=== PATIENT | male | born 1965 | race Two or more races ===

== ENCOUNTER → 2020-09-04 08:34 | Outpatient (BNVA) | payer OTHER, SELFPAY | PROVIDERS: PCP Nurse Practitioner Primary Care; Visit Provider Internal Medicine | DX: E11.65 Type 2 diabetes mellitus with hyperglycemia (principal); E78.5 Hyperlipidemia, unspecified; I10 Essential (primary) hypertension; E55.9 Vitamin D deficiency, unspecified | CPT/HCPCS: 82947 ==

== ENCOUNTER 2020-09-04 10:09 | Outpatient (REF) | payer OTHER, SELFPAY ==
[2020-09-04 14:51] LABS: Alanine Aminotransferase 186 U/L (0-40); Albumin Level 4.7 g/dL (3.5-5.0); Alkaline Phosphatase 224 U/L (39-117); Anion Gap 18 (12-20); Aspartate Amino Transferase 169 U/L (5-37); Blood Urea Nitrogen 17 mg/dL (9-16); Calcium 10.3 mg/dL (8.4-10.2); Carbon Dioxide 28 mmol/L (22-29); Chloride 92 mmol/L (96-108); Cholesterol 325 mg/dL; Estimated Glomerular Filt Rate > 60; Glucose Random 234 mg/dL (60-115); HDL Cholesterol 57 mg/dL; LDL Cholesterol Calculated 241 mg/dl; Potassium 3.9 mmol/L (3.3-5.1); Sodium 134 mmol/L (135-145); Total Protein 8.1 g/dL (6.5-8.0); Triglycerides 139 mg/dL
[2020-09-04 15:00] LABS: Creatinine Urine 60.95 mg/dL; Microalbum/Creatinine Ratio Ur 242.8 ug/mg cr
[2020-09-04 15:13] LABS: Free T4 (Free Thyroxine) 0.95 ng/dL (0.71-1.85); Thyroid Stimulating Hormone 2.07 uIU/mL (0.32-4.0); Vitamin D 25-OH Total 27.4 ng/mL (>30)
[2020-09-05 07:57] LABS: LDL Cholesterol Direct 259 mg/dL (<100)
[2020-09-05 09:11] LABS: C Peptide 2.36 ng/mL (0.80-3.85)
[2020-09-07 15:11] LABS: Glutamic acid decarboxylase Ab <5 IU/mL (<5)
[2020-09-10 02:16] LABS: Islet Cell Antibody Screen NEGATIVE (NEGATIVE)
[2020-09-10 17:12] LABS: Insulinoma associated 2 aatb <5.4 U/mL (<5.4)
== END 2020-09-04 10:10 | disposition home or self-care (01) ==
LOC: HO.10HDL 10:09
PROVIDERS: Visit Provider Internal Medicine
DX: E11.9 Type 2 diabetes mellitus without complications (principal); E55.9 Vitamin D deficiency, unspecified
CPT/HCPCS: 36415; 80053; 80061; 82043; 82306; 82947; 83721; 84439; 84443; 84681; 86255; 86341

== ENCOUNTER → 2020-09-18 09:19 | Outpatient (BNVA) | payer OTHER, SELFPAY | PROVIDERS: PCP Nurse Practitioner Primary Care; Visit Provider Internal Medicine ==

== ENCOUNTER → 2020-09-18 09:43 | Outpatient (BNVA) | payer SELFPAY | PROVIDERS: PCP Nurse Practitioner Primary Care; Visit Provider Internal Medicine | DX: Z02.79 Encounter for issue of other medical certificate (principal) ==

== ENCOUNTER 2020-09-28 16:09 | Emergency (ER) | payer OTHER, SELFPAY ==
--- NOTE | ~2020-09-28 | US_ITS ---
EXAMINATION: US SCROTUM WITH DOPPLER CLINICAL INFORMATION: 55-year-old male with right testicular pain and swelling.. COMPARISON: CT abdomen and pelvis from 09/28/2020. Scrotal ultrasound from 07/24/2011. TECHNIQUE: A sonogram of the scrotum was performed assessing roche-scale appearance and color Doppler flow. Spectral Doppler analysis of the arterial and venous flow were performed in the testes bilaterally. FINDINGS: Right: The testicle has normal echotexture. It measures 3.1 x 2 x 2.7 cm. No microlithiasis or mass. Color Doppler images with spectral waveforms show presence of normal arterial and venous flow within the testicle. Small hydrocele is present. The epididymal tail is moderately enlarged, heterogeneous, and hypervascular on color Doppler imaging. No varicocele. Left: The testicle has normal echotexture. It measures 3.2 x 2 x 2.3 cm. Small, 0.2 cm cyst of no appreciable clinical significance is present within the testicle. Small hydrocele is noted. The epididymis is normal. No varicocele. US/US scrotum doppler IMPRESSION: Findings are consistent with right-sided epididymitis.
--- NOTE | ~2020-09-28 | US_ITS ---
EXAMINATION: US SCROTUM WITH DOPPLER CLINICAL INFORMATION: 55-year-old male with right testicular pain and swelling.. COMPARISON: CT abdomen and pelvis from 09/28/2020. Scrotal ultrasound from 07/24/2011. TECHNIQUE: A sonogram of the scrotum was performed assessing roche-scale appearance and color Doppler flow. Spectral Doppler analysis of the arterial and venous flow were performed in the testes bilaterally. FINDINGS: Right: The testicle has normal echotexture. It measures 3.1 x 2 x 2.7 cm. No microlithiasis or mass. Color Doppler images with spectral waveforms show presence of normal arterial and venous flow within the testicle. Small hydrocele is present. The epididymal tail is moderately enlarged, heterogeneous, and hypervascular on color Doppler imaging. No varicocele. Left: The testicle has normal echotexture. It measures 3.2 x 2 x 2.3 cm. Small, 0.2 cm cyst of no appreciable clinical significance is present within the testicle. Small hydrocele is noted. The epididymis is normal. No varicocele. US/US scrotum IMPRESSION: Findings are consistent with right-sided epididymitis.
--- NOTE | ~2020-09-28 | CT_ITS ---
EXAMINATION: CT ABDOMEN AND PELVIS WITHOUT CONTRAST CLINICAL INFORMATION: hesitancy, suprapubic and testicular pain . COMPARISON: No pertinent prior studies are available for comparison. TECHNIQUE: Multidetector volumetric imaging was performed from the superior aspect of the liver through the pubic symphysis without contrast per renal stone protocol. Sagittal and coronal reformatted images were obtained on the technologist workstation. This CT examination was performed using dose optimization techniques as appropriate, variously including the following: *Automated exposure control *Adjustment of mA and/or kV according to patient size (this includes techniques or standardized protocols for targeted exams where dose is matched to indication/reason for exam; i.e. extremities or head) *Use of iterative reconstruction technique DLP: 663 mGy-cm. FINDINGS: LUNG BASES: The visualized lung bases are unremarkable. LIVER, GALLBLADDER, BILIARY TREE: The non-contrast liver is normal in size, shape, and attenuation. No focal hepatic lesion or biliary ductal dilatation is present. The gallbladder is contracted but otherwise unremarkable with no evidence of radiopaque gallstones, gallbladder wall thickening, or obvious pericholecystic inflammatory changes. PANCREAS: Unremarkable. SPLEEN: Unremarkable. ADRENAL GLANDS: Unremarkable. KIDNEYS AND URETERS: Low-attenuation 2 cm cyst in the lateral lower pole of the right kidney. Otherwise the kidneys are normal in size, shape, and attenuation. No hydronephrosis, hydroureter, or calculi seen. No perinephric stranding. BLADDER: Unremarkable. GASTROINTESTINAL TRACT: The small and large bowel are unremarkable. The appendix is unremarkable. ABDOMINAL WALL: Tiny fat-containing umbilical hernia LYMPHOVASCULAR STRUCTURES: Vascular calcification within the aorta iliac system. No bulky adenopathy. PELVIC VISCERA: Unremarkable. OSSEUS STRUCTURES: Unremarkable. CT/CT abdomen pelvis wo con IMPRESSION: No renal or ureteric calculi seen. No obstructive changes to the kidneys. Incidental right renal cyst.
[2020-09-28 16:34] VITALS: BP 120/78; PULSE 98; RESP 16; TEMP 36.7; O2SAT 99
[2020-09-28 16:47] LABS: MANUAL DIFF FLAG NO
[2020-09-28 16:48] LABS: Basophils Percent Auto 0.5 % (0-2); Eosinophils Absolute Auto 0.1 X10*3/uL (0.0-0.4); Eosinophils Percent Auto 1.6 % (0-4); Hematocrit 40.3 % (42-52); Hemoglobin 13.4 g/dl (14.0-18.0); Imm Gran Abs Auto 0.01 X10*3/uL (0.00-0.03); Imm Gran Pct Auto 0.2 % (0.0-0.4); Lymphocytes Absolute Auto 1.7 X10*3/uL (1.2-4.9); Lymphocytes Percent Auto 27.5 % (20-40); Mean Corpuscular HGB Conc 33.3 g/dl (31.0-36.0); Mean Corpuscular Hemoglobin 31.6 pg (27.0-33.0); Mean Platelet Volume 9.4 fL (9.4-12.4); Monocytes Absolute Auto 0.7 X10*3/uL (0.1-1.2); Monocytes Percent Auto 11.5 % (2-11); Neutrophils Absolute Auto 3.6 X10*3/uL (2.0-8.3); Neutrophils Percent Auto 58.7 % (45-73); Platelet Count 193 X10*3/uL (160-400); Red Blood Count 4.24 X10*6/uL (4.60-5.80); Red Cell Distribution Width 12.2 % (11.0-16.0); White Blood Count 6.1 X10*3/uL (4.8-10.8)
--- NOTE | 2020-09-28 17:13 | ED_ITS ---
HPI - Male Genitourinary General Chief complaint: Urogenital-Male Stated complaint: Right testicle pain/Difficulty voiding Time Seen by Provider: 09/28/20 16:58 Source: patient Mode of arrival: ambulatory Limitations: no limitations History of Present Illness HPI Narrative: 55-year-old male with past medical history of prior TURBT, transaminitis, type 1 diabetes, hypertension, hyperlipidemia presents with right-sided testicular pain radiating up to his abdomen. States that he has had this pain since Friday and the pain has gradually gotten worse. He is having a difficult time voiding, having hesitancy as well as pressure. He does not report any injuries, trauma, has no risk of sexually transmitted infection and denies abnormal penile discharge. He does not report fevers, chills, chest pain or pressure, palpitations, shortness of breath, abdominal distention, hematuria, nausea, vomiting, diarrhea, constipation, and edema. MD Complaint: testicle pain and testicle swelling Onset (ago): week(s) (1) Duration: constant Location: right testicle and right inguinal region Severity: severe Severity scale (1-10): 8 Quality: aching Relieving factors: none Exacerbating factors: urination, palpation, movement and bowel movement Associated symptoms: Reports denies other symptoms Related Data Sexually active: No Home Medications Medication Instructions Recorded Confirmed lisinopril 20 1 tab PO DAILY 09/04/20 09/18/20 mg-hydrochlorothiazide 25 mg tablet Previous Rx's Medication Instructions Recorded blood sugar diagnostic #100 ea 09/04/20 blood-glucose meter #1 ea 09/04/20 lancets 28 gauge #100 ea 09/04/20 pen needle, diabetic 32 gauge x #100 09/04/20 1/4 insulin glargine 100 unit/mL (3 12 unit SUBCUT QPM 30 Days #3.6 ml 09/18/20 mL) subcutaneous pen insulin lispro 100 unit/mL 5 unit SUBCUT TID 30 Days #4.5 ml 09/18/20 subcutaneous pen levofloxacin 500 mg PO DAILY 10 Days #10 tab 09/28/20 oxycodone 5 mg PO Q6H PRN #14 tab 09/28/20 Allergies Allergy/AdvReac Type Severity Reaction Status Date / Time aspirin Allergy Unknown Unknown. Verified 09/18/20 09:36 simvastatin Allergy Unknown rash Verified 09/18/20 09:36 No Known Allergies Allergy Verified 09/18/20 09:36 Review of Systems Review of Systems: Constitutional: No Fever, No Chills ENT/Mouth: No sore throat Eyes: No Eye Pain, No Swelling, No Redness Cardiovascular: No Chest Pain, No SOB Respiratory: No Cough, No Sputum, No Wheezing Gastrointestinal: positive Nausea, positive Vomiting, No Diarrhea, positive abdominal pain Genitourinary: Positive testicular pain, positive Dysuria, positive urinary frequency, positive Hematuria, no Flank Pain, positive hesitancy Musculoskeletal: No joint pain, No Myalgias Skin: No Skin Lesions, No rash Neuro: No Weakness, No Numbness, No Headache Psych: No Anxiety/Panic, No Depression Heme/Lymph: No Bruising, No Lymphadenopathy Endocrine: No Polyuria, No Polydipsia Yes all other systems are reviewed and are negative [facility] Past Medical History Attestation statement: The following information was validated with the patient. Source: old records reviewed Medical History HLD (hyperlipidemia) HTN (hypertension) T1DM (type 1 diabetes mellitus) Transaminitis Vitamin D deficiency Surgical History History of carpal tunnel release Hx of colonoscopy Family History Family History Mother Diabetes Hypertension Father Myocardial infarction Social History Social History Household Members: Spouse Alcohol intake: current Smoking Status: Current every day smoker Packs Per Day: 1.5 Years Smoked: 20 Smoked in Last 30 Days: Yes Use of substances other than those prescribed or required for medical reasons: No Advance Directives: No Advance Directives Information Provided: Yes Physical Exam Vital Signs: Vital Signs: Last Vital Signs Temp 98.0 F 09/28/20 16:34 Pulse 103 H 09/28/20 19:44 Resp 18 09/28/20 19:44 BP 151/61 H 09/28/20 19:44 Pulse Ox 100 09/28/20 19:44 Body Mass Index 8.9 Appearance: Alert. Oriented X3. No acute distress. Eyes: Pupils equal, round and reactive to light. ENT: Pharynx normal. Neck: Normal inspection. Neck supple. CVS: Normal heart rate and rhythm. Pulses normal. Respiratory: No respiratory distress. Breath sounds normal. Abdomen: Soft and nontender. Skin: Skin warm and dry. Normal skin color. Normal skin turgor. Extremities: No lower extremity edema. Neuro: No motor deficit. No sensory deficit. Course Course Course Narrative: 55-year-old male presents with right-sided testicular pain radiating up to his groin and abdomen. No reports of injury, or trauma. 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 Patient is in the hallway, cannot perform testicular exam at this time, patient does report that it is swollen on the right side and very tender to palpation. Will order ultrasound and CT scan of the abdomen. Ultrasound shows right-sided epididymitis, CT scan of the abdomen negative for acute findings requiring emergent intervention. Discussion with patient regarding plan, will treat as if this is an epididymitis stemming from a prostate problem, will treat with oxycodone for pain management and refer to Urology. Patient verbalized understanding of and agrees to plan of care discharge home. MDM - Male Genitourinary Differential Diagnosis Differential diagnosis: Likely urinary tract infection, urethritis, epididymitis, prostatitis and acute retention of urine Medical Records Attestation: I reviewed the patient's medical records. Lab Data Attestation: I reviewed the patient's lab results. Result diagrams: 09/28/20 16:39 09/28/20 16:39 Labs: Lab Results 09/28/20 09/28/20 09/28/20 Range/Units 16:39 16:39 18:47 WBC 6.1 (4.8-10.8) X10*3/uL RBC 4.24 L (4.60-5.80) X10*6/uL Hgb 13.4 L (14.0-18.0) g/dl Hct 40.3 L (42-52) % MCV 95.0 (80-98) fL MCH 31.6 (27.0-33.0) pg MCHC 33.3 (31.0-36.0) g/dl RDW 12.2 (11.0-16.0) % Plt Count 193 (160-400) X10*3/uL MPV 9.4 (9.4-12.4) fL Immature Gran % (Auto) 0.2 (0.0-0.4) % Neut % (Auto) 58.7 (45-73) % Lymph % (Auto) 27.5 (20-40) % Rowan % (Auto) 11.5 H (2-11) % Eos % (Auto) 1.6 (0-4) % Baso % (Auto) 0.5 (0-2) % Lymph # (Auto) 1.7 (1.2-4.9) X10*3/uL Rowan # (Auto) 0.7 (0.1-1.2) X10*3/uL Eos # (Auto) 0.1 (0.0-0.4) X10*3/uL Baso # (Auto) 0.0 (0.0-0.2) X10*3/uL Abs Immat Gran (auto) 0.01 (0.00-0.03) X10*3/uL Absolute Neuts (auto) 3.6 (2.0-8.3) X10*3/uL Absolute Nucleated RBC 0.000 (0.0-0.012) X10*3/uL Nucleated RBC % (auto) 0.0 (0.0-0.2) /100WBC Sodium 135 (135-145) mmol/L Potassium 4.4 (3.3-5.1) mmol/L Chloride 98 (96-108) mmol/L Carbon Dioxide 25 (22-29) mmol/L Anion Gap 16 (12-20) BUN 13 (9-16) mg/dL Creatinine 0.97 (0.5-1.4) mg/dL Estim Creat Clear Calc 33.9 Estimated GFR > 60 Random Glucose 229 H (60-115) mg/dL Calcium 9.8 (8.4-10.2) mg/dL Urine Color YELLOW Urine Appearance HAZY Urine pH 5.5 (5.0-8.0) Ur Specific [place] >= 1.030 H (1.005-1.025) Urine Protein TRACE (NEG-TRACE) MG/DL Urine Glucose (UA) 250 H (NEG) MG/DL Urine Ketones 15 (NEG) MG/DL Urine Blood 3+ H (NEG) Urine Nitrite NEG (NEG) Ur Leukocyte Esterase 1+ H (NEG) Urine RBC 50-75 H (0) /HPF Urine WBC 15-29 H (0-4) /HPF Ur Squamous Epith Cells NONE /LPF Urine Bacteria 1+ /LPF Urine Test (NEGATIVE) 09/28/20 Range/Units 18:47 WBC (4.8-10.8) X10*3/uL RBC (4.60-5.80) X10*6/uL Hgb (14.0-18.0) g/dl Hct (42-52) % MCV (80-98) fL MCH (27.0-33.0) pg MCHC (31.0-36.0) g/dl RDW (11.0-16.0) % Plt Count (160-400) X10*3/uL MPV (9.4-12.4) fL Immature Gran % (Auto) (0.0-0.4) % Neut % (Auto) (45-73) % Lymph % (Auto) (20-40) % Rowan % (Auto) (2-11) % Eos % (Auto) (0-4) % Baso % (Auto) (0-2) % Lymph # (Auto) (1.2-4.9) X10*3/uL Rowan # (Auto) (0.1-1.2) X10*3/uL Eos # (Auto) (0.0-0.4) X10*3/uL Baso # (Auto) (0.0-0.2) X10*3/uL Abs Immat Gran (auto) (0.00-0.03) X10*3/uL Absolute Neuts (auto) (2.0-8.3) X10*3/uL Absolute Nucleated RBC (0.0-0.012) X10*3/uL Nucleated RBC % (auto) (0.0-0.2) /100WBC Sodium (135-145) mmol/L Potassium (3.3-5.1) mmol/L Chloride (96-108) mmol/L Carbon Dioxide (22-29) mmol/L Anion Gap (12-20) BUN (9-16) mg/dL Creatinine (0.5-1.4) mg/dL Estim Creat Clear Calc Estimated GFR Random Glucose (60-115) mg/dL Calcium (8.4-10.2) mg/dL Urine Color Urine Appearance Urine pH (5.0-8.0) Ur Specific [place] (1.005-1.025) Urine Protein (NEG-TRACE) MG/DL Urine Glucose (UA) (NEG) MG/DL Urine Ketones (NEG) MG/DL Urine Blood (NEG) Urine Nitrite (NEG) Ur Leukocyte Esterase (NEG) Urine RBC (0) /HPF Urine WBC (0-4) /HPF Ur Squamous Epith Cells /LPF Urine Bacteria /LPF Urine Test NEGATIVE (NEGATIVE) Imaging Data Scrotal ultrasound: Attestation: I personally reviewed and interpreted this imaging study as follows: Radiologist's impression: EXAMINATION: US SCROTUM WITH DOPPLER CLINICAL INFORMATION: 55-year-old male with right testicular pain and swelling.. COMPARISON: CT abdomen and pelvis from 09/28/2020. Scrotal ultrasound from 07/24/2011. TECHNIQUE: A sonogram of the scrotum was performed assessing roche-scale appearance and color Doppler flow. Spectral Doppler analysis of the arterial and venous flow were performed in the testes bilaterally. FINDINGS: Right: The testicle has normal echotexture. It measures 3.1 x 2 x 2.7 cm. No microlithiasis or mass. Color Doppler images with spectral waveforms show presence of normal arterial and venous flow within the testicle. Small hydrocele is present. The epididymal tail is moderately enlarged, heterogeneous, and hypervascular on color Doppler imaging. No varicocele. Left: The testicle has normal echotexture. It measures 3.2 x 2 x 2.3 cm. Small, 0.2 cm cyst of no appreciable clinical significance is present within the testicle. Small hydrocele is noted. The epididymis is normal. No varicocele. US/US scrotum IMPRESSION: Findings are consistent with right-sided epididymitis. CT scan - abdomen: Attestation: I personally reviewed and interpreted this imaging study as follows: Radiologist's impression: EXAMINATION: CT ABDOMEN AND PELVIS WITHOUT CONTRAST CLINICAL INFORMATION: hesitancy, suprapubic and testicular pain . COMPARISON: No pertinent prior studies are available for comparison. TECHNIQUE: Multidetector volumetric imaging was performed from the superior aspect of the liver through the pubic symphysis without contrast per renal stone protocol. Sagittal and coronal reformatted images were obtained on the technologist workstation. This CT examination was performed using dose optimization techniques as appropriate, variously including the following: *Automated exposure control *Adjustment of mA and/or kV according to patient size (this includes techniques or standardized protocols for targeted exams where dose is matched to indication/reason for exam; i.e. extremities or head) *Use of iterative reconstruction technique DLP: 663 mGy-cm. FINDINGS: LUNG BASES: The visualized lung bases are unremarkable. LIVER, GALLBLADDER, BILIARY TREE: The non-contrast liver is normal in size, shape, and attenuation. No focal hepatic lesion or biliary ductal dilatation is present. The gallbladder is contracted but otherwise unremarkable with no evidence of radiopaque gallstones, gallbladder wall thickening, or obvious pericholecystic inflammatory changes. PANCREAS: Unremarkable. SPLEEN: Unremarkable. ADRENAL GLANDS: Unremarkable. KIDNEYS AND URETERS: Low-attenuation 2 cm cyst in the lateral lower pole of the right kidney. Otherwise the kidneys are normal in size, shape, and attenuation. No hydronephrosis, hydroureter, or calculi seen. No perinephric stranding. BLADDER: Unremarkable. GASTROINTESTINAL TRACT: The small and large bowel are unremarkable. The appendix is unremarkable. ABDOMINAL WALL: Tiny fat-containing umbilical hernia LYMPHOVASCULAR STRUCTURES: Vascular calcification within the aorta iliac system. No bulky adenopathy. PELVIC VISCERA: Unremarkable. OSSEUS STRUCTURES: Unremarkable. CT/CT abdomen pelvis wo con IMPRESSION: No renal or ureteric calculi seen. No obstructive changes to the kidneys. Incidental right renal cyst. Discharge Plan Discharge Clinical Impression: Epididymitis Patient Disposition: Home, Self-Care Instructions: Epididymitis (ED), Testicle Pain (ED), Scrotal Pain (ED) Additional Instructions: You were evaluated for right-sided testicular pain. Scrotal ultrasound shows right-sided epididymitis, no indication of infection to the left testicle. CT scan of the abdomen is negative for acute findings requiring emergent intervention. Please follow-up with Urology. I referred you to Dr. Gonzalez. Please call and request an appointment. Please tell the office that you have epididymitis you are being treated with Levaquin and oxycodone. Please return to the emergency department immediately if you are unable to urinate as this is a medical emergency. Thank you for choosing this emergency department for evaluation. Please f ollow-up with primary care physician as needed. Return to the emergency department for any new, concerning, or worsening symptoms. Prescriptions: New levofloxacin 500 mg tablet 500 mg PO DAILY 10 Days Qty: 10 RF: 0 oxycodone 5 mg tablet 5 mg PO Q6H PRN (Reason: pain) Qty: 14 RF: 0 No Action Lantus Solostar U-100 Insulin 100 unit/mL (3 mL) insulin pen 12 unit subcut QPM 30 Days Qty: 3.6 RF: 11 insulin lispro [Humalog KwikPen Insulin] 100 unit/mL insulin pen 5 unit subcut TID 30 Days Qty: 4.5 RF: 11 lisinopril-hydrochlorothiazide 20-25 mg tablet 1 tab PO DAILY RF: 0 (DME) pen needle, diabetic [BD Ultra-Fine Micro Pen Needle] 32 gauge x 1/4 needle See Rx Instructions .ROUTE .MEDSUPPLY Qty: 100 RF: 11 (DME) FreeStyle Lite Strips Strip See Rx Instructions .ROUTE .MEDSUPPLY Qty: 100 RF: 11 (DME) lancets [FreeStyle Lancets] 28 gauge misc See Rx Instructions .ROUTE .MEDSUPPLY Qty: 100 RF: 11 (DME) blood-glucose meter [FreeStyle Lite Meter] Kit See Rx Instructions .ROUTE .MEDSUPPLY Qty: 1 RF: 0 Referrals: Ren Gonzalez MD [Physician] - 2 days (Epididymitis) Stand Alone Forms: Work/School Release Interventions: ED Discharge Assessment Last Done: 09/28/20 19:51 Discharge Date/Time: 09/28/20 19:55
[2020-09-28 17:16] LABS: Anion Gap 16 (12-20); Blood Urea Nitrogen 13 mg/dL (9-16); Calcium 9.8 mg/dL (8.4-10.2); Carbon Dioxide 25 mmol/L (22-29); Chloride 98 mmol/L (96-108); Creatinine Clr Calc Pharmacy 33.9; Estimated Glomerular Filt Rate > 60; Glucose Random 229 mg/dL (60-115); Potassium 4.4 mmol/L (3.3-5.1); Sodium 135 mmol/L (135-145)
[2020-09-28 18:58] LABS: Appearance Urine HAZY; Color Urine YELLOW; Glucose Urine UA 250 MG/DL (NEG); Leukocyte Esterase Urine 1+ (NEG); Nitrite Urine NEG (NEG); PH 5.5 (5.0-8.0); Specific Gravity - Urine >= 1.030 (1.005-1.025); UACC Culture Trigger YES; Urine Blood 3+ (NEG); Urine Ketones 15 MG/DL (NEG); Urine Protein TRACE MG/DL (NEG-TRACE)
[2020-09-28 19:04] LABS: Bacteria Urine 1+ /LPF; RBC Urine 50-75 /HPF (0)
[2020-09-28 19:33] LABS: UPreg QC Valid YES; Urine Pregnancy NEGATIVE (NEGATIVE)
[2020-09-28] MEDS: oxyCODONE HCl Immed Release 5 MG TABLET PO (19:37)
[2020-09-28] MEDS: levoFLOXacin 750 MG TABLET 500 MG PO (19:38)
[2020-09-28 19:44] VITALS: BP 151/61; PULSE 103; RESP 18; O2SAT 100
== END 2020-09-28 19:55 | disposition home or self-care (01) ==
PROVIDERS: Nurse Practitioner Family; Emergency Provider Internal Medicine
DX: N45.1 Epididymitis (principal); N50.811 Right testicular pain; I10 Essential (primary) hypertension; F17.210 Nicotine dependence, cigarettes, uncomplicated; Z79.899 Other long term (current) drug therapy; Z71.6 Tobacco abuse counseling
CPT/HCPCS: 36415; 74176; 76870; 80048; 81001; 81003; 81025; 85025; 87086; 93975; 99284

== ENCOUNTER 2020-10-02 10:54 | Emergency (ER) | payer OTHER, SELFPAY ==
[2020-10-02 11:12] VITALS: BP 116/78; PULSE 98; RESP 18; TEMP 36.1; O2SAT 100; BMI 23.6
--- NOTE | 2020-10-02 11:25 | ED_ITS ---
HPI - General Adult General Chief complaint: General Medical Stated complaint: med refill Time Seen by Provider: 10/02/20 11:10 Source: patient Mode of arrival: ambulatory Limitations: no limitations History of Present Illness HPI narrative: Patient presents to ED requesting more pain meds. Patient recently diagnosed with epididymitis and taking oxycodone requesting short term disablity papers to be filled out and requesting more pain meds to hold him until his appointment with Dr. Gonzalez. patient states testicular pain has not worsened. He states he is only able to take percocet once a day, because if he takes more than one perocet he begins to get jittery and not able to sleep at night. Related Data Home Medications Medication Instructions Recorded Confirmed lisinopril 20 1 tab PO DAILY 09/04/20 09/18/20 mg-hydrochlorothiazide 25 mg tablet Previous Rx's Medication Instructions Recorded blood sugar diagnostic #100 ea 09/04/20 blood-glucose meter #1 ea 09/04/20 lancets 28 gauge #100 ea 09/04/20 pen needle, diabetic 32 gauge x #100 ea 09/04/20 1/ insulin glargine 100 unit/mL (3 12 unit SUBCUT QPM 30 Days #3.6 ml 09/18/20 mL) subcutaneous pen insulin lispro 100 unit/mL 5 unit SUBCUT TID 30 Days #4.5 ml 09/18/20 subcutaneous pen levofloxacin 500 mg PO DAILY 10 Days #10 tab 09/28/20 oxycodone 5 mg PO Q6H PRN #14 tab 09/28/20 naproxen 500 mg PO BID PRN #20 tab 10/02/20 Allergies Allergy/AdvReac Type Severity Reaction Status Date / Time aspirin Allergy Unknown Unknown. Verified 10/02/20 11:15 simvastatin Allergy Unknown rash Verified 10/02/20 11:15 No Known Allergies Allergy Verified 10/02/20 11:15 Review of Systems Review of Systems: Yes all other systems are reviewed and are negative Constitutional: Constitutional: Reports as per HPI and Reports no additional constitutional complaints Eyes: Eyes: Reports as per HPI and Reports no additional eye complaints ENT: Reports system reviewed and no additional complaints, except as documented and Reports as per HPI Cardiovascular: Cardiovascular: Reports as per HPI and Reports no additional cardiovascular complaints Respiratory: Respiratory: Reports as per HPI and Reports no additional respiratory complaints Gastrointestinal: Gastrointestinal: Reports as per HPI and Reports no additional gastrointestinal complaints Genitourinary: Genitourinary: Reports no additional male genitourinary complaints and Reports as per HPI Musculoskeletal: Musculoskeletal: Reports no additional musculoskeletal complaints and Reports as per HPI Neurologic: Reports system reviewed and no additional complaints, except as documented and Reports as per HPI Psychiatric: Psychiatric: Reports no additional psychiatric complaints and Reports as per HPI [facility] Past Medical History Medical History HLD (hyperlipidemia) HTN (hypertension) T1DM (type 1 diabetes mellitus) Transaminitis Vitamin D deficiency Surgical History History of carpal tunnel release Hx of colonoscopy Family History Family History Mother Diabetes Hypertension Father Myocardial infarction Social History Social History Household Members: Spouse Alcohol intake: current Smoking Status: Current every day smoker Packs Per Day: 1.5 Years Smoked: 20 Advance Directives: No Advance Directives Information Provided: Yes Physical Exam Vital Signs: Vital Signs: Last Vital Signs Temp 97.0 F 10/02/20 11:12 Pulse 98 10/02/20 11:12 Resp 18 10/02/20 11:12 BP 116/78 10/02/20 11:12 Pulse Ox 100 10/02/20 11:12 Body Mass Index 23.6 Const: General: cooperative, healthy appearing, comfortable, no acute distress, well developed, alert and awake Orientation/consciousness: patient oriented x3 HENMT: Head: Yes normal to inspection, Yes No palpable skull fracture present, Yes normocephalic and Yes atraumatic Eyes: General: appearance normal, both eyes and all related structures Neck: Neck: Yes normal visual inspection, Yes full ROM, Yes no lymphadenopathy, Yes no meningeal signs, Yes trachea midline, Yes supple and No tender Chest: Chest palpation & inspection: normal inspection of the chest and normal palpation of entire chest wall Resp: Effort & Inspection: normal respiratory effort and able to speak in complete sentences Auscultation: clear to auscultation bilaterally Cardio: Jugular venous distension: no JVD Heart sounds: S1 normal heart sound present and S2 normal heart sound present GI: Inspection: Yes normal to inspection and No abdominal wall ecchymosis Palpation (GI): not firm, nontender, no guarding and not rigid : General: No CVA tenderness and Yes no CVA tenderness Back/Spine/Pelvis: Back: no CVA tenderness, No CVA tenderness and No back tenderness Skin: General skin exam: no rashes or lesions noted and elasticity normal Neuro: General: patient oriented x3, no meningeal signs and CN's II-XI intact bilaterally Cranial nerves: Yes CN's II-XII intact bilaterally Extrem: General: Yes normal to inspection and Yes full ROM Psych: Appearance: grossly normal, well kempt and not disheveled Course Course Course Narrative: No need for repeat imaging or labs. Patient denies any distress. Reevaluation(s) Reevaluation #1: Patient will be discharged with naproxen. Patient states able to take NSAIDs. I informed patient I will not be able to fill out his FMLA or short-term disability paperwork and that should be done by his primary care provider. Medical Decision Making MDM Narrative Medical decision making narrative: Indication refill Discharge Plan Discharge Clinical Impression: Medication refill Patient Disposition: Home, Self-Care Instructions: Medicine Refill (ED) Additional Instructions: Return to ED for worsening testicular pain, abdominal pain, nausea, vomiting, r edness on testicles, fever, chill, lesions, pus, foul odor, severe swelling, or any other concerning symptoms. Make sure you keep your appointment with Dr. Gonzalez on the th of this month. Prescriptions: New naproxen 500 mg tablet 500 mg PO BID PRN (Reason: pain) Qty: 20 RF: 0 No Action levofloxacin 500 mg tablet 500 mg PO DAILY 10 Days Qty: 10 RF: 0 oxycodone 5 mg tablet 5 mg PO Q6H PRN (Reason: pain) Qty: 14 RF: 0 Lantus Solostar U-100 Insulin 100 unit/mL (3 mL) insulin pen 12 unit subcut QPM 30 Days Qty: 3.6 RF: 11 insulin lispro [Humalog KwikPen Insulin] 100 unit/mL insulin pen 5 unit subcut TID 30 Days Qty: 4.5 RF: 11 lisinopril-hydrochlorothiazide 20-25 mg tablet 1 tab PO DAILY RF: 0 (DME) pen needle, diabetic [BD Ultra-Fine Micro Pen Needle] 32 gauge x 1/4 needle See Rx Instructions .ROUTE .MEDSUPPLY Qty: 100 RF: 11 (DME) FreeStyle Lite Strips Strip See Rx Instructions .ROUTE .MEDSUPPLY Qty: 100 RF: 11 (DME) lancets [FreeStyle Lancets] 28 gauge misc See Rx Instructions .ROUTE .MEDSUPPLY Qty: 100 RF: 11 (DME) blood-glucose meter [FreeStyle Lite Meter] Kit See Rx Instructions .ROUTE .MEDSUPPLY Qty: 1 RF: 0 Stand Alone Forms: Work/School Release Interventions: ED Discharge Assessment Last Done: 10/02/20 11:54 Discharge Date/Time: 10/02/20 12:01 Print Language: Eritrean
== END 2020-10-02 12:01 | disposition home or self-care (01) ==
PROVIDERS: Emergency Provider Emergency Medicine; PCP Internal Medicine Geriatric Medicine
DX: Z76.0 Encounter for issue of repeat prescription (principal); N45.1 Epididymitis; E10.9 Type 1 diabetes mellitus without complications; I10 Essential (primary) hypertension; E78.5 Hyperlipidemia, unspecified; F17.210 Nicotine dependence, cigarettes, uncomplicated
CPT/HCPCS: 99282; 99283

== ENCOUNTER → 2020-10-19 08:42 | Outpatient (BNVA) | payer OTHER, SELFPAY | PROVIDERS: PCP Internal Medicine Geriatric Medicine; Visit Provider Urology ==

== ENCOUNTER → 2020-11-20 09:16 | Outpatient (BNVA) | payer OTHER, SELFPAY | PROVIDERS: PCP Internal Medicine Geriatric Medicine; Visit Provider Dietitian, Registered | DX: E10.65 Type 1 diabetes mellitus with hyperglycemia (principal) | CPT/HCPCS: 97802 ==

== ENCOUNTER → 2021-01-01 10:28 | Outpatient (BNVA) | payer OTHER, SELFPAY | PROVIDERS: PCP Internal Medicine Geriatric Medicine; Visit Provider Dietitian, Registered | DX: E10.65 Type 1 diabetes mellitus with hyperglycemia (principal) | CPT/HCPCS: 97803 ==

== ENCOUNTER 2021-03-26 12:18 | Outpatient (REF) | payer OTHER, SELFPAY ==
[2021-03-26 14:36] LABS: Creatinine Urine 199.05 mg/dL
[2021-03-26 14:44] LABS: Alanine Aminotransferase 103 U/L (0-40); Albumin Level 4.5 g/dL (3.5-5.0); Alkaline Phosphatase 114 U/L (39-117); Anion Gap 17 (12-20); Aspartate Amino Transferase 119 U/L (5-37); Bilirubin Total 0.4 mg/dL (0.0-1.0); Blood Urea Nitrogen 10 mg/dL (9-16); Calcium 9.5 mg/dL (8.4-10.2); Carbon Dioxide 25 mmol/L (22-29); Chloride 104 mmol/L (96-108); Cholesterol 281 mg/dL; Estimated Glomerular Filt Rate > 60; Glucose Random 99 mg/dL (60-115); HDL Cholesterol 53 mg/dL; LDL Cholesterol Calculated 203 mg/dl; Potassium 3.7 mmol/L (3.3-5.1); Sodium 142 mmol/L (135-145); Total Protein 7.6 g/dL (6.5-8.0); Triglycerides 129 mg/dL
[2021-03-27 11:36] LABS: LDL Cholesterol Direct 211 mg/dL (<100)
== END 2021-03-26 12:19 | disposition home or self-care (01) ==
LOC: HO.LAB 12:18
PROVIDERS: PCP Internal Medicine Geriatric Medicine; Visit Provider Internal Medicine
DX: E10.65 Type 1 diabetes mellitus with hyperglycemia (principal); E78.5 Hyperlipidemia, unspecified; E55.9 Vitamin D deficiency, unspecified; I10 Essential (primary) hypertension
CPT/HCPCS: 36415; 80053; 80061; 82947; 83036; 83721

== ENCOUNTER 2021-05-22 08:53 | Emergency (ER) | payer OTHER, SELFPAY ==
--- NOTE | ~2021-05-22 | US_ITS ---
EXAMINATION: US ABDOMEN LIMITED CLINICAL INFORMATION: Upper abdominal and epigastric pain. COMPARISON: Prior CT abdomen and pelvis 09/28/2020 and prior ultrasound abdomen 06/02/2019 TECHNIQUE: Real-time imaging of the right upper quadrant abdominal viscera. FINDINGS: PANCREAS: The pancreas is obscured by midline bowel gas although there is increased conspicuity of the pancreatic duct at 2 mm. LIVER: Liver is enlarged at 18 cm cephalocaudad and echogenic compatible with steatosis . There are no focal hepatic lesions or intrahepatic biliary dilatation GALLBLADDER: Normal. The gallbladder is physiologically distended without evidence of stones, sludge, polyps, wall thickening or pericholecystic fluid. COMMON BILE DUCT: Normal in caliber measuring 0.2 cm in diameter. RIGHT KIDNEY: There is an interpolar cyst at 21 x 20 x 22 mm . No hydronephrosis. No renal calculi or focal solid parenchymal lesions. The kidney measures 11.0 cm in maximum dimension. FREE FLUID: None. US/US abdomen limited IMPRESSION: Enlarged echogenic liver compatible with steatosis
[2021-05-22 08:58] VITALS: BP 162/81; PULSE 125; RESP 22; TEMP 36.1; O2SAT 96; BMI 23.6
[2021-05-22 10:00] VITALS: BP 178/98; PULSE 105; RESP 14; TEMP 37.1; O2SAT 100
--- NOTE | 2021-05-22 10:31 | ECG_ITS ---
Test Reason : tachycardia Blood Pressure : / mmHG Vent. Rate : 107 BPM Atrial Rate : 107 BPM P-R Int : 136 ms QRS Dur : 082 ms QT Int : 352 ms P-R-T Axes : 073 029 037 degrees QTc Int : 469 ms Sinus tachycardia Otherwise normal ECG When compared to the previous EKG of No significant changes seen Referred By: Jenny Garland Electronically Signed By:Wilmer Geiger
--- NOTE | 2021-05-22 10:32 | ED_ITS ---
HPI - Abdominal Pain General Chief Complaint: Abdominal Pain Stated Complaint: COVID Symptoms Time Seen by Provider: 05/22/21 10:24 Source: patient Mode of arrival: ambulatory Limitations: no limitations History of Present Illness HPI narrative: patient comes emergency room complaining of bilateral lower quadrant cramping, nausea, vomiting. Patient states the symptoms have been present for 1 week. Patient states that he initially had some episodes of diarrhea but no longer has diarrhea. Patient complaining of nausea and vomiting, unable to keep any food or liquids down. Patient states that his told him that his urine stinks. patient denies fever. Patient complaining of generalized weakness and fatigue. Patient states that he has been tachycardic at times. Related Data Home Medications Medication Instructions Recorded Confirmed lisinopril 20 1 tab PO DAILY 09/04/20 03/26/21 mg-hydrochlorothiazide 25 mg tablet ergocalciferol (vitamin D2) 1,250 1,250 mcg PO QWEEK 10/19/20 03/26/21 mcg (50,000 unit) capsule thiamine HCl (vitamin B1) 100 mg 100 mg PO QAM 10/19/20 03/26/21 tablet Previous Rx's Medication Instructions Recorded blood-glucose meter (FreeStyle #1 ea 09/04/20 Lite Meter) lancets 28 gauge (FreeStyle #100 ea 09/04/20 Lancets) levofloxacin 500 mg tablet 500 mg PO DAILY 10 Days #10 tab 09/28/20 oxycodone 5 mg tablet 5 mg PO Q6H PRN #14 tab 09/28/20 naproxen 500 mg tablet 500 mg PO BID PRN #20 tab 10/02/20 tadalafil 10 mg tablet 10 mg PO DAILY 90 Days #90 tab 10/19/20 pen needle, diabetic 32 gauge x #150 ea 10/20/2005/29 (BD Ultra-Fine Micro Pen Needle) blood sugar diagnostic (FreeStyle #100 ea 01/17/21 Lite Strips) Humalog KwikPen Insulin 100 16 unit (0.16 mL) SUBCUT TID 30 04/04/21 unit/mL subcutaneous (insulin Days #15 ml NS lispro) insulin glargine 100 unit/mL (3 30 unit (0.3 mL) SUBCUT QPM 30 04/05/21 mL) subcutaneous pen (Lantus Days #9 ml Solostar U-100 Insulin) prochlorperazine maleate 5 mg 5 mg PO TID PRN #10 tab 05/22/21 tablet (Compazine) Allergies Allergy/AdvReac Type Severity Reaction Status Date / Time aspirin Allergy Unknown Unknown. Verified 05/22/21 08:57 simvastatin Allergy Unknown rash Verified 05/22/21 08:57 No Known Allergies Allergy Verified 03/26/21 12:42 Review of Systems Review of Systems Constitutional : No Weight loss, No Fever, No Chills, No Night Sweats, Complaining of fatigue and generalized malaise, weakness ENT/Mouth : No Hearing loss, No Ear Pain, No Nasal Congestion, No Sinus Pain, No Hoarseness, No sore throat, No Rhinorrhea, No Swallowing Difficulty Eyes: No Eye Pain, No Swelling, No Redness, No Foreign Body, No Discharge, No Vision Changes Cardiovascular : No Chest Pain, No SOB, No Dyspnea on Exertion, No Orthopnea, No Edema, No Palpitations Respiratory : No Cough, No Sputum, No Wheezing, No Smoke Exposure, No Dyspnea Gastrointestinal : complaining of nausea, vomiting, resolved episode of diarrhea.No Constipation, Complaining of bilateral lower quadrant discomfort, No Hematochezia, No Melena Genitourinary : no irregular bleeding, No Dysuria, No Urinary Frequency, No Hematuria, No Urinary Incontinence, No Urgency, No Flank Pain, No Urinary Flow Changes, No Hesitancy Musculoskeletal : No joint pain, No Myalgias, No Joint Swelling Skin : No Skin Lesions, No rash Neuro : No Weakness, No Numbness, No Paresthesias, No Loss of Consciousness, No Dizziness, No Headache Psych : No Anxiety/Panic, No Depression, No SI/HI/AH/VH, No Social Issues, Heme/Lymph: No Bruising, No Bleeding,No Lymphadenopathy Endocrine : No Polyuria, No Polydipsia, No Temperature Intolerance Physical Exam Vital Signs: Vital Signs: Last Vital Signs Temp 98.8 F 05/22/21 10:00 Pulse 101 H 05/22/21 14:39 Resp 18 05/22/21 14:39 BP 156/92 H 05/22/21 14:39 Pulse Ox 98 05/22/21 14:39 BMI result Body Mass Index 23.6 Const: Other: Appearance: Alert. Oriented X3. No acute distress. Eyes: Pupils equal, round and reactive to light. ENT: Pharynx normal. Neck: Normal inspection. Neck supple. No lymph nodes noted. No crepitus CVS: Normal heart rate and rhythm. Pulses normal. Normal S1 and S2 Respiratory: No respiratory distress. Breath sounds normal. No Wheezing. No rales Abdomen: Soft , no significant tenderness on palpation in abdomen in all quadrants, No rigidity. No distention. Skin: Skin warm and dry. Normal skin color. Normal skin turgor. Extremities: No lower extremity edema. No lower extremity edema. No L acerations. No Rash Neuro: Oriented X 3. No motor deficit. No sensory deficit. Moving all extermit ies. No slurred speech. Course Course Course Narrative: labs pending, patient getting IV fluids, IV Compazine. patient had good results with IV Compazine. Patient no longer having vomiting, this time no abdominal pain. Ultrasound did not show any acute pathology. MDM - Abdominal Pain Lab Data Result diagrams: 05/22/21 10:44 05/22/21 10:44 Labs: Lab Results 05/22/21 05/22/21 05/22/21 Range/Units 10:39 10:44 10:44 WBC 4.0 L (4.8-10.8) X10*3/uL RBC 4.48 L (4.60-5.80) X10*6/uL Hgb 14.1 (14.0-18.0) g/dl Hct 40.2 L (42.0-52.0) % MCV 89.7 (80.0-98.0) fL MCH 31.5 (27.0-33.0) pg MCHC 35.1 (31.0-36.0) g/dl RDW 13.5 (11.0-16.0) % Plt Count 119 L (160-400) X10*3/uL MPV 9.9 (9.4-12.4) fL Immature Gran % (Auto) 0.2 (0.0-0.4) % Neut % (Auto) 74.6 H (45-73) % Lymph % (Auto) 11.6 L (20-40) % Anderson % (Auto) 13.1 H (2-11) % Eos % (Auto) 0.0 (0-4) % Baso % (Auto) 0.5 (0-2) % Lymph # (Auto) 0.5 L (1.2-4.9) X10*3/uL Anderson # (Auto) 0.5 (0.1-1.2) X10*3/uL Eos # (Auto) 0.0 (0.0-0.4) X10*3/uL Baso # (Auto) 0.0 (0.0-0.2) X10*3/uL Abs Immat Gran (auto) 0.01 (0.00-0.03) X10*3/uL Absolute Neuts (auto) 3.0 (2.0-8.3) x10*3/uL Absolute Nucleated RBC 0.000 (0.0-0.012) X10*3/uL Nucleated RBC % (auto) 0.0 (0.0-0.2) /100WBC Sodium 139 (135-145) mmol/L Potassium 3.8 (3.3-5.1) mmol/L Chloride 94 L (96-108) mmol/L Carbon Dioxide 27 (22-29) mmol/L Anion Gap 22 H (12-20) BUN 10 (9-16) mg/dL Creatinine 1.14 (0.5-1.4) mg/dL Estim Creat Clear Calc 77.3 Estimated GFR > 60 Random Glucose 283 H D (60-115) mg/dL Calcium 9.8 (8.4-10.2) mg/dL Total Bilirubin 1.8 H (0.0-1.0) mg/dL Direct Bilirubin 1.0 H (0.0-0.5) mg/dL AST 176 H (5-37) U/L ALT 162 H (0-40) U/L Alkaline Phosphatase 147 H D (39-117) U/L Total Protein 8.2 H (6.5-8.0) g/dL Albumin 4.3 (3.5-5.0) g/dL Lipase 46 (8-78) U/L Urine Color Urine Appearance Urine pH (5.0-8.0) Ur Specific [place] (1.005-1.025) Urine Protein (NEG-TRACE) MG/DL Urine Glucose (UA) (NEG) MG/DL Urine Ketones (NEG) MG/DL Urine Blood (NEG) Urine Nitrite (NEG) Ur Leukocyte Esterase (NEG) Urine RBC (0) /HPF Urine WBC (0-4) /HPF Ur Squamous Epith Cells /LPF Urine Bacteria /LPF Urine Mucus /LPF COVID-19 (TAMARA) Negative (Negative) COVID-19 Clin Com See Note 05/22/21 Range/Units 11:03 WBC (4.8-10.8) X10*3/uL RBC (4.60-5.80) X10*6/uL Hgb (14.0-18.0) g/dl Hct (42.0-52.0) % MCV (80.0-98.0) fL MCH (27.0-33.0) pg MCHC (31.0-36.0) g/dl RDW (11.0-16.0) % Plt Count (160-400) X10*3/uL MPV (9.4-12.4) fL Immature Gran % (Auto) (0.0-0.4) % Neut % (Auto) (45-73) % Lymph % (Auto) (20-40) % Anderson % (Auto) (2-11) % Eos % (Auto) (0-4) % Baso % (Auto) (0-2) % Lymph # (Auto) (1.2-4.9) X10*3/uL Anderson # (Auto) (0.1-1.2) X10*3/uL Eos # (Auto) (0.0-0.4) X10*3/uL Baso # (Auto) (0.0-0.2) X10*3/uL Abs Immat Gran (auto) (0.00-0.03) X10*3/uL Absolute Neuts (auto) (2.0-8.3) x10*3/uL Absolute Nucleated RBC (0.0-0.012) X10*3/uL Nucleated RBC % (auto) (0.0-0.2) /100WBC Sodium (135-145) mmol/L Potassium (3.3-5.1) mmol/L Chloride (96-108) mmol/L Carbon Dioxide (22-29) mmol/L Anion Gap (12-20) BUN (9-16) mg/dL Creatinine (0.5-1.4) mg/dL Estim Creat Clear Calc Estimated GFR Random Glucose (60-115) mg/dL Calcium (8.4-10.2) mg/dL Total Bilirubin (0.0-1.0) mg/dL Direct Bilirubin (0.0-0.5) mg/dL AST (5-37) U/L ALT (0-40) U/L Alkaline Phosphatase (39-117) U/L Total Protein (6.5-8.0) g/dL Albumin (3.5-5.0) g/dL Lipase (8-78) U/L Urine Color YELLOW Urine Appearance CLEAR Urine pH 6.0 (5.0-8.0) Ur Specific [place] >= 1.030 H (1.005-1.025) Urine Protein 2+ H (NEG-TRACE) MG/DL Urine Glucose (UA) 500 H (NEG) MG/DL Urine Ketones 15 (NEG) MG/DL Urine Blood TRACE (NEG) Urine Nitrite NEG (NEG) Ur Leukocyte Esterase NEG (NEG) Urine RBC 1-4 (0) /HPF Urine WBC 0 (0-4) /HPF Ur Squamous Epith Cells NONE /LPF Urine Bacteria NONE /LPF Urine Mucus 1+ /LPF COVID-19 (T[facility]ARA) (Negative) COVID-19 Clin Com Imaging Data US - abdomen: Radiologist's impression: FINDINGS: PANCREAS: The pancreas is obscured by midline bowel gas although there is increased conspicuity of the pancreatic duct at 2 mm. LIVER: Liver is enlarged at 18 cm cephalocaudad and echogenic compatible with steatosis . There are no focal hepatic lesions or intrahepatic biliary dilatation GALLBLADDER: Normal. The gallbladder is physiologically distended without evidence of stones, sludge, polyps, wall thickening or pericholecystic fluid. COMMON BILE DUCT: Normal in caliber measuring 0.2 cm in diameter. RIGHT KIDNEY: There is an interpolar cyst at 21 x 20 x 22 mm . No hydronephrosis. No renal calculi or focal solid parenchymal lesions. The kidney measures 11.0 cm in maximum dimension. FREE FLUID: None. US/US abdomen limited IMPRESSION: Discharge Plan Discharge Clinical Impression: Nausea & vomiting Patient Disposition: Home, Self-Care Instructions: Acute Nausea and Vomiting (ED) Additional Instructions: Please follow-up with your primary care physician tomorrow. If you have any worsening or new symptoms, please return to the emergency room or call 911 Prescriptions: New prochlorperazine maleate [Compazine] 5 mg tablet 5 mg PO TID PRN (Reason: nausea and vomiting) Qty: 10 RF: 0 No Action (DME) pen needle, diabetic [BD Ultra-Fine Micro Pen Needle] 32 gauge x 1/4 needle See Rx Instructions .ROUTE .MEDSUPPLY Qty: 150 RF: 11 (DME) FreeStyle Lite Strips Strip See Rx Instructions .ROUTE .MEDSUPPLY Qty: 100 RF: 11 insulin lispro [Humalog KwikPen Insulin] 100 unit/mL insulin pen 16 unit subcut TID 30 Days Qty: 15 RF: 11 Lantus Solostar U-100 Insulin 100 unit/mL (3 mL) insulin pen 30 unit subcut QPM 30 Days Qty: 9 RF: 11 levofloxacin 500 mg tablet 500 mg PO DAILY 10 Days Qty: 10 RF: 0 oxycodone 5 mg tablet 5 mg PO Q6H PRN (Reason: pain) Qty: 14 RF: 0 naproxen 500 mg tablet 500 mg PO BID PRN (Reason: pain) Qty: 20 RF: 0 thiamine HCl (vitamin B1) 100 mg tablet 100 mg PO QAM RF: 0 ergocalciferol (vitamin D2) 1,250 mcg (50,000 unit) capsule 1,250 mcg PO QWEEK RF: 0 tadalafil 10 mg tablet 10 mg PO DAILY 90 Days Qty: 90 RF: 0 lisinopril-hydrochlorothiazide 20-25 mg tablet 1 tab PO DAILY RF: 0 (DME) lancets [FreeStyle Lancets] 28 gauge misc See Rx Instructions .ROUTE .MEDSUPPLY Qty: 100 RF: 11 (DME) blood-glucose meter [FreeStyle Lite Meter] Kit See Rx Instructions .ROUTE .MEDSUPPLY Qty: 1 RF: 0 PMFSH Past Medical History Medical History HLD (hyperlipidemia) HTN (hypertension) T1DM (type 1 diabetes mellitus) Transaminitis Vitamin D deficiency Surgical History History of carpal tunnel release Hx of colonoscopy Family History Family History Mother Diabetes Hypertension Father Myocardial infarction Social History Social History Household Members: Spouse Alcohol intake: current Alcohol intake frequency: a few times a week Patient Tobacco Use Status: Former Tobacco user Quit Date: 14 years ago Cigarette Packs Per Day: 1.5 Years Smoked: 20 Use of substances other than those prescribed or required for medical reasons: No Advance Directives: No Advance Directives Information Provided: No
[2021-05-22] MEDS: Prochlorperazine Edisylate 10 MG/2 ML VIAL IVPUSH (10:45)
[2021-05-22] MEDS: 0.9 % Sodium Chloride 1,000 ML 999 ML IVCONT (10:45)
[2021-05-22 10:47] LABS: MANUAL DIFF FLAG NO
[2021-05-22 10:48] LABS: Basophils Percent Auto 0.5 % (0-2); Hematocrit 40.2 % (42.0-52.0); Hemoglobin 14.1 g/dl (14.0-18.0); Imm Gran Abs Auto 0.01 X10*3/uL (0.00-0.03); Imm Gran Pct Auto 0.2 % (0.0-0.4); Lymphocytes Absolute Auto 0.5 X10*3/uL (1.2-4.9); Lymphocytes Percent Auto 11.6 % (20-40); Mean Corpuscular HGB Conc 35.1 g/dl (31.0-36.0); Mean Corpuscular Hemoglobin 31.5 pg (27.0-33.0); Mean Corpuscular Volume 89.7 fL (80.0-98.0); Mean Platelet Volume 9.9 fL (9.4-12.4); Monocytes Absolute Auto 0.5 X10*3/uL (0.1-1.2); Monocytes Percent Auto 13.1 % (2-11); Neutrophils Percent Auto 74.6 % (45-73); Platelet Count 119 X10*3/uL (160-400); Red Blood Count 4.48 X10*6/uL (4.60-5.80); Red Cell Distribution Width 13.5 % (11.0-16.0)
[2021-05-22 10:54] VITALS: BP 120/70; PULSE 81; RESP 16; O2SAT 97
[2021-05-22 11:03] LABS: COVID-19 Test Negative (Negative); IDNOW Serial# 9DD0AD1C
[2021-05-22 11:14] LABS: Appearance Urine CLEAR; Color Urine YELLOW; Glucose Urine UA 500 MG/DL (NEG); Leukocyte Esterase Urine NEG (NEG); Nitrite Urine NEG (NEG); Specific Gravity - Urine >= 1.030 (1.005-1.025); UACC Culture Trigger NO; Urine Blood TRACE (NEG); Urine Ketones 15 MG/DL (NEG); Urine Protein 2+ MG/DL (NEG-TRACE)
[2021-05-22 11:24] LABS: Mucus Urine 1+ /LPF; WBC Urine 0 /HPF (0-4)
[2021-05-22 11:27] LABS: Alanine Aminotransferase 162 U/L (0-40); Albumin Level 4.3 g/dL (3.5-5.0); Alkaline Phosphatase 147 U/L (39-117); Anion Gap 22 (12-20); Aspartate Amino Transferase 176 U/L (5-37); Bilirubin Total 1.8 mg/dL (0.0-1.0); Blood Urea Nitrogen 10 mg/dL (9-16); Calcium 9.8 mg/dL (8.4-10.2); Carbon Dioxide 27 mmol/L (22-29); Chloride 94 mmol/L (96-108); Creatinine Clr Calc Pharmacy 77.3; Estimated Glomerular Filt Rate > 60; Glucose Random 283 mg/dL (60-115); Lipase 46 U/L (8-78); Potassium 3.8 mmol/L (3.3-5.1); Sodium 139 mmol/L (135-145); Total Protein 8.2 g/dL (6.5-8.0)
[2021-05-22 12:00] VITALS: BP 164/89; PULSE 102; RESP 18; O2SAT 97
[2021-05-22 14:39] VITALS: BP 156/92; PULSE 101; RESP 18; O2SAT 98
== END 2021-05-22 15:59 | disposition home or self-care (01) ==
PROVIDERS: Emergency Provider Emergency Medicine; PCP Internal Medicine Geriatric Medicine
DX: R11.2 Nausea with vomiting, unspecified (principal); I10 Essential (primary) hypertension; E11.9 Type 2 diabetes mellitus without complications; Z20.822 Contact with and (suspected) exposure to COVID-19
CPT/HCPCS: 36415; 76705; 80048; 80076; 81001; 83690; 85025; 87635; 93005; 96361; 96374; 99284

== ENCOUNTER → 2021-06-18 10:01 | Outpatient (BNVA) | payer OTHER, SELFPAY | PROVIDERS: PCP Nurse Practitioner Primary Care; Visit Provider Registered Nurse Diabetes Educator ==

== ENCOUNTER → 2021-07-02 11:07 | Outpatient (BNVA) | payer OTHER, SELFPAY | PROVIDERS: PCP Nurse Practitioner Primary Care; Visit Provider Dietitian, Registered | DX: E10.65 Type 1 diabetes mellitus with hyperglycemia (principal) | CPT/HCPCS: 97803 ==

== ENCOUNTER → 2021-07-23 09:55 | Outpatient (BNVA) | payer OTHER, SELFPAY | PROVIDERS: PCP Nurse Practitioner Primary Care; Visit Provider Registered Nurse Diabetes Educator ==

== ENCOUNTER → 2021-08-27 09:53 | Outpatient (BNVA) | payer OTHER, SELFPAY | PROVIDERS: PCP Nurse Practitioner Primary Care; Visit Provider Registered Nurse Diabetes Educator | DX: Z13.89 Encounter for screening for other disorder (principal) ==

== ENCOUNTER → 2021-09-17 09:11 | Outpatient (BNVA) | payer SELFPAY | PROVIDERS: PCP Nurse Practitioner Primary Care; Visit Provider Internal Medicine | DX: Z02.79 Encounter for issue of other medical certificate (principal) | CPT/HCPCS: 82947; 83036 ==

== ENCOUNTER → 2021-09-18 09:08 | Outpatient (BNVA) | payer OTHER, SELFPAY | PROVIDERS: PCP Nurse Practitioner Primary Care; Visit Provider Dietitian, Registered | DX: Z13.89 Encounter for screening for other disorder (principal) ==

== ENCOUNTER 2021-10-05 06:06 | Emergency (ER) | payer OTHER, SELFPAY ==
--- NOTE | ~2021-10-05 | CT_ITS ---
CT HEAD WITHOUT CONTRAST CLINICAL INFORMATION: Dizziness. COMPARISON: None available. TECHNIQUE: Contiguous axial imaging was performed from the skull base to vertex without intravenous administration of contrast. This CT examination was performed using dose optimization techniques as appropriate, variously including the following: *Automated exposure control *Adjustment of mA and/or kV according to patient size (this includes techniques or standardized protocols for targeted exams where dose is matched to indication/reason for exam; i.e. extremities or head) *Use of iterative reconstruction technique FINDINGS: Asymmetric low attenuation within the left margaret that could be artifactual or that could reflect an infarct which can be clinically correlated. A MRI of the brain could be obtained for more definitive assessment. There is no intracranial hemorrhage, hydrocephalus, extra-axial surface collection, midline shift, or other herniation pattern. Sorensen to white matter differentiation is diffusely maintained without evidence of an evolved acute territorial infarct. The basilar cisterns are preserved. No significant soft tissue abnormality. No acute osseous abnormality. The paranasal sinuses and the mastoid air cells are well aerated. CT/CT head/brain wo con IMPRESSION: Asymmetric low attenuation within the left margaret that could be artifactual or that could reflect an infarct which can be clinically correlated. A MRI of the brain could be obtained for more definitive assessment. No mass effect and no acute hemorrhage.
--- NOTE | ~2021-10-05 | MR_ITS ---
MRI OF THE BRAIN WITHOUT IV CONTRAST INDICATION: Dizziness. Abnormal CT scan. COMPARISON: Head CT 10/05/2021. TECHNIQUE: Multiplanar multisequence MR imaging of the brain was obtained without IV contrast. FINDINGS: There is no hydrocephalus, extra-axial surface collection, or herniation. There is global cerebral volume loss and there is mild chronic microangiopathy. The major flow voids at the skull base are preserved. There is no acute infarct on diffusion-weighted imaging. There is no intracranial hemorrhage on the gradient recalled echo acquisition. The midline structures are normal. The cerebellar tonsils are normally positioned. The cerebellum and brainstem are normal. The craniocervical junction is normal. Osseous marrow signal intensity is homogenous. Micrometallic artifact within the left occipital scalp. Mild mucosal thickening throughout the paranasal sinuses. MR/MR head/brain wo con IMPRESSION: - Previously seen possible hypodensity within the left margaret was artifactual. There are no acute infarcts. - There is global cerebral volume loss and there is mild chronic microangiopathy.
[2021-10-05 06:16] VITALS: BP 144/87; BP 148/74; PULSE 75; PULSE 78; RESP 16; TEMP 36.7; O2SAT 98; O2SAT 99; BMI 25.1
--- NOTE | 2021-10-05 06:35 | ED.NAVMDI ---
HPI - Nausea/Vomiting/Diarrhea General Chief complaint: Nausea/Vomiting/Diarrhea Stated complaint: N/V X1HOUR Time Seen by Provider: 10/05/21 06:23 Source: patient and old records reviewed Mode of arrival: EMS Limitations: no limitations History of Present Illness MD elicited complaint: nausea, vomiting and other (dizziness) Pertinent past history: other (drank 3 beers last night) Onset (ago): hour(s) (woke up with symptoms and got up at 5am) Description of vomiting: watery Associated nausea: Yes Associated abdominal pain: No Location of pain: none Severity: moderate Exacerbating factors: movement and standing Relieving factors: other (rest and closing eyes) Context: alcohol abuse Associated symptoms: malaise, nausea/vomiting and other (dizziness with movements) Treatment prior to arrival: fluids Related Data Home Medications Medication Instructions Recorded Confirmed lisinopril 20 1 tab PO DAILY 09/04/20 09/17/21 mg-hydrochlorothiazide 25 mg tablet ergocalciferol (vitamin D2) 1,250 1,250 mcg PO QWEEK 10/19/20 09/17/21 mcg (50,000 unit) capsule thiamine HCl (vitamin B1) 100 mg 100 mg PO QAM 10/19/20 09/17/21 tablet Previous Rx's Medication Instructions Recorded blood-glucose meter (FreeStyle #1 ea 09/04/20 Lite Meter) lancets 28 gauge (FreeStyle #100 ea 09/04/20 Lancets) levofloxacin 500 mg tablet 500 mg PO DAILY 10 Days #10 tab 09/28/20 oxycodone 5 mg tablet 5 mg PO Q6H PRN #14 tab 09/28/20 naproxen 500 mg tablet 500 mg PO BID PRN #20 tab 10/02/20 tadalafil 10 mg tablet 10 mg PO DAILY 90 Days #90 tab 10/19/20 pen needle, diabetic 32 gauge x #150 ea 10/20/2005/29 (BD Ultra-Fine Micro Pen Needle) blood sugar diagnostic (FreeStyle #100 ea 01/17/21 Lite Strips) insulin glargine 100 unit/mL (3 30 unit (0.3 mL) SUBCUT QPM 30 04/05/21 mL) subcutaneous pen (Lantus Days #9 ml Solostar U-100 Insulin) prochlorperazine maleate 5 mg 5 mg PO TID PRN #10 tab 05/22/21 tablet (Compazine) Humalog KwikPen Insulin 100 14 - 24 unit (0.14 - 0.24 mL) 08/27/21 unit/mL subcutaneous (insulin SUBCUT TID 45 Days #30 ml NS MDD 66 lispro) ondansetron 4 mg disintegrating 4 mg PO Q8H PRN #20 tab 10/05/21 tablet Allergies Allergy/AdvReac Type Severity Reaction Status Date / Time aspirin Allergy Unknown Unknown. Verified 09/17/21 12:51 simvastatin Allergy Unknown rash Verified 09/17/21 12:51 No Known Allergies Allergy Verified 09/17/21 12:51 Review of Systems Review of Systems: Constitutional : No Fever, No Chills, No Fatigue ENT/Mouth : No sore throat, No Rhinorrhea Eyes: No Eye Pain, No Swelling, No Redness Cardiovascular : No Chest Pain, No SOB, No Dyspnea on Exertion Respiratory : No Cough, No Sputum Gastrointestinal : pos Nausea, pos Vomiting, No Diarrhea, No abdominal Pain Genitourinary : No Dysuria, No Urinary Frequency, No Hematuria, Musculoskeletal : No joint pain, No Myalgias, No Joint Swelling Skin : No Skin Lesions, No rash Neuro : No Weakness, No Numbness, pos Dizziness, no Headache Psych : No Anxiety/Panic, No Depression Heme/Lymph: No Bruising, No Bleeding,No Lymphadenopathy Endocrine : No Polyuria, No Polydipsia All other systems reviewed and are negative Gastrointestinal: Gastrointestinal: Reports nausea PMFSH Past Medical History Attestation statement: The following information was validated with the patient. Medical History HLD (hyperlipidemia) HTN (hypertension) T1DM (type 1 diabetes mellitus) Transaminitis Vitamin D deficiency Surgical History History of carpal tunnel release Hx of colonoscopy Family History Family History Mother Diabetes Hypertension Father Myocardial infarction Social History Social History Household Members: Spouse Alcohol intake: current Alcohol intake frequency: a few times a week Patient Tobacco Use Status: Former Tobacco user Quit Date: 14 years ago Cigarette Packs Per Day: 1.5 Years Smoked: 20 Use of substances other than those prescribed or required for medical reasons: No Advance Directives: No Advance Directives Information Provided: No Physical Exam Vital Signs: Vital Signs: Last Vital Signs Temp 98.1 F 10/05/21 06:16 Pulse 96 10/05/21 13:39 Resp 17 10/05/21 13:39 BP 136/74 10/05/21 13:39 Pulse Ox 97 10/05/21 13:39 BMI result Body Mass Index 25.1 Appearance: Alert. Oriented X3. No acute distress. Anxious Eyes: Pupils equal, round and reactive to light. no nystagmus ENT: Pharynx normal. Neck: Normal inspection. Neck supple. CVS: Normal heart rate and rhythm. Pulses normal. Respiratory: No respiratory distress. Breath sounds normal. Abdomen: Soft and non-tender. Skin: Skin warm and dry. Normal skin color. Normal skin turgor. Extremities: No lower extremity edema. No calf ttp Neuro: Oriented X 3. No motor deficit. No sensory deficit. no drift Course Course Course Narrative: patient feels much better at this time abnormal CT scan - MRI of the brain ordered at this time to evaluate for infarct vs artifact negative MRI at this time stable for DC, eating feels much better stable for DC MDM - Nausea/Vomiting/Diarrhea MDM Narrative Medical decision making narrative: 56 yo male with hx of hep C, HTN, HLD, DM here with c/o waking up and feeling dizzy at 5am worse with movements better with closing eyes - he has no drift or other neurologic symptoms woke up like this. He denies CP/SOB. He drank 3 beers before bed which is normal for him. At this time will need labs, hydration, IVF x 2L, zofran. CT head for mass, EKG, seems atypical for posterior stroke but did wake up with symptoms. Dispo per results and findings. Lab Data Result diagrams: 10/05/21 06:59 10/05/21 06:59 Labs: Lab Results 10/05/21 10/05/21 10/05/21 Range/Units 06:59 06:59 06:59 WBC 3.6 L (4.8-10.8) X10*3/uL RBC 4.40 L (4.60-5.80) X10*6/uL Hgb 13.3 L (14.0-18.0) g/dl Hct 39.9 L (42.0-52.0) % MCV 90.7 (80.0-98.0) fL MCH 30.2 (27.0-33.0) pg MCHC 33.3 (31.0-36.0) g/dl RDW 13.1 (11.0-16.0) % Plt Count 112 L (160-400) X10*3/uL MPV 10.4 (9.4-12.4) fL Immature Gran % (Auto) 0.6 H (0.0-0.4) % Neut % (Auto) 55.1 (45-73) % Lymph % (Auto) 30.4 (20-40) % [place] % (Auto) 9.2 (2-11) % Eos % (Auto) 3.9 (0-4) % Baso % (Auto) 0.8 (0-2) % Lymph # (Auto) 1.1 L (1.2-4.9) X10*3/uL [place] # (Auto) 0.3 (0.1-1.2) X10*3/uL Eos # (Auto) 0.1 (0.0-0.4) X10*3/uL Baso # (Auto) 0.0 (0.0-0.2) X10*3/uL Abs Immat Gran (auto) 0.02 (0.00-0.03) X10*3/uL Absolute Neuts (auto) 2.0 (2.0-8.3) x10*3/uL Absolute Nucleated RBC 0.000 (0.0-0.012) X10*3/uL Nucleated RBC % (auto) 0.0 (0.0-0.2) /100WBC Sodium 137 (135-145) mmol/L Potassium 4.4 (3.3-5.1) mmol/L Chloride 106 (96-108) mmol/L Carbon Dioxide 24 (22-29) mmol/L Anion Gap 11 L (12-20) BUN 12 (9-16) mg/dL Creatinine 0.98 (0.5-1.4) mg/dL Estim Creat Clear Calc 88.9 Estimated GFR > 60 Random Glucose 211 H (60-115) mg/dL Calcium 9.1 D (8.4-10.2) mg/dL Total Bilirubin 0.5 (0.0-1.0) mg/dL AST 52 H (5-37) U/L ALT 55 H (0-40) U/L Alkaline Phosphatase 98 D (39-117) U/L Troponin I High Sens (<3.5-35.0) ng/L Total Protein 6.9 (6.5-8.0) g/dL Albumin 3.7 (3.5-5.0) g/dL Ethyl Alcohol mg/dL Acetone, Qual Negative (Negative) COVID-19 (TAMARA) (Negative) COVID-19 Clin Com Influenza Type A (ARTURO) Negative (Negative) Influenza Type B (ARTURO) Negative (Negative) Influenza A & B Note See Note 10/05/21 10/05/21 10/05/21 Range/Units 06:59 06:59 06:59 WBC (4.8-10.8) X10*3/uL RBC (4.60-5.80) X10*6/uL Hgb (14.0-18.0) g/dl Hct (42.0-52.0) % MCV (80.0-98.0) fL MCH (27.0-33.0) pg MCHC (31.0-36.0) g/dl RDW (11.0-16.0) % Plt Count (160-400) X10*3/uL MPV (9.4-12.4) fL Immature Gran % (Auto) (0.0-0.4) % Neut % (Auto) (45-73) % Lymph % (Auto) (20-40) % [place] % (Auto) (2-11) % Eos % (Auto) (0-4) % Baso % (Auto) (0-2) % Lymph # (Auto) (1.2-4.9) X10*3/uL [place] # (Auto) (0.1-1.2) X10*3/uL Eos # (Auto) (0.0-0.4) X10*3/uL Baso # (Auto) (0.0-0.2) X10*3/uL Abs Immat Gran (auto) (0.00-0.03) X10*3/uL Absolute Neuts (auto) (2.0-8.3) x10*3/uL Absolute Nucleated RBC (0.0-0.012) X10*3/uL Nucleated RBC % (auto) (0.0-0.2) /100WBC Sodium (135-145) mmol/L Potassium (3.3-5.1) mmol/L Chloride (96-108) mmol/L Carbon Dioxide (22-29) mmol/L Anion Gap (12-20) BUN (9-16) mg/dL Creatinine (0.5-1.4) mg/dL Estim Creat Clear Calc Estimated GFR Random Glucose (60-115) mg/dL Calcium (8.4-10.2) mg/dL Total Bilirubin (0.0-1.0) mg/dL AST (5-37) U/L ALT (0-40) U/L Alkaline Phosphatase (39-117) U/L Troponin I High Sens < 3.5 (<3.5-35.0) ng/L Total Protein (6.5-8.0) g/dL Albumin (3.5-5.0) g/dL Ethyl Alcohol < 10 mg/dL Acetone, Qual (Negative) COVID-19 (TAMARA) Negative (Negative) COVID-19 Clin Com See Note Influenza Type A (ARTURO) (Negative) Influenza Type B (ARTURO) (Negative) Influenza A & B Note ECG Data Attestation: I personally reviewed and interpreted this ECG as follows: ECG interpretation date: 10/05/21 ECG interpretation time: 07:13 Interpretation: Rate: 79 Rhythm: NSR Omro: normal Normal P waves. Normal MALVIN. Normal QRS complex. ST T wave : normal no CAHRLIE qTC: normal prior studies: no acute ischemia The study has been interpreted contemporaneously by me. Discharge Plan Discharge Clinical Impression: Dizziness Vomiting Qualifiers: Vomiting type: unspecified Nausea presence: with nausea Qualified Code(s): R11.2 - Nausea with vomiting, unspecified Patient Disposition: Home, Self-Care Instructions: Acute Nausea and Vomiting (ED), Dizziness (ED) Additional Instructions: return to ED for any worsening symptoms or concerns negative MRI Prescriptions: New ondansetron 4 mg tablet,disintegrating 4 mg PO Q8H PRN (Reason: nausea and vomiting) Qty: 20 0RF No Action (DME) pen needle, diabetic [BD Ultra-Fine Micro Pen Needle] 32 gauge x 1/4 needle See Rx Instructions .ROUTE .MEDSUPPLY Qty: 150 11RF Rx Instructions: four times a day (DME) FreeStyle Lite Strips Strip See Rx Instructions .ROUTE .MEDSUPPLY Qty: 100 11RF Rx Instructions: 4x daily Lantus Solostar U-100 Insulin 100 unit/mL (3 mL) insulin pen 30 unit subcut QPM 30 Days Qty: 9 11RF insulin lispro [Humalog KwikPen Insulin] 100 unit/mL insulin pen 14 - 24 unit subcut TID MDD 66 45 Days Qty: 30 11RF levofloxacin 500 mg tablet 500 mg PO DAILY 10 Days Qty: 10 0RF oxycodone 5 mg tablet 5 mg PO Q6H PRN (Reason: pain) Qty: 14 0RF Rx Instructions: Epididymitis naproxen 500 mg tablet 500 mg PO BID PRN (Reason: pain) Qty: 20 0RF prochlorperazine maleate [Compazine] 5 mg tablet 5 mg PO TID PRN (Reason: nausea and vomiting) Qty: 10 0RF thiamine HCl (vitamin B1) 100 mg tablet 100 mg PO QAM 0RF ergocalciferol (vitamin D2) 1,250 mcg (50,000 unit) capsule 1,250 mcg PO QWEEK 0RF tadalafil 10 mg tablet 10 mg PO DAILY 90 Days Qty: 90 0RF lisinopril-hydrochlorothiazide 20-25 mg tablet 1 tab PO DAILY 0RF (DME) lancets [FreeStyle Lancets] 28 gauge misc See Rx Instructions .ROUTE .MEDSUPPLY Qty: 100 11RF Rx Instructions: 4x daily (DME) blood-glucose meter [FreeStyle Lite Meter] Kit See Rx Instructions .ROUTE .MEDSUPPLY Qty: 1 0RF Rx Instructions: As directed Stand Alone Forms: Work/School Release
--- NOTE | 2021-10-05 06:44 | ECG_ITS ---
Test Reason : DISSINESS/ NAUSEA Blood Pressure : / mmHG Vent. Rate : 079 BPM Atrial Rate : 079 BPM P-R Int : 164 ms QRS Dur : 088 ms QT Int : 374 ms P-R-T Axes : 072 018 040 degrees QTc Int : 428 ms Normal sinus rhythm Normal ECG When compared with ECG of 22-MAY-2021 10:46, No significant change was found Referred By: Gina Skinner Electronically Signed By:TIGRE CULLEN MD
[2021-10-05] MEDS: ondansetron HCL 4 MG/2 ML VIAL IVPUSH (06:48)
[2021-10-05] MEDS: 0.9 % Sodium Chloride 2,000 ML 999 ML IV (06:51)
[2021-10-05 07:06] LABS: MANUAL DIFF FLAG NO
[2021-10-05 07:10] LABS: Basophils Percent Auto 0.8 % (0-2); Eosinophils Absolute Auto 0.1 X10*3/uL (0.0-0.4); Eosinophils Percent Auto 3.9 % (0-4); Hematocrit 39.9 % (42.0-52.0); Hemoglobin 13.3 g/dl (14.0-18.0); Imm Gran Abs Auto 0.02 X10*3/uL (0.00-0.03); Imm Gran Pct Auto 0.6 % (0.0-0.4); Lymphocytes Absolute Auto 1.1 X10*3/uL (1.2-4.9); Lymphocytes Percent Auto 30.4 % (20-40); Mean Corpuscular HGB Conc 33.3 g/dl (31.0-36.0); Mean Corpuscular Hemoglobin 30.2 pg (27.0-33.0); Mean Corpuscular Volume 90.7 fL (80.0-98.0); Mean Platelet Volume 10.4 fL (9.4-12.4); Monocytes Absolute Auto 0.3 X10*3/uL (0.1-1.2); Monocytes Percent Auto 9.2 % (2-11); Neutrophils Percent Auto 55.1 % (45-73); Platelet Count 112 X10*3/uL (160-400); Red Cell Distribution Width 13.1 % (11.0-16.0); White Blood Count 3.6 X10*3/uL (4.8-10.8)
[2021-10-05 07:21] LABS: Acetone, serum QL Negative (Negative); Ethanol < 10 mg/dL
[2021-10-05 07:23] LABS: COVID-19 Test Negative (Negative); IDNOW Serial# 55D5AD1C; IDNOW Serial# 9DB6401D; Influenza A Negative (Negative); Influenza B2 Negative (Negative)
[2021-10-05 07:25] LABS: Alanine Aminotransferase 55 U/L (0-40); Albumin Level 3.7 g/dL (3.5-5.0); Alkaline Phosphatase 98 U/L (39-117); Anion Gap 11 (12-20); Aspartate Amino Transferase 52 U/L (5-37); Bilirubin Total 0.5 mg/dL (0.0-1.0); Blood Urea Nitrogen 12 mg/dL (9-16); Calcium 9.1 mg/dL (8.4-10.2); Carbon Dioxide 24 mmol/L (22-29); Chloride 106 mmol/L (96-108); Creatinine Clr Calc Pharmacy 88.9; Estimated Glomerular Filt Rate > 60; Glucose Random 211 mg/dL (60-115); Potassium 4.4 mmol/L (3.3-5.1); Sodium 137 mmol/L (135-145); Total Protein 6.9 g/dL (6.5-8.0)
[2021-10-05 07:29] LABS: Troponin-I High Sensitivity < 3.5 ng/L (<3.5-35.0)
[2021-10-05 09:51] VITALS: BP 117/67; PULSE 78; RESP 16; O2SAT 98
[2021-10-05] MEDS: LORazepam 2 MG/ML VIAL 1 MG IVPUSH (13:30)
[2021-10-05 13:39] VITALS: BP 136/74; PULSE 96; RESP 17; O2SAT 97
== END 2021-10-05 14:14 | disposition home or self-care (01) ==
PROVIDERS: Student in an Organized Health Care Education/Training Program; Emergency Provider Emergency Medicine; PCP Nurse Practitioner Primary Care
DX: R11.2 Nausea with vomiting, unspecified (principal); R42 Dizziness and giddiness; R90.89 Other abnormal findings on diagnostic imaging of central nervous system; I10 Essential (primary) hypertension; E10.9 Type 1 diabetes mellitus without complications; Z20.822 Contact with and (suspected) exposure to COVID-19
CPT/HCPCS: 36415; 70450; 70551; 80053; 82009; 82077; 84484; 85025; 87502; 87635; 93005; 96361; 96374; 96375; 99284; 99285; J2060; J2405

== ENCOUNTER 2021-11-19 12:18 | Outpatient (REF) | payer OTHER, SELFPAY ==
[2021-11-19 14:59] LABS: Ferritin 82 ng/mL (20-250)
[2021-11-19 15:38] LABS: Creatinine Urine 168.36 mg/dL
[2021-11-19 15:56] LABS: Alanine Aminotransferase 72 U/L (0-40); Albumin Level 4.4 g/dL (3.5-5.0); Alkaline Phosphatase 138 U/L (39-117); Anion Gap 15 (12-20); Aspartate Amino Transferase 66 U/L (5-37); Bilirubin Total 0.7 mg/dL (0.0-1.0); Blood Urea Nitrogen 13 mg/dL (9-16); Calcium 9.8 mg/dL (8.4-10.2); Carbon Dioxide 24 mmol/L (22-29); Chloride 106 mmol/L (96-108); Cholesterol 286 mg/dL; Estimated Glomerular Filt Rate > 60; Glucose Random 72 mg/dL (60-115); HDL Cholesterol 45 mg/dL; Iron 91 mcg/dL (45-160); LDL Cholesterol Calculated 213 mg/dl; Lipase 43 U/L (8-78); Percent Iron Saturation 23 % (15-50); Potassium 4.7 mmol/L (3.3-5.1); Sodium 140 mmol/L (135-145); Total Iron Binding Capacity 393 mcg/dL (228-428); Total Protein 7.8 g/dL (6.5-8.0); Triglycerides 144 mg/dL; Unsaturated Iron Binding 302 ug/dL
[2021-11-19 20:37] LABS: Estimated Average Glucose 131 mg/dL; Hemoglobin A1c % 6.2 %
[2021-11-21 00:37] LABS: LDL Cholesterol Direct 216 mg/dL (<100)
[2021-11-21 14:17] LABS: Ceruloplasmin 29 mg/dL (18-36)
[2021-11-21 14:31] LABS: Anti Nuclear Antibody Screen NEGATIVE (NEGATIVE)
[2021-11-22 23:23] LABS: Smooth Muscle Antibody <20 U (<20)
[2021-11-23 19:06] LABS: FIB-ALT 62 U/L (9-46); FIB-Alpha-2-Macroglobulin 404 mg/dL (106-279); FIB-Apolipoprotein A1 139 mg/dL (94-176); FIB-GGT 239 U/L (3-95); FIB-Haptoglobin 119 mg/dL (43-212); FIB-Total Bilirubin 0.6 mg/dL (0.2-1.2); Liver Fibrosis Score 0.81; Liver Fibrosis Stage F4; Nec Inflam Act Grade A2; Nec Inflam Act Score 0.56
[2021-11-27 15:52] LABS: Mitochondrial Antibodies NEGATIVE (NEGATIVE)
== END 2021-11-19 12:19 | disposition home or self-care (01) ==
LOC: HO.LAB 12:18
PROVIDERS: Internal Medicine; PCP Nurse Practitioner Primary Care; Visit Provider Physician Assistant
DX: E10.65 Type 1 diabetes mellitus with hyperglycemia (principal); R74.01 Elevation of levels of liver transaminase levels; R74.8 Abnormal levels of other serum enzymes; D64.9 Anemia, unspecified
CPT/HCPCS: 36415; 80053; 80061; 81596; 82043; 82390; 82728; 83036; 83540; 83690; 83721; 86015; 86038; 86039; 86255; 86256

== ENCOUNTER 2022-02-25 08:01 | Outpatient (REF) | payer OTHER, SELFPAY | END 2022-02-25 08:02 | disposition home or self-care (01) | LOC: HO.HOSX 08:01 | PROVIDERS: Visit Provider Physician Assistant | DX: Z13.89 Encounter for screening for other disorder (principal) ==

== ENCOUNTER → 2022-03-18 09:55 | Outpatient (REF) | payer OTHER, SELFPAY ==
--- NOTE | 2022-03-18 09:58 | CA_ITS ---
Acquisition Time: 2022-03-18 10:10:35 Total Exercise Time: 00:06:15 Test Indications: Chest Pain Medications: INSULIN LISINOPRIL/HCTZ ONDANSTRON Protocol: MANNY Max HR: 151 BPM 90% of Pred: 166 BPM Max BP: 160/070 mmHG Max Work Load: 7.3 METS Exercise stress test with exercise 6 min 15 sec of Manny protocol, achieving 90% MPHR, 7.3 METS, with fatigue and moderate sob and request to stop, no chest discomfort, without arrythmia, with normotensive response to exercise to exercise, without EKG changes meeting criteria for ischemia. In recovery his breathing quickly improved. Test reviewed with Dr Gonzalez. Referred By: Sukhwinder White Overread By: RHINA ROJO
== END ==
LOC: HO.CARD 09:55
PROVIDERS: PCP Nurse Practitioner Primary Care; Visit Provider Internal Medicine
DX: R07.89 Other chest pain (principal)
CPT/HCPCS: 93017

== ENCOUNTER 2022-04-05 06:48 | Emergency (ER) | payer OTHER, SELFPAY ==
[2022-04-05 07:09] VITALS: BP 138/78; PULSE 66; O2SAT 99
[2022-04-05 07:10] VITALS: BP 147/82; PULSE 87; RESP 16; TEMP 36.6; O2SAT 100; BMI 25.8
--- NOTE | 2022-04-05 07:17 | ECG_ITS ---
Test Reason : Chest Pain Blood Pressure : / mmHG Vent. Rate : 089 BPM Atrial Rate : 089 BPM P-R Int : 148 ms QRS Dur : 090 ms QT Int : 408 ms P-R-T Axes : -08 026 012 degrees QTc Int : 496 ms Normal sinus rhythm Nonspecific ST abnormality Lateral leads Abnormal ECG When compared with ECG of 05-OCT-2021 06:59, QT has lengthened Nonspecific ST abnormality is new Referred By: Sandor Orona Electronically Signed By:PHILLIP ABERNATHY MD
[2022-04-05] MEDS: Midazolam HCl/PF 2 MG/2 ML VIAL 1 MG IVPUSH (07:27)
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
[2022-04-05 07:50] LABS: MANUAL DIFF FLAG NO
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
[2022-04-05 08:05] LABS: Basophils Absolute Auto 0.1 X10*3/uL (0.0-0.2); Eosinophils Absolute Auto 0.2 X10*3/uL (0.0-0.4); Eosinophils Percent Auto 2.1 % (0-4); Hematocrit 45.5 % (42.0-52.0); Hemoglobin 15.9 g/dl (14.0-18.0); Imm Gran Abs Auto 0.01 X10*3/uL (0.00-0.03); Imm Gran Pct Auto 0.1 % (0.0-0.4); Lymphocytes Absolute Auto 3.3 X10*3/uL (1.2-4.9); Lymphocytes Percent Auto 46.1 % (20-40); Mean Corpuscular HGB Conc 34.9 g/dl (31.0-36.0); Mean Corpuscular Hemoglobin 30.5 pg (27.0-33.0); Mean Corpuscular Volume 87.2 fL (80.0-98.0); Mean Platelet Volume 10.6 fL (9.4-12.4); Monocytes Absolute Auto 0.5 X10*3/uL (0.1-1.2); Monocytes Percent Auto 6.8 % (2-11); Neutrophils Absolute Auto 3.1 x10*3/uL (2.0-8.3); Neutrophils Percent Auto 43.9 % (45-73); Platelet Count 182 X10*3/uL (160-400); Red Blood Count 5.22 X10*6/uL (4.60-5.80); Red Cell Distribution Width 13.4 % (11.0-16.0); White Blood Count 7.1 X10*3/uL (4.8-10.8)
[2022-04-05 08:17] LABS: Blood Urea Nitrogen 12 mg/dL (9-16); Calcium 10.3 mg/dL (8.4-10.2); Creatinine Clr Calc Pharmacy 67.5; Estimated Glomerular Filt Rate 58; Glucose Random 234 mg/dL (60-115)
[2022-04-05 08:30] LABS: Anion Gap 31 (12-20); Carbon Dioxide 18 mmol/L (22-29); Chloride 94 mmol/L (96-108); Potassium 3.8 mmol/L (3.3-5.1); Sodium 139 mmol/L (135-145)
[2022-04-05 08:42] LABS: Troponin-I High Sensitivity < 3.5 ng/L (<3.5-35.0)
[2022-04-05] MEDS: Midazolam HCl/PF 2 MG/2 ML VIAL 0.5 MG IVPUSH (08:50)
--- NOTE | 2022-04-05 08:52 | PC.NURSE ---
patient has increased yelling and anxiety . medicated with 0.5mg of midazolam IVP as ordered by provider . at bedside . family and patient aware of plan of care .
[2022-04-05] MEDS: OLANZapine 10 MG VIAL 5 MG IM (09:12)
[2022-04-05] MEDS: ondansetron HCL 4 MG/2 ML VIAL IVPUSH (09:12)
--- NOTE | 2022-04-05 09:18 | PC.NURSE ---
patient has no relief with previous medication for anxiety still yelling and thrashing . medicated with 5 mg of zyprexa IVP and zofran IVP as ordered , patient now reporting feeling increased nausea . at bedside . patient and family aware of plan of care .
[2022-04-05 10:13] VITALS: BP 140/75; PULSE 83; RESP 22; TEMP 36.9; O2SAT 94
--- NOTE | 2022-04-05 11:00 | PC.NURSE ---
patient had relief from anxiety after medicating . VSS . at bedside . patient and family aware of paln of care .
--- NOTE | 2022-04-05 12:17 | PC.NURSE ---
patient a/ox4 . went over discharge instructions as ordered by provider . VSS . patient to follow up with primary care . patient to return to Ed if symptoms worsen . patient has no questions at this time .
== END 2022-04-05 12:17 | disposition home or self-care (01) ==
PROVIDERS: Emergency Provider Emergency Medicine; PCP Nurse Practitioner Primary Care
DX: F41.0 Panic disorder [episodic paroxysmal anxiety] (principal); F41.1 Generalized anxiety disorder; F43.0 Acute stress reaction; R20.0 Anesthesia of skin; Z87.891 Personal history of nicotine dependence; Z79.899 Other long term (current) drug therapy
CPT/HCPCS: 36415; 80048; 84484; 85025; 93005; 96372; 96374; 96375; 96376; 99284; J2250; J2405

== ENCOUNTER → 2022-08-28 13:27 | Outpatient (BNVA) | payer OTHER, SELFPAY | PROVIDERS: PCP Nurse Practitioner Primary Care; Visit Provider Internal Medicine | DX: E10.65 Type 1 diabetes mellitus with hyperglycemia (principal); E78.5 Hyperlipidemia, unspecified | CPT/HCPCS: 82947; 83036 ==

== ENCOUNTER → 2022-09-05 10:58 | Outpatient (BNVA) | payer SELFPAY | PROVIDERS: PCP Nurse Practitioner Primary Care; Visit Provider Physician Assistant | DX: Z02.79 Encounter for issue of other medical certificate (principal) ==

== ENCOUNTER → 2022-09-25 10:53 | Outpatient (BNVA) | payer MEDICAID, SELFPAY | PROVIDERS: PCP Nurse Practitioner Primary Care; Visit Provider Registered Nurse Diabetes Educator | DX: E10.65 Type 1 diabetes mellitus with hyperglycemia (principal) | CPT/HCPCS: 99211 ==

== ENCOUNTER → 2022-11-07 07:53 | Outpatient (BNVA) | payer MEDICAID, SELFPAY | PROVIDERS: PCP Nurse Practitioner Primary Care; Visit Provider Registered Nurse Diabetes Educator | DX: E10.65 Type 1 diabetes mellitus with hyperglycemia (principal) | CPT/HCPCS: 99211 ==

== ENCOUNTER 2022-12-09 10:05 | Outpatient (REF) | payer MEDICAID, SELFPAY ==
[2022-12-09 10:28] LABS: MANUAL DIFF FLAG NO
[2022-12-09 11:29] LABS: Basophils Absolute Auto 0.1 X10*3/uL (0.0-0.2); Basophils Percent Auto 1.4 % (0-2); Eosinophils Absolute Auto 0.3 X10*3/uL (0.0-0.4); Eosinophils Percent Auto 6.4 % (0-4); Hematocrit 45.9 % (42.0-52.0); Hemoglobin 14.9 g/dl (14.0-18.0); Imm Gran Abs Auto 0.01 X10*3/uL (0.00-0.03); Imm Gran Pct Auto 0.2 % (0.0-0.4); Lymphocytes Absolute Auto 1.8 X10*3/uL (1.2-4.9); Lymphocytes Percent Auto 41.9 % (20-40); Mean Corpuscular HGB Conc 32.5 g/dl (31.0-36.0); Mean Corpuscular Hemoglobin 31.1 pg (27.0-33.0); Mean Corpuscular Volume 95.8 fL (80.0-98.0); Mean Platelet Volume 10.7 fL (9.4-12.4); Monocytes Absolute Auto 0.5 X10*3/uL (0.1-1.2); Monocytes Percent Auto 12.2 % (2-11); Neutrophils Absolute Auto 1.6 x10*3/uL (2.0-8.3); Neutrophils Percent Auto 37.9 % (45-73); Platelet Count 180 X10*3/uL (160-400); Red Blood Count 4.79 X10*6/uL (4.60-5.80); Red Cell Distribution Width 12.9 % (11.0-16.0); White Blood Count 4.3 X10*3/uL (4.8-10.8)
[2022-12-09 11:40] LABS: Estimated Average Glucose 140 mg/dL; Hemoglobin A1c % 6.5 %
[2022-12-09 12:42] LABS: Creatinine Urine 71.94 mg/dL; Microalbum/Creatinine Ratio Ur 15.2 ug/mg cr
[2022-12-09 12:51] LABS: Alanine Aminotransferase 85 U/L (0-40); Albumin Level 3.8 g/dL (3.5-5.0); Alkaline Phosphatase 122 U/L (39-117); Anion Gap 14 (12-20); Aspartate Amino Transferase 89 U/L (5-37); Bilirubin Direct 0.2 mg/dL (0.0-0.5); Bilirubin Total 0.5 mg/dL (0.0-1.0); Blood Urea Nitrogen 9 mg/dL (9-16); Calcium 9.6 mg/dL (8.4-10.2); Carbon Dioxide 27 mmol/L (22-29); Chloride 106 mmol/L (96-108); Estimated Glomerular Filt Rate > 60; Glucose Random 153 mg/dL (60-115); Iron 90 mcg/dL (45-160); Percent Iron Saturation 33 % (15-50); Potassium 4.9 mmol/L (3.3-5.1); Sodium 142 mmol/L (135-145); Total Iron Binding Capacity 272 mcg/dL (228-428); Unsaturated Iron Binding 182 ug/dL
[2022-12-09 12:59] LABS: Ferritin 267 ng/mL (20-250); TSH reflex Free T4 2.92 uIU/mL (0.32-4.0)
[2022-12-09 13:08] LABS: Alanine Aminotransferase 85 U/L (0-40); Albumin Level 3.8 g/dL (3.5-5.0); Alkaline Phosphatase 122 U/L (39-117); Anion Gap 14 (12-20); Aspartate Amino Transferase 89 U/L (5-37); Bilirubin Total 0.6 mg/dL (0.0-1.0); Blood Urea Nitrogen 9 mg/dL (9-16); Calcium 9.5 mg/dL (8.4-10.2); Carbon Dioxide 27 mmol/L (22-29); Chloride 106 mmol/L (96-108); Cholesterol 190 mg/dL; Estimated Glomerular Filt Rate > 60; Glucose Random 152 mg/dL (60-115); HDL Cholesterol 41 mg/dL; LDL Cholesterol Calculated 122 mg/dl; Sodium 142 mmol/L (135-145); Total Protein 6.9 g/dL (6.5-8.0); Triglycerides 136 mg/dL
[2022-12-11 05:59] LABS: LDL Cholesterol Direct 133 mg/dL (<100)
== END 2022-12-09 10:06 | disposition home or self-care (01) ==
LOC: HO.LAB 10:05
PROVIDERS: Absent Provider Nurse Practitioner Primary Care; Visit Provider Internal Medicine
DX: E10.65 Type 1 diabetes mellitus with hyperglycemia (principal); R53.83 Other fatigue; F41.9 Anxiety disorder, unspecified; R74.8 Abnormal levels of other serum enzymes
CPT/HCPCS: 36415; 80048; 80053; 80061; 80076; 82043; 82248; 82728; 83036; 83540; 83721; 84443; 85025

== ENCOUNTER 2022-12-12 09:02 | Outpatient (AMB) | payer MEDICAID, SELFPAY ==
--- NOTE | 2022-12-12 09:03 | A.OFFVIS_ITS ---
Intake Intake Visit Reasons: DM Intake Note: pt is here for DM Enterostomal Nurse Required: No Accompanied by: Self / Same As Patient Allergies aspirin Allergy (Unknown, Verified 12/12/22 10:29) Unknown. simvastatin Allergy (Unknown, Verified 12/12/22 10:29) rash Medication List - Last Reconciled 12/12/22 by Nubia Contreras, blood sugar diagnostic (FreeStyle Lite Strips) 4x daily blood-glucose meter (FreeStyle Lite Meter kit) As directed bupropion HCl 150 mg PO QAM evolocumab (Repatha SureClick) 140 mg subcut Q2W 30 days Humalog KwikPen Insulin (insulin lispro) 14 - 24 units (0.14 - 0.24 mL) subcut TID 45 days MDD 66 NS lancets (FreeStyle Lancets) 4x daily Lantus Solostar U-100 Insulin (insulin glargine) 30 units (0.3 mL) subcut QPM NS lorazepam (Ativan) 2 mg PO TID PRN lorazepam 1 mg PO PRN losartan 50 mg PO QAM omega 5-evs-cxb-fish oil 60-90-500 mg (Fish Oil) 1 cap PO DAILY pen needle, diabetic (BD Ultra-Fine Micro Pen Needle) 4x daily Do you need a note to return to daycare/school/sports/work: No HPI HPI Comments History of Present Illness Details 57 YO M with PMHx T1DM who is seen in F/U for T1DM. Initially diagnosed with T2DM in 2009. After our initial visit we completed his workup which revealed negative antibodies, but low C-Peptide for the degree of hyperglycemia, indicating T1DM. Was initially started on treatment with Metformin. This was stopped by his PCP and he was instead started on Glipizide 10 mg PO BID. This was stopped as of our initial visit and he was started on insulin. Current regimen: Lantus 30 units qHS with Humalog 10-15 units AC. Has DEXCOM G6. Unable to download sugars today. Reports low sugars never. Most recent A1C: 6.5% 12/09/2022, unchanged from 6.6% 08/2022, down from 11.3% 09/04/2020. Family history of T2DM in his Mother. Has eyes checked yearly, last eye exam 08/2021, has retinopathy. Has neuropathy, does not see podiatry. Has if nephropathy, on Lisinopril 20 mg PO daily. UAC 15.2 12/09/2022. Has HLD, not on Statin. LDL 133 12/09/2022. LFTs elevated, following with GI. Denies CAD. Diet: Drinks ETOH heavily. Has cut back on carbs. Weight: Stable. Has not had diabetes education. Has been referred. Labs: Laboratory Tests 12/09/22 12/09/22 12/09/22 10:25 10:26 10:26 Creatinine 1.07 Estimated GFR > 60 Hemoglobin A1c % 6.5 LDL Cholesterol Di rect Microalb/Creat Rat io 15.2 12/09/22 10:26 Creatinine Estimated GFR Hemoglobin A1c % LDL Cholesterol Di rect 133 H Microalb/Creat Rat io PFSH Medical History HLD (hyperlipidemia) HTN (hypertension) T1DM (type 1 diabetes mellitus) Transaminitis Vitamin D deficiency Surgical History History of carpal tunnel release Hx of colonoscopy Family History Mother Diabetes Hypertension Father Myocardial infarction Social History Household Members: Spouse Alcohol intake: former Year quit: 09/14 Patient Tobacco Use Status: Former Tobacco user Quit Date: 2007 Years Smoked: 20 +/- Assessment & Plan Assessment & Plan (1) T1DM (type 1 diabetes mellitus): Code(s): E10.9 - Type 1 diabetes mellitus without complications Qualifiers: Diabetes mellitus complication status: with hyperglycemia Qualified Code(s): E10.65 - Type 1 diabetes mellitus with hyperglycemia Plan: Patient with T1DM based on low C Peptide level for his level of hyperglycemia. He has significant hepatocellular inflammation/damage which leaves me uncomfortable using GLP-1 medications as well as Metformin. Given his low C peptide, I am hesitant to use an SGLT-2 due to the risk of euglycemic DKA. We discussed that the mainstain of treatment will be insulin for him. Unable to download his sugars today. He will continue on his Lantus 30 units qHS with Humalog 10-15 units AC for now and I will call with any adjustments after his 2 week sensor is reviewed. All of his questions were answered. He is in agreement with this plan of care. The importance of adherence to prescribed regimen was discussed with the patient including checking finger sticks 3-4 times per day, using medication as presc ribed, monitoring for hypoglycemia and treating any episode of hypoglycemia according to the rule of 15's. The signs and symptoms of hypoglycemia were reviewed in detail, as well as the rule of 15's to treat. Proper foot care was also discussed with the patient, and the importance of yearly dilated eye exam. The patient was asked to have copy of eye exam sent to our office for review. I spent 20 minutes in reviewing the record, seeing the patient and documenting in the medical record, including 5 minutes on the phone with the Patient. (2) HLD (hyperlipidemia): Code(s): E78.5 - Hyperlipidemia, unspecified Qualifiers: Hyperlipidemia type: unspecified Qualified Code(s): E78.5 - Hyperlipidemia, unspecified Plan: LDL above goal. Statin and Ezetimibe are contraindicated due to his liver failure. He is using Repatha 140 mg q 2 weeks at this time. He reports poor compliance. I advised his LDL is elevated and recommend he use his Repatha as prescribed. He will then repeat his lipid panel after his next visit. (3) HTN (hypertension): Code(s): I10 - Essential (primary) hypertension Qualifiers: Hypertension type: unspecified Qualified Code(s): I10 - Essential (primary) hypertension Plan: Will check BP at his next visit and adjust his regimen as indicated. Telehealth Telehealth Location of provider rendering services: practice address Location of patient: address on file Patient Identification confirmed using: Name, : Yes Telehealth method: voice only Patient verbally consented to treatment: Yes Patient verbally consented to billing insurance company: Yes Patient informed of any privacy concerns related to visit: Yes Coding Level of Care Code Tele Est Pt Level 3 (14763) Diagnoses T1DM (type 1 diabetes mellitus) E10.65 Diabetes mellitus complication status: with hyperglycemia HLD (hyperlipidemia) E78.5 Hyperlipidemia type: unspecified HTN (hypertension) I10 Hypertension type: unspecified
== END 2022-12-12 14:00 | disposition home or self-care (01) ==
LOC: HO.ENCR 09:02
PROVIDERS: PCP Nurse Practitioner Primary Care; Visit Provider Internal Medicine
DX: E10.65 Type 1 diabetes mellitus with hyperglycemia (principal); E10.69 Type 1 diabetes mellitus with other specified complication; E78.5 Hyperlipidemia, unspecified; I10 Essential (primary) hypertension
CPT/HCPCS: 99213

== ENCOUNTER → 2022-12-12 09:02 | Outpatient (BNVA) | payer MEDICAID, SELFPAY | PROVIDERS: PCP Nurse Practitioner Primary Care; Visit Provider Internal Medicine ==

== ENCOUNTER 2023-02-24 07:32 | Day surgery (SDC) | payer MEDICAID, SELFPAY ==
[2023-02-20 12:01] VITALS: BMI 28.0
[2023-02-21 08:52] VITALS: BMI 25.1
--- NOTE | 2023-02-21 13:07 | HO.ANESPROP2 ---
Documented by User: Kristy Leone NP 02/21/23 13:09 HPI - Anesthesia Eval Consult details Narrative: 57yo M for Upper Endoscopy and Colonoscopy Pt seen by [facility] cardiology 2021 for palp/tachy. Had negative stress. Echo and Holter not done. Pt did not f/u with cardiology. Per phone PAT, symptoms have improved with tx of anxiety. Reviewed with Dr Arcos. OK to proceed. [facility] Active Problems Active Problems: All Active Problems (Updated 04/06/22 @ 00:02 by Background Regina) SOB (shortness of breath) (Acute) Chest pressure (Acute) Heart palpitations (Acute) Anemia (Acute) Tachycardia (Acute) History of hepatitis C (Acute) Erectile dysfunction (Acute) Epididymitis (Acute) Transaminitis (Acute) T1DM (type 1 diabetes mellitus) (Acute) Vitamin D deficiency (Acute) HLD (hyperlipidemia) (Acute) HTN (hypertension) (Acute) Past Medical History Medical History HLD (hyperlipidemia) HTN (hypertension) T1DM (type 1 diabetes mellitus) Transaminitis Vitamin D deficiency Family History Family History Mother Diabetes Hypertension Father Myocardial infarction Surgical History Surgical History History of carpal tunnel release Hx of colonoscopy Social History Social History Household Members: Spouse Are you a primary director of healthcare systems to a significant other at home: No Do you presently have visiting nurse or other home services: No Alcohol intake: former Year quit: 09/14 Patient Tobacco Use Status: Former Tobacco user Quit Date: 2007 Years Smoked: 20 +/- Use of substances other than those prescribed or required for medical reasons: Yes Substance Use Frequency: Daily Have you been hit, kicked, punched, or otherwise hurt by someone within the past year? If so, by whom?: No Advance Directives: No Advance Directives Information Provided: Yes Recently lost weight without trying: No Eating poorly because of decreased appetite: No Nutrition Risks: No Nutritional Risk Poor oral hygiene: No Meds Allergies Allergy/AdvReac Type Severity Reaction Status Date / Time aspirin Allergy Unknown Unknown. Verified 12/12/22 10:29 simvastatin Allergy Unknown rash Verified 12/12/22 10:29 Home Medications Medication Instructions Recorded Confirmed Last Taken Type lorazepam 1 mg tablet 1 mg PO PRN anxiety 08/28/22 12/12/22 Unknown History losartan 50 mg tablet 50 mg PO QAM 08/28/22 02/21/23 Unknown History omega 3-lxb-bud-fish oil 60 mg-90 1 cap PO DAILY 08/28/22 12/12/22 Unknown History mg-500 mg capsule (Fish Oil) bupropion HCl 150 mg 24 hr tablet, 150 mg PO QAM 12/12/22 02/21/23 Unknown History extended release Exam Exam Date and Time: February 21, 2023 1307 Height,Weight and Vital Signs: Height 5 ft 10 in Weight 79.379 kg Pertinent Lab Results Pertinent Lab Results: Laboratory Tests 12/09/22 10:26 WBC 4.3 L Hgb 14.9 Hct 45.9 Plt Count 180 Sodium 142 Potassium 5.0 D Chloride 106 Carbon Dioxide 27 BUN 9 Creatinine 1.07 Narrative Narrative: EKG 2022 Vent. Rate : 089 BPM Atrial Rate : 089 BPM P-R Int : 148 ms QRS Dur : 090 ms QT Int : 408 ms P-R-T Axes : -08 026 012 degrees QTc Int : 496 ms Normal sinus rhythm Nonspecific ST abnormality Lateral leads Abnormal ECG When compared with ECG of 05-OCT-2021 06:59, QT has lengthened Nonspecific ST abnormality is new Exercise Stress 2021 Protocol: FUAD Max HR: 151 BPM 90% of Pred: 166 BPM Max BP: 160/070 mmHG Max Work Load: 7.3 METS Exercise stress test with exercise 6 min 15 sec of Fuad protocol, achieving 90% MPHR, 7.3 METS, with fatigue and moderate sob and request to stop, no chest discomfort, without arrythmia, with normotensive response to exercise to exercise, without EKG changes meeting criteria for ischemia. In recovery his breathing quickly improved. Test reviewed with Dr Gonzalez. Assessment and Plan Assessment Anesthesia Assessment: Chart Reviewed Documented by User: Tere Romero MD 02/24/23 08:14 [facility] Past Medical History Medical History HLD (hyperlipidemia) HTN (hypertension) T1DM (type 1 diabetes mellitus) Transaminitis Vitamin D deficiency Family History Family History Mother Diabetes Hypertension Father Myocardial infarction Family history of problems with anesthesia: No Surgical History Surgical History History of carpal tunnel release Hx of colonoscopy History of Problems with Anesthesia: No Social History Social History Household Members: Spouse Are you a primary director of healthcare systems to a significant other at home: No Do you presently have visiting nurse or other home services: No Alcohol intake: former Year quit: 09/14 Patient Tobacco Use Status: Former Tobacco user Quit Date: 2007 Years Smoked: 20 +/- Use of substances other than those prescribed or required for medical reasons: Yes Substance Use Frequency: Daily Have you been hit, kicked, punched, or otherwise hurt by someone within the past year? If so, by whom?: No Advance Directives: No Advance Directives Information Provided: Yes Recently lost weight without trying: No Eating poorly because of decreased appetite: No Nutrition Risks: No Nutritional Risk Poor oral hygiene: No Meds Allergies Allergy/AdvReac Type Severity Reaction Status Date / Time aspirin Allergy Unknown Unknown. Verified 12/12/22 10:29 simvastatin Allergy Unknown rash Verified 12/12/22 10:29 Home Medications Medication Instructions Recorded Confirmed Last Taken Type lorazepam 1 mg tablet 1 mg PO PRN anxiety 08/28/22 12/12/22 Unknown History losartan 50 mg tablet 50 mg PO QAM 08/28/22 02/21/23 Unknown History omega 8-zbh-toq-fish oil 60 mg-90 1 cap PO DAILY 08/28/22 12/12/22 Unknown History mg-500 mg capsule (Fish Oil) bupropion HCl 150 mg 24 hr tablet, 150 mg PO QAM 12/12/22 02/21/23 Unknown History extended release Exam Airway Mallampati Class: II (missing couple, denies loose) TM Dist: >3cm Neck ROM: Full Heart: rrr Lungs: cta Assessment and Plan Assessment Anesthesia Assessment: Anesthesia Plan Discussed Final Anesthetic Review Family History of Problems with Anesthesia: No History of Problems with Anesthesia: No NPO: Yes ASA Class: III Final Preanesthetic Review: No Changes in Pt Med Stat, Meds/Allgs Chart Reviewed and Consent Obtained/Reviewed Patient Risk: Intermediate Procedure Risk: Intermediate Anesthetic Plan Anesthetic Plan: MAC: Disposition: Standard PACU
[2023-02-24 07:57] VITALS: BP 117/71; PULSE 89; RESP 16; TEMP 36.7; O2SAT 96
[2023-02-24] MEDS: Lactated Ringers 1,000 ML 100 ML IVCONT (08:07)
[2023-02-24 08:11] LABS: Glucose, Whole Blood 190 mg/dL (60-115)
--- NOTE | 2023-02-24 08:35 | MHC.SHP ---
Pre-Procedural Eval Section A Date of Service: 02/24/23 The patient is an INPATIENT: No The History & Physical has been completed within 30 days and I have reviewed it.: No Section B Chief Complaint: screening, screen for varices Relevant Family History (Specify if Yes): Yes Relevant Social History: Tobacco Use (past smoker) Present Medications: see Short Stay Collaborative assessment Medical History: Significant History (HLD (hyperlipidemia) HTN (hypertension) T1DM (type 1 diabetes mellitus) Transaminitis Vitamin D deficiency) History of Previous Operations: Relevant previous surgery/procedure and date(s) (History of carpal tunnel release Hx of colonoscopy) Allergies: Allergies Allergy/AdvReac Type Severity Reaction Status Date / Time aspirin Allergy Unknown Unknown. Verified 12/12/22 10:29 simvastatin Allergy Unknown rash Verified 12/12/22 10:29 Review of Systems Sugical H&P ROS: Negative: Constitution, Cardiovascular, Respiratory and Gastrointestinal Exam Surgical H&P Exam: Normal: Heart, Normal: Lungs, Normal: Extremities and Normal: Abdomen Plan Diagnosis/Plan: Unchanged I have reviewed the history and physical and performed a pertinent physical examination on my patient. No changes have occurred unless specified. Time Spent With Patient Time: Total time managing care of this patient today ____ minutes.
--- NOTE | 2023-02-24 08:44 | W.PM.OPN ---
Operative Note Operative Note Date of Service: 02/24/23 Narrative: FLEXIBLE TRANSORAL UPPER GASTROINTESTINAL ENDOSCOPY WITH BIOPSIES AND COLONOSCOPY TILL CECUM WITH BIOPSIES AND SNARE POLYPECTOMY Pre-op diagnosis: Screening, FH of colon cancer (Dad at age 78 yrs), screen for varices Post-op diagnosis: Colon cancer screening, screen for varices? Endoscopist:? Nazario Farooq MD Anesthesia:?MAC UPPER ENDOSCOPY Consent: Indications for the procedure and potential complications of bleeding, perforation, reaction to medications and missed diagnosis were discussed with the patient and informed consent was obtained. Instrument: Olympus GIF H 190 mid size upper endoscope Monitoring: Vital signs and clinical assessment, continuous EKG monitoring, Pulse oximetry, Carbon Dioxide monitoring and blood pressure monitoring were done throughout the procedure. Procedure: The patient was placed in the left lateral decubitis position and pre-procedure medications were administered and a bite block was placed. The endoscope was inserted into the mouth and advanced under direct vision to the third part of duodenum. A careful inspection was made as the upper endoscope was withdrawn including a retroflexed examination of the proximal stomach; Findings and interventions are described below. Findings: Larynx: Normal Esophagus: GE junction at 40 cms. No esophagitis or Kelly's or varices noted. Stomach: Mild gastric erythema with a few superficial erosions. Biopsies were obtained. Grade 2 flap valve on retroflexed examination of the cardia. Duodenum: Normal bulb and descending duodenum Intervention: Biopsies as noted above COLONOSCOPY PROCEDURE NOTE Consent: Indications for the procedure and potential complications of bleeding, perforation, reaction to medications and missed diagnosis were discussed with the patient and informed consent was obtained. Instrument: Olympus PCF H 190 L variable stiffness pediatric colonoscope Monitoring: Vital signs and clinical assessment, intermittent blood pressure monitoring, continuous EKG monitoring, Pulse oximetry and Carbon Dioxide monitoring were done throughout the procedure. Colon withdrawl time was 20 minutes. Procedure: The patient was placed in the left lateral decubitis position and pre-procedure medications were administered. After a digital rectal examination of the ano-rectum, the video colonoscope was inserted into the rectum and advanced through the colon to the cecum. The colonoscope was slowly withdrawn in a retrograde panoramic fashion and the colon mucosa was carefully examined including a retroflexed view of the rectum. Findings and interventions are described below. Procedure Difficulty: : Without difficulty Findings: Terminal Ileum: Not evaluated Cecum: Normal Ascending Colon: Normal Transverse Colon: Normal Descending Colon: Normal Sigmoid Colon: Two 7-8 mm sessile polyps - removed with a cold snare. Moderate diverticulosis Rectum: A 8-9 mm sessile polyp removed with a cold snare and residual polyp removed with a cold biopsy. Ano-rectum: Moderate internal hemorrhoids Colon preparation: Good after some irrigation Impression and Post Procedure Diagnosis: Endoscopy Findings: ESOPHAGUS: No esophagitis or Kelly's or varices noted. STOMACH: Mild gastric erythema with a few superficial erosions. Colonoscopy Findings: Three small polyps removed Moderate diverticulosis seen in the sigmoid colon Moderate hemorrhoids on retroflexed exam. Plan: I will send a letter with pathology results Repeat Colonoscopy interval based on path results - in 3-5 years if polyps are adenomatous and 10 years if polyps are hyperplastic. Above findings were reviewed with the patient and colon polyps and diverticulosis handouts were given in the discharge area
[2023-02-24 09:27] VITALS: BP 117/73; PULSE 87; RESP 22; TEMP 36.6; O2SAT 94
[2023-02-24 09:42] VITALS: BP 138/87; PULSE 74; RESP 18; TEMP 36.8; O2SAT 96
[2023-02-24 10:03] LABS: Glucose, Whole Blood 190 mg/dL (60-115)
== END 2023-02-24 10:42 | disposition home or self-care (01) ==
PROVIDERS: PCP Nurse Practitioner Primary Care; Visit Provider Internal Medicine Gastroenterology
PROC: (CPT 45385; principal; 2023-02-24 08:30)
DX: Z12.11 Encounter for screening for malignant neoplasm of colon (principal); Z80.0 Family history of malignant neoplasm of digestive organs; D12.5 Benign neoplasm of sigmoid colon; D12.8 Benign neoplasm of rectum; K57.30 Diverticulosis of large intestine without perforation or abscess without bleeding; K64.8 Other hemorrhoids; K29.50 Unspecified chronic gastritis without bleeding; R74.01 Elevation of levels of liver transaminase levels; I10 Essential (primary) hypertension; D64.9 Anemia, unspecified; E78.5 Hyperlipidemia, unspecified; E55.9 Vitamin D deficiency, unspecified; R00.0 Tachycardia, unspecified; E10.8 Type 1 diabetes mellitus with unspecified complications; Z79.4 Long term (current) use of insulin; Z79.899 Other long term (current) drug therapy; Z88.8 Allergy status to other drugs, medicaments and biological substances; Z86.19 Personal history of other infectious and parasitic diseases; Z87.891 Personal history of nicotine dependence
CPT/HCPCS: 45385; 45380; 43239; 82947; 88305; 88342; J2250

== ENCOUNTER → 2023-02-24 07:32 | Outpatient (BNV) | payer MEDICAID, SELFPAY | PROVIDERS: PCP Nurse Practitioner Primary Care; Visit Provider Internal Medicine Gastroenterology | DX: Z12.11 Encounter for screening for malignant neoplasm of colon (principal); Z80.0 Family history of malignant neoplasm of digestive organs; K29.70 Gastritis, unspecified, without bleeding; D12.5 Benign neoplasm of sigmoid colon; K57.30 Diverticulosis of large intestine without perforation or abscess without bleeding; D12.8 Benign neoplasm of rectum | CPT/HCPCS: 43239; 45380; 45385 ==

== ENCOUNTER 2023-02-24 11:42 | Emergency (ER) | payer MEDICAID, OTHER, SELFPAY ==
--- NOTE | ~2023-02-24 | XR_ITS ---
EXAMINATION: XR CHEST CLINICAL INFORMATION: Chest tightness status post colonoscopy COMPARISON: Chest 07/12/2018 TECHNIQUE: AP upright and lateral views of the chest were obtained with the patient in wheelchair. 12:20 PM. FINDINGS: No significant abnormality is noted involving the heart, lungs, mediastinum or soft tissues. There is an old healed fracture of the right clavicle. There is no free air under the diaphragm. XR/XR chest 2V IMPRESSION: No acute cardiopulmonary disease.
--- NOTE | 2023-02-24 07:20 | ECG_ITS ---
Test Reason : anxiety Blood Pressure : / mmHG Vent. Rate : 074 BPM Atrial Rate : 074 BPM P-R Int : 142 ms QRS Dur : 088 ms QT Int : 400 ms P-R-T Axes : 027 010 026 degrees QTc Int : 444 ms Normal sinus rhythm Normal ECG When compared with ECG of 24-FEB-2023 11:51, No significant change was found Referred By: Jose Calderon Electronically Signed By:PROSPER العلي
--- NOTE | 2023-02-24 11:49 | ECG_ITS ---
Test Reason : chest pain s/p colonoscopy Blood Pressure : / mmHG Vent. Rate : 080 BPM Atrial Rate : 080 BPM P-R Int : 146 ms QRS Dur : 086 ms QT Int : 384 ms P-R-T Axes : 021 027 043 degrees QTc Int : 442 ms Normal sinus rhythm Normal ECG When compared with ECG of 05-APR-2022 07:55, QT has shortened Referred By: Brandi Person Electronically Signed By:PROSPER العلي
[2023-02-24 11:57] VITALS: BP 149/89; PULSE 70; RESP 18; TEMP 35.6; O2SAT 100; BMI 24.6
--- NOTE | 2023-02-24 11:58 | ED.GENADULT ---
HPI - General Adult General Chief complaint: Anxiety Stated complaint: Anxiety attack? Colonoscopy this morning Time Seen by Provider: 02/24/23 13:24 Source: patient Mode of arrival: ambulatory Limitations: no limitations History of Present Illness HPI narrative: anxious after waking up from colonoscopy. anxiety is getting so bad he doesn't want to live anymore Onset (ago): month(s) Related Data Home Medications Medication Instructions Recorded Confirmed lorazepam 1 mg tablet 1 mg PO PRN anxiety 08/28/22 12/12/22 losartan 50 mg tablet 50 mg PO QAM 08/28/22 02/21/23 omega 6-ko[place]-fish oil 60 mg-90 1 cap PO DAILY 08/28/22 12/12/22 mg-500 mg capsule (Fish Oil) bupropion HCl 150 mg 24 hr tablet, 150 mg PO QAM 12/12/22 02/21/23 extended release Previous Rx's Medication Instructions Recorded blood-glucose meter (FreeStyle #1 ea 09/04/20 Lite Meter kit) lancets 28 gauge (FreeStyle #100 ea 09/04/20 Lancets) Humalog KwikPen Insulin 100 14 - 24 unit (0.14 - 0.24 mL) 08/27/21 unit/mL subcutaneous (insulin subcut TID 45 days #30 mL lispro) lorazepam 2 mg tablet (Ativan) 2 mg PO TID PRN anxiety #10 tabs 04/05/22 blood sugar diagnostic (FreeStyle #100 ea 09/17/22 Lite Strips) evolocumab 140 mg/mL subcutaneous 140 mg subcut Q2W 30 days #3 mL 09/18/22 pen injector (Repatha SureClick) pen needle, diabetic 32 gauge x #100 ea 09/25/2205/29 (BD Ultra-Fine Micro Pen Needle) Lantus Solostar U-100 Insulin 100 30 unit (0.3 mL) subcut QPM #9 mL 12/11/22 unit/mL (3 mL) subcutaneous pen (insulin glargine) Allergies Allergy/AdvReac Type Severity Reaction Status Date / Time aspirin Allergy Unknown Unknown. Verified 12/12/22 10:29 simvastatin Allergy Unknown rash Verified 12/12/22 10:29 Review of Systems Review of Systems: Yes all other systems are reviewed and are negative Neurologic: Denies Sensory deficit (Neuro) [facility] Past Medical History Medical History Transaminitis T1DM (type 1 diabetes mellitus) Vitamin D deficiency HLD (hyperlipidemia) HTN (hypertension) Surgical History Hx of colonoscopy History of carpal tunnel release Family History Family History Mother Diabetes Hypertension Father Myocardial infarction Social History Social History Household Members: Spouse Are you a primary healthcare corporate account director to a significant other at home: No Do you presently have visiting nurse or other home services: No Alcohol intake: former Year quit: 09/14 Patient Tobacco Use Status: Former Tobacco user Quit Date: 2007 Smoked: 20 +/- Advance Directives: No Advance Directives Information Provided: Yes Physical Exam ED Vital Signs: Vital Signs - 24 hr 02/24/23 11:57 Temperature 96.0 F L Pulse Rate 70 Respiratory Rate 18 Blood Pressure 149/89 H Pulse Oximetry 100 Oxygen Delivery Method Room Air BMI result Body Mass Index 24.6 Const Other: anxious diaphoretic Nutritional Appearance: average body habitus Orientation/consciousness: oriented to person and patient oriented x3 Limitations: no limitations HENMT Head: Yes normal to inspection Ears: external ears normal General nose exam: Normal external nose present Mouth: Normal oral and palatal mucosa present and oropharynx normal Throat: Yes posterior oropharynx normal Eyes General: appearance normal, both eyes and all related structures Neck Neck: Yes normal visual inspection Chest Chest palpation & inspection: normal inspection of the chest Resp Auscultation: clear to auscultation bilaterally Cardio Jugular venous distension: no JVD Rate: regular rate Rhythm: regular rhythm Heart sounds: S1 normal heart sound present and S2 normal heart sound present GI Inspection: Yes normal to inspection Palpation (GI): Soft to palpation, nontender and No hepatosplenomegaly present Auscultation: normal bowel sounds General: Yes no CVA tenderness Back/Spine/Pelvis Back: no CVA tenderness Skin General skin exam: no rashes or lesions noted Neuro General: oriented to person and patient oriented x3 Cranial nerves: Yes CN's II-XII intact bilaterally Motor exam (neuro): 5/5 motor strength present throughout Sensory Exam: No Sensory deficit (Neuro) Extrem General: Yes normal to inspection Psych Other: anxious, diaphoretic, crying Course Course Course Narrative: This is an RME: Additional HPI, ROS, PE not included below will be deferred to primary provider. This is a 57-year-old male presenting to the emergency department with a complaint of chest tightness s/p colonoscopy. He states that he okay upon awakening from colonoscopy and was discharged states he developed chest tightness and difficulty breathing. He states that he has a history of anxiety and this feels similar to his anxiety attacks he has had in the past. Vital signs stable. Plan: Labs, EKG ordered. Reevaluation(s) Reevaluation #1: medically cleared Time: 13:31 Reevaluation #2: physician observation: patient to be evaluated by psych to make sure patient is not suicidal, just overly anxious, physician observation started at 3:30pm Time: 15:44 Reevaluation #3: Seen and cleared by crisis will dc home Time: 16:12 Medications Administered Discontinued Medications Generic Name Dose Route Start Last Admin Trade Name Kate PRN Reason Stop Dose Admin Lorazepam 1 mg 02/24/23 14:30 02/24/23 14:49 Lorazepam 1 Mg Tablet PO 02/24/23 14:31 1 mg ONCE ONE Administration Ondansetron HCl 4 mg 02/24/23 15:28 02/24/23 15:30 Ondansetron Odt 4 Mg Tab.Rapdis TRANSLINGU 02/24/23 15:29 4 mg ONCE ONE Administration Medical Decision Making Differential Diagnosis Differential Diagnoses: The differential diagnosis associated with the presentation includes (anxiety, depression, suicidal ideation) Admission/Observation Consideration of admission/observation: Escalation of care including admission/observation considered (upon arrival patient considered for psychiatric admission) Consult Healthcare Provider Management of the patient was discussed with: Behavioral Health Provider Lab Data MDM Lab Attestation statement: I reviewed the patient's lab results. 02/24/23 12:43 02/24/23 12:43 Labs: Lab Results 02/24/23 02/24/23 02/24/23 Range/Units 12:43 14:09 14:29 WBC 6.0 (4.8-10.8) X10*3/uL RBC 4.98 (4.60-5.80) X10*6/uL Hgb 15.6 (14.0-18.0) g/dl Hct 46.3 (42.0-52.0) % MCV 93.0 (80.0-98.0) fL MCH 31.3 (27.0-33.0) pg MCHC 33.7 (31.0-36.0) g/dl RDW 12.8 (11.0-16.0) % Plt Count 146 L (160-400) X10*3/uL MPV 11.0 (9.4-12.4) fL Immature Gran % (Auto) 0.3 (0.0-0.4) % Neut % (Auto) 65.4 (45-73) % Lymph % (Auto) 23.9 (20-40) % [place] % (Auto) 9.3 (2-11) % Eos % (Auto) 0.3 (0-4) % Baso % (Auto) 0.8 (0-2) % Lymph # (Auto) 1.4 (1.2-4.9) X10*3/uL [place] # (Auto) 0.6 (0.1-1.2) X10*3/uL Eos # (Auto) 0.0 (0.0-0.4) X10*3/uL Baso # (Auto) 0.1 (0.0-0.2) X10*3/uL Abs Immat Gran (auto) 0.02 (0.00-0.03) X10*3/uL Absolute Neuts (auto) 3.9 (2.0-8.3) x10*3/uL Absolute Nucleated RBC 0.000 (0.0-0.012) X10*3/uL Nucleated RBC % (auto) 0.0 (0.0-0.2) /100WBC Sodium 138 (135-145) mmol/L Potassium 4.0 (3.3-5.1) mmol/L Chloride 104 (96-108) mmol/L Carbon Dioxide 19 L (22-29) mmol/L Anion Gap 19 (12-20) BUN 6 L (9-16) mg/dL Creatinine 0.92 (0.5-1.4) mg/dL Estim Creat Clear Calc 93.6 Estimated GFR > 60 POC Glucose (60-115) mg/dL Random Glucose 210 H (60-115) mg/dL Calcium 9.6 (8.4-10.2) mg/dL Total Bilirubin 1.2 H (0.0-1.0) mg/dL Direct Bilirubin 0.5 (0.0-0.5) mg/dL AST 61 H (5-37) U/L ALT 65 H (0-40) U/L Alkaline Phosphatase 78 (39-117) U/L Troponin I High Sens < 2.7 (<3.5-35.0) ng/L Total Protein 7.4 (6.5-8.0) g/dL Albumin 4.4 (3.5-5.0) g/dL Lipase 20 (8-78) U/L Urine Color Yellow Urine Appearance Clear Urine pH 7.0 (5.0-9.0) Ur Specific [place] 1.010 (1.005-1.025) Urine Protein Negative (Neg-Trace) mg/dL Urine Glucose (UA) >=1000 H (Negative) mg/dL Urine Ketones 40 (Negative) mg/dL Urine Blood Negative (Negative) Urine Nitrite Negative (Negative) Ur Leukocyte Esterase Negative (Negative) Urine RBC 0-2 (0-2) /HPF Urine WBC 0-5 (0-5) /HPF Ur Squamous Epith Cells 0-2 (0-2) /HPF Urine Bacteria None Seen (None Seen) Hyaline Casts 0-2 (0-2) /LPF Urine Opiates Screen Not Detected (Not Detect) Urine Fentanyl Screen Not Detected (Not Detect) Ur Barbiturates Screen Not Detected (Not Detect) Ur Phencyclidine Scrn Not Detected (Not Detect) Ur Amphetamines Screen Not Detected (Not Detect) U Benzodiazepines Scrn POSITIVE H (Not Detect) Urine Cocaine Screen Not Detected (Not Detect) U Marijuana (THC) Screen POSITIVE H (Not Detect) Ethyl Alcohol < 10 mg/dL 02/24/23 Range/Units 14:35 WBC (4.8-10.8) X10*3/uL RBC (4.60-5.80) X10*6/uL Hgb (14.0-18.0) g/dl Hct (42.0-52.0) % MCV (80.0-98.0) fL MCH (27.0-33.0) pg MCHC (31.0-36.0) g/dl RDW (11.0-16.0) % Plt Count (160-400) X10*3/uL MPV (9.4-12.4) fL Immature Gran % (Auto) (0.0-0.4) % Neut % (Auto) (45-73) % Lymph % (Auto) (20-40) % [place] % (Auto) (2-11) % Eos % (Auto) (0-4) % Baso % (Auto) (0-2) % Lymph # (Auto) (1.2-4.9) X10*3/uL [place] # (Auto) (0.1-1.2) X10*3/uL Eos # (Auto) (0.0-0.4) X10*3/uL Baso # (Auto) (0.0-0.2) X10*3/uL Abs Immat Gran (auto) (0.00-0.03) X10*3/uL Absolute Neuts (auto) (2.0-8.3) x10*3/uL Absolute Nucleated RBC (0.0-0.012) X10*3/uL Nucleated RBC % (auto) (0.0-0.2) /100WBC Sodium (135-145) mmol/L Potassium (3.3-5.1) mmol/L Chloride (96-108) mmol/L Carbon Dioxide (22-29) mmol/L Anion Gap (12-20) BUN (9-16) mg/dL Creatinine (0.5-1.4) mg/dL Estim Creat Clear Calc Estimated GFR POC Glucose 191 H (60-115) mg/dL Random Glucose (60-115) mg/dL Calcium (8.4-10.2) mg/dL Total Bilirubin (0.0-1.0) mg/dL Direct Bilirubin (0.0-0.5) mg/dL AST (5-37) U/L ALT (0-40) U/L Alkaline Phosphatase (39-117) U/L Troponin I High Sens (<3.5-35.0) ng/L Total Protein (6.5-8.0) g/dL Albumin (3.5-5.0) g/dL Lipase (8-78) U/L Urine Color Urine Appearance Urine pH (5.0-9.0) Ur Specific [place] (1.005-1.025) Urine Protein (Neg-Trace) mg/dL Urine Glucose (UA) (Negative) mg/dL Urine Ketones (Negative) mg/dL Urine Blood (Negative) Urine Nitrite (Negative) Ur Leukocyte Esterase (Negative) Urine RBC (0-2) /HPF Urine WBC (0-5) /HPF Ur Squamous Epith Cells (0-2) /HPF Urine Bacteria (None Seen) Hyaline Casts (0-2) /LPF Urine Opiates Screen (Not Detect) Urine Fentanyl Screen (Not Detect) Ur Barbiturates Screen (Not Detect) Ur Phencyclidine Scrn (Not Detect) Ur Amphetamines Screen (Not Detect) U Benzodiazepines Scrn (Not Detect) Urine Cocaine Screen (Not Detect) U Marijuana (THC) Screen (Not Detect) Ethyl Alcohol mg/dL Independent Interpretation I performed an independent interpretation of an: EKG (sinus [address] or twave changes) and Plain X-Ray (CXR no free air under diaphragm) Independent Historian Clinical information obtained from an independent historian. History obtained from or confirmed by: Spouse () Chronic Conditions Patient?s care impacted by: Other (anxiety) Discharge Plan Discharge Clinical Impression: Acute anxiety, Depression Patient Disposition: Home, Self-Care Instructions: Anxiety (ED), Depression (ED) Prescriptions: No Action insulin lispro [Humalog KwikPen Insulin] 100 unit/mL insulin pen 14 - 24 unit subcut TID MDD 66 45 Days Qty: 30 11RF (DME) FreeStyle Lite Strips Strip See Rx Instructions .ROUTE .MEDSUPPLY Qty: 100 11RF Rx Instructions: 4x daily Repatha SureClick 140 mg/mL pen injector 140 mg subcut Q2W 30 Days Qty: 3 11RF (DME) pen needle, diabetic [BD Ultra-Fine Micro Pen Needle] 32 gauge x 1/4 needle See Rx Instructions .ROUTE .MEDSUPPLY Qty: 100 11RF Rx Instructions: 4x daily insulin glargine [Lantus Solostar U-100 Insulin] 100 unit/mL (3 mL) insulin pen 30 unit subcut QPM Qty: 9 3RF lorazepam [Ativan] 2 mg tablet 2 mg PO TID PRN (Reason: anxiety) Qty: 10 0RF (DME) lancets [FreeStyle Lancets] 28 gauge misc See Rx Instructions .ROUTE .MEDSUPPLY Qty: 100 11RF Rx Instructions: 4x daily (DME) blood-glucose meter [FreeStyle Lite Meter] Kit See Rx Instructions .ROUTE .MEDSUPPLY Qty: 1 0RF Rx Instructions: As directed losartan 50 mg tablet 50 mg PO QAM lorazepam 1 mg tablet 1 mg PO PRN (Reason: anxiety) omega 0-ecb-hme-fish oil [Fish Oil] 60-90-500 mg capsule 1 cap PO DAILY bupropion HCl 150 mg tablet extended release 24 hr 150 mg PO QAM Referrals: Gisselle Holland, FINANCIAL COUNSELOR [Primary Care Provider] - 3 days
[2023-02-24 12:48] LABS: MANUAL DIFF FLAG NO
[2023-02-24 12:50] LABS: Basophils Absolute Auto 0.1 X10*3/uL (0.0-0.2); Basophils Percent Auto 0.8 % (0-2); Eosinophils Percent Auto 0.3 % (0-4); Hematocrit 46.3 % (42.0-52.0); Hemoglobin 15.6 g/dl (14.0-18.0); Imm Gran Abs Auto 0.02 X10*3/uL (0.00-0.03); Imm Gran Pct Auto 0.3 % (0.0-0.4); Lymphocytes Absolute Auto 1.4 X10*3/uL (1.2-4.9); Lymphocytes Percent Auto 23.9 % (20-40); Mean Corpuscular HGB Conc 33.7 g/dl (31.0-36.0); Mean Corpuscular Hemoglobin 31.3 pg (27.0-33.0); Monocytes Absolute Auto 0.6 X10*3/uL (0.1-1.2); Monocytes Percent Auto 9.3 % (2-11); Neutrophils Absolute Auto 3.9 x10*3/uL (2.0-8.3); Neutrophils Percent Auto 65.4 % (45-73); Platelet Count 146 X10*3/uL (160-400); Red Blood Count 4.98 X10*6/uL (4.60-5.80); Red Cell Distribution Width 12.8 % (11.0-16.0)
[2023-02-24 13:05] LABS: Alanine Aminotransferase 65 U/L (0-40); Albumin Level 4.4 g/dL (3.5-5.0); Alkaline Phosphatase 78 U/L (39-117); Anion Gap 19 (12-20); Aspartate Amino Transferase 61 U/L (5-37); Bilirubin Direct 0.5 mg/dL (0.0-0.5); Bilirubin Total 1.2 mg/dL (0.0-1.0); Blood Urea Nitrogen 6 mg/dL (9-16); Calcium 9.6 mg/dL (8.4-10.2); Carbon Dioxide 19 mmol/L (22-29); Chloride 104 mmol/L (96-108); Creatinine Clr Calc Pharmacy 93.6; Estimated Glomerular Filt Rate > 60; Glucose Random 210 mg/dL (60-115); Lipase 20 U/L (8-78); Sodium 138 mmol/L (135-145); Total Protein 7.4 g/dL (6.5-8.0)
[2023-02-24 13:16] LABS: Troponin-I High Sensitivity < 2.7 ng/L (<3.5-35.0)
[2023-02-24 14:27] LABS: Ethanol < 10 mg/dL
--- NOTE | 2023-02-24 14:28 | PC.NURSE ---
patient initially resistant to change, dramatic, asked for support of who had gone out to give phone to security. asked provider for ativan.
[2023-02-24 14:36] LABS: Appearance Urine Clear; Color Urine Yellow; Glucose Urine UA >=1000 mg/dL (Negative); Leukocyte Esterase Urine Negative (Negative); Nitrite Urine Negative (Negative); UMIC TRIGGER UACC YES; Urine Blood Negative (Negative); Urine Ketones 40 mg/dL (Negative); Urine Protein Negative (Neg-Trace)
[2023-02-24 14:41] LABS: Glucose, Whole Blood 191 mg/dL (60-115)
[2023-02-24 14:41] LABS: Bacteria Urine None Seen (None Seen); Hyaline Casts Urine 0-2 /LPF (0-2); RBC Urine 0-2 /HPF (0-2); Squamous Epithelial Cell Urine 0-2 /HPF (0-2); WBC Urine 0-5 /HPF (0-5)
[2023-02-24 14:44] LABS: Amphetamine Screen Urine Not Detected (Not Detect); Barbiturates, Urine Not Detected (Not Detect); Benzodiazepines Screen Urine POSITIVE (Not Detect); Cannabinoid Screen Urine POSITIVE (Not Detect); Cocaine Screen Urine Not Detected (Not Detect); Fentanyl, urine Not Detected (Not Detect); Opiate Screen Urine Not Detected (Not Detect); Phencyclidine Screen Urine Not Detected (Not Detect)
[2023-02-24] MEDS: LORazepam 1 MG TABLET PO (14:49)
[2023-02-24] MEDS: Ondansetron ODT 4 MG TAB.RAPDIS TRANSLINGU (15:30)
== END 2023-02-24 16:36 | disposition home or self-care (01) ==
PROVIDERS: Physician Assistant Medical; Emergency Provider Emergency Medicine; PCP Nurse Practitioner Primary Care
DX: F41.1 Generalized anxiety disorder (principal); F43.0 Acute stress reaction; F33.1 Major depressive disorder, recurrent, moderate; R07.89 Other chest pain; Z79.899 Other long term (current) drug therapy; Z87.891 Personal history of nicotine dependence
CPT/HCPCS: 36415; 71046; 80048; 80076; 80307; 81001; 82947; 83690; 84484; 85025; 93005; 99284; S9485

== ENCOUNTER 2023-03-14 18:41 | Emergency (ER) | payer MEDICAID, SELFPAY ==
[2023-03-14 18:48] VITALS: BP 146/88; BP 165/94; PULSE 110; PULSE 120; RESP 18; TEMP 36.4; O2SAT 96; O2SAT 98; BMI 29.3
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
[2023-03-14 19:15] LABS: Glucose, Whole Blood 161 mg/dL (60-115)
[2023-03-14] MEDS: LORazepam 1 MG TABLET 2 MG PO (19:17)
== END 2023-03-14 19:26 | disposition home or self-care (01) ==
PROVIDERS: Emergency Provider Internal Medicine
DX: F41.0 Panic disorder [episodic paroxysmal anxiety] (principal); F41.1 Generalized anxiety disorder; F43.0 Acute stress reaction; Z87.891 Personal history of nicotine dependence
CPT/HCPCS: 82947; 99283

== ENCOUNTER 2023-03-26 13:47 | Outpatient (AMB) | payer MEDICAID, SELFPAY ==
--- NOTE | 2023-03-26 13:52 | A.OFFVIS_ITS ---
Intake Vital Signs 03/26/23 13:53 Height 5 ft 2 in Weight 169 lb 15.622 oz BMI 31.1 BP 132/74 Blood Pressure Location Lt brachial Position Sitting Pulse 81 Pulse Source Pulse Oximeter Intake Visit Reasons: DM Intake Note: Patient present today to follow up on Type 1 Diabetes Mellitus. Patient receives DME supplies through: [employer] Last Diabetic Eye exam: 07/2022 Last Podiatry Visit: Does not see Patient Services Rep Random Glucose: 197mg/dl HgA1C: 7.1% Assistant Surveyor Required: No Accompanied by: Self / Same As Patient Allergies aspirin Allergy (Unknown, Verified 03/26/23 14:03) Unknown. simvastatin Allergy (Unknown, Verified 03/26/23 14:03) rash Medication List - Last Reconciled 03/26/23 by Sandor Koenig MD blood sugar diagnostic (FreeStyle Lite Strips) 4x daily blood-glucose meter (FreeStyle Lite Meter kit) As directed bupropion HCl 150 mg PO QAM evolocumab (Repatha SureClick) 140 mg subcut Q2W 30 days Humalog KwikPen Insulin (insulin lispro) 14 - 24 units (0.14 - 0.24 mL) subcut TID 45 days MDD 66 NS lancets (FreeStyle Lancets) 4x daily Lantus Solostar U-100 Insulin (insulin glargine) 30 units (0.3 mL) subcut QPM NS lorazepam (Ativan) 2 mg PO TID PRN lorazepam (Ativan) 1 mg PO BID PRN lorazepam 1 mg PO PRN losartan 50 mg PO QAM omega 9-kzp-nms-fish oil 60-90-500 mg (Fish Oil) 1 cap PO DAILY pen needle, diabetic (BD Ultra-Fine Micro Pen Needle) 4x daily HPI HPI Comments History of Present Illness Details 57 YO M with PMHx T1DM who is seen in F/U for T1DM.. Patient last saw Dr. Doherty on 12/12/2022 Initially diagnosed with T2DM in 2009. After our initial visit we completed his workup which revealed negative antibodies, but low C-Peptide for the degree of hyperglycemia, indicating T1DM. Was initially started on treatment with Metformin. This was stopped by his PCP and he was instead started on Glipizide 10 mg PO BID. This was stopped as of our initial visit and he was started on insulin. Current regimen: Lantus 30 units qHS with Humalog 10-15 units AC. Has DEXCOM G6. Dexcom download shHe is usin the sensor 7% of the time. average glucose is 170 54% range and 45% hyperglycemia and 1% hypoglycemia Reports low sugars never. Most recent A1C: 7.1 % 03/26, unchanged from 6.6% 08/2022, down from 11.3% 09/04/2020. Family history of T2DM in his Mother. Has eyes checked yearly, last eye exam less than 1 yr needs to make appt , has retinopathy. Has neuropathy, does not see podiatry. Has if nephropathy, on Lisinopril 20 mg PO daily. UAC 15.2 12/09/2022. Has HLD, not on Statin. LDL 133 12/09/2022. LFTs elevated, following with GI. Denies CAD. Diet: Drinks ETOH heavily. Has cut back on carbs. Weight: Stable. Has not had diabetes education. Has been referred. Labs: Laboratory Tests 12/09/22 12/09/22 12/09/22 10:25 10:26 10:26 Creatinine 1.07 Estimated GFR > 60 Hemoglobin A1c % 6.5 LDL Cholesterol Di rect Microalb/Creat Rat io 15.2 12/09/22 10:26 Creatinine Estimated GFR Hemoglobin A1c % LDL Cholesterol Di rect 133 H Microalb/Creat Rat io PFSH Medical History Transaminitis T1DM (type 1 diabetes mellitus) Vitamin D deficiency HLD (hyperlipidemia) HTN (hypertension) Surgical History Hx of colonoscopy History of carpal tunnel release Family History Mother Diabetes Hypertension Father Myocardial infarction Social History Household Members: Spouse Are you a primary lead caregiver to a significant other at home: No Do you presently have visiting nurse or other home services: No Unable to assess alcohol history related to: Unknown Alcohol intake: former Year quit: 09/14 Patient Tobacco Use Status: Former Tobacco user Quit Date: 2007 Years Smoked: 20 +/- Physical Exam Vital Signs: Last Vital Signs Pulse 81 03/26/23 13:53 BP 132/74 03/26/23 13:53 BMI result Body Mass Index 31.1 Absence of Cushingoid features. Absence of acromegalic features. Neck exam reveals nl size thyroid about 15 gms. No thyroid nodules palpable. No carotid bruits present. Lungs CTA. Heart S1 S2, Reg R/R. No M/R/ G. Skin exam reveals absence of vitiligo or acanthosis nigricans. Abdominal exam reveals Soft NT/ND with NA BS. No organomegaly present. Neck Other: . Extrem Other: Visual exam of foot performed. No ulcerations or open lesions. No onchomycosis, no callouses.Pulses 2 + distally Sensation intact to monofilament exam. Vibratory sensation sensed is intact with 128 Hz tuning fork Results Reviewed Results Reviewed: 03/26/23 13:58 Glucose, Whole Blood Routine Laboratory Last Values Glucose (Clinic) 197 mg/dL (60-115) H 03/26/23 13:58 Assessment & Plan Assessment & Plan (1) T1DM (type 1 diabetes mellitus): Code(s): E10.9 - Type 1 diabetes mellitus without complications Qualifiers: Diabetes mellitus complication status: with hyperglycemia Qualified Code(s): E10.65 - Type 1 diabetes mellitus with hyperglycemia Plan: This 57-year-old male with a history of type 2 diabetes with relative insulin deficiency being treated with basal-bolus insulin with excellent glycemic with known microvascular complications namely neuropathy. Plan is to continue the current regimen. I did talk to the patient initially it G LP 1 but the patient suffers from anxiety and nausea I was afraid of provoking more nausea (2) HLD (hyperlipidemia): Code(s): E78.5 - Hyperlipidemia, unspecified Qualifiers: Hyperlipidemia type: unspecified Qualified Code(s): E78.5 - Hyperlipidemia, unspecified Plan: Admits to noncompliance with Repatha. Lab patient be compliant with Repatha recheck lipid profile in 2 months Orders: Orders Lipid Panel 2 Months E78.5 - Hyperlipidemia, unspecified AMB Hemoglobin A1c Today E10.9 - Type 1 diabetes mellitus without complications Coding Level of Care Code Est Pt Level 4 (59268) Diagnoses Type 1 diabetes mellitus with hyperglycemia E10.65 Diabetes mellitus complication status: with hyperglycemia Hyperlipidemia, unspecified hyperlipidemia type E78.5 Hyperlipidemia type: unspecified
[2023-03-26 13:53] VITALS: BP 132/74; PULSE 81; BMI 31.1
[2023-03-26 14:03] LABS: Glucose, Whole Blood 197 mg/dL (60-115)
== END 2023-03-26 14:25 | disposition home or self-care (01) ==
PROVIDERS: PCP Nurse Practitioner Primary Care; Visit Provider Internal Medicine Endocrinology, Diabetes & Metabolism
DX: E10.65 Type 1 diabetes mellitus with hyperglycemia (principal); E78.5 Hyperlipidemia, unspecified; E10.9 Type 1 diabetes mellitus without complications
CPT/HCPCS: 99214

== ENCOUNTER → 2023-03-26 13:47 | Outpatient (BNVA) | payer MEDICAID, SELFPAY | PROVIDERS: PCP Nurse Practitioner Primary Care; Visit Provider Internal Medicine Endocrinology, Diabetes & Metabolism | DX: E10.65 Type 1 diabetes mellitus with hyperglycemia (principal); E78.5 Hyperlipidemia, unspecified | CPT/HCPCS: 82947; 83036; 99212 ==

== ENCOUNTER 2023-06-18 13:05 | Outpatient (AMB) | payer MEDICAID, SELFPAY ==
--- NOTE | 2023-06-18 13:22 | A.OFFVIS_ITS ---
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 simvastatin Allergy (Unknown, Verified 03/26/23 14:03) rash HPI Comprehensive Diabetes Asmnt Most Recent Diabetes Results: Microalb/Creat Ratio 15.2 ug/mg cr 12/09/22 Cholesterol 190 mg/dL 12/09/22 HDL Cholesterol 41 mg/dL 12/09/22 Triglycerides 136 mg/dL 12/09/22 Creatinine 0.92 mg/dL (0.5-1.4) 02/24/23 Blood Urea Nitrogen 6 mg/dL (9-16) L 02/24/23 Sodium 138 mmol/L (135-145) 02/24/23 Potassium 4.0 mmol/L (3.3-5.1) 02/24/23 Chloride 104 mmol/L (96-108) 02/24/23 Carbon Dioxide 19 mmol/L (22-29) L 02/24/23 Calcium 9.6 mg/dL (8.4-10.2) 02/24/23 AST 61 U/L (5-37) H 02/24/23 ALT 65 U/L (0-40) H 02/24/23 Total Protein 7.4 g/dL (6.5-8.0) 02/24/23 Albumin 4.4 g/dL (3.5-5.0) 02/24/23 PFSH Medical History Transaminitis T1DM (type 1 diabetes mellitus) Vitamin D deficiency HLD (hyperlipidemia) HTN (hypertension) Surgical History Hx of colonoscopy History of carpal tunnel release Family History Mother Diabetes Hypertension Father Myocardial infarction Social History Household Members: Spouse Are you a primary day care teacher to a significant other at home: No Do you presently have visiting nurse or other home services: No Unable to assess alcohol history related to: Unknown Alcohol intake: former Year quit: 09/14 Patient Tobacco Use Status: Former Tobacco user Quit Date: 2007 Years Smoked: 20 +/- Assessment & Plan Assessment & Plan (1) T1DM (type 1 diabetes mellitus): Code(s): E10.9 - Type 1 diabetes mellitus without complications Qualifiers: Diabetes mellitus complication status: with hyperglycemia Qualified Code(s): E10.65 - Type 1 diabetes mellitus with hyperglycemia Plan: Personal Continuous Glucose Monitor: Patients CGM information reviewed Reviewed patient's sensor data: Hypoglycemia: ? 0% Hyperglycemia:? 63% Time in Range:? 27% Average glucose for the last 2 weeks?201 mg/dL Patient reports he has been experiencing severe anxiety, with panic attacks. Patient is on medication and is seeing a behavioral health specialist for this issue. Patient did report that on days where he is feeling extremely anxious he can go without taking his Lantus 30 units for up to 3 days, and will only correct with Humalog. Reviewed with patient the importance of always taking insulin when you have type 1 diabetes Instructed patient on rules when to test for ketones, instructions of when and how to test for ketones given to patient Patient agreed that he will resume Lantus 15 units daily, if fasting blood sugars remain above 150 mg/dL will increase insulin by 3 units every 3-5 days until fasting blood sugars range below 150 mg/dL Patient also agreed to obtain ketone strips, and follow instructions on how to test for ketones Instructed patient on the risk of DKA if not taking insulin Reviewed how to interpret trend arrows Reminded patient that to check finger sticks if symptoms do not match sensor reading. Discussed lag time between finger stick and sensor data.? Patient able to insert sensor independently at home without issue.? Patient instructed to follow-up with early childhood educator aide in 1 month Patient Instructions: DIABETES PROBLEMS HOMECARE INSTRUCTIONS? for High Blood Sugar and When to Test for Ketones Hyperglycemia is the technical term for high blood glucose (blood sugar). High blood sugar happens when the body has too little insulin or when the body can't use insulin properly. What causes hyperglycemia? A number of things can cause hyperglycemia: * If you have type 1, you may not have given yourself enough insulin. ? If you have type 2, your body may have enough insulin, but it is not as effective as it should be. * You ate more than planned or exercised less than planned. * You have stress from an illness, such as a cold or flu. * You have other stress, such as family conflicts or school or dating problems. How to lower your blood sugar level. ? Take medications as directed by physician. ? Drink extra water or noncaffeinated, nonsugared drinks to prevented hydration. ? Exercise if you are not sick However, if your blood sugar is above 250 mg/dl, check your urine for ketones. If you have ketones, do not exercise Exercising when ketones are present may make your blood sugar level go even higher. You'll need to work with your doctor to find the safest way for you to lower your blood sugar level. Regularly check blood sugar or urine for sugar and acetone during illness. Diabetic ketoacidosis (DKA) Is serious condition that can lead to diabetic coma (passing out for a long time) or even . When your cells don't get the glucose they need for energy, your body begins to burn fat for energy, which produces ketones. Ketones are chemicals that the body creates when it breaks down fat to use for energy. The body does this when it doesn?t have enough insulin to use glucose, the body?s normal source of energy. When ketones build up in the blood, they make it more acidic. They are a warning sign that your diabetes is out of control or that you are getting sick. Symptoms of Diabetic Ketoacidosis (DKA) ? DKA usually develops slowly. But when vomiting occurs, this life- threatening condition can develop in a few hours. Early symptoms include the following: ? Thirst or a very dry mouth ? Frequent urination ? High blood glucose (blood sugar) levels ? High levels of ketones in the urine ? Then, other symptoms appear: ? Constantly feeling tired ? Dry or flushed skin ? Nausea, vomiting, or abdominal pain ? (Vomiting can be caused by many illnesses, not just ketoacidosis. If vomiting continues for more than 2 hours, contact your health care provider.) ? Difficulty breathing ? Fruity odor on breath ? A hard time paying attention, or confusion When should you test for ketones? It is advisable to check for ketones under the following conditions when: Your blood glucose is higher than 250mg/dl. Feeling nauseated, throwing up, or have pains in your abdominal region. Have a cold or flu. Have general body fatigue. Feel thirsty or have a very dry mouth. Have flushed skin. Have a fruity breath or a hard time breathing. You feel perplexed or in fog. How to Test Urine for Ketones You can detect ketones with a simple urine test using a test strip, similar to a blood testing strip. Ask your health care provider when and how you should test for ketones. Many experts advise to check your urine for ketones when your blood glucose is more than 250 mg/dl. When you are ill (when you have a cold or the flu, for example), check for ketones every 4 to 6 hours. And check every 4 to 6 hours when your blood sugar is more than 250 mg/dl. Also, check for ketones when you have any symptoms of DKA. How to lower your blood sugar level. ? Take medications as directed by physician. ? Drink extra water or noncaffeinated, nonsugared drinks to prevented hydration. ? Exercise if you are not sick However, if your blood sugar is above 250 mg/dl, check your urine for ketones. If you have ketones, do not exercise Exercising when ketones are present may make your blood sugar level go even higher. You'll need to work with your doctor to find the safest way for you to lower your blood sugar level. Regularly check blood sugar or urine for sugar and acetone during illness Coding Level of Care Code Est Pt Level 1 (98663) Diagnoses Type 1 diabetes mellitus with hyperglycemia E10.65 Diabetes mellitus complication status: with hyperglycemia
== END 2023-06-18 13:41 | disposition home or self-care (01) ==
PROVIDERS: PCP Nurse Practitioner Primary Care; Visit Provider Registered Nurse Diabetes Educator
DX: E10.65 Type 1 diabetes mellitus with hyperglycemia (principal)

== ENCOUNTER → 2023-06-18 13:05 | Outpatient (BNVA) | payer MEDICAID, SELFPAY | PROVIDERS: PCP Nurse Practitioner Primary Care; Visit Provider Registered Nurse Diabetes Educator | DX: E10.65 Type 1 diabetes mellitus with hyperglycemia (principal) | CPT/HCPCS: 99211 ==

== ENCOUNTER 2023-06-19 08:11 | Outpatient (REF) | payer MEDICAID, SELFPAY ==
[2023-06-19 09:26] LABS: Cholesterol 119 mg/dL (<200); HDL Cholesterol 35 mg/dL (>40); LDL Cholesterol Calculated 66 mg/dL (<100); Triglycerides 92 mg/dL (<150)
== END 2023-06-19 08:12 | disposition home or self-care (01) ==
LOC: HO.LAB 08:11
PROVIDERS: PCP Nurse Practitioner Primary Care; Visit Provider Internal Medicine Endocrinology, Diabetes & Metabolism
DX: E78.5 Hyperlipidemia, unspecified (principal)
CPT/HCPCS: 36415; 80061

== ENCOUNTER 2023-06-24 10:08 | Outpatient (AMB) | payer MEDICAID, SELFPAY ==
--- NOTE | 2023-06-24 10:21 | A.OFFVIS_ITS ---
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 simvastatin Allergy (Unknown, Verified 06/24/23 10:24) rash Medication List - Last Reconciled 06/24/23 by Sukhwinder White MD blood sugar diagnostic (FreeStyle Lite Strips) 4x daily blood-glucose meter (FreeStyle Lite Meter kit) As directed evolocumab (Repatha SureClick) 140 mg subcut Q2W 30 days insulin aspart U-100 14-24 units subcutaneously 3 times a day; lancets (FreeStyle Lancets) 4x daily Lantus Solostar U-100 Insulin (insulin glargine) 30 units (0.3 mL) subcut QPM NS lorazepam (Ativan) 2 mg PO TID PRN lorazepam (Ativan) 1 mg PO BID PRN losartan 50 mg PO QAM omega 0-bob-lvw-fish oil 60-90-500 mg (Fish Oil) 1 cap PO DAILY pen needle, diabetic (BD Ultra-Fine Micro Pen Needle) 4x daily quetiapine 50 mg PO DAILY PRN HPI HPI Comments History of Present Illness Details Nabor returns for follow-up. Last seen in 2021. He has a history of type 1 diabetes on insulin. Also has hypertension. According to him, he does not feel good overall. Numerous complaints including sensations of heart racing that happens frequently. He also gets chest tightness/pressure but extremely vague in description. This can happen any time. More so on the right side of the chest. With and without exertion. Shortness of breath at different times. Other complaints like feeling nauseous some GI complaints too. No documented coronary disease or myocardial infarction or cardiomyopathy. Per PCP notes as well as per patient, he also has significant anxiety and panic attacks. Hence not clear how much of his symptoms are related to this. [facility] Medical History Transaminitis T1DM (type 1 diabetes mellitus) Vitamin D deficiency HLD (hyperlipidemia) HTN (hypertension) Surgical History Hx of colonoscopy History of carpal tunnel release Family History Mother Diabetes Hypertension Father Myocardial infarction Social History Household Members: Spouse Are you a primary outdoor emergency care technician to a significant other at home: No Do you presently have visiting nurse or other home services: No Unable to assess alcohol history related to: Unknown Alcohol intake: former Year quit: 09/14 Patient Tobacco Use Status: Former Tobacco user Quit Date: 2007 Years Smoked: 20 +/- Review of Systems Const Denies weakness ENT Denies dizziness Card Denies chest pain, Denies chest pain with activity, Denies syncope, Denies rapid heart rate, Denies pedal edema, Denies edema, Denies leg edema, Denies lightheadedness, Denies palpitations, Denies dyspnea, Denies dyspnea on exertion and Denies orthopnea Resp Denies cough, Denies dyspnea and Denies dyspnea on exertion GI Denies hematochezia and Denies change in stool character Musc Denies abnormal gait, Denies muscle cramps, Denies muscle weakness, Denies numbness, Denies radiating pain into limb and Denies tingling Neuro Denies abnormal gait, Denies dizziness, Denies syncope, Denies numbness, Denies tingling and Denies weakness Endo Denies palpitations Physical Exam Vital Signs: Last Vital Signs Pulse 77 06/24/23 10:24 BP 124/70 06/24/23 10:24 BMI result Body Mass Index 23.5 Const General: comfortable and no acute distress Orientation/consciousness: patient oriented x3 HEENT Other: Unremarkable Head: Yes normal to inspection Neck Neck: Yes normal visual inspection Chest Chest palpation & inspection: normal inspection of the chest Resp Auscultation: clear to auscultation bilaterally Cardio Palpation: normal PMI Heart sounds: S1 normal heart sound present, S2 normal heart sound present, no gallops, no murmurs and no rubs GI Palpation (GI): Soft to palpation Back/Spine/Pelvis Other: unremarkable Skin General skin exam: no rashes or lesions noted Neuro General: patient oriented x3 Extrem General: Yes normal to inspection Psych Mental Status: mental status grossly normal Assessment & Plan Assessment & Plan (1) Heart palpitations: Code(s): R00.2 - Palpitations (2) Chest pressure: Code(s): R07.89 - Other chest pain (3) SOB (shortness of breath): Code(s): R06.02 - Shortness of breath (4) T1DM (type 1 diabetes mellitus): Code(s): E10.9 - Type 1 diabetes mellitus without complications Qualifiers: Diabetes mellitus complication status: with hyperglycemia Qualified Code(s): E10.65 - Type 1 diabetes mellitus with hyperglycemia (5) HTN (hypertension): Code(s): I10 - Essential (primary) hypertension Qualifiers: Hypertension type: unspecified Qualified Code(s): I10 - Essential (primary) hypertension Plan In the recent EKG, underlying rhythm is sinus at 74/Min; no significant ST-T changes and otherwise unremarkable. Normal [place] and corrected QT. Available high sensitivity troponins are within normal limits. In the exercise stress test from 2021, no ischemic findings at 7.3 Mets. Based on his risk factor profile at various symptoms, recommend further workup including an echocardiogram, stress echo and Holter. Based on findings, we can plan further care. Orders: Orders ECG holter monitor 48 hour Today R00.2 - Palpitations CA echo transthoracic complete Today R06.02 - Shortness of breath CA echo stress exercise Today R07.2 - Precordial pain, R07.89 - Other chest pain Coding Level of Care Code Est Pt Level 4 (14805) Diagnoses Heart palpitations R00.2 Chest pressure R07.89 SOB (shortness of breath) R06.02 Type 1 diabetes mellitus with hyperglycemia E10.65 Diabetes mellitus complication status: with hyperglycemia Hypertension, unspecified type I10 Hypertension type: unspecified
[2023-06-24 10:24] VITALS: BP 124/70; PULSE 77; BMI 23.5
== END 2023-06-24 10:45 | disposition home or self-care (01) ==
PROVIDERS: PCP Nurse Practitioner Primary Care; Referring Provider Nurse Practitioner Primary Care; Visit Provider Internal Medicine
DX: R00.2 Palpitations (principal); R07.89 Other chest pain; R06.02 Shortness of breath; E10.65 Type 1 diabetes mellitus with hyperglycemia; I10 Essential (primary) hypertension
CPT/HCPCS: 99214

== ENCOUNTER → 2023-06-24 10:08 | Outpatient (BNVA) | payer MEDICAID, SELFPAY | PROVIDERS: PCP Nurse Practitioner Primary Care; Visit Provider Internal Medicine | DX: R00.2 Palpitations (principal); R07.89 Other chest pain; R06.02 Shortness of breath; I10 Essential (primary) hypertension; E10.65 Type 1 diabetes mellitus with hyperglycemia | CPT/HCPCS: 99212 ==

== ENCOUNTER → 2023-07-04 11:22 | Outpatient (REF) | payer MEDICAID, SELFPAY ==
--- NOTE | 2023-07-04 11:25 | HM_ITS ---
Conclusion: 1. Patient was monitored for total period of 1 day and 23 hours 2. Baseline was normal sinus with average heart rate of 86 beats per minute 3. No significant pauses or arrhythmias noted 4. Patient reported 1 event without accompanying symptoms correlating with sinus rhythm MTDD
== END ==
LOC: HO.CARD 11:22
PROVIDERS: PCP Nurse Practitioner Primary Care; Visit Provider Internal Medicine
DX: R00.2 Palpitations (principal)
CPT/HCPCS: 93225

== ENCOUNTER → 2023-07-04 11:25 | Outpatient (BNV) | payer MEDICAID, SELFPAY | PROVIDERS: PCP Nurse Practitioner Primary Care; Visit Provider Internal Medicine Cardiovascular Disease | DX: R00.2 Palpitations (principal) | CPT/HCPCS: 93227 ==

== ENCOUNTER → 2023-07-11 12:52 | Outpatient (REF) | payer MEDICAID, SELFPAY ==
--- NOTE | 2023-07-11 12:56 | CA_ITS ---
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 The visually estimated ejection fraction is between 55-60%. Diastolic function is normal for age. - Normal right ventricular cavity size and systolic function. Findings Left Ventricle Normal left ventricular size, thickness, systolic function, and wall motion. The visually estimated ejection fraction is between 55-60%. Diastolic function is normal for age. Right Ventricle Normal right ventricular cavity size and systolic function. Atria The left atrium is normal in size. Aortic Valve Normal aortic valve structure and function. There is no aortic valve stenosis. There is no aortic valve regurgitation. Mitral Valve The mitral valve appears normal. There is no mitral valve regurgitation. There is no mitral valve stenosis. Pulmonic Valve The pulmonic valve is likely normal. Tricuspid Valve Normal tricuspid valve structure and function. There is no tricuspid valve regurgitation. Normal right atrial pressure. There is no evidence of pulmonary hypertension. Great Vessels All visible segments of the aorta are normal in size. Venous The inferior vena cava is normal in size and collapses greater than 50% with inspiration. Pericardium/Pleural There is no evidence of pericardial effusion. Prior Study Comparison No prior study available for comparison. Measurements 2D Linear Measurements IVSd: 1.08 0.6-0.9/0.6-1.0 cm LVIDd: 4.35 3.9-5.3/4.2-5.9 cm LVIDd Index: 2.33 2.4-3.2/2.2-3.1 cm/m2 LVIDs: 3.05 2.0-3.6 cm LVPWd: 1.04 0.7-1.1 cm Ao Root: 3.30 2.1-3.5 cm LA Diam: 3.40 2.7-3.8/3.0-4.0 cm LAIDs Index: 1.82 1.5-2.3 cm/m2 LV Mass: 196.07 67-162/88-224 g LV Mass Index: 104.85 43-95/49-115 g/m2 LVOT Diam: 2.20 3.0+(-)1.3 cm 2D Systolic Function EF 4C: 58.30 >55% EF 2C: 54.10 >55% EF BiP: 55.90 >55% Mitral Valve MV Pk E: 0.55 MV PK A: 0.67 MV Decel Time: 306.00 E/A: 0.80 E'Lateral: 9.25 E'Medial: 6.42 E/E' Med: 8.50 E/E' Lat: 5.90 PHT: 90.00 MVA PHT: 2.44 Decel Broome: 1.79 Aortic Valve AoV Pk Kevin: 1.48 AoV Mn Kevin: 0.99 AoV VTI: 0.31 AoV Pk Grad: 9.00 Aov Mn Grad: 5.00 LACY Cont.VTI: 2.00 LVOT LVOT Pk Kevin: 0.72 LVOT Mn Kevin: 0.46 LVOT VTI: 0.16 LVOT Pk Grad: 2.00 LVOT Mn Grad: 1.00 LVOT Diam: 2.20 LVOT Area: 3.80 Diastolic Function MV Pk E: 0.55 MV Pk A: 0.67 E/A: 0.80 E'Medial: 6.42 E/E' Med: 8.50 E' Laterial: 9.25 E/E' Lat: 5.90 Right Ventricle TAPSE (mm): 20.00 TVS' Kevin: 13.00 Tricuspid Valve TR Pk Kevin: 2.30 TR Pk Grad: 21.00 RA Press: 3.00 RVSP: 24.00 Great Vessels Aorta Ao Root-2D: 3.30 2.0-3.7 cm Ao Asc: 3.40 2.1-3.4 cm Pulmonary Valve PV Pk Kevin: 0.97 Peak PV Grad: 4.00 Updated in Other Vendor System with Status of Final Wilmer Geiger MD electronically signed on 07/13/2023 1:49:59 PM with status of Final
== END ==
LOC: HO.CARD 12:52
PROVIDERS: PCP Nurse Practitioner Primary Care; Visit Provider Internal Medicine
DX: R06.02 Shortness of breath (principal)
CPT/HCPCS: 93306

== ENCOUNTER → 2023-07-11 12:56 | Outpatient (BNV) | payer MEDICAID, SELFPAY | PROVIDERS: PCP Nurse Practitioner Primary Care; Visit Provider Internal Medicine Cardiovascular Disease | DX: R06.02 Shortness of breath (principal) | CPT/HCPCS: 93306 ==

== ENCOUNTER → 2023-07-21 10:57 | Outpatient (REF) | payer OTHER, MEDICAID, SELFPAY ==
--- NOTE | 2023-07-21 10:59 | CA_ITS ---
Acquisition Time: 2023-07-21 11:08:57 Total Exercise Time: 00:05:21 Test Indications: Palpitations Medications: LOSARTAN LORAZAPAM INSULIN QUETIAPINE Protocol: MANNY Max HR: 151 BPM 92% of Pred: 164 BPM Max BP: 150/070 mmHG Max Work Load: 7.0 METS Exercise stress test exercise 5 min 21 sec of Manny protocol achieivng 92% MPHR with pt request to stop, with 1/10 chest pain at baseline with no changewith exercise (pt could not describe) with mild to mdoerate SOB, without arrhythmias, with normotenisve reponse to exercise, without EKG changes. Echo images obtained by tech at rest and immediately post peak exercise. Definity contrast used. Test reviewed with Dr. White. Referred By: Sukhwinder White Overread By: Geetha Gutierrez
== END ==
LOC: HO.CARD 10:57
PROVIDERS: PCP Nurse Practitioner Primary Care; Visit Provider Internal Medicine
DX: R07.2 Precordial pain (principal); R07.89 Other chest pain
CPT/HCPCS: 93350; Q9957

== ENCOUNTER 2023-08-22 12:56 | Outpatient (AMB) | payer MEDICAID, SELFPAY ==
[2023-08-22 13:02] VITALS: BP 120/72; PULSE 88; BMI 22.8
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
== END 2023-08-22 13:27 | disposition home or self-care (01) ==
PROVIDERS: PCP Nurse Practitioner Primary Care; Visit Provider Nurse Practitioner Family
DX: R07.89 Other chest pain (principal); R00.2 Palpitations; R06.02 Shortness of breath; F41.9 Anxiety disorder, unspecified; I10 Essential (primary) hypertension
CPT/HCPCS: 99213

== ENCOUNTER → 2023-08-22 12:56 | Outpatient (BNVA) | payer OTHER, SELFPAY | PROVIDERS: PCP Nurse Practitioner Primary Care; Visit Provider Nurse Practitioner Family | DX: R07.89 Other chest pain (principal); R00.2 Palpitations; R06.02 Shortness of breath; I10 Essential (primary) hypertension | CPT/HCPCS: 99212 ==

== ENCOUNTER 2023-09-10 13:25 | Outpatient (AMB) | payer OTHER, MEDICAID, SELFPAY ==
[2023-09-10 13:28] VITALS: BP 126/70; PULSE 96; BMI 22.9
--- NOTE | 2023-09-10 13:28 | MHC.OFFVIS ---
Intake Vital Signs 09/10/23 13:28 Height 5 ft 10 in Weight 159 lb 9.835 oz BMI 22.9 BP 126/70 Blood Pressure Location Lt brachial Position Sitting Pulse 96 Pulse Source Pulse Oximeter Intake Visit Reasons: f/u Type 2 DM/hyperlipidemia Intake Note: Patient presents today to follow up on D2MT/ Hyperlipidemia. Last Diabetic Eye exam: Over a year ago. Last Podiatry Visit: Doesn't have one. Random Glucose: 169 mg/dl HgA1c: 7.4% Drive In Teller Required: No Accompanied by: Self / Same As Patient Allergies aspirin Allergy (Unknown, Verified 09/10/23 13:33) Unknown. simvastatin Allergy (Unknown, Verified 09/10/23 13:33) rash HPI HPI Comments History of Present Illness Details 57 YO M with PMHx T1DM who is seen in F/U for T1DM.. Initially diagnosed with T2DM in 2009. After our initial visit we completed his workup which revealed negative antibodies, but low C-Peptide for the degree of hyperglycemia, indicating T1DM. Was initially started on treatment with Metformin. This was stopped by his PCP and he was instead started on Glipizide 10 mg PO BID. This was stopped as of our initial visit and he was started on insulin. Current regimen: Lantus 30 units breakfast with Humalog 5 units AC.Not taking Humalog for 4 wks Has DEXCOM G6. Dexcom download He is usin the sensor 100% of the time. average glucose is 158 with GMI of 7.1 68% range and 27% hyperglycemia and 1% hypoglycemia . Patent shows persistent hyperglycemia without any spikes after meals Family history of T2DM in his Mother. Has eyes checked yearly, last eye exam less than 1 yr needs to make appt , has retinopathy. Has neuropathy, does not see podiatry. Has if nephropathy, on Lisinopril 20 mg PO daily. UAC 15.2 12/09/2022. Has HLD, not on Statin. LDL 133 12/09/2022. LFTs elevated, following with GI. Denies CAD. Diet: Drinks ETOH heavily. Has cut back on carbs. Weight: Stable. Has not had diabetes education. Has been referred. Labs: Laboratory Tests 12/09/22 12/09/22 12/09/22 10:25 10:26 10:26 Creatinine 1.07 Estimated GFR > 60 Hemoglobin A1c % 6.5 LDL Cholesterol Di rect Microalb/Creat Rat io 15.2 12/09/22 10:26 Creatinine Estimated GFR Hemoglobin A1c % LDL Cholesterol Di rect 133 H Microalb/Creat Rat io PFSH Medical History (Updated 09/10/23 @ 13:45 by Sandor Koenig MD) Uncontrolled type 2 diabetes mellitus with hyperglycemia Transaminitis T1DM (type 1 diabetes mellitus) Vitamin D deficiency HLD (hyperlipidemia) HTN (hypertension) Surgical History Hx of colonoscopy History of carpal tunnel release Family History Mother Diabetes Hypertension Father Myocardial infarction Social History Household Members: Spouse Are you a primary children's zoo caretaker to a significant other at home: No Do you presently have visiting nurse or other home services: No Unable to assess alcohol history related to: Unknown Alcohol intake: former Year quit: 09/14 Patient Tobacco Use Status: Former Tobacco user Quit Date: 2007 Smoked: 20 +/- Physical Exam Vital Signs: Last Vital Signs Pulse 96 09/10/23 13:28 BP 126/70 09/10/23 13:28 BMI result Body Mass Index 22.9 Absence of Cushingoid features. Absence of acromegalic features. Neck exam reveals nl size thyroid about 15 gms. No thyroid nodules palpable. No carotid bruits present. Lungs CTA. Heart S1 S2, Reg R/R. No M/R/ G. Skin exam reveals absence of vitiligo or acanthosis nigricans. Abdominal exam reveals Soft NT/ND with NA BS. No organomegaly present. Neck Other: . Extrem Other: Visual exam of foot performed. No ulcerations or open lesions. No onchomycosis, no callouses.Pulses 2 + distally Sensation intact to monofilament exam. Vibratory sensation sensed is intact with 128 Hz tuning fork Results AMB Hemoglobin A1c AMB Hemoglobin A1c 7.4 % Last Edit by FABIÁN Melton on 09/10/23 13:58 Results Reviewed Results Reviewed: Laboratory Last Values Glucose (Clinic) 169 mg/dL (60-115) H 09/10/23 13:36 Assessment & Plan Assessment & Plan (1) T1DM (type 1 diabetes mellitus): Code(s): E10.9 - Type 1 diabetes mellitus without complications Qualifiers: Diabetes mellitus complication status: with hyperglycemia Qualified Code(s): E10.65 - Type 1 diabetes mellitus with hyperglycemia Plan: See plan for type 2 diabetes (2) HLD (hyperlipidemia): Code(s): E78.5 - Hyperlipidemia, unspecified Qualifiers: Hyperlipidemia type: unspecified Qualified Code(s): E78.5 - Hyperlipidemia, unspecified Plan: at goal on Repatha (3) Uncontrolled type 2 diabetes mellitus with hyperglycemia: Code(s): E11.65 - Type 2 diabetes mellitus with hyperglycemia Plan: This is a 58-year-old male with a history of type 2 diabetes being treated with basal-bolus insulin with good glycemic control with known microvascular complications namely neuropathy Plan is to continue current regimen. Pt is going to meet with CDE to discuss possible pump initiation with iLet or Tandem Orders: Orders AMB Hemoglobin A1c Today E10.65 - Type 1 diabetes mellitus with hyperglycemia, Z13.9 - Encounter for screening, unspecified Coding Level of Care Code Est Pt Level 4 (72788) Diagnoses Type 1 diabetes mellitus with hyperglycemia E10.65 Diabetes mellitus complication status: with hyperglycemia Hyperlipidemia, unspecified hyperlipidemia type E78.5 Hyperlipidemia type: unspecified Uncontrolled type 2 diabetes mellitus with hyperglycemia E11.65
[2023-09-10 13:40] LABS: Glucose, Whole Blood 169 mg/dL (60-115)
== END 2023-09-10 14:03 | disposition home or self-care (01) ==
PROVIDERS: PCP Nurse Practitioner Primary Care; Referring Provider Nurse Practitioner Primary Care; Visit Provider Internal Medicine Endocrinology, Diabetes & Metabolism
DX: E10.65 Type 1 diabetes mellitus with hyperglycemia (principal); E78.5 Hyperlipidemia, unspecified
CPT/HCPCS: 99214

== ENCOUNTER → 2023-09-10 13:25 | Outpatient (BNVA) | payer OTHER, SELFPAY | PROVIDERS: PCP Nurse Practitioner Primary Care; Visit Provider Internal Medicine Endocrinology, Diabetes & Metabolism | DX: E10.65 Type 1 diabetes mellitus with hyperglycemia (principal); E10.319 Type 1 diabetes mellitus with unspecified diabetic retinopathy without macular edema; E10.21 Type 1 diabetes mellitus with diabetic nephropathy; R79.89 Other specified abnormal findings of blood chemistry; E78.5 Hyperlipidemia, unspecified; Z79.4 Long term (current) use of insulin; Z79.899 Other long term (current) drug therapy | CPT/HCPCS: 82947; 83036; 99212 ==

== ENCOUNTER 2023-10-03 11:34 | Outpatient (REF) | payer MEDICAID, SELFPAY ==
[2023-10-03 15:28] LABS: Folate 5.4 ng/mL (> or = 4.0); Vitamin B12 371 pg/mL (200-900)
[2023-10-06 19:38] LABS: RPR Rapid Plasma Reagin NON-REACTIVE (NON-REACTIVE)
== END 2023-10-03 11:35 | disposition home or self-care (01) ==
LOC: HO.HHCL 11:34
PROVIDERS: Visit Provider Nurse Practitioner Primary Care
DX: R41.3 Other amnesia (principal)
CPT/HCPCS: 36415; 82607; 82746; 86592

== ENCOUNTER 2023-10-19 08:22 | Emergency (ER) | payer OTHER, MEDICAID, SELFPAY ==
[2023-10-19 08:57] VITALS: BP 183/95; PULSE 82; RESP 22; TEMP 36.4; O2SAT 98; BMI 20.2
--- NOTE | 2023-10-19 09:03 | ECG_ITS ---
Test Reason : ANXIETY Blood Pressure : / mmHG Vent. Rate : 085 BPM Atrial Rate : 085 BPM P-R Int : 138 ms QRS Dur : 092 ms QT Int : 384 ms P-R-T Axes : 062 021 044 degrees QTc Int : 456 ms Normal sinus rhythm Normal ECG When compared with ECG of 24-FEB-2023 12:02, No significant change was found Referred By: Generic ED Physician Electronically Signed By:Wilmer Geiger
[2023-10-19 09:43] LABS: Glucose, Whole Blood 298 mg/dL (60-115)
[2023-10-19 09:45] LABS: MANUAL DIFF FLAG NO
[2023-10-19 09:46] LABS: Basophils Percent Auto 0.3 % (0-2); Eosinophils Percent Auto 0.3 % (0-4); Hematocrit 44.2 % (42.0-52.0); Hemoglobin 15.7 g/dl (14.0-18.0); Imm Gran Abs Auto 0.03 X10*3/uL (0.00-0.03); Imm Gran Pct Auto 0.4 % (0.0-0.4); Lymphocytes Absolute Auto 1.7 X10*3/uL (1.2-4.9); Lymphocytes Percent Auto 25.4 % (20-40); Mean Corpuscular HGB Conc 35.5 g/dl (31.0-36.0); Mean Corpuscular Hemoglobin 30.9 pg (27.0-33.0); Monocytes Absolute Auto 0.8 X10*3/uL (0.1-1.2); Monocytes Percent Auto 11.6 % (2-11); Neutrophils Absolute Auto 4.2 x10*3/uL (2.0-8.3); Platelet Count 146 X10*3/uL (160-400); Red Blood Count 5.08 X10*6/uL (4.60-5.80); Red Cell Distribution Width 12.3 % (11.0-16.0); White Blood Count 6.7 X10*3/uL (4.8-10.8)
[2023-10-19 10:01] LABS: Alanine Aminotransferase 42 U/L (0-40); Albumin Level 4.6 g/dL (3.5-5.0); Alkaline Phosphatase 88 U/L (39-117); Anion Gap 17 (12-20); Aspartate Amino Transferase 35 U/L (5-37); Beta-Hydroxybutyrate 1.05 mmol/L (0.02-0.27); Bilirubin Total 1.5 mg/dL (0.0-1.0); Blood Urea Nitrogen 21 mg/dL (9-16); Calcium 9.8 mg/dL (8.4-10.2); Carbon Dioxide 24 mmol/L (22-29); Chloride 95 mmol/L (96-108); Creatinine Clr Calc Pharmacy 72.4; Estimated Glomerular Filt Rate > 60; Glucose Random 278 mg/dL (60-115); Magnesium 2.1 mg/dL (1.6-2.6); Potassium 3.2 mmol/L (3.3-5.1); Sodium 133 mmol/L (135-145); Total Protein 7.7 g/dL (6.5-8.0)
[2023-10-19 10:08] LABS: Troponin-I High Sensitivity 3.1 ng/L (<3.5-35.0)
[2023-10-19 11:49] VITALS: BP 187/98; PULSE 74; RESP 20; TEMP 36.8; O2SAT 100
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
[2023-10-19] MEDS: diphenhydrAMINE HCL 50 MG/ML VIAL 25 MG IVPUSH (12:57)
[2023-10-19] MEDS: Metoclopramide HCl 10 MG/2 ML VIAL IVPUSH (12:57)
[2023-10-19] MEDS: ondansetron HCL 4 MG/2 ML VIAL IVPUSH (12:57)
[2023-10-19] MEDS: 0.9 % Sodium Chloride 1,000 ML 999 ML IV (12:57)
--- NOTE | 2023-10-19 13:33 | PC.NURSE ---
IV established, medicated per the MAR. iv fluids infusing at this time. patient anxious, denies any SI/HI at this time, reporting decreased appetite and PO intake.
--- NOTE | 2023-10-19 14:02 | MHC.CARE ---
Collateral info: Spoke with Dr. Anguiano who states that patient is grieving the loss of his son to suicide and is experiencing increased anxiety, low mood symptoms (decreased appetite) and is missing the wedding of his other son today due to his current level of anxiety. Care Team Consult placed, evaluation pending.
[2023-10-19 14:04] LABS: Appearance Urine Clear; Color Urine Yellow; Glucose Urine UA 250 mg/dL (Negative); Leukocyte Esterase Urine Negative (Negative); Nitrite Urine Negative (Negative); PH 7.5 (5.0-9.0); Specific Gravity - Urine <= 1.005 (1.005-1.025); Urine Blood Negative (Negative); Urine Ketones Trace mg/dL (Negative); Urine Protein Negative (Neg-Trace)
[2023-10-19 14:34] LABS: Amphetamine Screen Urine Not Detected (Not Detect); Barbiturates, Urine Not Detected (Not Detect); Benzodiazepines Screen Urine Not Detected (Not Detect); Buprenorphine Scr Not Detected (Not Detect); Cannabinoid Screen Urine POSITIVE (Not Detect); Cocaine Screen Urine Not Detected (Not Detect); Fentanyl, urine Not Detected (Not Detect); Methadone Screen, Urine Not Detected (Not Detect); Opiate Screen Urine Not Detected (Not Detect); Oxycodone Screen Urine Not Detected (Not Detect); Phencyclidine Screen Urine Not Detected (Not Detect)
[2023-10-19] MEDS: Magnesium Hydrox/Alum Hydrox 30 ML ORAL.SUSP PO (15:43)
[2023-10-19] MEDS: Lidocaine HCl Viscous 2 % 15 ML SOLUTION 10 ML MUCOUS MEM (15:43)
[2023-10-19] MEDS: Potassium Chloride Packet 20 MEQ PACKET 40 MEQ PO (15:43)
[2023-10-19] MEDS: Sucralfate Oral Suspension 1 GM/10 ML ORAL.SUSP PO (15:43)
[2023-10-19 16:00] VITALS: BP 127/67; PULSE 80; RESP 18; TEMP 37.1; O2SAT 96
--- NOTE | 2023-10-19 16:04 | PC.NURSE ---
repeat lab work obtained, patient awaiting consult from care team for increased depression and anxiety. denies any si/hi at this time.
[2023-10-19 16:20] LABS: Anion Gap 13 (12-20); Blood Urea Nitrogen 15 mg/dL (9-16); Calcium 9.2 mg/dL (8.4-10.2); Carbon Dioxide 28 mmol/L (22-29); Chloride 100 mmol/L (96-108); Creatinine Clr Calc Pharmacy 87.8; Estimated Glomerular Filt Rate > 60; Glucose Random 181 mg/dL (60-115); Potassium 3.1 mmol/L (3.3-5.1); Sodium 138 mmol/L (135-145)
[2023-10-19 18:47] VITALS: PULSE 91; RESP 20; TEMP 37.4; O2SAT 97
[2023-10-19 20:58] VITALS: BP 123/69; PULSE 89; RESP 16; TEMP 36.9; O2SAT 97
== END 2023-10-19 20:59 | disposition home or self-care (01) ==
PROVIDERS: Physician Assistant Medical; Emergency Provider Student in an Organized Health Care Education/Training Program; PCP Nurse Practitioner Primary Care
DX: F41.9 Anxiety disorder, unspecified (principal); F32.A Depression, unspecified; E10.65 Type 1 diabetes mellitus with hyperglycemia; E87.6 Hypokalemia; E86.0 Dehydration; I10 Essential (primary) hypertension; Z63.4 Disappearance and death of family member
CPT/HCPCS: 36415; 80048; 80053; 80307; 81003; 82010; 82947; 83735; 84484; 85025; 93005; 96361; 96374; 96375; 99284; 99285; J1200; J2405; J2765; S9485

== ENCOUNTER → 2023-10-19 09:03 | Outpatient (BNV) | payer OTHER, MEDICAID, SELFPAY | PROVIDERS: Emergency Provider Student in an Organized Health Care Education/Training Program; PCP Nurse Practitioner Primary Care; Visit Provider Internal Medicine Cardiovascular Disease | DX: F41.9 Anxiety disorder, unspecified (principal) | CPT/HCPCS: 93010 ==

== ENCOUNTER 2023-12-11 11:25 | Outpatient (AMB) | payer OTHER, MEDICAID, SELFPAY ==
--- NOTE | 2023-12-11 11:27 | MHC.OFFVIS ---
Vital Signs 12/11/23 11:40 Height 5 ft 10 in Weight 152 lb BMI 21.8 BP 107/61 Blood Pressure Location Lt brachial Position Sitting Intake Visit Reasons: Isabel Murillo/[facility]. Pt prev est with Dr. Farooq. Intake Note: Patient follow up EGD/Colonoscopy results 02/2023 Patient cc: discomfort and pain before BM, denies any other GI issues. Customer Experience Strategist Required: No Accompanied by: Spouse Allergies aspirin Allergy (Unknown, Verified 02/24/24 14:08) Unknown. simvastatin Allergy (Unknown, Verified 02/24/24 14:08) rash Medication List - Last Reconciled 12/11/23 by Nazario Farooq MD blood sugar diagnostic (FreeStyle Lite Strips) 4x daily blood-glucose meter (FreeStyle Lite Meter kit) As directed evolocumab (Repatha SureClick) 140 mg subcut Q2W 30 days Humalog KwikPen Insulin (insulin lispro) 4-14 units subcutaneously 3 times a day; NS hydroxyzine HCl 50 mg PO TID lancets (FreeStyle Lancets) 4x daily Lantus Solostar U-100 Insulin (insulin glargine) 30 units (0.3 mL) subcut QPM NS lorazepam (Ativan) 2 mg PO TID PRN lorazepam (Ativan) 1 mg PO BID PRN losartan 50 mg PO QAM pen needle, diabetic (BD Ultra-Fine Micro Pen Needle) 4x daily quetiapine 50 mg PO DAILY PRN sertraline 100 mg PO DAILY sertraline 25 mg PO QAM HPI HPI Isabel Murillo/[facility] Pt prev est with Dr. Farooq.: Details: GI clinic visit for this 58 YM with hypertension, hyperlipidemia, diabetes here for FU after EGD and colonoscopy TODAY'S VISIT: Patient cc: discomfort and pain before BM, denies any other GI issues. EGD and colon results were reviewed Patient denies symptoms of heartburn, dysphagia, nausea, vomiting, change in appetite or weight. Denies recent change in bowel habits, constipation, diarrhea, black stools or rectal bleeding. Feels like he needs to have a BM and unable to go when he goes to the bathroom Patient denies major cardiac or pulmonary problems, loud snoring or sleep apnea Denies problems with anesthesia in the past. Denies being on chronic anticoagulation. FH of colon cancer (Dad at age 78 yrs), LABS IN [facility] : Reviewed IMAGING STUDIES: 2020 ABD US SHOWED: LIVER: Liver is enlarged at 18 cm cephalocaudad and echogenic compatible with steatosis . There are no focal hepatic lesions or intrahepatic biliary dilatation GALLBLADDER: Normal. The gallbladder is physiologically distended without evidence of stones, sludge, polyps, wall thickening or pericholecystic fluid. COMMON BILE DUCT: Normal in caliber measuring 0.2 cm in diameter. RIGHT KIDNEY: There is an interpolar cyst at 21 x 20 x 22 mm . No hydronephrosis. No renal calculi or focal solid parenchymal lesions. The kidney measures 11.0 cm in maximum dimension. FREE FLUID: None. IMPRESSION: Enlarged echogenic liver compatible with steatosis ENDOSCOPIC STUDIES: 02/2023 EGD AND COLON SHOWED: Endoscopy Findings: ESOPHAGUS: No esophagitis or Kelly's or varices noted. STOMACH: Mild gastric erythema with a few superficial erosions. Colonoscopy Findings: Three small polyps removed Moderate diverticulosis seen in the sigmoid colon Moderate hemorrhoids on retroflexed exam. Plan: Repeat Colonoscopy interval based on path results - in 3-5 years if polyps are adenomatous and 10 years if polyps are hyperplastic. Above findings were reviewed with the patient and colon polyps and diverticulosis handouts were given in the discharge area BIOPSIES SHOWED: A. Stomach, antrum, biopsy: Gastric antral mucosa with moderate chronic active gastritis with intestinal metaplasia and numerous Helicobacter pylori organisms; negative for dysplasia. B. Colon, sigmoid, polypectomy x2: Tubular adenoma (2); negative for high-grade dysplasia. C. Rectum, polypectomy: Tubular adenoma; negative for high-grade dysplasia. PAST GI HISTORY BY REVIEW OF MEDICAL RECORDS: Pt was seen by Isabel 10/2021: A very pleasant 58 year year old Gent referred with transaminitis. History alcohol use, though he has reduced intake he does drink nearly daily. Reviewed previous blood work after discussion agrees to EGD and colonoscopy. We discussed variceal screening and symptoms as well as alcohol risk. Discussed procedure as well as rare risks, and prep however we will see him back prior to procedures being performed due to timing. We discussed importance of abstaining from alcohol, will work on this with his PCP as well. Reviewed previous ultrasound. No major barriers to understanding were identified He is encouraged to call questions or concerns. We appreciate the opportunity assist in the care the patient [facility] Medical History Uncontrolled type 2 diabetes mellitus with hyperglycemia Transaminitis T1DM (type 1 diabetes mellitus) Vitamin D deficiency HLD (hyperlipidemia) HTN (hypertension) Surgical History Hx of colonoscopy History of carpal tunnel release Family History Mother Diabetes Hypertension Father Myocardial infarction Social History Household Members: Spouse Are you a primary healthcare applications analyst to a significant other at home: No Do you presently have visiting nurse or other home services: No Unable to assess alcohol history related to: Unknown Alcohol intake: former Year quit: 09/14 Patient Tobacco Use Status: Former Tobacco user Years Smoked: 20 +/- Review of Systems Const All systems reviewed & are unremarkable except as noted in HPI and below Physical Exam Vital Signs: Last Vital Signs BP 107/61 12/11/23 11:40 BMI result Body Mass Index 21.8 Const General: healthy appearing and no acute distress Nutritional Appearance: average body habitus Orientation/consciousness: patient oriented x3 Limitations: no limitations HEENT Head: Yes normal to inspection Ears: hearing grossly normal bilaterally Eyes Sclerae: sclerae normal Pupils: Equal, round and reactive pupils present Neck Neck: Yes normal visual inspection Chest Chest palpation & inspection: normal inspection of the chest Resp Effort & Inspection: normal respiratory effort Auscultation: clear to auscultation bilaterally Cardio Palpation: normal PMI Rate: regular rate Rhythm: regular rhythm Heart sounds: S1 normal heart sound present, S2 normal heart sound present and no murmurs GI Palpation (GI): Soft to palpation, nontender and No hepatosplenomegaly present Auscultation: normal bowel sounds Rectal Exam - Male: Yes deferred Skin General skin exam: no rashes or lesions noted Neuro General: patient oriented x3, gait normal and moves all extremities Cranial nerves: Yes Equal, round and reactive pupils present Psych Appearance: grossly normal Mental Status: mental status grossly normal Assessment & Plan Assessment & Plan (1) Diverticulosis: Code(s): K57.90 - Diverticulosis of intestine, part unspecified, without perforation or abscess without bleeding Category: Medical (2) 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 History alcohol use, though he has reduced intake he does drink nearly daily. 02/2023 EGD and colonoscopy were performed in results as noted above. Patient was advised treatment of H pylori gastritis with bismuth, metronidazole and tetracycline for 14 days Abd US for FU of fatty liver Follow-up in 2 months for H pylori breath test - negative in 01/2024. Repeat colonoscopy in 3 years for polyp surveillance. GI clinic follow-up in 6 months Orders: Orders US abdomen limited 12/11/23 K70.0 - Alcoholic fatty liver Medications: New bismuth subcit [id number] 140-125-125 mg (Pylera) 3 caps PO QID 168 caps 0RF 14 days K29.70 - Gastritis, unspecified, without bleeding, B96.81 - Helicobacter pylori [H. pylori] as the cause of diseases classified elsewhere psyllium husk (Fiber (psyllium husk)) 0.4 grams PO BID 180 caps 1RF 90 days K57.90 - Diverticulosis of intestine, part unspecified, without perforation or abscess without bleeding Coding Level of Care Code Est Pt Level 4 (67097) Diagnoses Diverticulosis K57.90 Fatty liver due to alcoholism K70.0 Time Spent (min) 23
[2023-12-11 11:40] VITALS: BP 107/61; BMI 21.8
== END 2023-12-11 12:51 | disposition home or self-care (01) ==
PROVIDERS: PCP Nurse Practitioner Primary Care; Visit Provider Internal Medicine Gastroenterology
DX: K57.90 Diverticulosis of intestine, part unspecified, without perforation or abscess without bleeding (principal); K70.0 Alcoholic fatty liver
CPT/HCPCS: 99499

== ENCOUNTER → 2023-12-11 11:25 | Outpatient (BNVA) | payer OTHER, MEDICAID, SELFPAY | PROVIDERS: PCP Nurse Practitioner Primary Care; Visit Provider Internal Medicine Gastroenterology ==

== ENCOUNTER 2024-02-06 08:59 | Outpatient (AMB) | payer OTHER, MEDICAID, SELFPAY ==
[2024-02-06 10:01] VITALS: PULSE 88; BMI 21.8
--- NOTE | 2024-02-06 10:01 | AM.OFFVISNUR ---
Vital Signs 02/06/24 10:01 Height 5 ft 10 in Weight 152 lb BMI 21.8 Blood Pressure Location Lt brachial Position Sitting Pulse 88 Intake Visit Reasons: h pylori Intake Note: Patient presents for collection of H Pylori breath test. Patient has been fasting for 1 hour (nothing to eat, drink, no chewing gum or smoking) has not taken any antacid medication for at least 2 weeks and has no allergies to artificial sweeteners.?? Allergies aspirin Allergy (Unknown, Verified 02/06/24 10:00) Unknown. simvastatin Allergy (Unknown, Verified 02/06/24 10:00) rash Assessment & Plan Assessment & Plan (1) Epigastric abdominal pain: Code(s): R10.13 - Epigastric pain Plan Patient presents for collection of H Pylori breath test. Patient has been fasting for 1 hour (nothing to eat, drink, no chewing gum or smoking) has not taken any antacid medication for at least 2 weeks and has no allergies to artificial sweeteners.???This test checks for an overgrowth of bacteria in your stomach. We all have bacteria but some may have more than others. It is treatable. if the test comes back negative there is nothing else to do. If the test result is positive we will treat you with 2 antibiotics and a medication to decrease the acid in your stomach (PPI) for 2 weeks. Two weeks after you have completed the treatment we will retest you to make sure the overgrowth has resolved. Patient Instructions: Process for specimen collection and reason for testing was explained to the patient. Specimen collection. Patient instructed to take a deep breath and then exhale into the blue bag, filling it up as much as possible. Patient instructed to drink a mixture of water and the artificial sweetener with a straw. A 15 minute wait period was observed. Patient instructed to take a deep breath and then exhale into the pink bag, filling it up as much as possible.?
== END 2024-02-06 09:32 | disposition home or self-care (01) ==
PROVIDERS: PCP Nurse Practitioner Primary Care; Visit Provider Internal Medicine Gastroenterology
DX: R10.13 Epigastric pain (principal)

== ENCOUNTER → 2024-02-06 08:59 | Outpatient (BNVA) | payer OTHER, MEDICAID, SELFPAY | PROVIDERS: PCP Nurse Practitioner Primary Care; Visit Provider Internal Medicine Gastroenterology | DX: R10.13 Epigastric pain (principal) | CPT/HCPCS: 99211 ==

== ENCOUNTER 2024-02-09 15:18 | Outpatient (REF) | payer OTHER, SELFPAY ==
[2024-02-11 14:57] LABS: H Pylori Breath Test Negative (Negative)
== END 2024-02-09 15:19 | disposition home or self-care (01) ==
LOC: HO.LNP 15:18
PROVIDERS: Visit Provider Internal Medicine Gastroenterology
DX: Z11.0 Encounter for screening for intestinal infectious diseases (principal)
CPT/HCPCS: 83013

== ENCOUNTER 2024-02-24 13:57 | Outpatient (AMB) | payer SELFPAY ==
--- NOTE | 2024-02-24 14:03 | A.OFFVIS_ITS ---
Vital Signs 02/24/24 14:04 Height 5 ft 10 in Weight 152 lb 1.903 oz BMI 21.8 BP 120/70 Blood Pressure Location Rt brachial Position Sitting Pulse 77 Pulse Source Pulse Oximeter Intake Visit Reasons: T2DM/CONFIRMED Intake Note: Patient presents today to re-establish treatment for Type Diabetes Mellitus: Last Diabetic eye exam was on: 05/2023 Last Podiatry exam was on: Does not see a Iron Bender Most recent HbA1c: 6.9%, 02/24/2024 Random Glucose- 256 mg/dL, Today Money Market Clerk Required: No Accompanied by: Spouse Allergies aspirin Allergy (Unknown, Verified 02/24/24 14:08) Unknown. simvastatin Allergy (Unknown, Verified 02/24/24 14:08) rash HPI Comments Details: 58 YO M with PMHx DM who is seen in F/U for DM. He was last seen by Dr. Koenig 09/10/23 and by TERRI NICHOLAS 05/2023. Most recent A1C is 6.9% on 02/24/24. Initially diagnosed with Type 2 DM in 2009. When he started with endocrine in 2019 he had labs draw to determine type 1 vs type 2. Insulin antibodies were negative. C peptide was 2.56. Was initially started on treatment with Metformin. This was stopped by his PCP and he was instead started on Glipizide 10 mg PO BID. This was stopped at his initial endocrine visit and he was started on insulin. Current regime: Lantus 15 units (previously was 30 units) He is no longer taking Humalog (had previously been on 5 units before meals). He reports his appetite is down secondary to anxiety. Weight is down 7 punds since the start of the year. He is meeting with a psychologist on a regular basis. He has a boost daily and smaller more frequent meals. He tries to get in peanut butter every day or a handful of nuts. Family history of type 2 diabetes in his mother. +retinopathy: He was previously seen at [facility] and [facility] in [place]. He was given the phone number today and we will schedule an appointment. He reports he was tole he needed eye surgery in the past but did not have this done. +neuropathy: Numbness, tingling right great toe. He does not see a bilingual account manager. He has a bunion on the left foot. + nephropathy: On ARB 10/19/23 eGFR>60 microalbumin 12/09/22 11.0 11/19/21 61 HLD on repathy ldl was 133, 06/19/23 68 Denies CAD Has h/o heavy ETOH use Vapes and cigars no prior VAISHNAVI Dexcom average glucose: [133 ] 14 day continuous glucose monitor report reviewed Glucose Managment indicator 6.5 % Days with CGM data 100% TIme in ranges: 0 % very high (above 250) 8 % high ?(181-250) 92 % in range ?(70-180] 0 % low (69-55) 0 % ?very low (below 54) Thirty-two% Standard Deviation Interpretation [ glucose sensor indicates excellent control with no hypoglycemia] PFSH Medical History Uncontrolled type 2 diabetes mellitus with hyperglycemia Transaminitis T1DM (type 1 diabetes mellitus) Vitamin D deficiency HLD (hyperlipidemia) HTN (hypertension) Surgical History Hx of colonoscopy History of carpal tunnel release Family History Mother Diabetes Hypertension Father Myocardial infarction Social History Household Members: Spouse Are you a primary career technical education teacher to a significant other at home: No Do you presently have visiting nurse or other home services: No Unable to assess alcohol history related to: Unknown Alcohol intake: former Year quit: 09/14 Patient Tobacco Use Status: Former Tobacco user Years Smoked: 20 +/- Physical Exam Vital Signs: Last Vital Signs Pulse 77 02/24/24 14:04 BP 120/70 02/24/24 14:04 BMI result Body Mass Index 21.8 Const Other: Laboratory Tests 11/19/21 12/09/22 10/19/23 12:24 10:25 15:57 Estimated GFR > 60 Hgb A1c (Clinic) Urine Microalbumin 59.0 11.0 02/24/24 14:13 Estimated GFR Hgb A1c (Clinic) 6.9 H Urine Microalbumin General: cooperative, comfortable and no acute distress Orientation/consciousness: patient oriented x3 Limitations: no limitations Neck Neck: Yes normal visual inspection, Yes no lymphadenopathy and Yes trachea midline Thyroid: Thyroid normal Carotids: normal carotid upstroke Cardio Jugular venous distension: no JVD Rate: regular rate Rhythm: regular rhythm Heart sounds: S1 normal heart sound present and S2 normal heart sound present Neuro General: patient oriented x3 Extrem Other: Visual exam of foot performed. No ulcerations or open lesions. No inter digit maceration or fissuring. No onychomycosis, no callouses. Sensation diminshed to monofilament exam and Vibratory sensation left great toe only. Office Procedures Glucose Monitoring Details Details: see [facility] [id number] - Glucose monitoring, continuous-physician I&R Procedure code (CPT) selection complete Results AMB Hemoglobin A1c AMB Hemoglobin A1c 6.9 % Last Edit by FABIÁN Fitzgerald on 02/24/24 14:21 Assessment & Plan Assessment & Plan (1) Uncontrolled type 2 diabetes mellitus with hyperglycemia: Code(s): E11.65 - Type 2 diabetes mellitus with hyperglycemia Category: Medical Plan: The patient has a history of diabetes diagnosed in 2019 with negative insulin antibodies and C-peptide 2.64. He is currently down to Lantus 15 units once daily. In the past he had been on Lantus 30+ pre meal bolus. He reports that his appetite is down which he attributes to anxiety. Weight is down by chart review 187 pounds since 04/17. I recommended nutritional counseling today which he declined. He has agreed to add half a peanut butter and jelly sandwich once daily to boost his protein into continued to have peanut butter once daily along with a boost shake. We will continue Lantus 15 units and continue him on a glucose sensor and see him back in 4 months' time. He was advised to check his weight weekly and if he had any further weight loss to notify his primary care provider. He has a low potassium in the system. I checked with his PCP Gisselle Holland NP to see if he has had any additional testing. [place] text was sent. PCP will reach how to him as he has an order at [facility] which he has has not done.He was asked to contact his PCP should he lose any additional weight. He will schedule f/u appt with opth and declined podiatry. He will contact [facility] to see if he can get his G7 sensor with a lower co-pay. Orders: Orders AMB Hemoglobin A1c Today E11.65 - Type 2 diabetes mellitus with hyperglycemia AMB Glucose Monitoring Today E11.65 - Type 2 diabetes mellitus with hyperglycemia Medications: Changed From Lantus Solostar U-100 Insulin (insulin glargine) 30 units (0.3 mL) subcut QPM 9 mL 3RF NS E10.65 - Type 1 diabetes mellitus with hyperglycemia To Lantus Solostar U-100 Insulin (insulin glargine) 15 units (0.15 mL) subcut QPM 90 days 13.5 mL 3RF NS E10.65 - Type 1 diabetes mellitus with hyperglycemia Discontinued Humalog KwikPen Insulin (insulin lispro) Discontinued Reason: Doctor's Order 4-14 units subcutaneously 3 times a day; 15 mL 5RF NS Patient Instructions: The patient was counseled to wear closed toe shoes, never walk barefooted and to inspect the feet daily. For any signs of infection or open wound patient should notify PCP or go to urgent care. The patient was counseled to achieve a target A1C of 7% (154 avg). Fasting blood sugars should be 90-130 in the morning and less than 180 two hours after meals. Reviewed the relationship between poor diabetic control and the development of complications. Coding Level of Care Code Est Pt Level 5 (57679) Diagnoses Uncontrolled type 2 diabetes mellitus with hyperglycemia E11.65 CPT Codes Details - CPT: 78052 - Glucose monitoring, continuous-physician I&R ([id number]) Time Spent (min) 45 Comment Time spent reviewing labs/provider notes, glucose,sensor reports, face to face, chart doc
[2024-02-24 14:04] VITALS: BP 120/70; PULSE 77; BMI 21.8
[2024-02-24 14:15] LABS: Glucose, Whole Blood 256 mg/dL (60-115)
== END 2024-02-24 14:43 | disposition home or self-care (01) ==
PROVIDERS: PCP Nurse Practitioner Primary Care; Visit Provider Nurse Practitioner Adult Health
DX: E11.65 Type 2 diabetes mellitus with hyperglycemia (principal)
CPT/HCPCS: 95251; 99215

== ENCOUNTER → 2024-02-24 13:57 | Outpatient (BNVA) | payer MEDICAID, SELFPAY | PROVIDERS: PCP Nurse Practitioner Primary Care; Visit Provider Nurse Practitioner Adult Health | DX: E10.65 Type 1 diabetes mellitus with hyperglycemia (principal) | CPT/HCPCS: 82947; 83036; 99212 ==

== ENCOUNTER 2024-03-25 08:54 | Outpatient (REF) | payer OTHER, SELFPAY ==
--- NOTE | ~2024-03-25 | FL_ITS ---
EXAMINATION: XR FLUOROSCOPY UPPER GI WITH AIR CLINICAL INFORMATION: Dysphagia. Nausea/vomiting COMPARISON: None TECHNIQUE: Fluoroscopic air contrast upper GI examination was performed utilizing standard techniques with thin and thick barium and effervescent granules. Numerous spot images were obtained. FINDINGS: Lateral cine images of the oropharynx and hypopharynx demonstrate normal swallow mechanism with normal epiglottic inversion and soft palate elevation. There is trace laryngeal penetration with thick barium. No tracheal penetration, glottic or subglottic aspiration identified. No nasopharyngeal reflux present. Hypopharyngeal structures appear normal without evidence of mass or diverticulum. There was no significant cricopharyngeal achalasia. Dual and single contrast images of the esophagus demonstrate normal caliber, contour, and mucosal pattern. No masses or ulcerations are identified. There is moderate narrowing of the GE junction. There is to and fro motion of the barium column, with nonpropulsive tertiary contractions noted throughout the esophagus. No evidence of hiatus hernia identified. No significant gastroesophageal reflux was seen during the course of the examination and on reflux views. Dual contrast and single contrast images of the stomach demonstrated a normal contour. The areae gastrica have a thickened appearance, suggestive of gastritis. There are multiple small foci of contrast pooling in the body and fundus of the stomach that that may represent small superficial aphthous ulcers. No masses are present. Contrast freely passed into the gastric antrum and duodenal bulb without delay. Single and air-contrast images of the duodenal bulb demonstrate no abnormality. The duodenal sweep has a normal appearance, course, and mucosal fold appearance. The imaged proximal jejunum has a normal fold pattern and caliber. FLUOROSCOPY TIME: 5 minutes 2 seconds Number of Spot Images: 8 Number of Cine: 14 DOSE AREA PRODUCT: 2180 uGy-m2 (microgray-meter squared) FL/FL barium swallow with air IMPRESSION: 1. Trace pharyngeal penetration with thick barium. No subglottic aspiration. 2. Moderate smooth narrowing of the GE junction that likely represents achalasia. A short segment benign stricture cannot be definitively ruled out. 3. Esophageal dysmotility. 4. Thickened appearance of the areae gastricae. In addition, there are multiple small foci of contrast pooling in the body and fundus of the stomach. These findings are suggestive of erosive gastritis. Recommend correlation with EGD. This procedure was performed by Jax Hanley, PA-C, and supervised by Dr. Gutierrez Electronically signed by: Jhonatan Gutierrez MD 03/26/2024 12:55 PM EDT
== END 2024-03-25 08:55 | disposition home or self-care (01) ==
LOC: HO.XRAY 08:54
PROVIDERS: PCP Nurse Practitioner Primary Care; Visit Provider Nurse Practitioner Primary Care
DX: R13.10 Dysphagia, unspecified (principal); R09.89 Other specified symptoms and signs involving the circulatory and respiratory systems
CPT/HCPCS: 74221

== ENCOUNTER → 2024-03-25 08:57 | Outpatient (BNV) | payer MEDICAID, SELFPAY | PROVIDERS: PCP Nurse Practitioner Primary Care; Visit Provider Physician Assistant Surgical | DX: R13.10 Dysphagia, unspecified (principal) | CPT/HCPCS: 74246 ==

== ENCOUNTER → 2024-06-29 13:44 | Outpatient (AMB) | payer MEDICAID, SELFPAY ==
[2024-06-29 13:49] VITALS: BP 112/74; PULSE 88; BMI 18.7
--- NOTE | 2024-06-29 13:49 | A.OFFVIS_ITS ---
Vital Signs 06/29/24 13:49 Height 5 ft 10 in Weight 130 lb 1.164 oz BMI 18.7 BP 112/74 Blood Pressure Location Rt brachial Position Sitting Pulse 88 Pulse Source Pulse Oximeter Intake Visit Reasons: T2DM Intake Note: Patient presents today for a follow-up on Type 2 Diabetes Mellitus: Last Diabetic eye exam was on: 05/2023 Last Podiatry exam was on: Does not see a Supervisor [employer] Most recent HbA1c: DUE%, 06/29/2024 Random Glucose- 425 mg/dL, Today UR Ketone Dip Results- 15 Sales Developer Required: No Accompanied by: Spouse Allergies aspirin Allergy (Unknown, Verified 06/29/24 13:50) Unknown. simvastatin Allergy (Unknown, Verified 06/29/24 13:50) rash HPI Comments Details: 59 YO M with PMHx DM who is seen in F/U for DM. He was last seen by myself 03/18. Hgb A1C 06/29/24: 13% prior A1C was 6.9% on 02/24/24. At the time he was taking 15 unit of Lantus daily and had not been taking humalog. He dropped his Lantus to 5 units and takes only several times per week. He hasn't taken insulin for a week or so. Initially diagnosed with Type 2 DM in 2009. When he started with endocrine in 2019 he had labs draw to determine type 1 vs type 2. Insulin antibodies were negative. C peptide was 2.56. Was initially started on treatment with Metformin. This was stopped by his PCP and he was instead started on Glipizide 10 mg PO BID. This was stopped at his initial endocrine visit and he was started on insulin. Current regime: Lantus 5 units He is no longer taking Humalog (had previously been on 5 units before meals). He is meeting with a psychologist on a regular basis. He has a boost daily and doesn't eat much else than this due to anxiety. . He tries to get in peanut butter every day or a handful of nuts. Family history of type 2 diabetes in his mother. Dexcom sensor shows an an average glucose of 376 with no lows. +retinopathy: He was previously seen at [facility] in [place].. He reports he was told he needed eye surgery in the past but did not have this done. +neuropathy: Numbness, tingling right great toe. He does not see a rivet hole puncher. He has a bunion on the left foot. + nephropathy: On ARB 10/19/23 eGFR>60 microalbumin 12/09/22 11.0 11/19/21 61 HLD on repathy ldl was 133, 06/19/23 68 Denies CAD Has h/o heavy ETOH use: he has not had any alcohol for 2-3 years Vapes and cigars no prior VAISHNAVI PFSH Medical History Uncontrolled type 2 diabetes mellitus with hyperglycemia Transaminitis T1DM (type 1 diabetes mellitus) Vitamin D deficiency HLD (hyperlipidemia) HTN (hypertension) Surgical History Hx of colonoscopy History of carpal tunnel release Family History Mother Diabetes Hypertension Father Myocardial infarction Social History Household Members: Spouse Are you a primary pharmacist critical care to a significant other at home: No Do you presently have visiting nurse or other home services: No Unable to assess alcohol history related to: Unknown Alcohol intake: former Year quit: 09/14 Patient Tobacco Use Status: Former Tobacco user Years Smoked: 20 +/- Physical Exam Vital Signs: Last Vital Signs Pulse 88 06/29/24 13:49 BP 112/74 06/29/24 13:49 BMI result Body Mass Index 18.7 Const Other: Absence of Cushingoid features. Absence of acromegalic features. Cachectic appearing. Neck exam reveals nl size thyroid about 15 gms. No thyroid nodules palpable. Heart S1 S2, Reg R/R. No M/R G. Skin exam reveals absence of vitiligo or acanthosis nigricans. Results UR Ketone Dip UR Ketone Dip 15 Last Edit by FABIÁN Fitzgerald on 06/29/24 14:18 AMB Hemoglobin A1c AMB Hemoglobin A1c 13.6 % Last Edit by FABIÁN Fitzgerald on 06/29/24 14:2 0 Results Reviewed Results Reviewed: Laboratory Last Values Glucose (Clinic) 425 mg/dL (60-115) H* 06/29/24 13:57 Hgb A1c (Clinic) 13.6 % (4.0-6.0) H 06/29/24 14:17 Ur Ketones (Stick) 15 06/29/24 14:17 Assessment & Plan Assessment & Plan (1) Uncontrolled type 2 diabetes mellitus with hyperglycemia: Code(s): E11.65 - Type 2 diabetes mellitus with hyperglycemia Category: Medical Plan: 59 old type 2 diabetic with neuropathy, nephropathy and retinopathy presents with poorly controlled sugar in a glucose over 400 in the clinic today. Urine for ketone: He has lost 20 lb in the last 4 months. Given high glucose and +ketones will call ambulance via 911. The patient had an opportunity to ask questions regarding treatment plan. The patient expressed understanding and agreement with the above treatment plan. The patient is aware they should contact our office by phone for worsening glucose readings or for any low blood sugars which may warrant a change in diabetes medication. Compliance is encouraged with medications and any followup testing/consults which may have been ordered. Orders: Orders AMB Ketone Urine Dipstick Today E11.65 - Type 2 diabetes mellitus with hyperglycemia AMB Hemoglobin A1c Today E11.65 - Type 2 diabetes mellitus with hyperglycemia Coding Level of Care Code Est Pt Level 4 (54139) Complex EM visit Add On G2211 Diagnoses Uncontrolled type 2 diabetes mellitus with hyperglycemia E11.65 Time Spent (min) 20 Comment face to face, documentation chart review
--- OUTSIDE RECORDS SUMMARY | 2024-06-29 13:55 | XMS_ITS | Encounter Summary ---
Author Organization [employer] Address [address] [place] [address] Care Team Providers Care Aquatics Lifeguard Name Role Phone Gisselle Holland Primary Care Provider [phone] Reason for Visit * Reason Onset Date Comments Med Refill 07/06/2023 Encounter Details Date Type Department Care Team (Late st Contact Info) Description 07/06/2023 Refill [facility] MEDICINE [address], [place] [phone] Gisselle Holland ANP [address] [place], [place] [phone] Anxiety and depression Social History Tobacco Use Types Packs/Day Years Used Date Smoking Tobacco: Former Cigarettes Smokeless Tobacco: Never Alcohol Use Standard Drinks/Week Comments Not Currently 0 (1 standard drink = 0.6 oz pur e alcohol) Depression Answer Date Recorded Patient Health Questionnaire-9 Score 25 10/08/2022 Housing Stability Answer Date Recorded What is your housing situation today? I have michael rosales 03/10/[address] you li ve. Do you have problems with any of the following? None of the above 03/10/2023 Food Insecurity Answer Date Recorded Within the past 12 months, y ou worried that your food would run out before you got money to buy more: Often true 03/10/2023 Within the past 12 months,th e food you bought just didn't last and you didn't have enough money to get more: Often true Transportation Answer Date Recorded In the past 12 months, has l ack of transportation kept you from medical appts, meetings, work or from getting things needed for daily living? No 03/10/2023 Utilities Answer Date Recorded In the past 12 months, has t he electric, gas, oil or water company threatened to shut off services in your home? No 03/10/2023 Depression Answer Date Recorded Patient Health Questionnaire-2 Score 6 10/08/2022 Sex and Gender Information Value Date Recorded Sex Assigned at Male 03/25/2022 10:15 AM EDT Legal Sex Male 10:15 AM EDT Gender Identity Male 03/25/2022 10:15 AM EDT Sexual Orientation Straight 03/25/2022 10 :15 AM EDT documented as of this encounter Plan of Treatment Upcoming Encounters Date Type Department Care Team (Late st Contact Info) Description 08/30/2024 11:00 AM EDT Telemedicine [facility] MEDICINE [address] [place] [address] Gisselle Holland ANP [address] [place] [address] documented as of this encounter Visit Diagnoses Diagnosis Anxiety and depression documented in this encounter Additional Health Concerns Assessment Noted Time PHQ-9 Depression Total Score: 25 023 9:08 AM EDT documented as of this encounter Care Teams Aquatics Lifeguard Relationship Specialty Start Date End Date Gisselle Holland ANP [address] [place] [address] PCP - General Family Medicine 01/24/20 documented as of this encounter
--- OUTSIDE RECORDS SUMMARY | 2024-06-29 13:55 | XMS_ITS | Encounter Summary ---
Author Organization [employer] Address [address] [place] [address] [address] [place] [address] Care Team Providers Care Ui Lead Developer Name Role Phone Gisselle Holland Primary Care Provider [phone] Reason for Visit * Reason Comments Follow-up Encounter Details Date Type Department Care Team (Late st Contact Info) Description 06/22/2024 9:15 AM EST Office Visit [facility] [address], [place] [phone] Gisselle Holland ANP [address] [place], [place] [phone] Dysphagia, unspecified type (Primary Dx); Gastritis without bleeding, unspecified chronicity, unspecified gastritis type; Abnormal weight loss; Essential hypertension; Protein-calorie malnutrition, unspecified severity (CMS/HCC); Type 1 diabetes mellitus maturity onset (CMS/HCC) Social History Tobacco Use Types Packs/Day Years Used Date Smoking Tobacco: Former Cigarettes Smokeless Tobacco: Never Tobacco Cessation:Counseling Given: Not Answered Alcohol Use Standard Drinks/Week Comments Not Currently 0 (1 standard drink = 0.6 oz pur e alcohol) Depression Answer Date Recorded Patient Health Questionnaire-9 Score 27 06/22/2024 Patient Health Questionnaire-9 Score 27 06/22/2024 Last PHQ-9: Questionnaire Data Not on file 0 06/22/2024 Housing Stability Answer Date Recorded What is your housing situation today? I have michael rosales 12/26/[address] you li ve. Do you have problems with any of the following? None of the above 12/26/2023 Food Insecurity Answer Date Recorded Within the past 12 months, y ou worried that your food would run out before you got money to buy more: Often true 12/26/2023 Within the past 12 months,th e food you bought just didn't last and you didn't have enough money to get more: Often true 06/2023 Transportation Answer Date Recorded In the past 12 months, has l ack of transportation kept you from medical appts, meetings, work or from getting things needed for daily living? No 12/26/2023 Utilities Answer Date Recorded In the past 12 months, has t he electric, gas, oil or water company threatened to shut off services in your home? No 12/26/2023 Depression Answer Date Recorded Patient Health Questionnaire-2 Score 6 06/22/2024 Internet Access Answer Date Recorded Internet Access Q1 Yes 01/26/2024 Internet Access Q2 Not on file 01/26/2024 Sex and Gender Information Value Date Recorded Sex Assigned at Male 03/25/2022 10:15 AM EDT Legal Sex Male 10:15 AM EDT Gender Identity Male 03/25/2022 10:15 AM EDT Sexual Orientation Straight 03/25/2022 10 :15 AM EDT documented as of this encounter Last Filed Vital Signs Vital Sign Reading Time Taken Comments Blood Pressure 114/72 06/22/2024 9:24 AM EST Pulse 86 06/22/2024 9:24 AM EST Temperature 36.4 ??C (97.6 ??F) 06/22/2024 9:24 AM ES T Respiratory Rate 12 06/22/2024 9:24 AM EST Oxygen Saturation 98% 06/22/2024 9:24 AM EST Inhaled Oxygen Concentration - - Weight 61 kg (134 lb 6.4 oz) 06/22/2024 9:24 AM EST Height - - Body Mass Index 19.28 01/08/2024 2:39 PM EDT documented in this encounter Patient Instructions * Patient Instructions* MILA Juarez - 06/22/2024 9:15 AM EST You have an appointment October 28 11:[address] Farooq [facility] G[facility] . You are also on a list for cancellations so hopefully they will call you for a sooner appointment. [place] not miss this appointment. documented in this encounter Progress Notes * MILA Juarez - 06/22/2024 9:15 AM EST Subjective Patient ID: Nabor Herrera is a 59 y.o. male who presents for Follow-up. HPI follow-up today PMH severe anxiety, DM (BETO), HTN Pt no-showed 06/10/24 to GI appt w/ Dr. Farooq. I spoke with their office today and reschedule patient for next available which was not until October. It ask them to place patient on cancellation list [facility] appointment given EGD need for update. Follows w/ [facility] GI regularly - last EGD 03/17 ENDOSCOPIC STUDIES: 02/2023 EGD AND COLON SHOWED: Endoscopy Findings: ESOPHAGUS: No esophagitis or Kelly's or varices noted. STOMACH: Mild gastric erythema with a few superficial erosions. Barium swallow abnormal 02/2024, with recommendation for EGD. Will forward result to GI office. FL/FL barium swallow with air IMPRESSION: 1. Trace pharyngeal penetration with thick barium. No subglottic aspiration. 2. Moderate smooth narrowing of the GE junction that likely represents achalasia. A short segment benign stricture cannot be definitively ruled out. 3. Esophageal dysmotility. 4. Thickened appearance of the areae gastricae. In addition, there are multiple small foci of contrast pooling in the body and fundus of the stomach. These findings are suggestive of erosive gastritis. Recommend correlation with EGD. Has significant weight loss. Does not eat much and cont to lose weight despite nutritional supplement. His BG has been uncontrolled despite his not eating. Does report that he had genital rash that improved with OTC miconazole or similar. Quit smoking 20 years ago Review of Systems Constitutional: Positive for unexpected weight change. Negative for chills and fatigue. HENT: Negative for congestion. Respiratory: Negative for cough and shortness of breath. Cardiovascular: Negative for chest pain and palpitations. Gastrointestinal: Positive for nausea and vomiting. Negative for abdominal pain and diarrhea. Genitourinary: Negative for dysuria. Psychiatric/Behavioral: Positive for decreased concentration, dysphoric mood and sleep disturbance.Negative for suicidal ideas. The patient is nervous/anxious. Objective BP 114/72 (BP Location: Right arm, Patient Position: Sitting, BP Cuff Size: Adult) Pulse 86 Temp 97.6 ??F (36.4 ??C) (Temporal) Resp 12 Wt 134 lb 6.4 oz (61 kg) SpO2 98% BMI 19.28 kg/m?? Physical Exam Vitals reviewed. Constitutional: Appearance: He is not toxic-appearing or diaphoretic. Comments: thin HENT: Head: Normocephalic and atraumatic. Eyes: General: No scleral icterus. Extraocular Movements: Extraocular movements intact. Pupils: Pupils are equal, round, and reactive to light. Cardiovascular: Rate and Rhythm: Normal rate. Pulmonary: Effort: Pulmonary effort is normal. Neurological: Mental Status: He is alert and oriented to person, place, and time. Psychiatric: Mood and Affect: Mood normal. Behavior: Behavior normal. Assessment/Plan Diagnoses and all orders for this visit: Dysphagia, unspecified type With abnormal barium swallow as in HPI. Reinforced with patient importance of GI follow-up. Start PPI as below. In EHR it appears that no PPI is on his drug formulary -hopefully this is not the case and have sent omeprazole 40 mg take once daily. Erosive gastritis without bleeding, unspecified chronicity, unspecified gastritis type - omeprazole (PriLOSEC) [address] capsule; Take 1 capsule (40 mg) by mouth before breakfast. Do not crush or chew. Abnormal weight loss Suspect related to a combination of factors-diabetes, severe anxiety, acid reflux, depression/anxiety. Continues to need nutritional supplementation, ideally 600-800 magen or close to it daily. Reviewed with patient importance of endocrinology close follow-up given A1c at goal but reported high bloodsugars and abnormal weight loss. Essential hypertension At/near goal today, </= 130/80. Continue to encourage low salt diet, regular exercise, home BP monitoring, compliance with medications. Call clinic if BP is frequently >150/90 Go to ED/call 911 if > 170/100 and having sx such as DIEGO, visual changes, chest pain, SOB Last renal function: Lab Results Component Value Date GLUCOSE 256 (H) 02/24/2024 NA 138 10/19/2023 K 3.1 (L) 10/19/2023 CO2 28 10/19/2023 CL 100 10/19/2023 BUN 15 10/19/2023 CREATININE 0.85 10/19/2023 EGFR >60 10/19/2023 No results found for: MICROALBCREA No results found for: MICROALBCREU Protein-calorie malnutrition, unspecified severity (CMS/HCC) Pt requires nutritional supplementation. Continues to lose weight due to multiple due to factors. Requires approximately 600-800 additional calories daily from nutritional supplement. Recommend the following (choose one and add units/d): Boost 240cal/8oz Boost plus 360cal/8oz X Boost glucose control 190cal/8oz or Glucerna 180cal/8oz 3 units daily Ensure original 220cal/8oz Ensure high protein 160cal/8oz Ensure plus high protein 350cal/8oz Type 1 diabetes mellitus maturity onset (CMS/HCC) Lab Results Component Value Date HGBA1C 7.2 (A) 01/08/2024 HGBA1C 6.9 (A) 09/23/2023 HGBA1C 8.1 (A) 06/19/2023 A1c 6.9% 02/2024 at [facility] A1c is at goal but patient is losing significant amount of weight despite not eating. Reviewed withhim appropriate insulin use and encouraged close follow-up with endocrinology. Has retinopathy and is established with [facility] and trung Gillespie. Has upcoming appointment and reviewed with him importance of inquiring about follow-up plan for his retinopathy. Has nephropathy and is on ARB On PCSK9 for cholesterol due to elevated LFTs Uses Dexcom for CGM Has BMP in system that needs to be collected. documented in this encounter Plan of Treatment Upcoming Encounters Date Type Department Care Team (Late st Contact Info) Description 08/30/2024 11:00 AM EDT Telemedicine [facility] [address] [place] [address] Gisselle Holland ANP [address] [place] [address] documented as of this encounter Visit Diagnoses Diagnosis Dysphagia, unspecified type- Primary Gastritis without bleeding, unspecified chronicity, unspecified gastritis type Abnormal weight loss Loss of weight Essential hypertension Unspecified essential hypertension Protein-calorie malnutrition, unspecified severity (CMS/HCC) Type 1 diabetes mellitus maturity onset (CMS/HCC) documented in this encounter Additional Health Concerns Assessment Noted Time PHQ-9 Depression Total Score: 27 025 9:43 AM EST documented as of this encounter Care Teams Ui Lead Developer Relationship Specialty Start Date End Date Gisselle Holladn ANP [address] [place] [address] PCP - General Family Medicine 01/24/20 documented as of this encounter
--- OUTSIDE RECORDS SUMMARY | 2024-06-29 13:55 | XMS_ITS | Clinical Summary ---
Author Organization Patient Business [employer] [facility] Address [address] [place] [address] Care Team Providers Care Puppet Master Name Role Phone Unavailable Primary Care Provider Unavailabl e Social History Tobacco Use Types Packs/Day Years Used Date Smoking Tobacco: Never Assessed Sex and Gender Information Value Date Recorded Sex Assigned at Not on file Gender Identity Not on file Sexual Orientation Not on file Plan of Treatment Health Maintenance Due Date Last Done Comments DTaP,Tdap,and Td Vaccines (1 - Tdap) 1986 Hepatitis B Vaccines (1 of 3 - 19+ 3-dose series) 1986 Zoster Vaccines (1 of 2) 2017 Cholesterol Screening (Lipid Panel) 08/28/2023 Colorectal Cancer Screening: Colonoscopy 08/28/2023 Depression Screening 08/28/2023 HIV Screening 08/28/2023 Hepatitis C Screening 08/28/2023 Social Influencers of Health Screening 08/28/2023 COVID-19 Vaccine (2023-2 5 season) 2024 Influenza Vaccine (#1) 2024 HIB Vaccines Aged Out No longer eligi ble based on patient's age to complete this topic HPV Vaccines Aged Out No longer eligi ble based on patient's age to complete this topic Hepatitis A Vaccines Aged Out No long er eligible based on patient's age to complete this topic IPV Vaccines Aged Out No longer eligi ble based on patient's age to complete this topic MMR Vaccines Aged Out No longer eligi ble based on patient's age to complete this topic Meningococcal ACWY Vaccine Aged Out N o longer eligible based on patient's age to complete this topic Pneumococcal Vaccine: Pediat rics (0 to 5 Years) and At-Risk Patients (6 to 64 Years) Aged Out No longer eligible b ased on patient's age to complete this topic RSV Immunization Patients Un monty 20 months Aged Out No longer eligible b ased on patient's age to complete this topic Varicella Vaccines Aged Out No longer eligible based on patient's age to complete this topic
--- OUTSIDE RECORDS SUMMARY | 2024-06-29 13:55 | XMS_ITS | Encounter Summary ---
Author Organization [employer] Address [address] [place] [address] Care Team Providers Care Sequins Spooler Name Role Phone Gisselle Holland MILA Primary Care Provider [phone] Encounter Details Date Type Department Care Team (Latest Contact Info) Description 06/22/2024 Travel Social History Tobacco Use Types Packs/Day Years [...] Info) Description 08/30/2024 11:00 AM EDT Telemedicine [facility] [address] [place] [address] Gisselle Holland ANP [address] [place] [address] documented as of this encounter Visit Diagnoses Not on filedocumented in this encounter Additional Health Concerns Assessment Noted Time PHQ-9 Depression Total Score: 27 025 9:43 AM EST documented as of this encounter Care Teams Sequins Spooler Relationship Specialty Start Date End Date Gisselle Holland ANP [address] [place] [address] PCP - General Family Medicine 01/24/20 documented as of this encounter
--- OUTSIDE RECORDS SUMMARY | 2024-06-29 13:55 | XMS_ITS | Clinical Summary ---
Author Organization [employer] Address [address] [place] [address] [address] [place] [address] Care Team Providers Care Certified Pediatric Nurse Practitioner Name Role Phone Gisselle Holland MILA Primary Care Provider [phone] Allergies Active Allergy Reactions Criticality Noted Date Comments Aspirin Palpitations Low 04/24/2011 Simvastatin Rash Low 05/29/2010 Medications * This document contains information received from the source organization and may not represent a complete record from that organization. FREESTYLE LITE test strip USE 1 STRIP TO CHECK GLUCOSE 4 TIMES DAILY 07/06/19 22 Active Lantus SoloStar 100 UNIT/ML pen INJECT 30 UNITS SUBCUTANEOUSLY IN THE EVENING 06/21/19 23 Active HumaLOG KWIKPEN 100 UNIT/ML injection INJECT 14 TO 24 UNITS SUBCUTANEOUSLY THREE TIMES DAILY DIRECTED BY THE DOCTOR (MAXIMUM DAILY DOSE OF 66 UNITS) 04/23/20 22 Active Continuous Blood Gluc Sensor (Dexcom G6 Sensor) misc 1 each every 14 (fourteen) days. Active ondansetron ODT (Zofran-ODT) 4 MG disintegrating tablet Take 1 tablet by mouth every 12 (twelve) hours. 04/11/20 22 Active sildenafil (Viagra) 50 MG tabletIndications: Erectile dysfunction, unspecified erectile dysfunction type Take 1 tablet (50 mg) by mouth if needed each day for erectile dysfunction for up to 60 doses. 30 tablet 1 07/05/19 23 Active Continuous Blood Gluc Crowd Controller (Dexcom G5 Crowd Controller Kit) deviceIndications: Type 1 diabetes mellitus maturity onset (CMS/HCC) 1 each 4 times daily. 1 each 08/13/19 23 Active Continuous Blood Gluc Sensor (Dexcom G6 Sensor) miscIndications:Ty pe 1 diabetes mellitus maturity onset (CMS/HCC) 1 each every 14 (fourteen) days. 6 each 3 08/13/19 Active Repatha SureClick 140 MG/ML injection INJECT 140 MG SUBCUTANEOUSLY EVERY TWO WEEKS 09/19/19 23 Active LORazepam (Ativan) 1 MG tabletIndications: Anxiety and depression Take 1 tab as needed for anxiety attacks, up to twice in 1 day 20 tablet 10/09/19 23 Active losartan (Cozaar) 100 MG tabletIndications: Essential hypertension Take 1 tablet (100 mg) by mouth in the morning. 90 tablet 1 06/19/19 24 Active sertraline (Zoloft) 100 MG tablet 150 mg. 08/15/19 24 Active QUEtiapine (SEROquel) 50 MG tablet Take 50 mg by mouth 3 times daily. 09/05/19 24 Active hydrOXYzine HCl (Atarax) 50 MG tablet Take 50 mg by mouth 3 times daily. 09/08/19 24 Active omeprazole (PriLOSEC) [address] capsuleIndications :Gastritis without bleeding, unspecified chronicity, unspecified gastritis type Take 1 capsule (40 mg) by mouth before breakfast. Do not crush or chew. 90 capsule 1 06/22/19 25 026 Active Active Problems Problem Noted Date Diagnosed Date Panic disorder 09/22/2023 Overview (09/22/2023): follows w/ GEORGIA Goldman at [facility]. Takes: sertraline 150mg , hydroxyzine 50mg TID, quetiapine 50mg TID, lorazepam 1mg Anxiety 09/13/2022 Elevated liver enzymes 01/22/2021 Type 1 diabetes mellitus maturity onset 01/23/20 21 Overview (09/22/2023): Follows w/ [facility]. On basal bolus. Kidney disease 03/04/2014 Diabetes mellitus 10/17/2011 Essential hypertension 10/17/2011 Overview (09/22/2023): Losartan 100mg daily Had side effects from lisinopril-hydrochlorothiazide Pure hypercholesterolemia 10/17/2011 Overview (09/22/2023): On Repatha via Endo. Not on statin d/t elevated LFTs. Encounters Date Type Department Care Team Description 06/22/2024 9:15 AM EST Office Visit [facility] [address] [place] [address] Gisselle Holland ANP Dysphagia, unspecified type (Primary Dx); Gastritis without bleeding, unspecified chronicity, unspecified gastritis type; Abnormal weight loss; Essential hypertension; Protein-calorie malnutrition, unspecified severity ([facility]/HCC); Type 1 diabetes mellitus maturity onset ([facility]) 06/22/2024 Travel 05/07/2024 Telephone [facility] [address] [place], [place] [phone] Gisselle Holland ANP Nurse Triage 04/01/2024 Telephone [facility] [address] [place] [address] Gisselle Holland ANP Nurse Triage from Last 3 Months Immunizations Name Administration Dates Next Due Moderna Covid-19 Vaccine 12+ 06/30/2021,10/11/19 21,09/11/2020 Pneumococcal Polysaccharide PPSV23 04/11/2010 TD (adult), 2 Lf tetanus tox oid, preservative free, adsorbed 01/22/2021 Tdap 04/11/2010 Zoster, Recombinant 02/28/2020,06/09/2019 Social History Tobacco Use Types Packs/Day Years [...] Orientation Straight 03/25/2022 10 :15 AM EDT Last Filed Vital Signs Vital Sign Reading [...] 6.4 oz) 06/22/2024 9:24 AM EST Height 177.8 cm (5' 10 ) 01/08/2024 2:39 PM EDT Body Mass Index 19.28 01/08/2024 2:39 PM EDT Plan of Treatment Upcoming Encounters Date Type Department Care Team (Late st Contact Info) Description 08/30/2024 11:00 AM EDT Telemedicine [facility] [address] [place] [address] Gisselle Holland ANP [address] [place] [address] Health Maintenance Due Date Last Done Comments CT Colonography 1967 FIT DNA/Cologuard 1967 FIT 1967 FOBT 1967 Sigmoidoscopy 1967 Eye Exam 1977 Alcohol/Substance Use Screening 1979 Hepatitis B Vaccines (1 of 3 - 19+ 3-dose series) 1986 Pneumococcal Vaccine: 50+ Years (2 of 2 - PCV) 04/11/2011 04/11/2010 Diabetes: Urine Protein Screening 11/19/2022 11/19/2021, 09/04/2020 COVID-19 Vaccine ( - 2023- season) 2024 06/30/2021, 10/10/2020, 09/11/2020 Influenza Vaccine (#1) 2024 Diabetes: Hemoglobin A1C 04/09/2024 024, 09/23/2023, 06/19/2023, Additional history exists Lipid Panel 06/19/2024 06/19/2023 Depression Monitoring (PHQ-9) 12/20/2024 06/22/2024, 06/22/2024 SDOH Screening 12/25/2024 12/26/2023 Diabetes: Foot Exam 02/23/2025 02/24/2024 Depression Screening 06/22/2025 06/22/2024, 06/22/19 Tobacco Screening 06/22/2025 06/22/2024 Colonoscopy 02/25/2026 Colorectal Cancer Screening 02/25/2026 DTaP/Tdap/Td Vaccines (3 - Td or Tdap) 01/22/2031 01/22/2021, 04/11/2010 RSV Patients and Patients Aged 60 years or older (1 - 1-dose 75+ series) 2042 HIV Screening Completed 11/09/2019 Hepatitis C Screening Completed 11/09/2019 Zoster Vaccines Completed 02/28/2020, 06/09/2019 HIB Vaccines Aged Out No longer eligi [...] patient's age to complete this topic Meningococcal Vaccine Aged Out No shi niraj eligible based on patient's age to complete this topic RSV under 20 months Aged Out No longe r eligible based on patient's age to complete this topic Rotavirus Vaccines Aged Out No longer eligible based on patient's age to complete this topic Procedures Procedure Name Priority Date/Time Associated Diagnosis Comments POCT GLYCOSYLATED HEMOGLOBIN (HGB A1C) Routine 01/08/2024 2:42 PM EDT Type 1 diabetes mellitus maturity onset (CMS/HCC) LIPID PANEL, STANDARD Routine 06/19/2023 8:26 AM EST [facility] HISTORICAL MICROALBUMIN/CREATINI NE RATIO, RANDOM URINE Routine 11/19/2021 12:24 PM EDT Z HISTORICAL HEPATITIS A,B,C PROFILE Routine 11/09/2019 10:25 AM EDT [facility] HISTORICAL HIV AB/AG Routine 11/09/2019 10:25 AM EDT from Last 3 Months or Most Recently Relevant to Health Maintenance Results * (ABNORMAL) POCT glycosylated hemoglobin (Hgb A1c) (01/08/2024 2:42 PM EDT) Pathologist [facility] Hemoglobin A1C 7.2(A) 4.0 - 6.0 % QC Media Lot # [id number] Lot# Expiration Date [id number] Blood Capillary blood specimen / Unknown 01/08/2024 2:42 PM EDT us Gisselle [facility] POINT OF CARE TEST ENTER/EDIT OR DERABLES Final Result * (ABNORMAL) Lipid Panel, Standard (06/19/2023 8:26 AM EST) Triglycerides 92 <150 mg/dL [facility] Comment:Desirable Triglyceri de: less than 150 mg/dLBorderline High Triglyceride 150-199 mg/dLHigh Triglyceride: 200-499 mg/dLVery High Triglyceride: greater than or equal to 5OO mg/dL Cholesterol 119 <200 mg/dL [facility] Comment:Desirable Cholestero l: less than 200 mg/dLBorderline High Cholesterol: 200-239 mg/dLHigh Cholesterol: greater than 239 mg/dL LDL Cholesterol Calculated 66 <100 mg/dL [facility] Comment:Desirable LDL: less than 100 mg/dLNear Optimal/Above Optimal LDL: 110- 129 mg/dLBorderline High LDL: 130-159 mg/dLHigh LDL: 160-189 mg/dLVery High LDL: greater than or equal to 190 mg/dL HDL Cholesterol 35(L) >40 mg/dL [facility] Comment:Desirable HDL: great er than 40 mg/dL Note: This HDL assay may give artificially low results in patients with liver disease. 06/19/2023 8:26 AM EST 06/19/2023 8:26 AM EST us Generic External Data Provider LAB BLOOD ORDERAB LES Final Result Performing Organization Address [facility] Co de Phone Number [facility] [address] [place] [phone] * MICROALBUMIN/CREATININE RATIO, RANDOM URINE (11/19/2021 12:24 PM EDT) Creatinine Urine 168.36 mg/dL [facility] Microalbum/Creati nine Ratio Ur 35.0 ug/mg cr [facility] Comment: ?Albumin/Creatinine Ratio Reference Ranges: ? Normal: < 30 ug/mg creatinine ? Microalbuminuria: ??30 - 300 ug/mg creatinine Clinical Albuminuria: ??> 300 ug/mg creatinine Microalbumin Urine 59.0 mg/L [facility] 11/19/2021 12:2 4 PM EDT Historical Provider MD HISTORICAL/NON ORDERABLE LABS Final Result Performing Organization Address City/[facility]/ZIP Co de Phone Number [facility] [address] * HEPATITIS A,B,C PROFILE (11/09/2019 10:25 AM EDT) HEPATITIS B CORE ANTIBODY NONREACTIVE NONREACTIVE [facility] HEPATITIS B INTERPRETATION SEE NOTE [facility] Comment:Negative for Hepatit is B. HEPATITIS B SURFACE ANTIBODY NONREACTIVE NONREACTIVE [facility] Comment:NONREACTIVE: < 8.00 mIU/mL HEPATITIS B SURFACE ANTIGEN NEGATIVE NEGATIVE [facility] HEPATITIS C ANTIBODY NONREACTIVE NONREACTIVE [facility] Comment: Antibodies to HCV not detected; does not exclude early acute HCV infection. 11/09/2019 10:2 5 AM EDT Historical Provider HISTORICAL/NON ORDERABLE LABS Final Result Performing Organization Address [facility] de Phone Number [facility] [address] * HIV AB/AG (11/09/2019 10:25 AM EDT) [facility] HIV AG/AB NONREACTIVE [facility] Comment: HIV-1 p24 Ag and/or HIV-1/HIV-2 Ab not detected. ?? A test result that is nonreactive does not exclude the possibility of exposure to or infection with HIV-1 and/or HIV-2. Nonreactive results in this assay for individuals with prior exposure to HIV-1 and/or HIV-2 may be due to antigen and antibody levels that are below the limit of detection of this assay. ?? The [employer] [facility] HIV Ag/Ab Combo assay result and supplemental assay results should be interpreted in conjunction with the patient's clinical presentation, history and other laboratory results. ??If the results are inconsistent with clinical evidence, additional testing is suggested to confirm the result. 11/09/2019 10:2 5 AM EDT Historical Provider HISTORICAL/NON ORDERABLE LABS Final Result Performing Organization Address [facility] Phone Number [facility] [address] from Last 3 Months or Most Recently Relevant to Health Maintenance Insurance [employer] PPO Care Teams Certified Pediatric Nurse Practitioner Relationship Specialty Start Date End Date Gisselle Holland ANP [address] [place] [phone] PCP - General Family Medicine 01/24/20
[2024-06-29 14:02] LABS: Glucose, Whole Blood 425 mg/dL (60-115)
== END ==
PROVIDERS: PCP Nurse Practitioner Primary Care; Visit Provider Nurse Practitioner Adult Health
DX: E11.65 Type 2 diabetes mellitus with hyperglycemia (principal)
CPT/HCPCS: 99214

== ENCOUNTER → 2024-06-29 13:44 | Outpatient (BNVA) | payer MEDICAID, SELFPAY | PROVIDERS: PCP Nurse Practitioner Primary Care; Visit Provider Nurse Practitioner Adult Health | DX: E11.65 Type 2 diabetes mellitus with hyperglycemia (principal) | CPT/HCPCS: 81002; 82947; 83036; 99212 ==

== ENCOUNTER 2024-07-06 01:02 | Emergency (ER) | payer OTHER, SELFPAY ==
[2024-07-06 01:14] VITALS: BP 157/80; PULSE 99; RESP 18; TEMP 36.6; O2SAT 98; BMI 27.1
[2024-07-06] MEDS: Ondansetron ODT 4 MG TAB.RAPDIS TRANSLINGU (01:24)
[2024-07-06 05:39] VITALS: BP 116/60; PULSE 101; RESP 16; TEMP 36.9
--- NOTE | 2024-07-06 05:40 | PC.NURSE ---
Pt aox3 sitting, quietly/ sleeping. Reports feeling anxious with abd pain, nausea and chest pressure. Tachy 101, otherwise VSS. No apparent distress noted. Hx of anxiety and panic DO. Pending physician eval.
--- NOTE | 2024-07-06 06:34 | ECG_ITS ---
Test Reason : chest pain Blood Pressure : */* mmHG Vent. Rate : 105 BPM Atrial Rate : 105 BPM P-R Int : 134 ms QRS Dur : 88 ms QT Int : 336 ms P-R-T Axes : 82 62 74 degrees QTcB Int : 444 ms Sinus tachycardia Otherwise normal ECG When compared with ECG of 19-Oct-2023 09:04, No significant change was found Referred By: Generic ED Physician Electronically Signed By: TIGRE CULLEN MD
--- NOTE | 2024-07-06 06:40 | PC.NURSE ---
Pt is awake reporting abd pain/burning, chest pressure. Reports feeling nauseas, sticking finger inside the throat to induce vomiting. Pt reports feeling relieve from vomiting. Reports sore throat. Pt is showing signs of anxiety, restless. Emesis bag provided to pt. Stood up from the chair, pacing, spit on the floor and then threw self onto the floor. Pt able to stand up and ambulate to back to the chair. No injury noted. Pt then vomited again in the emesis bag and splatters of blood were noted. Provider made aware.
[2024-07-06 06:42] LABS: MANUAL DIFF FLAG NO
[2024-07-06 06:50] LABS: Basophils Percent Auto 0.2 % (0-2); Hematocrit 42.9 % (42.0-52.0); Hemoglobin 14.9 g/dl (14.0-18.0); Imm Gran Abs Auto 0.15 X10*3/uL (0.00-0.03); Imm Gran Pct Auto 1.4 % (0.0-0.4); Lymphocytes Absolute Auto 1.2 X10*3/uL (1.2-4.9); Lymphocytes Percent Auto 11.3 % (20-40); Mean Corpuscular HGB Conc 34.7 g/dl (31.0-36.0); Mean Corpuscular Hemoglobin 29.6 pg (27.0-33.0); Mean Corpuscular Volume 85.1 fL (80.0-98.0); Monocytes Absolute Auto 0.4 X10*3/uL (0.1-1.2); Monocytes Percent Auto 3.9 % (2-11); Neutrophils Absolute Auto 9.1 x10*3/uL (2.0-8.3); Neutrophils Percent Auto 83.2 % (45-73); Platelet Count 153 X10*3/uL (160-400); Red Blood Count 5.04 X10*6/uL (4.60-5.80); Red Cell Distribution Width 13.7 % (11.0-16.0); White Blood Count 10.9 X10*3/uL (4.8-10.8)
[2024-07-06 07:01] LABS: Alanine Aminotransferase 17 U/L (0-40); Albumin Level 4.8 g/dL (3.5-5.0); Alkaline Phosphatase 127 U/L (39-117); Anion Gap 26 (12-20); Aspartate Amino Transferase 21 U/L (5-37); Bilirubin Total 0.8 mg/dL (0.0-1.0); Blood Urea Nitrogen 14 mg/dL (9-16); Calcium 9.8 mg/dL (8.4-10.2); Carbon Dioxide 18 mmol/L (22-29); Chloride 95 mmol/L (96-108); Creatinine Clr Calc Pharmacy 92.2; Estimated Glomerular Filt Rate > 60; Glucose Random 364 mg/dL (60-115); Lipase 18 U/L (8-78); Potassium 3.8 mmol/L (3.3-5.1); Sodium 135 mmol/L (135-145); Total Protein 8.6 g/dL (6.5-8.0)
[2024-07-06 07:03] LABS: Troponin-I High Sensitivity 6.4 ng/L (<3.5-35.0)
--- NOTE | 2024-07-06 07:07 | ED_ITS ---
HPI - General Adult General Chief complaint: Anxiety Stated complaint: panic attacks & vomiting Time Seen by Provider: 07/06/24 07:00 Source: patient Mode of arrival: ambulatory Limitations: no limitations History of Present Illness HPI narrative: This is a 59 years old presented to emergency department with a chief complaint of nausea vomiting and anxiety . He has a history of diabetes history of anxiety. Denies any abdominal pain, denies any chest pain any fever, symptoms present for about 2 days Onset (ago): day(s) (2) Radiation: non-radiation Severity: moderate Quality: burning Relieving factors: none Exacerbating factors: none Associated symptoms: denies other symptoms Related Data Home Medications ?Medication ?Instructions ?Recorded ?Confirmed losartan 50 mg tablet 50 mg PO QAM 08/28/22 12/11/23 quetiapine 50 mg tablet 50 mg PO DAILY PRN 06/24/23 12/11/23 hydroxyzine HCl 50 mg tablet 50 mg PO TID 08/22/23 12/11/23 sertraline 100 mg tablet 100 mg PO DAILY 08/22/23 12/11/23 sertraline 25 mg tablet 25 mg PO QAM 08/22/23 12/11/23 Previous Rx's ?Medication ?Instructions ?Recorded blood-glucose meter (FreeStyle #1 ea 09/04/20 Lite Meter kit) lancets 28 gauge (FreeStyle #100 ea 09/04/20 Lancets) lorazepam 2 mg tablet (Ativan) 2 mg PO TID PRN anxiety #10 tabs 04/05/22 blood sugar diagnostic (FreeStyle #100 ea 09/17/22 Lite Strips) pen needle, diabetic 32 gauge x #100 ea 09/25/2205/29 (BD Ultra-Fine Micro Pen Needle) lorazepam 1 mg tablet (Ativan) 1 mg PO BID PRN anxiety #20 tabs 03/14/23 bismuth subcit K 140 3 cap PO QID 14 days #168 caps 12/11/23 mg-metronidazole 125 mg-tetracycline 125 mg cap (Pylera) psyllium husk 0.4 gram capsule 0.4 g PO BID 90 days #180 caps 12/11/23 (Fiber (psyllium husk)) evolocumab 140 mg/mL subcutaneous 140 mg subcut Q2W 30 days #3 mL 12/22/23 pen injector (Repatha SureClick) blood-glucose sensor (Dexcom G7 #3 ea 12/23/23 Sensor device) Lantus Solostar U-100 Insulin 100 15 unit (0.15 mL) subcut QPM 90 02/24/24 unit/mL (3 mL) subcutaneous pen days #13.5 mL (insulin glargine) Allergies Allergy/AdvReac Type Severity Reaction Status Date / Time aspirin Allergy Unknown Unknown. Verified 07/06/24 01:17 simvastatin Allergy Unknown rash Verified 07/06/24 01:17 Review of Systems 2 Constitutional: Constitutional: Reports no additional constitutional complaints Cardiovascular: Cardiovascular: Reports no additional cardiovascular complaints [facility] Past Medical History Attestation statement: The following information was validated with the patient. [facility] Narrative: Diabetes, anxiety Medical History Uncontrolled type 2 diabetes mellitus with hyperglycemia Transaminitis T1DM (type 1 diabetes mellitus) Vitamin D deficiency HLD (hyperlipidemia) HTN (hypertension) Surgical History Hx of colonoscopy History of carpal tunnel release Family History Family History Mother Diabetes Hypertension Father Myocardial infarction Social History Social History Household Members: Spouse Are you a primary child care development specialist to a significant other at home: No Do you presently have visiting nurse or other home services: No Unable to assess alcohol history related to: Unknown Alcohol intake: former Year quit: 09/14 Patient Tobacco Use Status: Former Tobacco user Years Smoked: 20 +/- Physical Exam ED Vital Signs: Vital Signs - 24 hr 07/06/24 01:14 07/06/24 05:39 07/06/24 09:16 Temperature 97.8 F 98.4 F 99.5 F Pulse Rate 99 101 H 102 H Respiratory Rate 18 16 14 Blood Pressure 157/80 H 116/60 154/85 H Pulse Oximetry 98 99 Oxygen Delivery Method Room Air Room Air 07/06/24 13:38 Temperature 97 F Pulse Rate 95 Respiratory Rate 20 Blood Pressure 170/77 H Pulse Oximetry 96 Oxygen Delivery Method Room Air BMI result Body Mass Index 27.1 On examination he is not toxic-appearing he is normotensive afebrile anxious Const Orientation/consciousness: oriented to person [facility] Head: Yes normal to inspection Ears: hearing grossly normal bilaterally Face and sinus: Yes normal facial exam Neck Neck: Yes normal visual inspection and Yes full ROM Chest Chest palpation & inspection: normal inspection of the chest Resp Effort & Inspection: normal respiratory effort Auscultation: clear to auscultation bilaterally Cardio Jugular venous distension: no JVD Rate: regular rate Rhythm: regular rhythm GI Inspection: Yes normal to inspection Palpation (GI): Soft to palpation, not firm and nontender Skin General skin exam: no rashes or lesions noted, elasticity normal and turgor normal Lesions: no lesions Rashes: no rashes Trauma: no lacerations or abrasions Neuro General: oriented to person Cranial nerves: Yes CN's II-XII intact bilaterally Course Reevaluation(s) Reevaluation #1: On re-examination the patient is doing much better, initial anion gap elevation he has resolved, he wants to go home, looking through the records the he had history of esophageal dysmotility he has achalasia and evidence of erosive gastritis. Patient does have a instructional support assistant Dr. Farooq, he will call with the instructional support assistant and make a follow-up appointment he is on omeprazole Time: 13:22 Medications Administered Discontinued Medications Generic Name Dose Route Start Last Admin Trade Name Raghavq PRN Reason Stop Dose Admin Al Hydroxide/Mg Hydroxide 30 ml 07/06/24 11:16 07/06/24 11:50 Magnesium Hydrox/Alum Hydrox 30 Ml Oral.Susp PO 07/06/24 11:17 30 ml ONCE ONE Administration Sodium Chloride 1,000 mls @ 999 mls/hr 07/06/24 07:15 07/06/24 09:00 Ns IVCONT 07/06/24 08:15 Infused .Q1H1M VICKIE Infusion Sodium Chloride 1,000 mls @ 999 mls/hr 07/06/24 07:15 07/06/24 09:41 Ns IVCONT 07/06/24 08:15 Infused .Q1H1M VICKIE Infusion Insulin Human Lispro 10 unit 07/06/24 07:05 07/06/24 08:28 Insulin Lispro 100 Unit/Ml 3 Ml Vial SUBCUT 07/06/24 07:06 10 unit ONCE ONE Administration Lorazepam 0.5 mg 07/06/24 07:05 07/06/24 08:28 Lorazepam 2 Mg/Ml Vial IVPUSH 07/06/24 07:06 0.5 mg ONCE ONE Administration Ondansetron HCl 4 mg 07/06/24 01:22 07/06/24 01:24 Ondansetron Odt 4 Mg Tab.Rapdis TRANSLINGU 07/06/24 01:23 4 mg ONCE ONE Administration Medical Decision Making Medical Decision Making [facility] Narrative: Patient is here with nausea vomiting in the setting of diabetes anxiety we will establish IV access administer 13:30 patient is feeling much better able to tolerate p.o.., I repeat his electrolytes his initial elevated anion gap now is resolved his gap is 20 his blood sugar is improved to 189 from 364 He is requesting discharge, his abdomen is soft nontender no peritoneal sign I do not think a CT scan of the abdomen and pelvis is indicated, he has a history of vomiting and achalasia as documented by the barium swallow done in April 2024, he is followed by GI Dr. Farooq. Again patient is requesting discharge at this point he will call is GI physician for follow-up he will continue the omeprazole, he will return to the emergency room if worse Differential Diagnosis Differential Diagnoses: The differential diagnosis associated with the presentation includes Vitral Syndrome/dehydration/DKA Admission/Observation Consideration of admission/observation: Escalation of care including admission/observation considered Lab Data [facility] Lab Attestation statement: I reviewed the patient's lab results. 07/06/24 06:35 07/06/24 10:31 Labs: Lab Results 07/06/24 07/06/24 07/06/24 Range/Units 06:35 09:43 10:31 WBC 10.9 H (4.8-10.8) X10*3/uL RBC 5.04 (4.60-5.80) X10*6/uL Hgb 14.9 (14.0-18.0) g/dl Hct 42.9 (42.0-52.0) % MCV 85.1 (80.0-98.0) fL MCH 29.6 (27.0-33.0) pg MCHC 34.7 (31.0-36.0) g/dl RDW 13.7 (11.0-16.0) % Plt Count 153 L (160-400) X10*3/uL MPV 11.0 (9.4-12.4) fL Immature Gran % (Auto) 1.4 H (0.0-0.4) % Neut % (Auto) 83.2 H (45-73) % Lymph % (Auto) 11.3 L (20-40) % [place] % (Auto) 3.9 (2-11) % Eos % (Auto) 0.0 (0-4) % Baso % (Auto) 0.2 (0-2) % Lymph # (Auto) 1.2 (1.2-4.9) X10*3/uL [place] # (Auto) 0.4 (0.1-1.2) X10*3/uL Eos # (Auto) 0.0 (0.0-0.4) X10*3/uL Baso # (Auto) 0.0 (0.0-0.2) X10*3/uL Abs Immat Gran (auto) 0.15 H (0.00-0.03) X10*3/uL Absolute Neuts (auto) 9.1 H (2.0-8.3) x10*3/uL Absolute Nucleated RBC 0.000 (0.0-0.012) X10*3/uL Nucleated RBC % (auto) 0.0 (0.0-0.2) /100WBC Sodium 135 137 (135-145) mmol/L Potassium 3.8 D 3.5 (3.3-5.1) mmol/L Chloride 95 L 103 (96-108) mmol/L Carbon Dioxide 18 L 18 L (22-29) mmol/L Anion Gap 26 H 20 (12-20) BUN 14 13 (9-16) mg/dL Creatinine 0.97 0.84 (0.5-1.4) mg/dL Estim Creat Clear Calc 92.2 106.4 Estimated GFR > 60 > 60 POC Glucose 272 H (60-115) mg/dL Random Glucose 364 H* 254 H (60-115) mg/dL Calcium 9.8 D 8.8 D (8.4-10.2) mg/dL Total Bilirubin 0.8 (0.0-1.0) mg/dL AST 21 (5-37) U/L ALT 17 (0-40) U/L Alkaline Phosphatase 127 H (39-117) U/L Troponin I High Sens 6.4 D (<3.5-35.0) ng/L Total Protein 8.6 H (6.5-8.0) g/dL Albumin 4.8 (3.5-5.0) g/dL Lipase 18 (8-78) U/L 07/06/24 Range/Units 13:32 WBC (4.8-10.8) X10*3/uL RBC (4.60-5.80) X10*6/uL Hgb (14.0-18.0) g/dl Hct (42.0-52.0) % MCV (80.0-98.0) fL MCH (27.0-33.0) pg MCHC (31.0-36.0) g/dl RDW (11.0-16.0) % Plt Count (160-400) X10*3/uL MPV (9.4-12.4) fL Immature Gran % (Auto) (0.0-0.4) % Neut % (Auto) (45-73) % Lymph % (Auto) (20-40) % [place] % (Auto) (2-11) % Eos % (Auto) (0-4) % Baso % (Auto) (0-2) % Lymph # (Auto) (1.2-4.9) X10*3/uL [place] # (Auto) (0.1-1.2) X10*3/uL Eos # (Auto) (0.0-0.4) X10*3/uL Baso # (Auto) (0.0-0.2) X10*3/uL Abs Immat Gran (auto) (0.00-0.03) X10*3/uL Absolute Neuts (auto) (2.0-8.3) x10*3/uL Absolute Nucleated RBC (0.0-0.012) X10*3/uL Nucleated RBC % (auto) (0.0-0.2) /100WBC Sodium (135-145) mmol/L Potassium (3.3-5.1) mmol/L Chloride (96-108) mmol/L Carbon Dioxide (22-29) mmol/L Anion Gap (12-20) BUN (9-16) mg/dL Creatinine (0.5-1.4) mg/dL Estim Creat Clear Calc Estimated GFR POC Glucose 189 H (60-115) mg/dL Random Glucose (60-115) mg/dL Calcium (8.4-10.2) mg/dL Total Bilirubin (0.0-1.0) mg/dL AST (5-37) U/L ALT (0-40) U/L Alkaline Phosphatase (39-117) U/L Troponin I High Sens (<3.5-35.0) ng/L Total Protein (6.5-8.0) g/dL Albumin (3.5-5.0) g/dL Lipase (8-78) U/L Independent Historian Clinical information obtained from an independent historian. History obtained from or confirmed by: Spouse External Record Review External record reviewed: Inpatient record Chronic Conditions Patient?s care impacted by: Diabetes Discharge Plan Discharge Clinical Impression: Vomiting Qualifiers: Vomiting type: unspecified Nausea presence: without nausea Qualified Code(s): R 11.11 - Vomiting without nausea Patient Disposition: Home, Self-Care Instructions: Dehydration (ED), Acute Nausea and Vomiting (ED) Additional Instructions: Call your instructional support assistant Dr. Farooq today and make an appointment for follow- up, make sure you continue the omeprazole. Return to the emergency room if you worse Prescriptions: No Action (DME) FreeStyle Lite Strips Strip See Rx Instructions .ROUTE .MEDSUPPLY Qty: 100 11RF Rx Instructions: 4x daily (DME) pen needle, diabetic [BD Ultra-Fine Micro Pen Needle] 32 gauge x 1/4 needle See Rx Instructions .ROUTE .MEDSUPPLY Qty: 100 11RF Rx Instructions: 4x daily Repatha SureClick 140 mg/mL pen injector 140 mg subcut Q2W 30 Days Qty: 3 11RF (DME) Dexcom G7 Sensor Device See Rx Instructions .ROUTE .MEDSUPPLY Qty: 3 11RF Rx Instructions: As directed every 10 days lorazepam [Ativan] 2 mg tablet 2 mg PO TID PRN (Reason: anxiety) Qty: 10 0RF lorazepam [Ativan] 1 mg tablet 1 mg PO BID PRN (Reason: anxiety) Qty: 20 0RF (DME) lancets [FreeStyle Lancets] 28 gauge misc See Rx Instructions .ROUTE .MEDSUPPLY Qty: 100 11RF Rx Instructions: 4x daily (DME) blood-glucose meter [FreeStyle Lite Meter] Kit See Rx Instructions .ROUTE .MEDSUPPLY Qty: 1 0RF Rx Instructions: As directed losartan 50 mg tablet 50 mg PO QAM quetiapine 50 mg tablet 50 mg PO DAILY PRN sertraline 100 mg tablet 100 mg PO DAILY hydroxyzine HCl 50 mg tablet 50 mg PO TID sertraline 25 mg tablet 25 mg PO QAM insulin glargine [Lantus Solostar U-100 Insulin] 100 unit/mL (3 mL) insulin pen 15 unit subcut QPM 90 Days Qty: 13.5 3RF bismuth subcit [id number] [Pylera] 140-125-125 mg capsule 3 cap PO QID 14 Days Qty: 168 0RF psyllium husk [Fiber (psyllium husk)] 0.4 gram capsule 0.4 g PO BID 90 Days Qty: 180 1RF Discharge Date/Time: 07/06/24 13:39 Print Language: Emirati
[2024-07-06] MEDS: Insulin Lispro 100 UNIT/ML 3 ML VIAL 10 UNIT SUBCUT (08:28)
[2024-07-06] MEDS: LORazepam 2 MG/ML VIAL 0.5 MG IVPUSH (08:28)
[2024-07-06] MEDS: 0.9 % Sodium Chloride 1,000 ML 999 ML IVCONT ×2 (08:29→09:00)
[2024-07-06 09:16] VITALS: BP 154/85; PULSE 102; RESP 14; TEMP 37.5; O2SAT 99
[2024-07-06 09:46] LABS: Glucose, Whole Blood 272 mg/dL (60-115)
[2024-07-06 10:53] LABS: Anion Gap 20 (12-20); Blood Urea Nitrogen 13 mg/dL (9-16); Calcium 8.8 mg/dL (8.4-10.2); Carbon Dioxide 18 mmol/L (22-29); Chloride 103 mmol/L (96-108); Creatinine Clr Calc Pharmacy 106.4; Estimated Glomerular Filt Rate > 60; Glucose Random 254 mg/dL (60-115); Potassium 3.5 mmol/L (3.3-5.1); Sodium 137 mmol/L (135-145)
[2024-07-06] MEDS: Magnesium Hydrox/Alum Hydrox 30 ML ORAL.SUSP PO (11:50)
[2024-07-06 13:35] LABS: Glucose, Whole Blood 189 mg/dL (60-115)
[2024-07-06 13:38] VITALS: BP 170/77; PULSE 95; RESP 20; TEMP 36.1; O2SAT 96
== END 2024-07-06 13:39 | disposition home or self-care (01) ==
PROVIDERS: Emergency Provider Emergency Medicine; PCP Nurse Practitioner Primary Care
DX: F41.9 Anxiety disorder, unspecified (principal); R11.11 Vomiting without nausea; F41.0 Panic disorder [episodic paroxysmal anxiety]; R07.89 Other chest pain; R00.0 Tachycardia, unspecified; Z79.899 Other long term (current) drug therapy
CPT/HCPCS: 36415; 80048; 80053; 82947; 83690; 84484; 85025; 93005; 96361; 96374; 99284; J2060

== ENCOUNTER → 2024-07-06 06:34 | Outpatient (BNV) | payer OTHER, SELFPAY | PROVIDERS: Emergency Provider Emergency Medicine; PCP Nurse Practitioner Primary Care; Visit Provider Internal Medicine Cardiovascular Disease | DX: R00.0 Tachycardia, unspecified (principal) | CPT/HCPCS: 93010 ==

== ENCOUNTER 2024-07-20 10:34 | Outpatient (AMB) | payer OTHER, SELFPAY ==
--- NOTE | 2024-07-20 10:35 | A.OFFVIS_ITS ---
Vital Signs 07/20/24 10:36 Height 6 ft Weight 134 lb 7.712 oz BMI 18.2 BP 104/63 Blood Pressure Location Rt brachial Position Sitting Pulse 97 Pulse Source Pulse Oximeter Pulse Oximetry (%) 98 Oxygen Delivery Method Room Air Intake Visit Reasons: T2DM Intake Note: Patient presents today for a follow-up on Type 2 Diabetes Mellitus: Last Diabetic eye exam was on: 05/2023 Last Podiatry exam was on: Does not see a Computing Consultant Most recent HbA1c: 13.6%, 06/29/2024 Random Glucose- 226 mg/dL, Today Clinical Research Tech Required: No Accompanied by: Spouse Allergies aspirin Allergy (Unknown, Verified 07/06/24 01:17) Unknown. simvastatin Allergy (Unknown, Verified 07/06/24 01:17) rash HPI Comments Details: 59 YO M with PMHx DM who is seen in F/U for DM. He was last seen by myself 04/28/25 at which time he had a glucose in the high 300 s and was spilling ketones. He was transferred to [facility]. Hgb A1C 06/29/24: 13% prior A1C was 6.9% on 02/24/24. At the time of his last visit he was taking 15 unit of Lantus daily and had not been taking humalog. He dropped his Lantus to 5 units and was only taking only several times per week. Initially diagnosed with Type 2 DM in 2009. When he started with endocrine in 2019 he had labs draw to determine type 1 vs type 2. Insulin antibodies were negative. C peptide was 2.56. He reports he was told by the ER staff he needed to wait his turn despite being sent over via ambulance. After 3 hours he left without being seen or treated. Several days later he became much sicker and went to the ER and was admitted for 4 days. Was initially started on treatment with Metformin. This was stopped by his PCP and he was instead started on Glipizide 10 mg PO BID. This was stopped at his initial endocrine visit and he was started on insulin Current regime: Lantus 12 units Humalog 3-8 based on a scale which he has been taking He is meeting with a psychologist on a regular basis. He has a boost daily and doesn't eat much else than this due to anxiety. . He tries to get in peanut butter every day or a handful of nuts. Family history of type 2 diabetes in his mother. Dexcom average glucose: 235 14 day continuous glucose monitor report reviewed Glucose Managment indicator 8.9 % Days with CGM data [ ] % TIme in ranges: Forty-two % very high (above 250) 38 % high ?(181-250) 20 % in range ?(70-180] 0 % low (69-55) Less than 1 % ?very low (below 54) Interpretation glucose reading is elevated overnight but progressively higher throughout the day indicating Lantus is wearing off and that an adjustment in his scale as needed +retinopathy: He was previously seen at [facility] in [place].. He reports he was told he needed eye surgery in the past but did not have this done. +neuropathy: Numbness, tingling right great toe. He does not see a geometry professor. He has a bunion on the left foot. + nephropathy: On ARB 10/19/23 eGFR>60 microalbumin 12/09/22 11.0 11/19/21 61 HLD on repathy ldl was 133, 06/19/23 68 Denies CAD Has h/o heavy ETOH use: he has not had any alcohol for 2-3 years Vapes and cigars no prior [facility] Medical History Uncontrolled type 2 diabetes mellitus with hyperglycemia Transaminitis T1DM (type 1 diabetes mellitus) Vitamin D deficiency HLD (hyperlipidemia) HTN (hypertension) Surgical History Hx of colonoscopy History of carpal tunnel release Family History Mother Diabetes Hypertension Father Myocardial infarction Social History Household Members: Spouse Are you a primary spiritual care coordinator to a significant other at home: No Do you presently have visiting nurse or other home services: No Unable to assess alcohol history related to: Unknown Alcohol intake: former Year quit: 09/14 Patient Tobacco Use Status: Former Tobacco user Years Smoked: 20 +/- Physical Exam Vital Signs: Last Vital Signs Pulse 97 07/20/24 10:36 BP 104/63 07/20/24 10:36 Pulse Ox 98 07/20/24 10:36 Oxygen Delivery Method Room Air 07/20/24 10:36 BMI result Body Mass Index 18.2 Const Other: Absence of Cushingoid features. Absence of acromegalic features. Neck exam reveals nl size thyroid about 15 gms. No thyroid nodules palpable. No carotid bruits present. Lungs CTA. Heart S1 S2, Reg R/R. No M/R G. Skin exam reveals absence of vitiligo or acanthosis nigricans. No edema Visual exam of foot performed. Large bunion left foot great toe, no callus or ulcer over this area. No ulcerations or open lesions. No inter digit maceration or fissuring. No onychomycosis, no callouses. Sensation intact to monofilament exam. Vibratory sensation is normal with 128 Hz tuning fork. Results Reviewed Results Reviewed: Laboratory Last Values Glucose (Clinic) 226 mg/dL (60-115) H 07/20/24 10:40 Assessment & Plan Assessment & Plan (1) Uncontrolled type 2 diabetes mellitus with hyperglycemia: Code(s): E11.65 - Type 2 diabetes mellitus with hyperglycemia Category: Medical Plan: 59-year-old type 2 diabetic with nephropathy, retinopathy, neuropathy and anxiety disorder confirmed by C-peptide and insulin antibodies I spent a great deal of time with the patient and I believe his going over prevention and treatment of DKA. He was able to verbalize what to do in the event his sugars are over 250. Written instructions were also given Will change to Tresiba insulin as he has fears of lows and it looks like his Lantus is wearing out towards the end of the day/ Tresiba 14 units in the am humalog tid before meals 100-149 5 units 150-200 6 units 201-250 7 units 251-300 8 units will convert to 3 style earlene 3 polus over 300 9 units test for ketones and follow protocol any glucose over 250 GLP 1 contraindicated due to his struggles with keeping on weight and poor appetite. He has me with nutrition for this and is seeing psych regularly I will see the patient back in 1 week to review his sensor download. I advised him after 30 carbs of glucose tablets and 14 carg gram of gingerale that hs should stay until glucose stabilizes. He left aftr 30 min. He is not driving and was advised to go home and eat. The patient had an opportunity to ask questions regarding treatment plan. The patient expressed understanding and agreement with the above treatment plan. The patient is aware they should contact our office by phone for worsening glucose readings or for any low blood sugars which may warrant a change in diabetes medication. Compliance is encouraged with medications and any followup testing/consults which may have been ordered. Patient Instructions: Symptoms of DKA (diabetic ketoacidosis): early: frequent urination, dry mouth, fatigue, feeling ill, severe symptoms: ketones in the urine, abdominal pain, nausea, vomiting and weakness. It is important to hydrate with sugar free liquids every 15-30 minutes and bring the sugars down to normal levels. If you are moderate or severe with ketones or unable to bring glucose to less than 200, go to the emergency room. Take 15 carb carbohydrate grams to treat a low sugar (3-4 glucose tablets, half a glass of juice or 15 carbohydrate grams of soft candy such as gummie snacks). Recheck your sugar in 15 minutes and re-treat again with 15 carbohydrate grams if low or still with symptoms. Do not drive a car or operate machinery if you do not know what your blood sugar is, if it is low or in excess of 300. Coding Level of Care Code Est Pt Level 5 (97802) Diagnoses Uncontrolled type 2 diabetes mellitus with hyperglycemia E11.65 Time Spent (min) 45 Comment Time spent reviewing labs/provider notes, face to face, chart doc
[2024-07-20 10:36] VITALS: BP 104/63; PULSE 97; O2SAT 98; BMI 18.2
[2024-07-20 10:48] LABS: Glucose, Whole Blood 226 mg/dL (60-115)
--- OUTSIDE RECORDS SUMMARY | 2024-07-20 12:36 | XMS_ITS | Encounter Summary ---
Author Organization [employer] Address [address] [place] [address] [address] [place] [address] Care Team Providers Care Controller Repairer And Tester Name Role Phone Gisselle Holland Primary Care Provider [phone] Reason for Visit * Reason Comments Follow-up Encounter Details Date Type Department Care Team (Late st Contact Info) Description 06/22/2024 9:15 AM EST Office Visit [facility] [address], [place] [phone] Gisselle Holland ANP [address] [place], [place] [phone] Dysphagia, unspecified type (Primary Dx); Gastritis without [...] October 28 11:[address] Farooq [facility] . You are also on a [...] them to place patient on cancellation list [facility] appointment given EGD need for update. Follows w/ [facility] regularly - last EGD 03/17 ENDOSCOPIC [...] 8.1 (A) 06/19/2023 A1c 6.9% [facility] A1c is at goal but patient is losing significant amount of weight despite not eating. Reviewed withhim appropriate insulin use and encouraged close follow-up with endocrinology. Has retinopathy and is established with [facility] trung Gillespie. Has upcoming [...] Info) Description 08/30/2024 11:00 AM EDT Telemedicine [facility] [address] [place] [address] Gisselle Holland ANP [address] [place] [address] documented as of this encounter Visit Diagnoses [...] documented as of this encounter Care Teams Controller Repairer And Tester Relationship Specialty Start Date End Date Gisselle Holland ANP [address] [place] [address] PCP - General Family Medicine 01/24/20 documented as of this encounter
--- OUTSIDE RECORDS SUMMARY | 2024-07-20 12:36 | XMS_ITS | Encounter Summary ---
Author Organization [employer] Address [address] [place] [address] Care Team Providers Care Materials Analyst Name Role Phone Gisselle Holland MILA Primary Care Provider [phone] Encounter Details Date Type Department Care Team (Late st Contact Info) Description 06/29/2024 Orders Only GENERIC EXTERNAL DATA DEPARTMENT Provider, Generic External Data Social History Tobacco Use Types Packs/Day Years [...] Info) Description 08/30/2024 11:00 AM EDT Telemedicine [facility] [address] [place] [address] Gisselle Holland ANP [address] [place] [address] documented as of this encounter Procedures Procedure Name Priority Date/Time Associated Diagnosis Comments GLUCOSE, WHOLE BLOOD Routine 06/29/2024 1:57 PM EST documented in this encounter Results * (ABNORMAL) Glucose, Whole Blood (06/29/2024 1:57 PM EST) Glucose, Whole Blood 425() 60 - 115 mg/dL [facility] Comment:METER #: [id number] 5Testing performed in the Endocrinology Department [address] , [address], [facility]. 06/29/2024 1:57 PM EST 06/29/2024 2:02 PM EST us Generic External Data Provider LAB BLOOD ORDERAB LES Final Result [facility] [address] [place] [address] [phone] documented in this encounter Visit Diagnoses Not on filedocumented in this encounter Additional Health Concerns Assessment Noted Time PHQ-9 Depression Total Score: 27 025 9:43 AM EST documented as of this encounter Care Teams Materials Analyst Relationship Specialty Start Date End Date Gisselle Holland ANP [address] [place] [address] PCP - General Family Medicine 01/24/20 documented as of this encounter
--- OUTSIDE RECORDS SUMMARY | 2024-07-20 12:36 | XMS_ITS | Encounter Summary ---
Author Organization [employer] Address [address] [facility] 7t [place] [address] Care Team Providers Care Atomizer Assembler Name Role Phone Gisselle Holland Primary Care Provider [phone] Reason for Visit * Reason Onset Date Comments Med Refill 07/06/2023 Encounter Details Date Type Department Care Team (Late st Contact Info) Description 07/06/2023 Refill [facility] MEDICINE [address] [place], [place] [phone] Gisselle Holland ANP [address] [place], [place] [phone] Anxiety and depression Social History Tobacco Use [...] Info) Description 08/30/2024 11:00 AM EDT Telemedicine [facility] MEDICINE [address] [place] [address] Gisselle Holland ANP [address] [place] [address] documented as of this encounter Visit Diagnoses Diagnosis Anxiety and depression documented in this encounter Additional Health Concerns Assessment Noted Time PHQ-9 Depression Total Score: 25 023 9:08 AM EDT documented as of this encounter Care Teams Atomizer Assembler Relationship Specialty Start Date End Date Gisselle Holland ANP [address] [place] [address] PCP - General Family Medicine 01/24/20 documented as of this encounter
--- OUTSIDE RECORDS SUMMARY | 2024-07-20 12:36 | XMS_ITS | Clinical Summary ---
Author Organization Patient Business Ser [facility] Address [address] [place] [address] Care Team Providers Care Dental Ceramist Name Role Phone Unavailable Primary Care Provider Unavailabl e Social History Tobacco Use Types Packs/Day Years Used Date Smoking Tobacco: Never Assessed Sex and Gender Information Value Date Recorded Sex Assigned at Not on file Legal Sex Male 6:47 PM EDT Gender Identity Not on file Sexual Orientation Not on file Plan of Treatment Health Maintenance Due Date Last Done Comments DTaP,Tdap,and Td Vaccines (1 - Tdap) 1986 Hepatitis B Vaccines (1 of 3 - 19+ 3-dose series) 1986 Pneumococcal Vaccine: 50+ Ye ars (1 of 1 - PCV) 2017 Zoster Vaccines (1 of 2) 2017 Cholesterol Screening (Lipid Panel) 08/28/2023 Colorectal Cancer Screening: Colonoscopy 08/28/2023 Depression Screening 08/28/2023 HIV Screening 08/28/2023 Hepatitis C Screening 08/28/2023 Social Influencers of Health Screening 08/28/2023 COVID-19 Vaccine ( - 2023-2 5 season) 2024 Influenza Vaccine (#1) 2024 [...] patient's age to complete this topic Meningococcal B Vacine Aged Out No lo nger eligible based on patient's age to complete [...]
--- OUTSIDE RECORDS SUMMARY | 2024-07-20 12:36 | XMS_ITS | Encounter Summary ---
Author Organization [employer] Address [address] [facility] 7t [place] [address] Care Team Providers Care Alternative Medicine Practitioner Name Role Phone Gisselle Holland MILA Primary Care Provider [phone] Encounter Details Date Type Department Care Team [...] Info) Description 08/30/2024 11:00 AM EDT Telemedicine [facility] MEDICINE [address] [place] [address] Gisselle Holland ANP [address] [place] [address] documented as of this encounter Visit Diagnoses Not on filedocumented in this encounter Additional Health Concerns Assessment Noted Time PHQ-9 Depression Total Score: 27 025 9:43 AM EST documented as of this encounter Care Teams Alternative Medicine Practitioner Relationship Specialty Start Date End Date Gisselle Holland ANP [address] [place] [address] PCP - General Family Medicine 01/24/20 documented as of this encounter
--- OUTSIDE RECORDS SUMMARY | 2024-07-20 12:36 | XMS_ITS | Encounter Summary ---
Author Organization [employer] Address [address] [facility] 7t [place] [address] Care Team Providers Care Drop Hammer Pile Driver Operator Name Role Phone Gisselle Holland MILA Primary Care Provider [phone] Encounter Details Date Type Department Care Team (Late st Contact Info) Description 07/06/2024 Orders Only GENERIC EXTERNAL DATA DEPARTMENT Provider, [...] Info) Description 08/30/2024 11:00 AM EDT Telemedicine [facility] MEDICINE [address] [place] [address] Gisselle Holland ANP [address] [place] [address] documented as of this encounter Procedures Procedure Name Priority Date/Time Associated Diagnosis Comments GLUCOSE, WHOLE BLOOD Routine 07/06/2024 1:32 PM EST BASIC METABOLIC PANEL Routine 07/06/2024 10:31 AM EST GLUCOSE, WHOLE BLOOD Routine 07/06/2024 9:43 AM EST HIGH SENSITIVITY TROPONIN I Routine 07/06/2024 6:35 AM EST CBC WITH AUTO DIFFERENTIAL Routine 07/06/2024 6:35 AM EST documented in this encounter Results * (ABNORMAL) Glucose, Whole Blood (07/06/2024 1:32 PM EST) Glucose, Whole Blood 189(H) 60 - 115 mg/dL [facility] Comment:METER #: [id number] 07/06/2024 1:32 PM EST 07/06/2024 1:35 PM EST us Generic External Data Provider LAB BLOOD ORDERAB LES Final Result [facility] [address] [place] [phone] * (ABNORMAL) Basic Metabolic Panel (07/06/2024 10:31 AM EST) Sodium 137 135 - 145 mmol/L [facility] Potassium 3.5 3.3 - 5.1 mmol/L [facility] Chloride 103 96 - 108 mmol/L [facility] Carbon Dioxide 18(L) 22 - 29 mmol/L [facility] Anion Gap 20 12 - 20 [facility] Urea Nitrogen (BUN) 13 9 - 16 mg/dL [facility] Creatinine, Serum 0.84 0.5 - 1.4 mg/dL [facility] Creatinine Clr Calc Pharmacy 106.4 [facility] Comment:eGFR (calculated fro m the MDRD study equation) and eCrCl(calculated from the Cockcroft-Gault equation) are based ondifferent parameters and may not yield comparable results.If eCrCl result is absurd, please check patient'sheight/weight. Estimated Glomerular Filt Rate >60 [facility] Comment:Chronic Kidney Disea se: Estimated GFR < 60 mL/min/[id number] Kidney Disease: Estimated GFR < 15 mL/min/1.73m2 Glucose 254(H) 60 - 115 mg/dL [facility] Calcium 8.8 8.4 - 10.2 mg/dL [facility] 07/06/2024 10:3 1 AM EST 07/06/2024 10:33 AM EST us Generic External Data Provider LAB BLOOD ORDERAB LES Final Result [facility] [address] [place] [phone] [phone] * (ABNORMAL) Glucose, Whole Blood (07/06/2024 9:43 AM EST) Glucose, Whole Blood 272(H) 60 - 115 mg/dL [facility] Comment:METER #: [id number] 07/06/2024 9:43 AM EST 07/06/2024 9:46 AM EST Generic External Data Provider LAB BLOOD ORDERAB LES Final Result Performing Organization Address [facility] Co de Phone Number [facility] [address] [place] [phone] * High Sensitivity Troponin I (07/06/2024 6:35 AM EST) [facility] TROPONIN I HIGH SENSITIVITY 6.4 <3.5 - 35.0 ng/L [facility] Comment:The [place] high sens itivity Troponin-I results should beused in conjunction with other diagnostic information suchas ECG, clinical observations and information, and patientsymptoms to aid in the diagnosis of ID. 07/06/2024 6:35 AM EST 07/06/2024 6:40 AM EST Generic External Data Provider LAB BLOOD ORDERAB LES Final Result Performing Organization Address [facility] Co de Phone Number [facility] [address] [place] [phone] * (ABNORMAL) CBC auto differential (07/06/2024 6:35 AM EST) [facility] White Blood Count 10.9(H) 4.8 - 10.8 X10*3/uL [facility] Red Blood Count 5.04 4.60 - 5.80 X10*6/uL [facility] Hemoglobin 14.9 14.0 - 18.0 g/dl [facility] Hematocrit 42.9 42.0 - 52.0 % [facility] Mean Corpuscular Volume 85.1 80.0 - 98.0 fL [facility] Mean Corpuscular Hemoglobin 29.6 27.0 - 33.0 pg [facility] Mean Corpuscular HGB Conc 34.7 31.0 - 36.0 g/dl [facility] Red Cell Distribution Width 13.7 11.0 - 16.0 % [facility] Platelet Count 153(L) 160 - 400 X10*3/uL [facility] Mean Platelet Volume 11.0 9.4 - 12.4 fL [facility] Neutrophils Percent Auto 83.2(H) 45 - 73 % [facility] Imm Gran Pct Auto 1.4(H) 0.0 - 0.4 % [facility] Lymphocytes Percent Auto 11.3(L) 20 - 40 % [facility] Monocytes Percent Auto 3.9 2 - 11 % [facility] Eosinophils Percent Auto 0.0 0 - 4 % [facility] Basophils Percent Auto 0.2 0 - 2 % [facility] NRBC Pct Auto 0.0 0.0 - 0.2 /100WBC [facility] Neutrophils Absolute Auto 9.1(H) 2.0 - 8.3 x10*3/uL [facility] Imm Gran Abs Auto 0.15(H) 0.00 - 0.03 X10*3/uL [facility] Lymphocytes Absolute Auto 1.2 1.2 - 4.9 X10*3/uL [facility] Monocytes Absolute Auto 0.4 0.1 - 1.2 X10*3/uL [facility] Eosinophils Absolute Auto 0.0 0.0 - 0.4 X10*3/uL [facility] Basophils Absolute Auto 0.0 0.0 - 0.2 X10*3/uL [facility] NRBC Abs Auto 0.000 0.0 - 0.012 X10*3/uL [facility] 07/06/2024 6:35 AM EST 07/06/2024 6:40 AM EST us Generic External Data Provider LAB BLOOD ORDERAB LES Final Result [facility] [address] [place] [phone] documented in this encounter Visit Diagnoses Not on filedocumented in this encounter Additional Health Concerns Assessment Noted Time PHQ-9 Depression Total Score: 27 2 025 9:43 AM EST documented as of this encounter Care Teams Drop Hammer Pile Driver Operator Relationship Specialty Start Date End Date Gisselle Holland ANP [address] [place] [address] PCP - General Family Medicine 01/24/20 documented as of this encounter
--- OUTSIDE RECORDS SUMMARY | 2024-07-20 12:36 | XMS_ITS | Clinical Summary ---
Author Organization [email or web address] Address [address] [place] [address] 7t [place] [address] Care Team Providers Care Student Career Development Specialist Name Role Phone Gisselle Holland MILA Primary Care Provider [phone] Allergies Active Allergy Reactions Criticality Noted Date [...] 1 07/05/19 23 Active Continuous Blood Gluc Broadcast Supervisor ([employer] G5 Broadcast Supervisor Kit) deviceIndications: Type 1 diabetes mellitus maturity [...] Overview (09/22/2023): follows w/ GEORGIA Goldman at [facility]. Takes: sertraline 150mg , hydroxyzine [...] Encounters Date Type Department Care Team Description 07/20/2024 Orders Only GENERIC EXTERNAL DATA DEPARTMENT Provider, Generic External Data 07/06/2024 Orders Only GENERIC EXTERNAL DATA DEPARTMENT Provider, Generic External Data 06/29/2024 Orders Only GENERIC EXTERNAL DATA DEPARTMENT Provider, Generic External Data 06/22/2024 9:15 AM EST Office Visit [facility] [address] [place] [phone] Gisselle Holland ANP Dysphagia, unspecified type (Primary Dx); Gastritis without bleeding, unspecified chronicity, unspecified gastritis type; Abnormal weight loss; Essential hypertension; Protein-calorie malnutrition, unspecified severity (CMS/HCC); Type 1 diabetes mellitus maturity onset ([facility]) 06/22/2024 Travel 05/07/2024 Telephone [facility] [address] [place] [phone] Gisselle Holland ANP Nurse Triage from Last [...] Info) Description 08/30/2024 11:00 AM EDT Telemedicine [facility] [address] [place], [place] [phone] Gisselle Holland ANP [address] [place] [phone] Health Maintenance Due Date Last Done Comments CT Colonography 1967 FIT DNA/Cologuard 1967 FIT 1967 FOBT 1967 Sigmoidoscopy 1967 Eye Exam 1977 Alcohol/Substance Use Screening 1979 Hepatitis B Vaccines (1 of 3 - 19+ 3-dose series) 1986 Pneumococcal Vaccine: 50+ Years (2 of 2 - PCV) 04/11/2011 04/11/2010 Diabetes: Urine Protein Screening 11/19/2022 11/19/2021, 09/04/2020 COVID-19 Vaccine ( season) 2024 06/30/2021, 10/10/2020, 09/11/2020 Influenza Vaccine [...] topic Meningococcal Vaccine Aged Out No shi inraj eligible based on patient's age to complete this topic RSV under 20 months Aged Out No longe r eligible based on patient's age to complete this topic Rotavirus Vaccines Aged Out No longer eligible based on patient's age to complete this topic Procedures Procedure Name Priority Date/Time Associated Diagnosis Comments GLUCOSE, WHOLE BLOOD Routine 07/20/2024 10:40 AM EST GLUCOSE, WHOLE BLOOD Routine 07/06/2024 1:32 PM EST BASIC METABOLIC PANEL Routine 07/06/2024 10:31 AM EST GLUCOSE, WHOLE BLOOD Routine 07/06/2024 9:43 AM EST HIGH SENSITIVITY TROPONIN I Routine 07/06/2024 6:35 AM EST CBC WITH AUTO DIFFERENTIAL Routine 07/06/2024 6:35 AM EST GLUCOSE, WHOLE BLOOD Routine 06/29/2024 1:57 PM EST POCT GLYCOSYLATED HEMOGLOBIN (HGB A1C) Routine 01/08/2024 2:42 PM EDT Type 1 diabetes mellitus maturity onset (CMS/HCC) LIPID PANEL, STANDARD Routine 06/19/2023 8:26 AM EST [facility] HISTORICAL MICROALBUMIN/CREATINI NE RATIO, RANDOM URINE Routine 11/19/2021 12:24 PM EDT [facility] HISTORICAL HEPATITIS A,B,C PROFILE Routine 11/09/2019 10:25 AM EDT [facility] HISTORICAL HIV AB/AG Routine 11/09/2019 10:25 AM EDT from Last 3 Months or Most Recently Relevant to Health Maintenance Results * (ABNORMAL) Glucose, Whole Blood (07/20/2024 10:40 AM EST) Only the most recent of2 resultswithin the time period is included. Glucose, Whole Blood 226(H) 60 - 115 mg/dL [facility] Comment:METER #: [id number] 5Testing performed in the Endocrinology Department [address] , [address], [facility]. 07/20/2024 10:4 0 AM EST 07/20/2024 10:48 AM EST Generic External Data Provider LAB BLOOD ORDERAB LES Final Result Performing Organization Address [facility]/ZIP Co de Phone Number [facility] [address] [place] [phone] * (ABNORMAL) Glucose, Whole Blood (07/06/2024 1:32 PM EST) Only the most recent of2 resultswithin the time period is included. Glucose, Whole Blood 189(H) 60 - 115 mg/dL [facility] Comment:METER #: [id number] 07/06/2024 1:32 PM EST 07/06/2024 1:35 PM EST Generic External Data Provider LAB BLOOD ORDERAB LES Final Result Performing Organization Address [facility] de Phone Number [facility] [address] [place] [phone] * (ABNORMAL) Basic Metabolic Panel (07/06/2024 10:31 AM EST) Sodium 137 135 - 145 mmol/L [facility] Potassium 3.5 3.3 - 5.1 mmol/L [facility] Chloride 103 96 - 108 mmol/L [facility] Carbon Dioxide 18(L) 22 - 29 mmol/L [facility] Anion Gap 20 12 - 20 [facility] Urea Nitrogen (BUN) 13 9 - 16 mg/dL [facility] Creatinine, Serum 0.84 0.5 - 1.4 mg/dL [facility] Creatinine Clr Calc Pharmacy 106.4 [facility] Comment:eGFR (calculated fro m the MDRD study equation) and eCrCl(calculated from the Cockcroft-Gault equation) are based ondifferent parameters and may not yield comparable results.If eCrCl result is absurd, please check patient'sheight/weight. Estimated Glomerular Filt Rate >60 [facility] Comment:Chronic Kidney Disea se: Estimated GFR < 60 mL/min/[id number] Kidney Disease: Estimated GFR < 15 mL/min/1.73m2 Glucose 254(H) 60 - 115 mg/dL [facility] Calcium 8.8 8.4 - 10.2 mg/dL [facility] 07/06/2024 10:3 1 AM EST 07/06/2024 10:33 AM EST Generic External Data Provider LAB BLOOD ORDERAB LES Final Result Performing Organization Address [facility] Co de Phone Number [facility] [address] [place] [phone] * High Sensitivity Troponin I (07/06/2024 6:35 AM EST) Pathologist [facility] TROPONIN I HIGH SENSITIVITY 6.4 <3.5 - 35.0 ng/L [facility] Comment:The [place] high sens itivity Troponin-I results should beused in conjunction with other diagnostic information suchas ECG, clinical observations and information, and patientsymptoms to aid in the diagnosis of NM. 07/06/2024 6:35 AM EST 07/06/2024 6:40 AM EST Generic External Data Provider LAB BLOOD ORDERAB LES Final Result Performing Organization Address [facility] Co de Phone Number [facility] [address] [place] [phone] * (ABNORMAL) CBC auto differential (07/06/2024 6:35 AM EST) Pathologist [facility] White Blood Count 10.9(H) 4.8 - 10.8 X10*3/uL [facility] Red Blood Count 5.04 4.60 - 5.80 X10*6/uL [facility] Hemoglobin 14.9 14.0 - 18.0 g/dl [facility] Hematocrit 42.9 42.0 - 52.0 % [facility] Mean Corpuscular Volume 85.1 80.0 - 98.0 fL [facility] Mean Corpuscular Hemoglobin 29.6 27.0 - 33.0 pg [facility] Mean Corpuscular HGB Conc 34.7 31.0 - 36.0 g/dl [facility] Red Cell Distribution Width 13.7 11.0 - 16.0 % [facility] Platelet Count 153(L) 160 - 400 X10*3/uL [facility] Mean Platelet Volume 11.0 9.4 - 12.4 fL [facility] Neutrophils Percent Auto 83.2(H) 45 - 73 % [facility] Imm Gran Pct Auto 1.4(H) 0.0 - 0.4 % [facility] Lymphocytes Percent Auto 11.3(L) 20 - 40 % [facility] Monocytes Percent Auto 3.9 2 - 11 % [facility] Eosinophils Percent Auto 0.0 0 - 4 % [facility] Basophils Percent Auto 0.2 0 - 2 % [facility] NRBC Pct Auto 0.0 0.0 - 0.2 /100WBC [facility] Neutrophils Absolute Auto 9.1(H) 2.0 - 8.3 x10*3/uL [facility] Imm Gran Abs Auto 0.15(H) 0.00 - 0.03 X10*3/uL [facility] Lymphocytes Absolute Auto 1.2 1.2 - 4.9 X10*3/uL [facility] Monocytes Absolute Auto 0.4 0.1 - 1.2 X10*3/uL [facility] Eosinophils Absolute Auto 0.0 0.0 - 0.4 X10*3/uL [facility] Basophils Absolute Auto 0.0 0.0 - 0.2 X10*3/uL [facility] NRBC Abs Auto 0.000 0.0 - 0.012 X10*3/uL [facility] 07/06/2024 6:35 AM EST 07/06/2024 6:40 AM EST Generic External Data Provider LAB BLOOD ORDERAB LES Final Result [facility] [address] [place] [phone] * (ABNORMAL) POCT glycosylated hemoglobin (Hgb A1c) (01/08/2024 2:42 PM EDT) Hemoglobin A1C 7.2(A) 4.0 - 6.0 % QC Media Lot # [id number] Lot# Expiration Date [id number] Blood Capillary blood specimen / Unknown 01/08/2024 2:42 PM EDT us Gisselle Holland ANP POINT OF CARE TEST ENTER/EDIT OR DERABLES Final Result * (ABNORMAL) Lipid Panel, Standard (06/19/2023 8:26 AM EST) Triglycerides 92 <150 mg/dL [facility] Comment:Desirable Triglyceri de: less than 150 mg/dLBorderline High Triglyceride 150-199 mg/dLHigh Triglyceride: 200-499 mg/dLVery High Triglyceride: greater than or equal to 5OO mg/dL Cholesterol 119 <200 mg/dL [facility] Comment:Desirable Cholestero l: less than 200 mg/dLBorderline High Cholesterol: 200-239 mg/dLHigh Cholesterol: greater than 239 mg/dL LDL Cholesterol Calculated 66 <100 mg/dL [facility] Comment:Desirable LDL: less than 100 mg/dLNear Optimal/Above Optimal LDL: 110- 129 mg/dLBorderline High LDL: 130-159 mg/dLHigh LDL: 160-189 mg/dLVery High LDL: greater than or equal to 190 mg/dL HDL Cholesterol 35(L) >40 mg/dL [facility] Comment:Desirable HDL: great er than 40 mg/dL Note: This HDL assay may give artificially low results in patients with liver disease. 06/19/2023 8:26 AM EST 06/19/2023 8:26 AM EST us Generic External Data Provider LAB BLOOD ORDERAB LES Final Result Performing Organization Address [facility]/ZIP Co de Phone Number [facility] [address] [place] [address] [phone] * MICROALBUMIN/CREATININE RATIO, RANDOM URINE (11/19/2021 12:24 PM EDT) Pathologist [facility] Creatinine Urine 168.36 mg/dL [facility] Microalbum/Creati nine Ratio Ur 35.0 ug/mg cr [facility] Comment: ?Albumin/Creatinine Ratio Reference Ranges: ? Normal: < 30 ug/mg creatinine ? Microalbuminuria: ??30 - 300 ug/mg creatinine Clinical Albuminuria: ??> 300 ug/mg creatinine Microalbumin Urine 59.0 mg/L [facility] 11/19/2021 12:2 4 PM EDT Historical Provider HISTORICAL/NON ORDERABLE LABS Final Result Performing Organization Address [facility] Co de Phone Number [facility] [address] * HEPATITIS A,B,C PROFILE (11/09/2019 10:25 AM EDT) [facility] HEPATITIS B CORE ANTIBODY NONREACTIVE NONREACTIVE [facility] HEPATITIS B INTERPRETATION SEE NOTE [facility] Comment:Negative for Hepatit is B. HEPATITIS B SURFACE ANTIBODY NONREACTIVE NONREACTIVE [facility] Comment:NONREACTIVE: < 8.00 mIU/mL HEPATITIS B SURFACE ANTIGEN NEGATIVE NEGATIVE [facility] HEPATITIS C ANTIBODY NONREACTIVE NONREACTIVE [facility] Comment: Antibodies to HCV not detected; does not exclude early acute HCV infection. 11/09/2019 10:2 5 AM EDT Historical Provider HISTORICAL/NON ORDERABLE LABS Final Result Performing Organization Address [facility]/ZIP Co de Phone Number [facility] [address] * HIV AB/AG (11/09/2019 10:25 AM EDT) Pathologist [facility] HIV AG/AB NONREACTIVE NR [facility] [...] detection of this assay. ?? The [employer] Strategic Consultant HIV Ag/Ab Combo assay result and supplemental assay results should be interpreted in conjunction with the patient's clinical presentation, history and other laboratory results. ??If the results are inconsistent with clinical evidence, additional testing is suggested to confirm the result. 11/09/2019 10:2 5 AM EDT us Historical Provider HISTORICAL/NON ORDERABLE LABS Final Result Performing Organization Address City/State/[facility] Co de Phone Number [facility] [address] from Last 3 Months or Most Recently Relevant to Health Maintenance Insurance Care Teams Student Career Development Specialist Relationship Specialty Start Date End Date Gisselle Holland ANP [address] [place] [phone] PCP - General Family Medicine 01/24/20
--- OUTSIDE RECORDS SUMMARY | 2024-07-20 12:36 | XMS_ITS | Encounter Summary ---
Author Organization [employer] Address [address] [place] [address] Care Team Providers Care Director Medicare Sales Name Role Phone Gisselle Holland MILA Primary Care Provider [phone] Encounter Details Date Type Department Care Team (Late st Contact Info) Description 07/20/2024 Orders Only GENERIC EXTERNAL DATA [...] 08/30/2024 11:00 AM EDT Telemedicine [facility] [address] [place] [address] Gisselle Holland ANP [address] [place] [address] documented as of this encounter Procedures Procedure Name Priority Date/Time Associated Diagnosis Comments GLUCOSE, WHOLE BLOOD Routine 07/20/2024 10:40 AM EST documented in this encounter Results * (ABNORMAL) Glucose, Whole Blood (07/20/2024 10:40 AM EST) Glucose, Whole Blood 226(H) 60 - 115 mg/dL [facility] Comment:METER #: [id number] 5Testing performed in the Endocrinology Department [address], [address], [facility]. 07/20/2024 10:4 0 AM EST 07/20/2024 10:48 AM EST us Generic External Data Provider LAB BLOOD ORDERAB LES Final Result [facility] [address] [place] [address] [phone] documented in this encounter Visit Diagnoses Not on filedocumented in this encounter Additional Health Concerns Assessment Noted Time PHQ-9 Depression Total Score: 27 025 9:43 AM EST documented as of this encounter Care Teams Director Medicare Sales Relationship Specialty Start Date End Date Gisselle Holland ANP [address] [place] [address] PCP - General Family Medicine 01/24/20 documented as of this encounter
== END 2024-07-20 11:11 | disposition home or self-care (01) ==
PROVIDERS: PCP Nurse Practitioner Primary Care; Visit Provider Nurse Practitioner Adult Health
DX: E11.65 Type 2 diabetes mellitus with hyperglycemia (principal)
CPT/HCPCS: 99215

== ENCOUNTER → 2024-07-20 10:34 | Outpatient (BNVA) | payer OTHER, SELFPAY | PROVIDERS: PCP Nurse Practitioner Primary Care; Visit Provider Nurse Practitioner Adult Health | DX: E11.65 Type 2 diabetes mellitus with hyperglycemia (principal); E11.21 Type 2 diabetes mellitus with diabetic nephropathy; E11.319 Type 2 diabetes mellitus with unspecified diabetic retinopathy without macular edema; E11.40 Type 2 diabetes mellitus with diabetic neuropathy, unspecified | CPT/HCPCS: 82947 ==

== ENCOUNTER 2024-07-27 10:33 | Outpatient (AMB) | payer OTHER, SELFPAY ==
--- NOTE | 2024-07-27 08:39 | A.OFFVIS_ITS ---
Vital Signs 07/27/24 10:34 Height 6 ft Weight 134 lb 4.184 oz BMI 18.2 BP 110/62 Blood Pressure Location Rt brachial Position Sitting Pulse 91 Pulse Source Pulse Oximeter Pulse Oximetry (%) 99 Oxygen Delivery Method Room Air Intake Visit Reasons: T2DM Intake Note: Patient presents today for a follow-up on Type 2 Diabetes Mellitus: Last Diabetic eye exam was on: 05/2023 Last Podiatry exam was on: Does not see a Manager Critical Care Unit Most recent HbA1c: 13.6%, 06/29/2024 Random Glucose- 247 mg/dL, Today Regional Account Director Required: No Accompanied by: Spouse Allergies aspirin Allergy (Unknown, Verified 07/27/24 10:35) Unknown. simvastatin Allergy (Unknown, Verified 07/27/24 10:35) rash HPI Comments Details: 59 YO M with PMHx DM who is seen in F/U for DM. He was last seen by myself 07/20/24. At his previous visit he had a glucose in the high 300's and was spilling ketones. He was transferred to [facility].He reports he was told by the ER staff he needed to wait his turn despite being sent over via ambulance. After 3 hours he left without being seen or treated. Several days later he became much sicker and went to the ER and was admitted for 4 days. He has a prior history of severe anxiety and his Lantus insulin administered at bedtime causes him great anxiety and he often misses doses which he has done frequently in the past. When questioned why he is skipping this he reports it was in his anxiety. He has agreed to take a longer flatter acting insulin that he could take during the day which would cover him overnight. A prior authorization but we will be requested today Hgb A1C 06/29/24: 13% prior A1C was 6.9% on 02/24/24. He has a history of stopping his insulin. Initially diagnosed with Type 2 DM in 2009. When he started with endocrine in 2019 he had labs draw to determine type 1 vs type 2. Insulin antibodies were negative. C peptide was 2.56. Was initially started on treatment with Metformin. This was stopped by his PCP and he was instead started on Glipizide 10 mg PO BID. This was stopped at his initial endocrine visit and he was started on insulin Current regime: Lantus 14 units Humalog 3-8 based on a scale which he was given at his last visit. Dexcom average glucose: 233 14 day continuous glucose monitor report reviewed Glucose Managment indicator 8.9 % Days with CGM data [ ] % TIme in ranges: 39 % very high (above 250) 39 % high ?(181-250) 22 % in range ?(70-180] 0 % low (69-55) Less than 1 % ?very low (below 54) Interpretation [ readings 80 points above target secondary to skipping tresiba.] He is meeting with a psychologist on a regular basis. He has a boost daily and doesn't eat much else than this due to anxiety. . He tries to get in peanut butter every day or a handful of nuts. Family history of type 2 diabetes in his mother. +retinopathy: He was previously seen at [facility] in [place].. He reports he was told he needed eye surgery in the past but did not have this done. +neuropathy: Numbness, tingling right great toe. He does not see a roving hand. He has a bunion on the left foot. + nephropathy: On ARB 10/19/23 eGFR>60 microalbumin 12/09/22 11.0 11/19/21 59 HLD on repathy ldl was 133, 06/19/23 68 Denies CAD Has h/o heavy ETOH use: he has not had any alcohol for 2-3 years Vapes and cigars no prior VAISHNAVI PFSH Medical History Uncontrolled type 2 diabetes mellitus with hyperglycemia Transaminitis T1DM (type 1 diabetes mellitus) Vitamin D deficiency HLD (hyperlipidemia) HTN (hypertension) Surgical History Hx of colonoscopy History of carpal tunnel release Family History Mother Diabetes Hypertension Father Myocardial infarction Social History Household Members: Spouse Are you a primary direct care staffer to a significant other at home: No Do you presently have visiting nurse or other home services: No Unable to assess alcohol history related to: Unknown Alcohol intake: former Year quit: 09/14 Patient Tobacco Use Status: Former Tobacco user Years Smoked: 20 +/- Physical Exam Vital Signs: Last Vital Signs Pulse 91 07/27/24 10:34 BP 110/62 07/27/24 10:34 Pulse Ox 99 07/27/24 10:34 Oxygen Delivery Method Room Air 07/27/24 10:34 BMI result Body Mass Index 18.2 Const Other: Absence of Cushingoid features. Absence of acromegalic features. Neck exam reveals nl size thyroid about 15 gms. No thyroid nodules palpable. Heart S1 S2, Reg R/R. No M/R G. Skin exam reveals absence of vitiligo or acanthosis nigricans. Patient appears calmer today. deferred checked last week Assessment & Plan Assessment & Plan (1) Uncontrolled type 2 diabetes mellitus with hyperglycemia: Code(s): E11.65 - Type 2 diabetes mellitus with hyperglycemia Category: Medical Plan: 59-year-old diabetic with a negative insulin antibodies and C-peptide over 2 on basal bolus insulin. He has a history of stopping insulin dosing, severe anxiety disorder followed by psychologists. Metformin and glipizide were ineffective with his patient and he would not tolerated GLP 1 agonist due to his poor appetite. Will continue insulin. He is prone to DKA. He was strongly advised to take all of his insulin daily. He has a history of missing Lantus as he has great anxiety about this. He has agreed to switch over to Tresiba which has a longer flatter insulin that he can take during the daytime. We will request an urgent referral for this. The patient had an opportunity to ask questions regarding treatment plan. The patient expressed understanding and agreement with the above treatment plan. The patient is aware they should contact our office by phone for worsening glucose readings or for any low blood sugars which may warrant a change in diabetes medication. Compliance is encouraged with medications and any followup testing/consults which may have been ordered. Orders: Orders AMB Glucose Monitoring Today E10.65 - Type 1 diabetes mellitus with hyperglycemia Medications: New Novolog FlexPen U-100 Insulin (insulin aspart U-100) 100-149 5 units 150-200 6 units 201-250 7 units 250 to 300 8 units over 300 10 units test ketones over 250 subcutaneously use as directed; 30 days 12 mL 11RF NS Patient Instructions: The patient was counseled to achieve a target A1C of 7% (154 avg). Fasting blood sugars should be 90-130 in the morning and less than 180 two hours after meals. Reviewed the relationship between poor diabetic control and the development of complications. Check your feet daily looking for any signs of infection, drainage, redness, ulceration and seek medical attention if this occurs. Break in shoes gradually and do not wear open-toed shoes or walk stocking footed or barefooted. Sick day management Symptoms of DKA (diabetic ketoacidosis): early: frequent urination, dry mouth, fatigue, feeling ill, severe symptoms: ketones in the urine, abdominal pain, nausea, vomiting and weakness. It is important to hydrate with sugar free liquid s every 15-30 minutes and bring the sugars down to normal levels. If you are moderate or severe with ketones or unable to bring glucose to less than 200, go to the emergency room. Coding Level of Care Code Est Pt Level 4 (23749) Complex EM visit Add On G2211 Diagnoses Uncontrolled type 2 diabetes mellitus with hyperglycemia E11.65 Time Spent (min) 30 Comment Time spent reviewing labs/provider notes, face to face, chart doc
[2024-07-27 10:34] VITALS: BP 110/62; PULSE 91; O2SAT 99; BMI 18.2
[2024-07-27 10:45] LABS: Glucose, Whole Blood 247 mg/dL (60-115)
--- OUTSIDE RECORDS SUMMARY | 2024-07-27 12:50 | XMS_ITS | Encounter Summary ---
Author Organization [employer] Address [address] [facility] [address] [place] [address] Care Team Providers Care Passenger Locomotive Engineer Name Role Phone Gisselle Holland MILA Primary Care Provider [phone] Encounter Details Date Type Department Care Team [...] Info) Description 08/30/2024 11:00 AM EDT Telemedicine [facility] [address] [place] [address] Gisselle Holland ANP [address] [place] [address] documented as of this encounter Procedures Procedure Name Priority Date/Time Associated Diagnosis Comments GLUCOSE, WHOLE BLOOD Routine 06/29/2024 1:57 PM EST documented in this encounter Results * (ABNORMAL) Glucose, Whole Blood (06/29/2024 1:57 PM EST) Glucose, Whole Blood 425() 60 - 115 mg/dL [facility] Comment:METER #: [id number] 5Testing performed in the Endocrinology Department [address] , [address], [facility]. 06/29/2024 1:57 PM EST 06/29/2024 2:02 PM EST us Generic External Data Provider LAB BLOOD ORDERAB LES Final Result [facility] [address] [place] [address] [phone] documented in this encounter Visit Diagnoses Not on filedocumented in this encounter Additional Health Concerns Assessment Noted Time PHQ-9 Depression Total Score: 27 025 9:43 AM EST documented as of this encounter Care Teams Passenger Locomotive Engineer Relationship Specialty Start Date End Date Gisselle Holland ANP [address] [place] [address] PCP - General Family Medicine 01/24/20 documented as of this encounter
--- OUTSIDE RECORDS SUMMARY | 2024-07-27 12:50 | XMS_ITS | Encounter Summary ---
Author Organization [employer] Address [address] [facility] [address] [place] [address] Care Team Providers Care Service Desk Technician Name Role Phone Gisselle Holland MILA Primary Care Provider [phone] Encounter Details Date Type Department Care Team (Late st Contact Info) Description 07/27/2024 Orders Only GENERIC EXTERNAL DATA DEPARTMENT Provider, [...] Info) Description 08/30/2024 11:00 AM EDT Telemedicine [facility] [address] [place] [address] Gisselle Holland ANP [address] [place] [address] documented as of this encounter Procedures Procedure Name Priority Date/Time Associated Diagnosis Comments GLUCOSE, WHOLE BLOOD Routine 07/27/2024 10:40 AM EST documented in this encounter Results * (ABNORMAL) Glucose, Whole Blood (07/27/2024 10:40 AM EST) Glucose, Whole Blood 247(H) 60 - 115 mg/dL [facility] Comment:METER #: [id number] Testing performed in the Endocrinology Department [address], [address], [facility]. 07/27/2024 10:4 0 AM EST 07/27/2024 10:44 AM EST us Generic External Data Provider LAB BLOOD ORDERAB LES Final Result [facility] [address] [place] [address] [phone] documented in this encounter Visit Diagnoses Not on filedocumented in this encounter Additional Health Concerns Assessment Noted Time PHQ-9 Depression Total Score: 27 025 9:43 AM EST documented as of this encounter Care Teams Service Desk Technician Relationship Specialty Start Date End Date Gisselle Holalnd ANP [address] [place] [address], [place] [address] PCP - General Family Medicine 01/24/20 documented as of this encounter
--- OUTSIDE RECORDS SUMMARY | 2024-07-27 12:50 | XMS_ITS | Clinical Summary ---
Author Organization [employer] Address [address] [place] [address] 7t [place] [address] Care Team Providers Care Candy Spreader Name Role Phone Gisselle Holland MILA Primary Care Provider [phone] Allergies Active Allergy Reactions Criticality Noted Date [...] 1 07/05/19 23 Active Continuous Blood Gluc Shelver (Dexcom G5 Shelver Kit) deviceIndications: Type 1 diabetes mellitus maturity [...] Overview (09/22/2023): follows w/ GEORGIA Goldman at [facility]. Takes: sertraline 150mg , hydroxyzine [...] Encounters Date Type Department Care Team Description 07/27/2024 Orders Only GENERIC EXTERNAL DATA DEPARTMENT Provider, Generic External Data 07/20/2024 Orders Only GENERIC EXTERNAL DATA DEPARTMENT Provider, Generic External Data 07/06/2024 Orders Only GENERIC EXTERNAL DATA DEPARTMENT Provider, Generic External Data 06/29/2024 Orders Only GENERIC EXTERNAL DATA DEPARTMENT Provider, Generic External Data 06/22/2024 9:15 AM EST Office Visit [facility] [address] [place] [address] Gisselle Holland ANP Dysphagia, unspecified type (Primary Dx); Gastritis without bleeding, unspecified chronicity, unspecified gastritis type; Abnormal weight loss; Essential hypertension; Protein-calorie malnutrition, unspecified severity (CMS/HCC); Type 1 diabetes mellitus maturity onset ([facility]/HCC) 06/22/2024 Travel 05/07/2024 Telephone [facility] [address] [place] [address] Gisselle Holland ANP Nurse Triage from Last [...] 08/30/2024 11:00 AM EDT Telemedicine [facility] [address] [place], [place] [phone] Gisselle Holland ANP [address] [place], [place] [phone] Health Maintenance Due Date Last Done Comments [...] WHOLE BLOOD Routine 07/27/2024 10:40 AM EST GLUCOSE, WHOLE BLOOD Routine 07/20/2024 10:40 AM [...] Maintenance Results * (ABNORMAL) Glucose, Whole Blood (07/27/2024 10:40 AM EST) Only the most recent of3 resultswithin the time period is included. Glucose, Whole Blood 247(H) 60 - 115 mg/dL [facility] Comment:METER #: [id number] Testing performed in the Endocrinology Department [address] , [address], [facility]. 07/27/2024 10:4 0 AM EST 07/27/2024 10:44 AM EST Generic External Data Provider LAB BLOOD ORDERAB LES Final Result Performing Organization Address [facility] Co de Phone Number [facility] [address] [place] [phone] * (ABNORMAL) Glucose, Whole Blood (07/06/2024 1:32 PM EST) Only the most recent of2 resultswithin the time period is included. Glucose, Whole Blood 189(H) 60 - 115 mg/dL [facility] Comment:METER #: [id number] 07/06/2024 1:32 PM EST 07/06/2024 1:35 PM EST Generic External Data Provider LAB BLOOD ORDERAB LES Final Result Performing Organization Address [facility] Co de Phone Number [facility] [address] [place] [phone] * (ABNORMAL) Basic Metabolic Panel (07/06/2024 10:31 AM EST) Sodium 137 135 - 145 mmol/L [facility] Potassium 3.5 3.3 - 5.1 mmol/L [facility] Chloride 103 96 - 108 mmol/L [facility] Carbon Dioxide 18(L) 22 - 29 mmol/L [facility] Anion Gap 20 12 - 20 [facility] Urea Nitrogen (BUN) 13 9 - 16 mg/dL [facility] Creatinine, Serum 0.84 0.5 - 1.4 mg/dL [facility] Creatinine Clr Calc Pharmacy 106.4 [facility] Comment:eGFR (calculated fro m the MDRD study equation) and eCrCl(calculated from the Cockcroft-Gault equation) are based ondifferent parameters and may not yield comparable results.If eCrCl result is absurd, please check patient'sheight/weight. Estimated Glomerular Filt Rate >60 [facility] Comment:Chronic Kidney Disea se: Estimated GFR < 60 mL/min/1.88r3Oljufa Kidney Disease: Estimated GFR < 15 mL/min/1.73m2 Glucose 254(H) 60 - 115 mg/dL [facility] Calcium 8.8 8.4 - 10.2 mg/dL [facility] 07/06/2024 10:3 1 AM EST 07/06/2024 10:33 AM EST Generic External Data Provider LAB BLOOD ORDERAB LES Final Result Performing Organization Address [facility]/ZIP Co de Phone Number [facility] [address] [place] [phone] * High Sensitivity Troponin I (07/06/2024 6:35 AM EST) TROPONIN I HIGH SENSITIVITY 6.4 <3.5 - 35.0 ng/L [facility] Comment:The [place] high sens itivity Troponin-I results should beused in conjunction with other diagnostic information suchas ECG, clinical observations and information, and patientsymptoms to aid in the diagnosis of [place]. 07/06/2024 6:35 AM EST 07/06/2024 6:40 AM EST us Generic External Data Provider LAB BLOOD ORDERAB LES Final Result Performing Organization Address City/[facility]/ZIP Co de Phone Number [facility] [address] [place] [phone] * (ABNORMAL) CBC auto differential (07/06/2024 6:35 AM EST) White Blood Count 10.9(H) 4.8 - 10.8 X10*3/uL [facility] Red Blood Count 5.04 4.60 - 5.80 X10*6/uL [facility] Hemoglobin 14.9 14.0 - 18.0 g/dl [facility] Hematocrit 42.9 42.0 - 52.0 % [facility] Mean Corpuscular Volume 85.1 80.0 - 98.0 fL [facility] Mean Corpuscular Hemoglobin 29.6 27.0 - 33.0 pg [facility] Mean Corpuscular HGB Conc 34.7 31.0 - 36.0 g/dl [facility] Red Cell Distribution Width 13.7 11.0 - 16.0 % [facility] Platelet Count 153(L) 160 - 400 X10*3/uL [facility] Mean Platelet Volume 11.0 9.4 - 12.4 fL [facility] Neutrophils Percent Auto 83.2(H) 45 - 73 % [facility] Imm Gran Pct Auto 1.4(H) 0.0 - 0.4 % [facility] Lymphocytes Percent Auto 11.3(L) 20 - 40 % [facility] Monocytes Percent Auto 3.9 2 - 11 % [facility] Eosinophils Percent Auto 0.0 0 - 4 % [facility] Basophils Percent Auto 0.2 0 - 2 % [facility] NRBC Pct Auto 0.0 0.0 - 0.2 /100WBC [facility] Neutrophils Absolute Auto 9.1(H) 2.0 - 8.3 x10*3/uL [facility] Imm Gran Abs Auto 0.15(H) 0.00 - 0.03 X10*3/uL [facility] Lymphocytes Absolute Auto 1.2 1.2 - 4.9 X10*3/uL [facility] Monocytes Absolute Auto 0.4 0.1 - 1.2 X10*3/uL [facility] Eosinophils Absolute Auto 0.0 0.0 - 0.4 X10*3/uL [facility] Basophils Absolute Auto 0.0 0.0 - 0.2 X10*3/uL [facility] NRBC Abs Auto 0.000 0.0 - 0.012 X10*3/uL [facility] 07/06/2024 6:35 AM EST 07/06/2024 6:40 AM EST Generic External Data Provider LAB BLOOD ORDERAB LES Final Result [facility] [address] [place] [address] [phone] * (ABNORMAL) POCT glycosylated hemoglobin (Hgb A1c) (01/08/2024 2:42 PM EDT) Hemoglobin A1C 7.2(A) 4.0 - 6.0 % QC Media Lot # [id number] Lot# Expiration Date Blood Capillary blood specimen / Unknown 01/08/2024 2:42 PM EDT us Gisselle Holland ANP POINT OF CARE TEST ENTER/EDIT OR DERABLES Final Result * (ABNORMAL) Lipid Panel, Standard (06/19/2023 8:26 AM EST) Triglycerides 92 <150 mg/dL [facility] Comment:Desirable Triglyceri de: less than 150 mg/dLBorderline High Triglyceride 150-199 mg/dLHigh Triglyceride: 200-499 mg/dLVery High Triglyceride: greater than or equal to 5OO mg/dL Cholesterol 119 <200 mg/dL [facility] Comment:Desirable Cholestero l: less than 200 mg/dLBorderline High Cholesterol: 200-239 mg/dLHigh Cholesterol: greater than 239 mg/dL LDL Cholesterol Calculated 66 <100 mg/dL [facility] Comment:Desirable LDL: less than 100 mg/dLNear Optimal/Above Optimal LDL: 110- 129 mg/dLBorderline High LDL: 130-159 mg/dLHigh LDL: 160-189 mg/dLVery High LDL: greater than or equal to 190 mg/dL HDL Cholesterol 35(L) >40 mg/dL [facility] Comment:Desirable HDL: great er than 40 mg/dL Note: This HDL assay may give artificially low results in patients with liver disease. 06/19/2023 8:26 AM EST 06/19/2023 8:26 AM EST Generic External Data Provider LAB BLOOD ORDERAB LES Final Result Performing Organization Address City/State/[facility] Co de Phone Number [facility] [address] [place] [address] [phone] * MICROALBUMIN/CREATININE RATIO, RANDOM URINE (11/19/2021 12:24 PM EDT) Creatinine Urine 168.36 mg/dL [facility] Microalbum/Creati nine Ratio Ur 35.0 ug/mg cr [facility] Comment: ?Albumin/Creatinine Ratio Reference Ranges: ? Normal: < 30 ug/mg creatinine ? Microalbuminuria: ??30 - 300 ug/mg creatinine Clinical Albuminuria: ??> 300 ug/mg creatinine Microalbumin Urine 59.0 mg/L [facility] 11/19/2021 12:2 4 PM EDT Historical Provider HISTORICAL/NON ORDERABLE LABS Final Result Performing Organization Address [facility] de Phone Number [facility] [address] * HEPATITIS A,B,C PROFILE (11/09/2019 10:25 [...] ORDERABLE LABS Final Result Performing Organization Address City/[facility]/ZIP Co de Phone Number [facility] [address] * HIV AB/AG (11/09/2019 10:25 AM EDT) HIV AG/AB NONREACTIVE NR [facility] [...] detection of this assay. ?? The [place] Spool Carrier HIV Ag/Ab Combo assay result and supplemental assay results should be interpreted in conjunction with the patient's clinical presentation, history and other laboratory results. ??If the results are inconsistent with clinical evidence, additional testing is suggested to confirm the result. 11/09/2019 10:2 5 AM EDT us Historical Provider MD HISTORICAL/NON ORDERABLE LABS Final Result [facility] [address] from Last 3 Months or Most Recently Relevant to Health Maintenance Insurance [employer] PPO Care Teams Candy Spreader Relationship Specialty Start Date End Date Gisselle Holland ANP [address] [place] [phone] PCP - General Family Medicine 01/24/20
--- OUTSIDE RECORDS SUMMARY | 2024-07-27 12:50 | XMS_ITS | Encounter Summary ---
Author Organization [email or web address] Address [address] [facility] 7t [place] [address] Care Team Providers Care Trauma Doctor Name Role Phone Gisselle Holland MILA Primary Care Provider [phone] Encounter Details Date Type Department Care Team [...] Description 08/30/2024 11:00 AM EDT Telemedicine [facility] [address] [place] [address] Gisselle Holland ANP [address] [place] [address] documented as of this encounter Procedures Procedure [...] Whole Blood 189(H) 60 - 115 mg/dL [facility] Comment:METER #: [id number] 07/06/2024 1:32 PM EST 07/06/2024 1:35 PM EST us Generic External Data Provider LAB BLOOD ORDERAB LES Final Result [facility] [address] [place] [phone] * (ABNORMAL) Basic Metabolic Panel (07/06/2024 10:31 AM EST) Sodium 137 135 - 145 mmol/L [facility] Potassium 3.5 3.3 - 5.1 mmol/L [facility] Chloride 103 96 - 108 mmol/L [facility] Carbon Dioxide 18(L) 22 - 29 mmol/L [facility] Anion Gap 20 12 - 20 [facility] Urea Nitrogen (BUN) 13 9 - 16 mg/dL [facility] Creatinine, Serum 0.84 0.5 - 1.4 mg/dL [facility] Creatinine Clr Calc Pharmacy 106.4 [facility] Comment:eGFR (calculated fro m the MDRD study equation) and eCrCl(calculated from the Cockcroft-Gault equation) are based ondifferent parameters and may not yield comparable results.If eCrCl result is absurd, please check patient'sheight/weight. Estimated Glomerular Filt Rate >60 [facility] Comment:Chronic Kidney Disea se: Estimated GFR < 60 mL/min/1.04j0Luqqyl Kidney Disease: Estimated GFR < 15 mL/min/1.73m2 Glucose 254(H) 60 - 115 mg/dL [facility] Calcium 8.8 8.4 - 10.2 mg/dL [facility] 07/06/2024 10:3 1 AM EST 07/06/2024 10:33 AM EST us Generic External Data Provider LAB BLOOD ORDERAB LES Final Result [facility] [address] [place] [phone] [phone] * (ABNORMAL) Glucose, Whole Blood (07/06/2024 9:43 AM EST) Glucose, Whole Blood 272(H) 60 - 115 mg/dL [facility] Comment:METER #: [id number] 07/06/2024 9:43 AM EST 07/06/2024 9:46 AM EST Generic External Data Provider LAB BLOOD ORDERAB LES Final Result Performing Organization Address [facility] Co de Phone Number [facility] [address] [place] [phone] * High Sensitivity Troponin I (07/06/2024 6:35 AM EST) [facility] TROPONIN I HIGH SENSITIVITY 6.4 <3.5 - 35.0 ng/L [facility] Comment:The [place] high sens itivity Troponin-I results should beused in conjunction with other diagnostic information suchas ECG, clinical observations and information, and patientsymptoms to aid in the diagnosis of [place]. 07/06/2024 6:35 AM EST 07/06/2024 6:40 AM EST Generic External Data Provider LAB BLOOD ORDERAB LES Final Result Performing Organization Address [facility] Co de Phone Number [facility] [address] [place] [phone] * (ABNORMAL) CBC auto differential (07/06/2024 6:35 AM EST) [facility] White Blood Count 10.9(H) 4.8 - 10.8 X10*3/uL [facility] Red Blood Count 5.04 4.60 - 5.80 X10*6/uL [facility] Hemoglobin 14.9 14.0 - 18.0 g/dl [facility] Hematocrit 42.9 42.0 - 52.0 % [facility] Mean Corpuscular Volume 85.1 80.0 - 98.0 fL [facility] Mean Corpuscular Hemoglobin 29.6 27.0 - 33.0 pg [facility] Mean Corpuscular HGB Conc 34.7 31.0 - 36.0 g/dl [facility] Red Cell Distribution Width 13.7 11.0 - 16.0 % [facility] Platelet Count 153(L) 160 - 400 X10*3/uL [facility] Mean Platelet Volume 11.0 9.4 - 12.4 fL [facility] Neutrophils Percent Auto 83.2(H) 45 - 73 % [facility] Imm Gran Pct Auto 1.4(H) 0.0 - 0.4 % [facility] Lymphocytes Percent Auto 11.3(L) 20 - 40 % [facility] Monocytes Percent Auto 3.9 2 - 11 % [facility] Eosinophils Percent Auto 0.0 0 - 4 % [facility] Basophils Percent Auto 0.2 0 - 2 % [facility] NRBC Pct Auto 0.0 0.0 - 0.2 /100WBC [facility] Neutrophils Absolute Auto 9.1(H) 2.0 - 8.3 x10*3/uL [facility] Imm Gran Abs Auto 0.15(H) 0.00 - 0.03 X10*3/uL [facility] Lymphocytes Absolute Auto 1.2 1.2 - 4.9 X10*3/uL [facility] Monocytes Absolute Auto 0.4 0.1 - 1.2 X10*3/uL [facility] Eosinophils Absolute Auto 0.0 0.0 - 0.4 X10*3/uL [facility] Basophils Absolute Auto 0.0 0.0 - 0.2 X10*3/uL [facility] NRBC Abs Auto 0.000 0.0 - 0.012 X10*3/uL [facility] 07/06/2024 6:35 AM EST 07/06/2024 6:40 AM EST us Generic External Data Provider LAB BLOOD ORDERAB LES Final Result [facility] [address] [place] [phone] documented in this encounter Visit Diagnoses Not on filedocumented in this encounter Additional Health Concerns Assessment Noted Time PHQ-9 Depression Total Score: 27 2 025 9:43 AM EST documented as of this encounter Care Teams Trauma Doctor Relationship Specialty Start Date End Date Gisselle Holland ANP [address] [place] [address] PCP - General Family Medicine 01/24/20 documented as of this encounter
--- OUTSIDE RECORDS SUMMARY | 2024-07-27 12:50 | XMS_ITS | Encounter Summary ---
Author Organization [employer] Address [address] [facility] [address]t [place] [address] Care Team Providers Care Company Pilot Name Role Phone Gisselle Holland MILA Primary Care Provider [phone] Encounter Details Date Type Department Care Team [...] Info) Description 08/30/2024 11:00 AM EDT Telemedicine [facility] [address] [place] [address] Gisselle Holland ANP [address] [place] [address] documented as of this encounter Procedures Procedure Name Priority Date/Time Associated Diagnosis Comments GLUCOSE, WHOLE BLOOD Routine 07/20/2024 10:40 AM EST documented in this encounter Results * (ABNORMAL) Glucose, Whole Blood (07/20/2024 10:40 AM EST) Glucose, Whole Blood 226(H) 60 - 115 mg/dL [facility] Comment:METER #: [id number] 5Testing performed in the Endocrinology Department [address], [address], [facility]. 07/20/2024 10:4 0 AM EST 07/20/2024 10:48 AM EST us Generic External Data Provider LAB BLOOD ORDERAB LES Final Result [facility] [address] [place] [phone] documented in this encounter Visit Diagnoses Not on filedocumented in this encounter Additional Health Concerns Assessment Noted Time PHQ-9 Depression Total Score: 27 025 9:43 AM EST documented as of this encounter Care Teams Company Pilot Relationship Specialty Start Date End Date Gisselle Holland ANP [address] [place] [address] PCP - General Family Medicine 01/24/20 documented as of this encounter
--- OUTSIDE RECORDS SUMMARY | 2024-07-27 12:50 | XMS_ITS | Encounter Summary ---
Author Organization [employer] Address [address] [facility] 7t [place] [address] Care Team Providers Care Black Leather Trimmer Name Role Phone Gisselle Holland Primary Care Provider Reason for Visit * Reason Onset Date Comments Med Refill 07/06/2023 Encounter Details Date Type Department Care Team (Late st Contact Info) Description 07/06/2023 Refill [facility] [address] [place], [place] [phone] Gisselle Holland ANP [address] [place], [place] [phone] Anxiety and depression Social History Tobacco Use [...] Info) Description 08/30/2024 11:00 AM EDT Telemedicine [facility] [address] [place] [address] Gisselle Holland ANP [address] [place] [address] documented as of this encounter Visit Diagnoses Diagnosis Anxiety and depression documented in this encounter Additional Health Concerns Assessment Noted Time PHQ-9 Depression Total Score: 25 023 9:08 AM EDT documented as of this encounter Care Teams Black Leather Trimmer Relationship Specialty Start Date End Date Gisselle Holland ANP [address] [place] [address] PCP - General Family Medicine 01/24/20 documented as of this encounter
--- OUTSIDE RECORDS SUMMARY | 2024-07-27 12:50 | XMS_ITS | Clinical Summary ---
Author Organization [facility] [employer] [facility] Address [address] [place] [address] Care Team Providers Care Heating And Ventilating Tender Name Role Phone Unavailable Primary Care Provider [...]
== END 2024-07-27 10:56 | disposition home or self-care (01) ==
PROVIDERS: PCP Nurse Practitioner Primary Care; Visit Provider Nurse Practitioner Adult Health
DX: E11.65 Type 2 diabetes mellitus with hyperglycemia (principal)
CPT/HCPCS: 99214; G2211

== ENCOUNTER → 2024-07-27 10:33 | Outpatient (BNVA) | payer OTHER, SELFPAY | PROVIDERS: PCP Nurse Practitioner Primary Care; Visit Provider Nurse Practitioner Adult Health | DX: E11.65 Type 2 diabetes mellitus with hyperglycemia (principal); Z79.4 Long term (current) use of insulin | CPT/HCPCS: 82947 ==

== ENCOUNTER 2024-09-02 08:48 | Outpatient (REF) | payer OTHER, SELFPAY ==
--- OUTSIDE RECORDS SUMMARY | 2024-09-02 09:13 | XMS_ITS | Encounter Summary ---
Author Organization [employer] Address [address] [facility] 7t [place] [address] Care Team Providers Care Heavy Equipment Engine Mechanic Name Role Phone Gisselle Holland MILA Primary Care Provider [phone] Encounter Details Date Type Department Care Team (Latest Contact Info) Description 08/30/2024 Travel Social History Tobacco Use Types Packs/Day [...] as of this encounter Plan of Treatment Not on file documented as of this encounter Visit Diagnoses Not on filedocumented in this encounter Additional Health Concerns Assessment Noted Time PHQ-9 Depression Total Score: 27 025 9:43 AM EST documented as of this encounter Care Teams Heavy Equipment Engine Mechanic Relationship Specialty Start Date End Date Gisselle Holland ANP [address] [place] [address] PCP - General Family Medicine 01/24/20 documented as of this encounter
--- OUTSIDE RECORDS SUMMARY | 2024-09-02 09:13 | XMS_ITS | Clinical Summary ---
Author Organization [employer] Address [address] [place] [address] 7t [place] [address] Care Team Providers Care Student Development Coordinator Name Role Phone Gisselle Holland MILA Primary Care Provider [phone] Allergies Active Allergy Reactions Criticality Noted Date Comments Aspirin Palpitations Low 04/24/2011 Simvastatin Rash Low 05/29/2010 Medications * This document contains information received from the source organization and may not represent a complete record from that organization. FREESTYLE LITE test strip USE 1 STRIP TO CHECK GLUCOSE 4 TIMES DAILY 07/06/19 22 Active HumaLOG KWIKPEN 100 UNIT/ML injection INJECT [...] 04/11/20 22 Active sildenafil (Viagra) 50 MG tabletIndications :Erectile dysfunction, unspecified erectile dysfunction type Take 1 tablet (50 mg) by mouth if needed each day for erectile dysfunction for up to 60 doses. 30 tablet 1 07/05/19 23 Active Continuous Blood Gluc Municipal Services Manager (Dexcom G5 Municipal Services Manager Kit) deviceIndications :Type 1 diabetes mellitus maturity onset (CMS/HCC) 1 each 4 times daily. 1 each 08/13/19 23 Active Continuous Blood Gluc Sensor (Dexcom G6 Sensor) miscIndications:T ype 1 diabetes mellitus maturity onset (CMS/HCC) 1 each every 14 (fourteen) days. 6 each 3 08/13/19 23 Active Repatha SureClick 140 MG/ML injection INJECT 140 MG SUBCUTANEOUSLY EVERY TWO WEEKS 09/19/19 23 Active LORazepam (Ativan) 1 MG tabletIndications :Anxiety and depression Take 1 tab as needed for anxiety attacks, up to twice in 1 day 20 tablet 10/09/19 23 Active losartan (Cozaar) 100 MG tabletIndications :Essential hypertension Take 1 tablet (100 mg) by mouth in the morning. 90 tablet 1 06/19/19 24 Active QUEtiapine (SEROquel) 50 MG tablet Take 50 mg by mouth 3 times daily. 09/05/19 24 Active hydrOXYzine HCl (Atarax) 50 MG tablet Take 50 mg by mouth 3 times daily. 09/08/19 24 Active omeprazole (PriLOSEC) [address] capsuleIndication s:Gastritis without bleeding, unspecified chronicity, unspecified gastritis type Take 1 capsule (40 mg) by mouth before breakfast. Do not crush or chew. 90 capsule 1 06/22/19 25 026 Active Multiple Vitamin (multivitamin) tabletIndications :Fatigue, unspecified type Take 1 tablet by mouth Once per day. 90 tablet 3 08/31/19 25 Active Lantus SoloStar 100 UNIT/ML pen INJECT 30 UNITS SUBCUTANEOUSLY IN THE EVENING 06/21/19 23 025 Disconti nued(Ine ffective ) sertraline (Zoloft) 100 MG tablet 150 mg. 08/15/19 24 025 Disconti nued(Ine ffective ) Active Problems Problem Noted Date Diagnosed Date Panic disorder 09/22/2023 Overview (09/22/2023): follows w/ GEORGIA Goldman at [facility]. Takes: sertraline 150mg , hydroxyzine [...] Encounters Date Type Department Care Team Description 08/30/2024 11:00 AM EDT Telemedicine [address] [address] Gisselle Holland ANP Gastritis without bleeding, unspecified chronicity, unspecified gastritis type (Primary Dx); Abnormal weight loss; Urinary hesitancy; Dysuria; Fatigue, unspecified type 08/30/[address] [address] Gisselle Holland ANP Appointment Request 08/30/2024 Travel 08/30/[address] [address] Gisselle Hollnad ANP Televisit 07/27/2024 Orders Only GENERIC EXTERNAL DATA DEPARTMENT Provider, Generic External Data 07/20/2024 Orders Only GENERIC EXTERNAL DATA DEPARTMENT Provider, Generic External Data 07/06/2024 Orders Only GENERIC EXTERNAL DATA DEPARTMENT Provider, Generic External Data 06/29/2024 Orders Only GENERIC EXTERNAL DATA DEPARTMENT Provider, Generic External Data 06/22/2024 9:15 AM EST Office Visit [address] [address] Gisselle Holland ANP Dysphagia, unspecified type (Primary Dx); Gastritis without bleeding, unspecified chronicity, unspecified gastritis type; Abnormal weight loss; Essential hypertension; Protein-calorie malnutrition, unspecified severity (CMS/HCC); Type 1 diabetes mellitus maturity onset (CMS/HCC) 06/22/2024 Travel from Last 3 Months Immunizations Name Administration [...] your housing situation today? I have michael bobby 12/26/[address] you li [...] 01/08/2024 2:39 PM EDT Plan of Treatment Health Maintenance Due Date [...] exists Lipid Panel 06/19/2024 06/19/2023 Depression Monitoring 12/20/2024 06/22/2024, 025 SDOH Screening 12/25/2024 12/26/2023 Diabetes: Foot Exam 02/23/2025 02/24/2024 Depression Screening 06/22/2025 06/22/2024, 06/22/19 25 Tobacco Screening 08/30/2025 08/30/2024 Colonoscopy 02/25/2026 Colorectal Cancer Screening 02/25/2026 DTaP/Tdap/Td [...] A,B,C PROFILE Routine 11/09/2019 10:25 AM EDT [facility]IST[facility] HIV AB/AG Routine 11/09/2019 10:25 AM EDT from Last 3 Months or Most Recently Relevant to Health Maintenance Results * (ABNORMAL) Glucose, Whole Blood (07/27/2024 10:40 AM EST) Only the most recent of3 resultswithin the time period is included. Glucose, Whole Blood 247(H) 60 - 115 mg/dL [facility] Comment:METER #: [id number] Testing performed in the Endocrinology Department [address], [address], [facility]. 07/27/2024 10:4 0 AM EST 07/27/2024 10:44 AM EST Generic External Data Provider LAB BLOOD ORDERAB LES Final Result Performing Organization Address [facility]/ZIP Co de Phone Number [facility] [address] [place] [phone] * (ABNORMAL) Glucose, Whole Blood (07/06/2024 1:32 PM EST) Only the most recent of2 resultswithin the time period is included. Glucose, Whole Blood 189(H) 60 - 115 mg/dL [facility] Comment:METER #: [id number] 07/06/2024 1:32 PM EST 07/06/2024 1:35 PM EST us Generic External Data Provider LAB BLOOD ORDERAB LES Final Result Performing Organization Address [facility]/ZIP Co de Phone Number [facility] [address] [place] [phone] * (ABNORMAL) Basic Metabolic Panel (07/06/2024 10:31 AM EST) Sodium 137 135 - 145 mmol/L [facility] Potassium 3.5 3.3 - 5.1 mmol/L [facility] Chloride 103 96 - 108 mmol/L [facility] Carbon Dioxide 18(L) 22 - 29 mmol/L [facility] Anion Gap 20 12 - 20 [facility] Urea Nitrogen (BUN) 13 9 - 16 mg/dL [facility] Creatinine, Serum 0.84 0.5 - 1.4 mg/dL [facility] Creatinine Clr Calc Pharmacy 106.4 [facility] Comment:eGFR (calculated fro m the MDRD study equation) and eCrCl(calculated from the Cockcroft-Gault equation) are based ondifferent parameters and may not yield comparable results.If eCrCl result is absurd, please check patient'sheight/weight. Estimated Glomerular Filt Rate >60 [facility] Comment:Chronic Kidney Disea se: Estimated GFR < 60 mL/min/1.87j8Piutde Kidney Disease: Estimated GFR < 15 mL/min/1.73m2 Glucose 254(H) 60 - 115 mg/dL [facility] Calcium 8.8 8.4 - 10.2 mg/dL [facility] 07/06/2024 10:3 1 AM EST 07/06/2024 10:33 AM EST Generic External Data Provider LAB BLOOD ORDERAB LES Final Result Performing Organization Address [facility] Co de Phone Number [facility] [address] [place] [phone] * High Sensitivity Troponin I (07/06/2024 6:35 AM EST) TROPONIN I HIGH SENSITIVITY 6.4 <3.5 - 35.0 ng/L [facility] Comment:The [place] high sens itivity Troponin-I results should beused in conjunction with other diagnostic information suchas ECG, clinical observations and information, and patientsymptoms to aid in the diagnosis of [place]. 07/06/2024 6:35 AM EST 07/06/2024 6:40 AM EST us Generic External Data Provider LAB BLOOD ORDERAB LES Final Result Performing Organization Address City/State/[facility] Co de Phone Number [facility] [address] [place] [phone] * (ABNORMAL) CBC auto differential (07/06/2024 6:35 AM EST) White Blood Count 10.9(H) 4.8 - 10.8 X10*3/uL [facility] Red Blood Count 5.04 4.60 - 5.80 X10*6/uL [facility] Hemoglobin 14.9 14.0 - 18.0 g/dl [facility] Hematocrit 42.9 42.0 - 52.0 % [facility] Mean Corpuscular Volume 85.1 80.0 - 98.0 fL [facility] Mean Corpuscular Hemoglobin 29.6 27.0 - 33.0 pg [facility] Mean Corpuscular HGB Conc 34.7 31.0 - 36.0 g/dl [facility] Red Cell Distribution Width 13.7 11.0 - 16.0 % [facility] Platelet Count 153(L) 160 - 400 X10*3/uL [facility] Mean Platelet Volume 11.0 9.4 - 12.4 fL [facility] Neutrophils Percent Auto 83.2(H) 45 - 73 % [facility] Imm Gran Pct Auto 1.4(H) 0.0 - 0.4 % [facility] Lymphocytes Percent Auto 11.3(L) 20 - 40 % [facility] Monocytes Percent Auto 3.9 2 - 11 % [facility] Eosinophils Percent Auto 0.0 0 - 4 % [facility] Basophils Percent Auto 0.2 0 - 2 % [facility] NRBC Pct Auto 0.0 0.0 - 0.2 /100WBC [facility] Neutrophils Absolute Auto 9.1(H) 2.0 - 8.3 x10*3/uL [facility] Imm Gran Abs Auto 0.15(H) 0.00 - 0.03 X10*3/uL [facility] Lymphocytes Absolute Auto 1.2 1.2 - 4.9 X10*3/uL [facility] Monocytes Absolute Auto 0.4 0.1 - 1.2 X10*3/uL [facility] Eosinophils Absolute Auto 0.0 0.0 - 0.4 X10*3/uL [facility] Basophils Absolute Auto 0.0 0.0 - 0.2 X10*3/uL [facility] NRBC Abs Auto 0.000 0.0 - 0.012 X10*3/uL [facility] 07/06/2024 6:35 AM EST 07/06/2024 6:40 AM EST us Generic External Data Provider LAB BLOOD ORDERAB LES Final Result [facility] [address] [place] [phone] * (ABNORMAL) POCT glycosylated hemoglobin (Hgb A1c) (01/08/2024 2:42 PM EDT) Pathologist [facility] Hemoglobin A1C 7.2(A) 4.0 - 6.0 % QC Media Lot # [id number] Lot# Expiration Date [id number] Blood Capillary blood specimen / Unknown 01/08/2024 2:42 PM EDT us Gisselle Holland ANP POINT OF CARE TEST ENTER/EDIT OR DERABLES Final Result * (ABNORMAL) Lipid Panel, Standard (06/19/2023 8:26 AM EST) Triglycerides 92 <150 mg/dL [facility] Comment:Desirable Triglyceri de: less than 150 mg/dLBorderline High Triglyceride 150-199 mg/dLHigh Triglyceride: 200-499 mg/dLVery High Triglyceride: greater than or equal to 5OO mg/dL Cholesterol 119 <200 mg/dL [facility] Comment:Desirable Cholestero l: less than 200 mg/dLBorderline High Cholesterol: 200-239 mg/dLHigh Cholesterol: greater than 239 mg/dL LDL Cholesterol Calculated 66 <100 mg/dL [facility] Comment:Desirable LDL: less than 100 mg/dLNear Optimal/Above Optimal LDL: 110- 129 mg/dLBorderline High LDL: 130-159 mg/dLHigh LDL: 160-189 mg/dLVery High LDL: greater than or equal to 190 mg/dL HDL Cholesterol 35(L) >40 mg/dL [facility] Comment:Desirable HDL: great er than 40 mg/dL Note: This HDL assay may give artificially low results in patients with liver disease. 06/19/2023 8:26 AM EST 06/19/2023 8:26 AM EST us Generic External Data Provider LAB BLOOD ORDERAB LES Final Result Performing Organization Address [facility] Co de Phone Number [facility] [address] [place] [phone] * MICROALBUMIN/CREATININE RATIO, RANDOM URINE (11/19/2021 [...] ORDERABLE LABS Final Result Performing Organization Address City/[facility]/ZIP Co de Phone Number [facility] [address] * HEPATITIS A,B,C PROFILE (11/09/2019 10:25 AM EDT) HEPATITIS B CORE ANTIBODY NONREACTIVE NONREACTIVE [facility] HEPATITIS B INTERPRETATION SEE NOTE [facility] Comment:Negative for Hepatit is B. HEPATITIS B SURFACE ANTIBODY NONREACTIVE NONREACTIVE [facility] Comment:NONREACTIVE: < 8.00 mIU/mL HEPATITIS B SURFACE ANTIGEN NEGATIVE NEGATIVE [facility] HEPATITIS C ANTIBODY NONREACTIVE NONREACTIVE [facility] Comment: Antibodies to HCV not detected; does not exclude early acute HCV infection. 11/09/2019 10:2 5 AM EDT Historical Provider HISTORICAL/NON ORDERABLE LABS Final Result Performing Organization Address [facility] de Phone Number [facility] [address] * HIV AB/AG (11/09/2019 10:25 AM EDT) [facility] HIV AG/AB NONREACTIVE NR [facility] [...] detection of this assay. ?? The [employer] Lead Software Development Engineer HIV Ag/Ab Combo assay result and supplemental assay results should be interpreted in conjunction with the patient's clinical presentation, history and other laboratory results. ??If the results are inconsistent with clinical evidence, additional testing is suggested to confirm the result. 11/09/2019 10:2 5 AM EDT Historical Provider HISTORICAL/NON ORDERABLE LABS Final Result Performing Organization Address [facility] Phone Number [facility] [address] from Last 3 Months or Most Recently Relevant to Health Maintenance Insurance [employer] PPO Care Teams Student Development Coordinator Relationship Specialty Start Date End Date Gisselle Holland ANP [address] [place] [phone] PCP - General Family Medicine 01/24/20
--- OUTSIDE RECORDS SUMMARY | 2024-09-02 09:13 | XMS_ITS | Encounter Summary ---
Author Organization [employer] Address [address] [facility] 7t [place] [address] Care Team Providers Care Journeyman Glazier Name Role Phone Gisselle Holland Primary Care Provider [phone] Encounter Details Date Type Department Care Team (Late st Contact Info) Description 08/30/2024 11:00 AM EDT Telemedicine [facility] MED[facility]INE [address] [place], [place] [phone] Gisselle Holland ANP [address] [place], [place] [phone] Gastritis without bleeding, unspecified chronicity, unspecified gastritis type (Primary Dx); Abnormal weight loss; Urinary hesitancy; Dysuria; Fatigue, unspecified type Social History Tobacco Use Types Packs/Day Years [...] as of this encounter Plan of Treatment Scheduled Orders Name Type Priority Associated Diagnoses Orde r Schedule Urinalysis Complete Lab Routine Dysuria Expected: 08/30/2024, Expires: 08/30/2025 Culture, Urine, Routine Microbiology Routine Dysuria Expected: 08/30/2024 (Approximate), Expires: 08/30/2025 PSA,Total Lab Routine Urinary hesitancy Expected: 08/30/2024 (Approximate), Expires: 08/30/2025 documented as of this encounter Visit Diagnoses Diagnosis Gastritis without bleeding, unspecified chronicity, unspecified gastritis type- Primary Abnormal weight loss Loss of weight Urinary hesitancy Dysuria Fatigue, unspecified type documented in this encounter Additional Health Concerns Assessment Noted Time PHQ-9 Depression Total Score: 27 025 9:43 AM EST documented as of this encounter Care Teams Journeyman Glazier Relationship Specialty Start Date End Date Gisselle Holland ANP [address] [place] [address] PCP - General Family Medicine 01/24/20 documented as of this encounter
--- OUTSIDE RECORDS SUMMARY | 2024-09-02 09:13 | XMS_ITS | Clinical Summary ---
Author Organization Patient Business [employer] [facility] Address [address] [place] [address] Care Team Providers Care Tank Erector Name Role Phone Unavailable Primary Care Provider [...] - 2023-2 5 season) 2024 Influenza Vaccine (Season Ended) 2025 HIB Vaccines Aged Out No longer eligi [...] age to complete this topic Meningococcal B Vaccine Aged Out No l onger eligible based on patient's age to complete [...]
--- OUTSIDE RECORDS SUMMARY | 2024-09-02 09:13 | XMS_ITS | Encounter Summary ---
Author Organization [employer] Address 75 [facility] 7t [place] [address] Care Team Providers Care Branch Examiner Name Role Phone Gisselle Holland Primary Care Provider [phone] Reason for Visit * Reason Onset Date Comments Appointment Request 08/30/2024 Encounter Details Date Type Department Care Team ([facility] st Contact Info) Description 08/30/2024 Telephone [facility] MEDICINE [address] [place], [place] [phone] Gisselle Holland ANP [address] [place], [place] [phone] Appointment Request Social History Tobacco Use Types Packs/Day Years [...] AM EDT documented as of this encounter Miscellaneous Notes * Telephone Encounter - Adela Franklin - 08/30/2024 12:22 PM EDT Called Patient left vm, advised to call back and schedule f/u with PCP in November for 15 min wt f/u. Ok to schedule if Patient calls back. documented in this encounter Plan of Treatment Not on file documented as of this encounter Visit Diagnoses Not on filedocumented in this encounter Additional Health Concerns Assessment Noted Time PHQ-9 Depression Total Score: 27 025 9:43 AM EST documented as of this encounter Care Teams Branch Examiner Relationship Specialty Start Date End Date Gisselle Holland ANP [address] [place] [phone] PCP - General Family Medicine 01/24/20 documented as of this encounter
--- OUTSIDE RECORDS SUMMARY | 2024-09-02 09:13 | XMS_ITS | Encounter Summary ---
Author Organization [employer] Address 75 [facility] 7t [place] [address] Care Team Providers Care Tie Tape Machine Operator Name Role Phone Gisselle Holland Primary Care Provider [phone] Reason for Visit * Reason Onset Date Comments Med Refill 07/06/2023 Encounter Details Date Type Department Care Team (Late st Contact Info) Description 07/06/2023 Refill [facility] MEDICINE [address] [place], [place] [phone] Gisselle Holland ANP [address] [place], [place] [phone] Anxiety and depression Social History Tobacco Use [...] documented as of this encounter Care Teams Tie Tape Machine Operator Relationship Specialty Start Date End Date Gisselle Holland ANP [address] [place] [address] PCP - General Family Medicine 01/24/20 documented as of this encounter
--- OUTSIDE RECORDS SUMMARY | 2024-09-02 09:13 | XMS_ITS | Encounter Summary ---
Author Organization [employer] Address [address] [facility] 7t [place] [address] Care Team Providers Care Bread Wrapper Name Role Phone Gisselle Holland Primary Care Provider [phone] Reason for Visit * Reason Onset Date Comments Televisit 08/30/2024 Encounter Details Date Type Department Care Team ([facility] st Contact Info) Description 08/30/2024 Telephone [facility] MEDICINE [address] [place], [place] [phone] Gisselle Holland ANP [address] [place], [place] [phone] Televisit Social History Tobacco Use Types Packs/Day Years [...] Miscellaneous Notes * Telephone Encounter - Adela Franklni - 08/30/2024 10:21 AM EDT Called Patient to register for televisit. No answer left vm advised to call back. documented in this encounter Plan of Treatment Not on file documented as of this encounter Visit Diagnoses Not on filedocumented in this encounter Additional Health Concerns Assessment Noted Time PHQ-9 Depression Total Score: 27 025 9:43 AM EST documented as of this encounter Care Teams Bread Wrapper Relationship Specialty Start Date End Date Gisselle Holland ANP 230 [place] [address] PCP - General Family Medicine 01/24/20 documented as of this encounter
[2024-09-02 11:56] LABS: Appearance Urine Turbid; Color Urine Yellow; Glucose Urine UA >=1000 mg/dL (Negative); Leukocyte Esterase Urine Large (3+) (Negative); Nitrite Urine Negative (Negative); Specific Gravity - Urine 1.025 (1.005-1.025); UMIC TRIGGER UA YES; Urine Blood Small (1+) (Negative); Urine Ketones Trace mg/dL (Negative); Urine Protein 30 (1+) mg/dL (Neg-Trace)
[2024-09-02 11:57] LABS: Anion Gap 11 (12-20); Blood Urea Nitrogen 16 mg/dL (9-16); Calcium 9.4 mg/dL (8.4-10.2); Carbon Dioxide 28 mmol/L (22-29); Chloride 105 mmol/L (96-108); Estimated Glomerular Filt Rate > 60; Glucose Random 231 mg/dL (60-115); Potassium 4.6 mmol/L (3.3-5.1); Sodium 139 mmol/L (135-145)
[2024-09-02 12:18] LABS: Bacteria Urine None Seen (None Seen); Hyaline Casts Urine 0-2 /LPF (0-2); RBC Urine 0-2 /HPF (0-2); Renal Epithelial Cells Urine Present; Squamous Epithelial Cell Urine 0-2 /HPF (0-2); Transitional Epi Cells Urine Present; WBC Urine >50 /HPF (0-5)
[2024-09-02 12:28] LABS: Prostate Specific Antigen 1.17 ng/mL (<0.05-4.0)
== END 2024-09-02 08:49 | disposition home or self-care (01) ==
LOC: HO.HHCL 08:48
PROVIDERS: Visit Provider Nurse Practitioner Primary Care
DX: E87.6 Hypokalemia (principal); R39.11 Hesitancy of micturition; R30.0 Dysuria; Z12.5 Encounter for screening for malignant neoplasm of prostate
CPT/HCPCS: 36415; 80048; 81001; 84153; 87086

== ENCOUNTER 2024-09-10 10:32 | Outpatient (REF) | payer OTHER, SELFPAY ==
--- OUTSIDE RECORDS SUMMARY | 2024-09-10 11:31 | XMS_ITS | Clinical Summary ---
Author Organization [employer] Address [address] [place] [address] 7t [place] [address] Care Team Providers Care Customer Support Specialist Name Role Phone Gisselle Holland MILA Primary Care Provider [phone] Allergies Active Allergy Reactions Criticality Noted Date [...] 1 07/05/19 23 Active Continuous Blood Gluc Cementer (Dexcom G5 Cementer Kit) deviceIndications :Type 1 diabetes mellitus maturity [...] or chew. 90 capsule 1 06/22/19 25 2025 Active Multiple Vitamin (multivitamin) tabletIndications :Fatigue, unspecified type Take 1 tablet by mouth Once per day. 90 tablet 3 08/31/19 25 Active Lantus SoloStar 100 UNIT/ML pen INJECT 30 UNITS SUBCUTANEOUSLY IN THE EVENING 06/21/19 23 2024 Discontin ued(Ineff ective) sertraline (Zoloft) 100 MG tablet 150 mg. 08/15/19 24 2024 Discontin ued(Ineff ective) phenazopyridine (Pyridium) 200 MG tabletIndications :Dysuria Take 1 tablet (200 mg) by mouth if needed in the morning, at noon, and at bedtime for bladder spasms for up to 2 days. 6 tablet 09/04/19 25 2024 Active Problems Problem Noted Date Diagnosed Date Panic disorder 09/22/2023 Overview (09/22/2023): follows w/ [place]IA De La Rosa and zaira Goldman at [facility]. Takes: sertraline 150mg , hydroxyzine 50mg TID, quetiapine 50mg TID, lorazepam 1mg Anxiety 09/13/2022 Elevated liver enzymes 01/22/2021 Type 1 diabetes mellitus maturity onset 01/23/20 21 Overview (09/22/2023): [place] [facility]. On basal bolus. Kidney disease 03/04/2014 Diabetes mellitus 10/17/2011 Essential hypertension 10/17/2011 Overview (09/22/2023): Losartan 100mg daily Had side effects from lisinopril-hydrochlorothiazide Pure hypercholesterolemia 10/17/2011 Overview (09/22/2023): On Repatha via Endo. Not on statin d/t elevated LFTs. Encounters Date Type Department Care Team Description 09/03/[address] [address] Gisselle Holland ANP Results; Lab Orders 08/30/2024 11:00 AM EDT Telemedicine [address] [address] Gisselle Holland ANP Gastritis without bleeding, unspecified chronicity, unspecified gastritis type (Primary Dx); Abnormal weight loss; Urinary hesitancy; Dysuria; Fatigue, unspecified type; Pyuria 08/30/[address] [address] Gisselle Holland ANP Appointment Request 08/30/2024 Travel 08/30/[address] [address] Gisselle Holland ANP Televisit 07/27/2024 Orders Only GENERIC EXTERNAL DATA DEPARTMENT Provider, Generic External Data 07/20/2024 Orders Only GENERIC EXTERNAL DATA DEPARTMENT Provider, Generic External Data 07/06/2024 Orders Only GENERIC EXTERNAL DATA DEPARTMENT Provider, Generic External Data 06/29/2024 Orders Only GENERIC EXTERNAL DATA DEPARTMENT Provider, Generic External Data 06/22/2024 9:15 AM EST Office Visit [address] [address] Gisselle Holland ANP Dysphagia, unspecified type (Primary Dx); Gastritis without bleeding, unspecified chronicity, unspecified gastritis type; Abnormal weight loss; Essential hypertension; Protein-calorie malnutrition, unspecified severity ([facility]/HCC); Type 1 diabetes mellitus maturity onset ([facility]/HCC) 06/22/2024 Travel from Last 3 Months Immunizations [...] Procedure Name Priority Date/Time Associated Diagnosis Comments PSA, TOTAL Routine 09/02/2024 8:50 AM EDT Urinary hesitancy URINALYSIS, COMPLETE Routine 09/02/2024 8:50 AM EDT Dysuria BASIC METABOLIC PANEL Routine 09/02/2024 8:50 AM EDT Hypokalemia CULTURE, URINE, ROUTINE Routine 09/02/2024 8:50 AM EDT Dysuria GLUCOSE, WHOLE BLOOD Routine 07/27/2024 10:40 AM [...] Relevant to Health Maintenance Results * (ABNORMAL) Urinalysis Complete (09/02/2024 8:50 AM EDT) Color Urine Yellow [facility] Appearance Urine Turbid [facility] PH 6.0 5.0 - 9.0 [facility] Glucose Urine UA >=1000(A) Negative mg/dL [facility] Urine Blood Small (1+)(A) Negative [facility] Specific [place] - Urine 1.025 1.005 - 1.025 [facility] Urine Protein 30 (1+)(A) Neg-Trace mg/dL [facility] Urine Ketones Trace Negative mg/dL [facility] Nitrite Urine Negative Negative [facility] Leukocyte Esterase Urine Large (3+)(A) Negative [facility] RBC Urine 0-2 0 - 2 /HPF [facility] Urine WBC >50(A) 0 - 5 /HPF [facility] Urine Squamous Epithelial Cell 0-2 0 - 2 /HPF [facility] TRANSITIONAL (EPITHELIAL) CELLS (#/HPF) IN URINE Present [facility] RENAL EPITHELIAL CELLS (#/HPF) IN URINE Present [facility] Urine Bacteria None Seen None Seen [facility] Hyaline Casts, Urine 0-2 0 - 2 /LPF [facility] Urine (Urine, Random) 09/02/2024 8:50 AM EDT 09/02/2024 11:43 AM EDT us Gisselle Holland [facility] URINE ORDERABLES Final Resul t Performing Organization Address [facility]/ZIP Co de Phone Number [facility] [address] [place] [phone] * Culture, Urine, Routine (09/02/2024 8:50 AM EDT) Urine Urine specimen obtained by clean catch procedure / Unknown 09/02/2024 8:50 AM EDT 09/02/2024 11:43 AM EDT Comment:UACC Narrative [facility] - 09/03/2024 8:39 AM EDT Urine Culture Report Result Urine Culture < 10,000 cfu/ml Specimen Source: Urine clean catch us Gisselle [facility] MICROBIOLOGY - GENERAL ORDER ASHISH Final Result Performing Organization Address [facility] Co de Phone Number [facility] [address] [place] [phone] * PSA,Total (09/02/2024 8:50 AM EDT) Prostate Specific Antigen 1.17 <0.05 - 4.0 ng/mL [facility] Comment:PSA methodology: Jannet Johnson i ChemiluminescentMicroparticle Immunoassay (CMIA) Blood Venous blood specimen / Unknown 09/02/2024 8:50 AM EDT 09/02/2024 11:37 AM EDT us Gisselle Holland [facility] BLOOD ORDERABLES Final Resul t Performing Organization Address [facility] de Phone Number [facility] [address] [place] [address] [phone] * (ABNORMAL) Basic Metabolic Panel (09/02/2024 8:50 AM EDT) Only the most recent of2 resultswithin the time period is included. Sodium 139 135 - 145 mmol/L [facility] Potassium 4.6 3.3 - 5.1 mmol/L [facility] Chloride 105 96 - 108 mmol/L [facility] Carbon Dioxide 28 22 - 29 mmol/L [facility] Anion Gap 11(L) 12 - 20 [facility] Urea Nitrogen (BUN) 16 9 - 16 mg/dL [facility] Creatinine, Serum 0.82 0.5 - 1.4 mg/dL [facility] Estimated Glomerular Filt Rate >60 [facility] Comment:Chronic Kidney Disea se: Estimated GFR < 60 mL/min/[id number] Kidney Disease: Estimated GFR < 15 mL/min/1.73m2 Glucose 231(H) 60 - 115 mg/dL [facility] Calcium 9.4 8.4 - 10.2 mg/dL [facility] Blood Venous blood specimen / Unknown 09/02/2024 8:50 AM EDT 09/02/2024 11:37 AM EDT Gisselle Holland [facility] BLOOD ORDERABLES Final Resul t Performing Organization Address [facility] Co de Phone Number [facility] [address] [place] [address] [phone] * (ABNORMAL) Glucose, Whole Blood (07/27/2024 10:40 AM EST) Only the most recent of3 resultswithin the time period is included. Glucose, Whole Blood 247(H) 60 - 115 mg/dL [facility] Comment:METER #: [id number] Testing performed in the Endocrinology Department [address] , [address], [facility]. 07/27/2024 10:4 0 AM EST 07/27/2024 10:44 AM EST Generic External Data Provider LAB BLOOD ORDERAB LES Final Result Performing Organization Address [facility] de Phone Number [facility] [address] [place] [phone] * (ABNORMAL) Glucose, Whole Blood (07/06/2024 1:32 PM EST) Only the most recent of2 resultswithin the time period is included. Glucose, Whole Blood 189(H) 60 - 115 mg/dL [facility] Comment:METER #: [id number] 07/06/2024 1:32 PM EST 07/06/2024 1:35 PM EST Generic External Data Provider LAB BLOOD ORDERAB LES Final Result Performing Organization Address [facility] Phone Number [facility] [address] [place] [phone] * High Sensitivity Troponin I (07/06/2024 6:35 AM EST) [facility] TROPONIN I HIGH SENSITIVITY 6.4 <3.5 - 35.0 ng/L [facility] Comment:The [employer] high sens itivity Troponin-I results should beused in conjunction with other diagnostic information suchas ECG, clinical observations and information, and patientsymptoms to aid in the diagnosis of CT. 07/06/2024 6:35 AM EST 07/06/2024 6:40 AM EST Generic External Data Provider LAB BLOOD ORDERAB LES Final Result Performing Organization Address [facility] de Phone Number [facility] [address] [place] [phone] * (ABNORMAL) CBC auto differential (07/06/2024 6:35 AM EST) White Blood Count 10.9(H) 4.8 - 10.8 X10*3/uL [facility] Red Blood Count 5.04 4.60 - 5.80 X10*6/uL [facility] Hemoglobin 14.9 14.0 - 18.0 g/dl [facility] Hematocrit 42.9 42.0 - 52.0 % [facility] Mean Corpuscular Volume 85.1 80.0 - 98.0 fL [facility] Mean Corpuscular Hemoglobin 29.6 27.0 - 33.0 pg [facility] Mean Corpuscular HGB Conc 34.7 31.0 - 36.0 g/dl [facility] Red Cell Distribution Width 13.7 11.0 - 16.0 % [facility] Platelet Count 153(L) 160 - 400 X10*3/uL [facility] Mean Platelet Volume 11.0 9.4 - 12.4 fL [facility] Neutrophils Percent Auto 83.2(H) 45 - 73 % [facility] Imm Gran Pct Auto 1.4(H) 0.0 - 0.4 % [facility] Lymphocytes Percent Auto 11.3(L) 20 - 40 % [facility] Monocytes Percent Auto 3.9 2 - 11 % [facility] Eosinophils Percent Auto 0.0 0 - 4 % [facility] Basophils Percent Auto 0.2 0 - 2 % [facility] NRBC Pct Auto 0.0 0.0 - 0.2 /100WBC [facility] Neutrophils Absolute Auto 9.1(H) 2.0 - 8.3 x10*3/uL [facility] Imm Gran Abs Auto 0.15(H) 0.00 - 0.03 X10*3/uL [facility] Lymphocytes Absolute Auto 1.2 1.2 - 4.9 X10*3/uL [facility] Monocytes Absolute Auto 0.4 0.1 - 1.2 X10*3/uL [facility] Eosinophils Absolute Auto 0.0 0.0 - 0.4 X10*3/uL [facility] Basophils Absolute Auto 0.0 0.0 - 0.2 X10*3/uL [facility] NRBC Abs Auto 0.000 0.0 - 0.012 X10*3/uL [facility] 07/06/2024 6:35 AM EST 07/06/2024 6:40 AM EST us Generic External Data Provider LAB BLOOD ORDERAB LES Final Result [facility] [address] [place] [phone] * (ABNORMAL) POCT glycosylated hemoglobin (Hgb A1c) (01/08/2024 2:42 PM EDT) Hemoglobin A1C 7.2(A) 4.0 - 6.0 % QC Media Lot # [id number] Lot# Expiration Date 82 Blood Capillary blood specimen / Unknown 01/08/2024 2:42 PM EDT us Gisselle Holland ANP POINT OF CARE TEST ENTER/EDIT OR DERABLES Final Result * (ABNORMAL) Lipid Panel, Standard (06/19/2023 8:26 AM EST) Triglycerides 92 <150 mg/dL [facility] Comment:Desirable Triglyceri de: less than [...] 190 mg/dL HDL Cholesterol 35(L) >40 mg/dL [facility] Comment:Desirable HDL: great er than 40 mg/dL Note: This HDL assay may give artificially low results in patients with liver disease. 06/19/2023 8:26 AM EST 06/19/2023 8:26 AM EST Generic External Data Provider LAB BLOOD ORDERAB LES Final Result Performing Organization Address [facility] Co de Phone Number [facility] [address] [place] [phone] * MICROALBUMIN/CREATININE RATIO, RANDOM URINE (11/19/2021 [...] LABS Final Result Performing Organization Address [facility] Co de Phone Number [facility] [address] * HEPATITIS A,B,C PROFILE (11/09/2019 10:25 [...] LABS Final Result Performing Organization Address [facility] Co de Phone Number [facility] [address] * HIV AB/AG (11/09/2019 10:25 AM EDT) [facility] HIV AG/AB NONREACTIVE NR [facility]OUNDAT[facility] ON [...] detection of this assay. ?? The [employer] Marketing Professional HIV Ag/Ab Combo assay result and supplemental assay results should be interpreted in conjunction with the patient's clinical presentation, history and other laboratory results. ??If the results are inconsistent with clinical evidence, additional testing is suggested to confirm the result. 11/09/2019 10:2 5 AM EDT Historical Provider HISTORICAL/NON ORDERABLE LABS Final Result Performing Organization Address [facility] Phone Number [facility] [address] from Last 3 Months or Most Recently Relevant to Health [place] [id number] [employer] PPO Care Teams Customer Support Specialist Relationship Specialty Start Date End Date Gisselle Holland ANP [address] [place] [phone] PCP - General Family Medicine 01/24/20
--- OUTSIDE RECORDS SUMMARY | 2024-09-10 11:31 | XMS_ITS | Clinical Summary ---
Author Organization Patient Business Ser [facility] Address [address] [place] [address] Care Team Providers Care Slipman Name Role Phone Unavailable Primary Care Provider [...]
--- OUTSIDE RECORDS SUMMARY | 2024-09-10 11:31 | XMS_ITS | Encounter Summary ---
Author Organization [employer] Address [address] [facility] 7t [place] [address] Care Team Providers Care Professor Of Journalism Name Role Phone Gisselle Holland Primary Care Provider [phone] Reason for Visit * Reason Onset Date Comments Med Refill 07/06/2023 Encounter Details Date Type Department Care Team (Late st Contact Info) Description 07/06/2023 Refill [facility] MEDICINE [address] [place], [place] [phone] Gisselle Holland ANP [address] [place], [place] [phone] Anxiety and depression Social History Tobacco Use [...] documented as of this encounter Care Teams Professor Of Journalism Relationship Specialty Start Date End Date Gisselle Holland ANP [address] [place] [address] PCP - General Family Medicine 01/24/20 documented as of this encounter
[2024-09-10 13:22] LABS: Appearance Urine Clear; Color Urine Dark Yellow; Glucose Urine UA >=1000 mg/dL (Negative); Leukocyte Esterase Urine Small (1+) (Negative); Nitrite Urine Positive (Negative); UMIC TRIGGER UACC YES; Urine Blood Negative (Negative); Urine Ketones Negative (Negative); Urine Protein Negative (Neg-Trace)
[2024-09-10 13:34] LABS: Bacteria Urine Trace (None Seen); Hyaline Casts Urine 0-2 /LPF (0-2); RBC Urine 0-2 /HPF (0-2); Squamous Epithelial Cell Urine 0-2 /HPF (0-2); UACC Culture Trigger YES
== END 2024-09-10 10:33 | disposition home or self-care (01) ==
LOC: HO.HHCL 10:32
PROVIDERS: Visit Provider Nurse Practitioner Primary Care
DX: R30.0 Dysuria (principal); R82.81 Pyuria
CPT/HCPCS: 81001; 87086

== ENCOUNTER 2024-12-01 14:47 | Outpatient (AMB) | payer OTHER, SELFPAY ==
--- NOTE | 2024-12-01 12:38 | A.OFFVIS_ITS ---
Vital Signs 12/01/24 14:51 Height 6 ft Weight 132 lb 4.438 oz BMI 17.9 BP 136/74 Blood Pressure Location Rt brachial Position Sitting Pulse 79 Pulse Source Pulse Oximeter Pulse Oximetry (%) 98 Oxygen Delivery Method Room Air Intake Visit Reasons: DM Intake Note: Patient presents today for a follow-up on Type 2 Diabetes Mellitus: Last Diabetic eye exam was on: 08/2024, has blurry sight, has a coming up appt Last Podiatry exam was on: Does not see a Store Associate Most recent HbA1c: 8.4%, 12/01/2024 Random Glucose- 204 mg/dL, Today Allergies aspirin Allergy (Unknown, Verified 07/27/24 10:35) Unknown. simvastatin Allergy (Unknown, Verified 07/27/24 10:35) rash HPI Comments Details: 59 YO M with PMHx DM who is seen in F/U for DM. He was last seen by myself 07/20/24. At his previous visit he had a glucose in the high 300's and was spilling ketones. He was [place] [facility]He reports he was told by the ER staff he needed to wait his turn despite being sent over via ambulance. After 3 hours he left without being seen or treated. Several days later he became much sicker and went to the ER and was admitted for 4 days. He has a prior history of severe anxiety and his Lantus insulin administered at bedtime causes him great anxiety and he often misses doses which he has done frequently in the past. When questioned why he is skipping this he reports it was in his anxiety. He has agreed to take a longer flatter acting insulin that he could take during the day which would cover him overnight. A prior authorization but we will be requested today 2020 c peptide 2.36 negative gada and negative islet cell antibody Hgb A1C 06/29/24: 13% prior A1C was 6.9% on 02/24/24. He has a history of stopping his insulin. Initially diagnosed with Type 2 DM in 2009. When he started with endocrine in 2019 he had labs draw to determine type 1 vs type 2. Insulin antibodies were negative. C peptide was 2.56. Was initially started on treatment with Metformin. This was stopped by his PCP and he was instead started on Glipizide 10 mg PO BID. This was stopped at his initial endocrine visit and he was started on insulin Current regime: He recently stopped taking his insulin because he felt like it was causing him fatigue. Lantus 14 units Humalog 3-8 based on a scale He is meeting with a psychologist on a regular basis. He has a boost daily and doesn't eat much else than this due to anxiety. . He tries to get in peanut butter every day or a handful of nuts. Family history of type 2 diabetes in his mother. +retinopathy: He was previously seen at [facility] in [place].. He reports he was told he needed eye surgery in the past but did not have this done. +neuropathy: Numbness, tingling right great toe. He does not see a real estate leasing agent. He has a bunion on the left foot. + nephropathy: On ARB 10/19/23 eGFR>60 microalbumin 12/09/22 11.0 11/19/21 61 HLD on repathy ldl was 133, 06/19/23 68 Denies CAD Has h/o heavy ETOH use: he has not had any alcohol for 2-3 years Vapes and cigars no prior [facility] Medical History (Updated 12/02/24 @ 13:29 by Dorothy Anderson NP) Uncontrolled type 2 diabetes mellitus with hyperglycemia Transaminitis Vitamin D deficiency HLD (hyperlipidemia) HTN (hypertension) Surgical History Hx of colonoscopy History of carpal tunnel release Family History Mother Diabetes Hypertension Father Myocardial infarction Social History Household Members: Spouse Are you a primary home health care worker to a significant other at home: No Do you presently have visiting nurse or other home services: No Unable to assess alcohol history related to: Unknown Alcohol intake: former Year quit: 09/14 Patient Tobacco Use Status: Former Tobacco user Years Smoked: 20 +/- Physical Exam Vital Signs: Last Vital Signs Pulse 79 12/01/24 14:51 BP 136/74 12/01/24 14:51 Pulse Ox 98 12/01/24 14:51 Oxygen Delivery Method Room Air 12/01/24 14:51 BMI result Body Mass Index 17.9 Const Other: Absence of Cushingoid features. Absence of acromegalic features. Neck exam reveals nl size thyroid about 15 gms. No thyroid nodules palpable. Heart S1 S2, Reg R/R. No M/R G. Skin exam reveals absence of vitiligo or acanthosis nigricans. No edema Visual exam of foot performed. No ulcerations or open lesions. No inter digit maceration or fissuring. No onychomycosis, no callouses. Sensation intact to monofilament exam. Vibratory sensation is normal with 128 Hz tuning fork. Bilateral bunion deformity. Results AMB Hemoglobin A1c AMB Hemoglobin A1c 8.4 % Last Edit by FABIÁN Fitzgerald on 12/01/24 15:12 Results Reviewed Results Reviewed: Laboratory Last Values Glucose (Clinic) 204 mg/dL (60-115) H 12/01/24 15:00 Hgb A1c (Clinic) 8.4 % (4.0-6.0) H 12/01/24 15:10 Assessment & Plan Assessment & Plan (1) Uncontrolled type 2 diabetes mellitus with hyperglycemia: Code(s): E11.65 - Type 2 diabetes mellitus with hyperglycemia Category: Medical Plan: 59-year-old with type 2 diabetic poor compliance to regime. He has agreed to restart insulin. We discussed changing over to tresiba as he was not well controlled on lantus and was having fatiique with this, The patient had an opportunity to ask questions regarding treatment plan. The patient expressed understanding and agreement with the above treatment plan. The patient is aware they should contact our office by phone for worsening glucose readings or for any low blood sugars which may warrant a change in diabetes medication. Compliance is encouraged with medications and any followup testing/consults which may have been ordered. Orders: Orders AMB Hemoglobin A1c 12/01/24 E11.65 - Type 2 diabetes mellitus with hyperglycemia Medications: New insulin degludec (Tresiba FlexTouch U-100 insulin) 15 units (0.15 mL) subcut DAILY 6 mL 3RF 30 days Discontinued Lantus Solostar U-100 Insulin (insulin glargine) Discontinued Reason: Doctor's Order 15 units (0.15 mL) subcut QPM 90 days 13.5 mL 3RF NS E10.65 - Type 1 diabetes mellitus with hyperglycemia Patient Instructions: The patient was counseled to achieve a target A1C of 7% (154 avg). Fasting blood sugars should be 90-130 in the morning and less than 180 two hours after meals. Reviewed the relationship between poor diabetic control and the development of complications. Check your feet daily looking for any signs of infection, drainage, redness, ulceration and seek medical attention if this occurs. Break in shoes gradually and do not wear open-toed shoes or walk stocking footed or barefooted. Always carry a source of sugar. Coding Level of Care Code Est Pt Level 4 (70757) Complex EM visit Add On G2211 Diagnoses Uncontrolled type 2 diabetes mellitus with hyperglycemia E11.65 Time Spent (min) 30 Comment Time spent reviewing labs/provider notes, face to face, chart doc
[2024-12-01 14:51] VITALS: BP 136/74; PULSE 79; O2SAT 98; BMI 17.9
[2024-12-01 15:04] LABS: Glucose, Whole Blood 204 mg/dL (60-115)
--- OUTSIDE RECORDS SUMMARY | 2024-12-01 15:16 | XMS_ITS | Encounter Summary ---
Author Organization [employer] Address [address] [facility] [address] [place] [address] Care Team Providers Care Door To Door Fundraising Collector Name Role Phone Gisselle Holland Primary Care Provider [phone] Reason for Visit * Reason Onset Date Comments Med Refill 07/06/2023 Encounter Details Date Type Department Care Team (Late st Contact Info) Description 07/06/2023 Refill [facility] [address] [place], [place] [phone] Gisselle Holland ANP [address] [place] [address] Anxiety and depression Social History Tobacco Use [...] documented as of this encounter Care Teams Door To Door Fundraising Collector Relationship Specialty Start Date End Date Gisselle Holland ANP [address] [place] [address] PCP - General Family Medicine 01/24/20 documented as of this encounter
--- OUTSIDE RECORDS SUMMARY | 2024-12-01 15:17 | XMS_ITS | Patient Health Record ---
Author Organization [facility] Address [address] [place] [address] Care Team Providers Care Events Assistant Name Role Phone Mina Zaman Jr Reason For Referral No Information Plan Of Treatment No Information
--- OUTSIDE RECORDS SUMMARY | 2024-12-01 15:17 | XMS_ITS | Clinical Summary ---
Author Organization Patient Business [facility] Address [address] [place] [address] Care Team Providers Care Chaser Apprentice Name Role Phone Unavailable Primary Care Provider [...] 2023-2 5 season) 2024 Influenza Vaccine (#1) 2025 HIB Vaccines Aged Out No longer [...]
== END 2024-12-01 15:34 | disposition home or self-care (01) ==
LOC: HO.ENCR 14:48
PROVIDERS: PCP Nurse Practitioner Primary Care; Visit Provider Nurse Practitioner Adult Health
DX: E11.65 Type 2 diabetes mellitus with hyperglycemia (principal)
CPT/HCPCS: 99214; G2211

== ENCOUNTER → 2024-12-01 14:47 | Outpatient (BNVA) | payer OTHER, SELFPAY | PROVIDERS: PCP Nurse Practitioner Primary Care; Visit Provider Nurse Practitioner Adult Health | DX: E11.65 Type 2 diabetes mellitus with hyperglycemia (principal) | CPT/HCPCS: 82947; 83036 ==

== ENCOUNTER 2024-12-06 10:54 | Day surgery (SDC) | payer OTHER, SELFPAY ==
--- OUTSIDE RECORDS SUMMARY | 2024-12-06 11:13 | XMS_ITS | Encounter Summary ---
Author Organization [employer] Address [address] [facility] 7[address] [place] [address] Care Team Providers Care Catalyst Recovery Operator Name Role Phone Gisselle Holland Primary Care Provider [phone] Reason for Visit * Reason Onset Date Comments Med Refill 07/06/2023 Encounter Details Date Type Department Care Team (Late st Contact Info) Description 07/06/2023 Refill [facility] MED[facility]INE [address] [place], [place] [phone] Gisselle Holland ANP [address] [place] [address] Anxiety and depression Social History Tobacco Use [...] documented as of this encounter Care Teams Catalyst Recovery Operator Relationship Specialty Start Date End Date Gisselle Holland ANP [address] [place] [address] PCP - General Family Medicine 01/24/20 documented as of this encounter
--- OUTSIDE RECORDS SUMMARY | 2024-12-06 11:13 | XMS_ITS | Patient Health Record ---
Author Organization [facility] Address [address] [place] [address] Care Team Providers Care Hotel Housekeeper Name Role Phone Mina Zaman Jr Reason For Referral No Information Plan Of Treatment No Information
--- OUTSIDE RECORDS SUMMARY | 2024-12-06 11:13 | XMS_ITS | Clinical Summary ---
Author Organization Patient Business [facility] Address [address] [place] [address] Care Team Providers Care Statistical Modeler Name Role Phone Unavailable Primary Care Provider [...]
[2024-12-06 12:53] VITALS: BP 116/70; PULSE 65; RESP 15; TEMP 36.4; O2SAT 99; BMI 19.5
[2024-12-06 13:15] LABS: Glucose, Whole Blood 116 mg/dL (60-115)
--- NOTE | 2024-12-06 13:23 | MHC.SHP ---
Pre-Procedural Eval Section A - 24 Hr Update-Section A only Date of Service: 12/06/24 The patient is an INPATIENT: No Changes since office visit: Yes Patient answered all questions; No Cold of Flu in the past 2 weeks, No New Medical Problems and No Changes in Medication The patient has been examined within 24 hours of the surgical procedure. The History & Physical has been completed within 30 days and I have reviewed it.: Yes Section B - Complete if H&P > 30 days Chief Complaint: dysphagia Allergies: Allergies Allergy/AdvReac Type Severity Reaction Status Date / Time aspirin Allergy Unknown Unknown. Verified 12/06/24 13:07 simvastatin Allergy Unknown rash Verified 12/06/24 13:07 Plan Diagnosis/Plan: Change (proceed with EGD for evaluation of abd pain and dysphagia) I have reviewed the history and physical and performed a pertinent physical examination on my patient. No changes have occurred unless specified. Time Spent With Patient Time: Total time managing care of this patient today ____ minutes.
--- NOTE | 2024-12-06 13:24 | HO.ANESPROP2 ---
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 (Acute) Diverticulosis (Acute) Anxiety (Acute) SOB (shortness of breath) (Acute) Chest pressure (Acute) Heart palpitations (Acute) Anemia (Acute) Tachycardia (Acute) History of hepatitis C (Acute) Erectile dysfunction (Acute) Epididymitis (Acute) Uncontrolled type 2 diabetes mellitus with hyperglycemia (Acute) Transaminitis (Acute) Vitamin D deficiency (Acute) HLD (hyperlipidemia) (Acute) HTN (hypertension) (Acute) Past Medical History Medical History Uncontrolled type 2 diabetes mellitus with hyperglycemia Transaminitis Vitamin D deficiency HLD (hyperlipidemia) HTN (hypertension) Family History Family History Mother Diabetes Hypertension Father Myocardial infarction Family history of problems with anesthesia: No Surgical History Surgical History (Updated 12/06/24 @ 13:19 by Oksana Last RN) History of esophagogastroduodenoscopy (EGD) Hx of colonoscopy History of carpal tunnel release History of Problems with Anesthesia: No Social History Social History Household Members: Spouse Are you a primary direct care professional to a significant other at home: No Do you presently have visiting nurse or other home services: No Unable to assess alcohol history related to: Unknown Alcohol intake: former Year quit: 09/14 Patient Tobacco Use Status: Former Tobacco user Years Smoked: 20 +/- Use of substances other than those prescribed or required for medical reasons: No Are you DNR?: No Advance Directives: No Advance Directives Information Provided: Yes Meds Allergies Allergy/AdvReac Type Severity Reaction Status Date / Time aspirin Allergy Unknown Unknown. Verified 12/06/24 13:07 simvastatin Allergy Unknown rash Verified 12/06/24 13:07 Active Medications: Current Medications Lactated Ringer's (Lr) 1,000 mls @ 50 mls/hr IVCONT .Q20H VICKIE Home Medications ?Medication ?Instructions ?Recorded ?Confirmed ?Last Taken ?Type losartan 50 mg tablet 50 mg PO QAM 08/28/22 12/06/24 Unknown History quetiapine 50 mg tablet 50 mg PO DAILY PRN Anxiety 06/24/23 12/06/24 Unknown History hydroxyzine HCl 50 mg tablet 50 mg PO TID 08/22/23 12/06/24 Unknown History Exam Height,Weight and Vital Signs: Height 5 ft 10 in Weight 61.598 kg Last Vital Signs Temp 97.5 F 12/06/24 12:53 Pulse 65 12/06/24 12:53 Resp 15 12/06/24 12:53 BP 116/70 12/06/24 12:53 Pulse Ox 99 12/06/24 12:53 O2 Del Method Room Air 12/06/24 12:53 Pertinent Lab Results Pertinent Lab Results: Laboratory Tests 12/06/24 13:10 POC Glucose 116 H Airway Mallampati Class: II TM Dist: >3cm Neck ROM: Full Loose/Missing/Broken Teeth: Yes and Lower (loose lower front middle tooth. Discussed w patient.) Heart: ok Lungs: ok Assessment and Plan Assessment Anesthesia Assessment: Anesthesia Plan Discussed and Chart Reviewed Final Anesthetic Review Family History of Problems with Anesthesia: No History of Problems with Anesthesia: No NPO: Yes ASA Class: III Final Preanesthetic Review: No Changes in Pt Med Stat, Meds/Allgs Chart Reviewed, Consent Obtained/Reviewed and Anes Risks/Benef Reviewed Patient Risk: Intermediate Procedure Risk: Intermediate Anesthetic Plan Anesthetic Plan: Agree w/ Assess. and Plan and TIVA Disposition: Standard PACU
--- NOTE | 2024-12-06 13:25 | W.PM.OPN ---
Operative Note Operative Note Date of Service: 12/06/24 Narrative: FLEXIBLE TRANSORAL UPPER GASTROINTESTINAL ENDOSCOPY WITH BIOPSIES, SNARE POLYPECTOMY, HEMOCLIP PLACEMENT AND ESOPHAGEAL BALLOON DILATION Pre-op diagnosis: Nausea, upper abdominal pain, early satiety, dysphagia Post-op diagnosis: GERD, Gastritis, gastric polyp Specimens and Sources: : a- small bowel bxs r/o celiac disease ?b- gastric antrum bxs r/o h pylori ?c- gastric body bxs ?d- gastric polyp ?e- esophagus bxs r/o eoe ?f- proximal esophagus bxs r/o eoe Endoscopist:? Nazario Farooq MD Anesthesia:?[facility] [place] UPPER ENDOSCOPY Consent: Indications for the procedure and potential complications of bleeding, perforation, reaction to medications and missed diagnosis were discussed with the patient and informed consent was obtained. Instrument: Olympus GIF H 190 mid size upper endoscope Monitoring: Vital signs and clinical assessment, continuous EKG monitoring, Pulse oximetry, Carbon Dioxide monitoring and blood pressure monitoring were done throughout the procedure. Procedure: The patient was placed in the left lateral decubitis position and pre-procedure medications were administered and a bite block was placed. The endoscope was inserted into the mouth and advanced under direct vision to the third part of duodenum. A careful inspection was made as the upper endoscope was withdrawn including a retroflexed examination of the proximal stomach; Findings and interventions are described below. Findings: Larynx: Normal Esophagus: GE junction at 42 cms. Mildly tortuous esophagus without stricture or ring. Empiric balloon dilation of the distal esophagus was performed with a 20 mm (60 F) CRE balloon x 60 seconds. Biopsies were obtained from proximal and distal esophagus to check for EOE. Stomach: Moderate diffuse gastric erythema with nodular appearing gastric mucosa in the body- biopsies were obtained from the gastric body and antrum. A 7-8 mm benign appearing polyp in the gastric body along the greater curvature - removed with a cold snare. Some bleeding noted from the polypectomy site - and two hemoclips were placed with cessation of bleeding Grade 2 flap valve on retroflexed examination of the cardia. Duodenum: Normal bulb and descending duodenum. Biopsies were obtained from 3rd part of the duodenum to check for celiac sprue Intervention: Biopsies as noted above Impression and Post Procedure Diagnosis: Endoscopy Findings: ESOPHAGUS: STOMACH: DUODENUM: Plan: Pt will be scheduled for a FU appointment with Dr Farooq to discuss biopsy results. Above findings were reviewed with the patient and relevant handouts were given and the discharge area.
[2024-12-06 14:00] VITALS: BP 94/58; PULSE 76; RESP 18; TEMP 36.1; O2SAT 96
[2024-12-06 14:15] VITALS: BP 100/64; PULSE 72; RESP 16; O2SAT 98
[2024-12-06 14:30] VITALS: BP 152/83; PULSE 55; RESP 14; O2SAT 99
== END 2024-12-06 15:11 | disposition home or self-care (01) ==
PROVIDERS: PCP Nurse Practitioner Primary Care; Visit Provider Internal Medicine Gastroenterology
PROC: 0DJ08ZZ Inspection of Upper Intestinal Tract, Via Natural or Artificial Opening Endoscopic (ICD-10-PCS; CPT 43235; principal; 2024-12-06 13:30)
DX: R13.10 Dysphagia, unspecified (principal); K21.9 Gastro-esophageal reflux disease without esophagitis; K29.60 Other gastritis without bleeding; K22.89 Other specified disease of esophagus; K31.7 Polyp of stomach and duodenum; E11.9 Type 2 diabetes mellitus without complications; I10 Essential (primary) hypertension; E78.5 Hyperlipidemia, unspecified; D64.9 Anemia, unspecified; E55.9 Vitamin D deficiency, unspecified; K70.0 Alcoholic fatty liver; R68.81 Early satiety; Z86.19 Personal history of other infectious and parasitic diseases; Z79.4 Long term (current) use of insulin; Z79.899 Other long term (current) drug therapy
CPT/HCPCS: 43251; 43249; 43239; 82947; 88305; 88313; 88342; C1726; J2003; J2250; J2704

== ENCOUNTER → 2024-12-06 10:54 | Outpatient (BNV) | payer OTHER, SELFPAY | PROVIDERS: PCP Nurse Practitioner Primary Care; Visit Provider Internal Medicine Gastroenterology | DX: R13.10 Dysphagia, unspecified (principal); K29.70 Gastritis, unspecified, without bleeding; K31.7 Polyp of stomach and duodenum | CPT/HCPCS: 43249; 43251 ==

== ENCOUNTER → 2025-01-04 07:53 | Outpatient (REF) | payer OTHER, SELFPAY ==
--- NOTE | ~2025-01-04 | NM_ITS ---
EXAMINATION: ME RADIONUCLIDE SOLID FOOD GASTRIC EMPTYING 4-HOUR STUDY CLINICAL INFORMATION: R68.81 - Early satiety COMPARISON: There are no prior studies available for comparison. TECHNIQUE: A standard meal consisting of 4 oz of Egg Beaters brand tagged with 0.87 mCi Tc-99m Sulfur Colloid, 5 oz water and 2 slices of toast with jelly was administered orally to the patient. Images were obtained using a dual head gamma camera in the anterior and posterior projections over of the stomach immediately post ingestion and at hourly intervals up to 4 hours post ingestion. The anterior and posterior counts at each time interval were averaged using the geometric mean and expressed as percentage of the immediate post ingestion counts. FINDINGS: There is visualization of activity in the stomach immediately post ingestion. As the study progresses, there is clearance of activity from the stomach and visualization of progressively increasing small bowel activity. By the end of the study, there is almost no retention noted in the stomach. Retention in the stomach at each time interval was: 1 hour 73% (normal 37%-90%) 2 hours 45% (normal 30%-60%) 3 hours 14% 4 hours 5% (normal 0%-10%) ME/ME gastric emptying study IMPRESSION: Normal 4-hour solid food gastric emptying study. For solid meal, rapid gastric emptying is less than 30% at 60 minutes. Delayed gastric emptying criteria is more than 60% remaining at 120 minutes or more than 10% at 240 minutes. The 4-hour value is the best discriminator of a normal or abnormal result). Gastric emptying study grading per JNMT Consensus Recommendations in 2008 (https://tech.snmjournals.org/content/36/1/44) Grade 1 (mild retention): 11-20% at 4h Grade 2 (moderate retention): 21-35% at 4h Grade 3 (severe retention): 36-50% at 4h Grade 4 (very severe retention): >50% retention at 4h Electronically signed by: Sandor Choe MD 01/04/2025 12:56 PM EDT
--- OUTSIDE RECORDS SUMMARY | 2025-01-04 07:55 | XMS_ITS | Clinical Summary ---
Author Organization Patient Business Ser [facility] Address [address] [place] [address] Care Team Providers Care Shop Service Technician Name Role Phone Unavailable Primary Care Provider [...] Panel) 08/28/2023 Colorectal Cancer Screening: Colonoscopy 08/28/2023 HIV Screening 08/28/2023 Hepatitis C Screening 08/28/2023 Social Influencers of Health Screening 08/28/2023 COVID-19 Vaccine ( - 2023-2 5 season) 2024 Depression Screening 05/26/2024 Influenza Vaccine (#1) 2025 HIB Vaccines Aged [...]
--- OUTSIDE RECORDS SUMMARY | 2025-01-04 07:55 | XMS_ITS | Patient Health Record ---
Author Organization [facility] Address [address] [place] [address] Care Team Providers Care Marriage And Family Teacher Name Role Phone Mina Zaman Jr Reason For Referral No Information Plan Of Treatment No Information
--- OUTSIDE RECORDS SUMMARY | 2025-01-04 07:55 | XMS_ITS | Encounter Summary ---
Author Organization [employer] Address [address] [facility] [address] [place] [address] Care Team Providers Care Heater Helper Name Role Phone Gisselle Holland Primary Care Provider [phone] Reason for Visit * Reason Onset Date Comments Med Refill 07/06/2023 Encounter Details Date Type Department Care Team (Late st Contact Info) Description 07/06/2023 Refill [facility] MED[facility]INE [address] [place], [place] [phone] Gisselle Holland ANP [address] [place] [address] Anxiety and depression Social History Tobacco Use [...] Care Team (Late st Contact Info) Description 01/25/2025 10:30 AM EDT Office Visit [facility] [address] [place] [address] Gisselle Holland ANP [address] [place] [address] documented as of this encounter Visit Diagnoses Diagnosis Anxiety and depression documented in this encounter Additional Health Concerns Assessment Noted Time PHQ-9 Depression Total Score: 25 023 9:08 AM EDT documented as of this encounter Care Teams Heater Helper Relationship Specialty Start Date End Date Gisselle Holland ANP [address] [place] [address] PCP - General Family Medicine 01/24/20 documented as of this encounter
== END ==
LOC: HO.NUCMED 07:53
PROVIDERS: PCP Nurse Practitioner Primary Care; Visit Provider Internal Medicine Gastroenterology
DX: R68.81 Early satiety (principal); R63.4 Abnormal weight loss
CPT/HCPCS: 78264; A9541

== ENCOUNTER → 2025-01-04 07:54 | Outpatient (BNV) | payer OTHER, SELFPAY | PROVIDERS: PCP Nurse Practitioner Primary Care; Visit Provider Radiology Diagnostic Radiology | DX: R68.81 Early satiety (principal) | CPT/HCPCS: 78264 ==

== ENCOUNTER 2025-01-21 10:17 | Outpatient (REF) | payer OTHER, SELFPAY ==
--- NOTE | ~2025-01-21 | US_ITS ---
EXAMINATION: US ABDOMEN LIMITED WITH LIVER ELASTOGRAPHY HISTORY: K70.0 - Alcoholic fatty liver TECHNIQUE: Real-time grayscale ultrasound imaging of the right upper quadrant was performed and images were reviewed. COMPARISON: Comparison is made with the prior examination dated 05/22/2021. FINDINGS: Liver: The right lobe of the liver measures 14.3 cm in size. The left lobe of the liver measures 8.4 cm in size. The liver demonstrates coarsened echotexture. No focal mass or intrahepatic biliary ductal dilatation is identified. There is normal hepatopedal flow in the portal vein. Ultrasound elastography of the liver was performed with 10 separate measurements of the liver parenchyma with the patient in the supine position. Measurements were obtained approximately 2 cm below Kimmie's capsule and perpendicular to the capsule. The median shear wave velocity is 1.57 m/s. The interquartile range/median (IQR/median) is 0.21. Gallbladder and biliary tree: The gallbladder is unremarkable, without evidence of calculi, wall thickening, or pericholecystic fluid. There is no sonographic Johnston sign. The common bile duct is normal in caliber measuring 2 mm. Right Kidney: The right kidney measures 10.6 cm in length and demonstrates an interpolar cyst measuring 2.4 x 2.7 x 2.5 cm. The right kidney is otherwise unremarkable, without evidence of solid masses, hydronephrosis, or calculi. Pancreas: The pancreatic head, neck, and body are unremarkable. The pancreatic tail is obscured by bowel gas. Abdominal aorta and inferior vena cava: The visualized portions of the abdominal aorta and inferior vena cava are normal in caliber. There is no free fluid in the right upper quadrant. US/US abdomen mueller w elastography IMPRESSION: Coarsened hepatic echotexture. The median shear wave velocity in the liver is 1.57 m/s, corresponding to a median liver stiffness of 7.63 kPa. The IQR/median value is 0.21. This is indicative of a poor quality data set, and the estimated liver stiffness may be unreliable. Findings are indicative of a low elastography value which rules out advanced chronic liver disease in asymptomatic patients. REFERENCE: Society of Radiologists in Ultrasound Liver Stiffness Thresholds (2020): LIVER STIFFNESS THRESHOLDS: *Shear wave velocity less than 1.3 m/s (Liver Stiffness equal or less than 5 kPa): High probability of being normal. *Shear wave velocity less than 1.7 m/s (Liver Stiffness less than 9 kPa): In the absence of other known clinical signs, rules out compensated advanced chronic liver disease. *Shear wave velocity between 1.7-2.1 m/s (Liver Stiffness 9-13 kPa): Suggestive of compensated advanced chronic liver disease but need further test for confirmation. *Shear wave velocity between 2.1-2.4 m/s (Liver Stiffness 13-17 kPa): Rules in compensated advanced chronic liver disease. *Shear wave velocity greater than 2.4 m/s (Liver Stiffness over 17 kPa): Suggestive of clinically significant portal hypertension. QUALITY OF DATA SET: *IQR/Median value equal or less than 0.15 implies a quality data set. *IQR/Median value over 0.15 implies a poor quality data set. SIGNIFICANT CHANGE FROM PRIOR EXAM: Significant change if liver stiffness measurement is 10% or greater from prior exam. OTHER CONSIDERATIONS: The stage of liver fibrosis may be overestimated in the setting of acute hepatitis, liver inflammation, elevated liver function tests, hepatic vascular congestion, obstructive cholestasis, non-fasting state, and infiltrative diseases such as amyloidosis and lymphoma. In some patients with NAFLD, the liver stiffness thresholds for compensated advanced chronic liver disease may be lower. In causes other than viral hepatitis and NAFLD, liver stiffness thresholds are not well established. Electronically signed by: Sandor Choe MD 01/21/2025 11:01 AM EDT
--- OUTSIDE RECORDS SUMMARY | 2025-01-21 10:54 | XMS_ITS | Patient Health Record ---
Author Organization [facility] Address [address] [place] [address] Care Team Providers Care Behavioral Scientist Name Role Phone Mina Zaman Jr Reason For Referral No Information Plan Of Treatment No Information
--- OUTSIDE RECORDS SUMMARY | 2025-01-21 10:54 | XMS_ITS | Encounter Summary ---
Author Organization [employer] Address [address] [facility] [address] [place] [address] Care Team Providers Care Television Cabinet Finisher Name Role Phone Gisselle Holland Primary Care Provider [phone] Reason for Visit * Reason Onset Date Comments Med Refill 07/06/2023 Encounter Details Date Type Department Care Team (Late st Contact Info) Description 07/06/2023 Refill [facility] [address] [place], [place] [phone] Gisselle Holland ANP [address] [place] [address] Anxiety and depression Social History Tobacco Use [...] Description 01/25/2025 10:30 AM EDT Office Visit [facility] [address] [place] [address] Gisselle Holland ANP [address] [place] [address] documented as of this encounter Visit Diagnoses Diagnosis Anxiety and depression documented in this encounter Additional Health Concerns Assessment Noted Time PHQ-9 Depression Total Score: 25 023 9:08 AM EDT documented as of this encounter Care Teams Television Cabinet Finisher Relationship Specialty Start Date End Date Gisselle Holland ANP [address] [place] [address] PCP - General Family Medicine 01/24/20 documented as of this encounter
--- OUTSIDE RECORDS SUMMARY | 2025-01-21 10:55 | XMS_ITS | Clinical Summary ---
Author Organization [employer] Address [address] [place] [address] [address] [place] [address] Care Team Providers Care Summer Clerk Name Role Phone Howard Singh MILA Primary Care Provider [phone] Allergies Active Allergy Reactions Criticality Noted Date [...] 1 07/05/19 23 Active Continuous Blood Gluc Pilot Fuel Engineer (Dexcom G5 Pilot Fuel Engineer Kit) deviceIndications: Type 1 diabetes mellitus maturity onset (CMS/HCC) 1 each 4 times daily. 1 each 08/13/19 23 Active Continuous Blood Gluc Sensor (Dexcom G6 Sensor) miscIndications:Ty pe 1 diabetes mellitus maturity onset (CMS/HCC) 1 each every 14 (fourteen) days. 6 each 3 08/13/19 23 Active Repatha SureClick 140 MG/ML injection INJECT 140 MG SUBCUTANEOUSLY EVERY TWO WEEKS 04/26/20 23 Active LORazepam (Ativan) 1 MG tabletIndications: [...] 06/22/19 25 026 Active Multiple Vitamin (multivitamin) tabletIndications: Fatigue, unspecified type Take 1 tablet by mouth Once per day. 90 tablet 3 08/31/19 25 Active Active Problems Problem Noted Date Diagnosed Date Panic disorder 09/22/2023 Overview (09/22/2023): follows w/ GEORGIA De La Rosa and zaira Goldman at [facility]. Takes: sertraline 150mg , hydroxyzine 50mg TID, quetiapine 50mg TID, lorazepam 1mg Anxiety 09/13/2022 Elevated liver enzymes 01/22/2021 Type 1 diabetes mellitus maturity onset 01/23/20 21 Overview (09/22/2023): Follows w/ [facility]. On basal bolus. Kidney disease 03/04/2014 Diabetes mellitus 10/17/2011 Essential hypertension 10/17/2011 Overview (09/22/2023): Losartan 100mg daily Had side effects from lisinopril-hydrochlorothiazide Pure hypercholesterolemia 10/17/2011 Overview (09/22/2023): On Repatha via Endo. Not on statin d/t elevated LFTs. Encounters Date Type Department Care Team Description 12/27/2024 Telephone [facility] [address] [place] [phone] Howard Singh ANP pre -op 12/06/2024 Orders Only GENERIC EXTERNAL DATA DEPARTMENT Provider, Generic External Data 12/01/2024 Orders Only GENERIC EXTERNAL DATA DEPARTMENT Provider, Generic External Data from Last 3 Months Immunizations Immunization Administration Dates Next Due Moderna Covid-19 Vaccine [...] 86 06/22/2024 9:24 AM EST Temperature 36.4 C (97.6 F) 06/22/2024 9:24 AM EST Respiratory Rate 12 06/22/2024 9:24 AM EST [...] Description 01/25/2025 10:30 AM EDT Office Visit [facility] [address], [place] [phone] Howard Singh, ANP [address] [place] [address] Health Maintenance Due Date Last Done Comments CT Colonography 1967 FIT DNA/Cologuard 1967 FIT 1967 FOBT 1965 Sigmoidoscopy 1967 Disability Screening 1967 Eye Exam 1977 Alcohol/Substance Use Screening 1979 Hepatitis A Vaccines (1 of 2 - Risk 2-dose series) 1986 Hepatitis B Vaccines (1 of 3 - 19+ 3-dose series) 1986 Pneumococcal Vaccine: 50+ Years (2 of 2 - PCV) 04/11/2011 04/11/2010 Diabetes: Urine Protein Screening 11/19/2022 11/19/2021, 09/04/2020 COVID-19 Vaccine ( season) 2024 06/30/2021, 10/10/2020, 09/11/2020 Lipid Panel 06/19/2024 06/19/2023 Depression Monitoring 12/20/2024 06/22/2024, 025 SDOH Screening 12/25/2024 12/26/2023 Influenza Vaccine (#1) 2025 Diabetes: Foot Exam 02/23/2025 02/24/2024 Diabetes: Hemoglobin A1C 03/03/2025 025, 06/29/2024, 01/08/2024, Additional history exists Tobacco Screening 08/30/2025 08/30/2024 Colonoscopy 02/24/2026 02/24/2023 Colorectal Cancer Screening 02/24/2026 DTaP/Tdap/Td Vaccines (3 - Td or Tdap) 01/22/2031 01/22/2021, 04/11/2010 RSV Patients and Patients Aged 60 years or older (1 - 1-dose 75+ series) 2042 HIV Screening Completed 11/09/2019 Zoster Vaccines Completed 02/28/2020, [...] Procedure Name Priority Date/Time Associated Diagnosis Comments NM GASTRIC EMPTYING SOLID Routine 01/04/2025 7:55 AM EDT HEMATOXYLIN AND EOSIN STAIN Routine 12/06/2024 1:46 PM EDT GLUCOSE, WHOLE BLOOD Routine 12/06/2024 1:10 PM EDT GLUCOSE, WHOLE BLOOD Routine 12/01/2024 3:00 PM EDT HEMOGLOBIN A1C Routine 12/01/2024 LIPID PANEL, STANDARD Routine 06/19/2023 8:26 AM EST COLONOSCOPY Routine 02/24/2023 ZZZ HISTORICAL MICROALBUMIN/CREATIN INE RATIO, RANDOM URINE Routine 11/19/2021 12:24 PM EDT ZZZ HISTORICAL HIV AB/AG Routine 11/09/2019 10:25 AM EDT from Last 3 Months or Most Recently Relevant to Health Maintenance Results * NM Gastric Emptying Solid (01/04/2025 7:55 AM EDT) Anatomical Region Laterality Modality Body Nuclear Medicine 01/04/2025 7:55 AM EDT Narrative 01/04/2025 12:59 PM EDT [place] [id number] Nuclear Medicine Report Signed Patient: Alyssia Patten MR#: [id number] : 1965 Acct:[id number] Age/Sex: 59 / M ADM Date: 01/04/25 Loc: [facility] Attending Dr: Nazario Farooq MD Ordering Physician: Nazario Farooq MD Date of Service: 01/04/25 Procedure(s): NM gastric emptying study Accession Number(s): [id number] cc: Nazario Farooq MD; HOWARD SINGH NP EXAMINATION: NM RADIONUCLIDE SOLID FOOD GASTRIC EMPTYING 4-HOUR STUDY CLINICAL INFORMATION: R68.81 - Early satiety COMPARISON: There are no prior studies available for comparison. TECHNIQUE: A standard meal consisting of 4 oz of Egg Beaters brand tagged with 0.87 mCi Tc-99m Sulfur Colloid, 5 oz water and 2 slices of toast with jelly was administered orally to the patient. Images were obtained using a dual head gamma camera in the anterior and posterior projections over of the stomach immediately post ingestion and at hourly intervals up to 4 hours post ingestion. The anterior and posterior counts at each time interval were averaged using the geometric mean and expressed as percentage of the immediate post ingestion counts. FINDINGS: There is visualization of activity in the stomach immediately post ingestion. As the study progresses, there is clearance of activity from the stomach and visualization of progressively increasing small bowel activity. By the end of the study, there is almost no retention noted in the stomach. Retention in the stomach at each time interval was: 1 hour 73% (normal 37%-90%) 2 hours 45% (normal 30%-60%) 3 hours 14% 4 hours 5% (normal 0%-10%) NM/NM gastric emptying study IMPRESSION: Normal 4-hour solid food gastric emptying study. For solid meal, rapid gastric emptying is less than 30% at 60 minutes. Delayed gastric emptying criteria is more than 60% remaining at 120 minutes or more than 10% at 240 minutes. The 4-hour value is the best discriminator of a normal or abnormal result). Gastric emptying study grading per JNMT Consensus Recommendations in 2008 (https://tech.snmjournals.org/content/36/44) Grade 1 (mild retention): 11-20% at 4h Grade 2 (moderate retention): 21-35% at 4h Grade 3 (severe retention): 36-50% at 4h Grade 4 (very severe retention): >50% retention at 4h Electronically signed by: Sandor Choe MD 01/04/2025 12:56 PM EDT Dictated By: Sandor Choe MD Signed By: <Electronically signed by Sandor Choe MD in OV> 01/04/25 1256 DD/ 0755 TD/TT: 01/04/25 1225 Employment Instructional Associate: Procedure Note Donotuseinterpreter, Image - 01/04/[address] [address] Nuclear Medicine Report Signed Patient: Alyssia Patten RMR#: [id number] : 1965Acct:[id number] Age/Sex: 59 / MADM Date: 01/04/25 Loc: [facility] Attending Dr: Nazario Farooq MD Ordering Physician: Nazario Farooq MD Date of Service: 01/04/25 Procedure(s): MS gastric emptying study Accession Number(s): [id number] cc: Nazario Farooq MD; HOWARD SINGH NP EXAMINATION: MS RADIONUCLIDE SOLID FOOD GASTRIC EMPTYING 4-HOUR STUDY CLINICAL INFORMATION: R68.81 - Early satiety COMPARISON: There are no prior studies available for comparison. TECHNIQUE: A standard meal consisting of 4 oz of Egg Beaters brand tagged with 0.87 mCi Tc-99m Sulfur Colloid, 5 oz water and 2 slices of toast with jelly was administered orally to the patient. Images were obtained using a dual head gamma camera in the anterior and posterior projections over of the stomach immediately post ingestion and at hourly intervals up to 4 hours post ingestion. The anterior and posterior counts at each time interval were averaged using the geometric mean and expressed as percentage of the immediate post ingestion counts. FINDINGS: There is visualization of activity in the stomach immediately post ingestion. As the study progresses, there is clearance of activity from the stomach and visualization of progressively increasing small bowel activity. By the end of the study, there is almost no retention noted in the stomach. Retention in the stomach at each time interval was: 1 hour 73% (normal 37%-90%) 2 hours 45% (normal 30%-60%) 3 hours 14% 4 hours 5% (normal 0%-10%) MS/MS gastric emptying study IMPRESSION: Normal 4-hour solid food gastric emptying study. For solid meal, rapid gastric emptying is less than 30% at 60 minutes. Delayed gastric emptying criteria is more than 60% remaining at 120 minutes or more than 10% at 240 minutes. The 4-hour value is the best discriminator of a normal or abnormal result). Gastric emptying study grading per JNMT Consensus Recommendations in 2008 (https://tech.snmjournals.org/content/36/1/44) Grade 1 (mild retention): 11-20% at 4h Grade 2 (moderate retention): 21-35% at 4h Grade 3 (severe retention): 36-50% at 4h Grade 4 (very severe retention): >50% retention at 4h Electronically signed by: Sandor Choe MD 01/04/2025 12:56 PM EDT Dictated By: Sandor Choe MD Signed By: <Electronically signed by Sandor Choe MD in OV> 01/04/25 1256 DD/ 0755 TD/TT: 01/04/25 1225 Employment Instructional Associate: [facility] External Provider IMG NM PROCEDURES Edited Result - Final * Hematoxylin and Eosin Stain (12/06/2024 1:46 PM EDT) 12/06/2024 1:46 PM EDT 12/06/2024 2:15 PM EDT Narrative [facility] - 12/08/2024 10:30 AM EDT ----- ------- Name: Alyssia Patten Age/Sex: 59/M : 1965 Unit#: [id number] Attend Dr: Nazario Farooq MD Re12/06/24 Status: [facility] Location: [facility] Disch: ----- ------- SPEC : [id number] RECD: 12/06/24 STATUS: ANGE WILDER NUM: [id number] MALAIKA: 12/06/[address] [facility] [address]: Nazario Farooq MD ENTERED: 12/06/24 SP TYPE: Surgical OTHR DR: HOWARD SINGH NP ORDERED: HE Stain/12, Gross Micro L4/6, IHC/2, Special st. 2/3, H. pylori/2, AB/PAS/3 Diagnosis A. Small bowel, biopsy: Duodenal mucosa within normal limits. B. Stomach, antrum, biopsy: Antral-type mucosa with moderate chronic inactive inflammation and intestinal metaplasia; negative for dysplasia; no Helicobacter organisms seen. C. Stomach, body, biopsy: Oxyntic mucosa with mild chronic inactive inflammation; no Helicobacter organisms seen. D. Stomach, polypectomy: Fundic gland polyp with background mild chronic inactive inflammation; no Helicobacter organisms seen. E. Esophagus, biopsy: Squamous epithelium within normal limits; no inflammation seen. F. Esophagus, proximal, biopsy: Squamous epithelium within normal limits; no inflammation seen. Comment: Diagnostic morphologic features of celiac disease or eosinophilic esophagitis are not seen. Clinical History Pre-Op Dx: Dysphagia Post-Op Dx: GERD, gastritis, gastric polyp Microscopic Description A-F. Microscopic sections examined. No metaplastic changes are seen, supported by AB/PAS stains (A); no Helicobacter organisms are seen, supported by H. pylori immunostain (B and C). Material Received A. Small bowel bx's - R/O celiac disease B. Gastric antrum bx's - R/O H. pylori C. Gastric body bx's D. Gastric polyp E. Esophagus bx's - R/O EOE F. Proximal esophagus bx's - R/O EOE CONTINUED ON NEXT PAGE ----- ------- Name: Alyssia Patten Age/Sex: 59/M : 1965 Unit#: [id number] Attend Dr: Nazario Farooq MD Re12/06/24 Status: [facility] Location: [facility] Disch: ----- ------- SPEC : [id number] RECD: 12/06/24 STATUS: ANGE WILDER NUM: [id number] MALAIKA: 12/06/[address] [facility] [address]: Nazario Farooq MD ENTERED: 12/06/24 SP TYPE: Surgical OTHR DR: HOWARD SINGH NP ORDERED: HE Stain/12, Gross Micro L4/6, IHC/2, Special st. 2/, H. pylori/2, AB/PAS/3 Gross Description Received in six parts. Part A: Received in formalin labeled small bowel bx's, rule out celiac disease are two grace irregular tissue fragments each measuring 0.3 cm, submitted in toto in a cassette labeled A. Part B: Received in formalin labeled gastric antrum bx's, rule out H. pylori are two grace- pink irregular tissue fragments each measuring 0.35 cm, submitted in toto in a cassette labeled B. Part C: Received in formalin labeled gastric body bx's are two grace-pink irregular tissue fragments each measuring 0.25 cm, submitted in toto in a cassette labeled C. Part D: Received in formalin labeled gastric polyp is a 0.9 x 0.45 x 0.2 cm grace-pink rectangular-papular tissue fragment, sectioned and entirely submitted in a cassette labeled D. Part E: Received in formalin labeled esophagus bx's (sic), rule out EOE is a 0.4 cm thin and delicate grace-pink rectangular fragment of mucosa, submitted in toto in a cassette labeled E. Part F: Received in formalin labeled proximal esophagus bx's (sic), rule out EOE is a 0.3 cm thin and delicate, roche-pink rectangular fragment of mucosa, submitted in toto in a cassette labeled F. CEDS Special studies ordered and performed: Immunostain for H. pylori on B and C; AB/PAS stains on A IHC S/NG Disclaimer NOTE: Unless otherwise stated, all tissue is formalin-fixed and paraffin-embedded. Some or all of the immunohistochemical tests reported herein may have been developed and their performance characteristics determined by [facility]. They have not been cleared or approved by the U.S. Food and Drug Administration (FDA). However, the FDA has determined that such clearance or approval is not necessary. This laboratory is certified under the Clinical Laboratory Improvement Amendments of 1988 (CLIA) as qualified to perform high complexity clinical laboratory testing. CONTINUED ON NEXT PAGE ----- ------- Name: Alyssia Patten Age/Sex: 59/M : 1965 Unit#: [id number] Attend Dr: Nazario Farooq MD Re12/06/24 Status: [facility] Location: [facility] Disch: ----- ------- SPEC : [id number] RECD: 12/06/24 STATUS: ANGE SANTAMARIAAngie NUM: [id number] MALAIKA: 12/06/[address] [facility] [address]: Nazario Farooq MD ENTERED: 12/06/24 SP TYPE: Surgical OTHR DR: HOWARD SINGH NP ORDERED: HE Stain/12, Gross Micro L4/6, IHC/2, Special st. 2/3, H. pylori/2, AB/PAS/3 Copies To: Nazario Farooq MD [facility] [address] [place] [address] [phone] HOWARD SINGH NP [address] [place], [place] [phone] ----- ------- Signed (signature on file) Román Ruiz MD 12/08/24 1030 ----- ------- END OF REPORT Generic External Data Provider LAB BLOOD ORDERAB LES Final Result Performing Organization Address [facility] Co de Phone Number [facility] [address] [place] [phone] * (ABNORMAL) Glucose, Whole Blood (12/06/2024 1:10 PM EDT) Glucose, Whole Blood 116(H) 60 - 115 mg/dL [facility] Comment:METER #: [id number] 12/06/2024 1:10 PM EDT 12/06/2024 1:15 PM EDT Generic External Data Provider LAB BLOOD ORDERAB LES Final Result Performing Organization Address [facility] Co de Phone Number [facility] [address] [place] [phone] [phone] * (ABNORMAL) Glucose, Whole Blood (12/01/2024 3:00 PM EDT) Glucose, Whole Blood 204(H) 60 - 115 mg/dL [facility] Comment:METER #: [id number] 5Testing performed in the Endocrinology Department [address], [facility]. 12/01/2024 3:00 PM EDT 12/01/2024 3:03 PM EDT us Generic External Data Provider LAB BLOOD ORDERAB LES Final Result Performing Organization Address [facility]/State/ZIP Co de Phone Number [facility] [address] [place] [phone] [phone] * (ABNORMAL) HM Hemoglobin A1c (12/01/2024) Hemoglobin A1C 8.4(A) 4.0 - 5.7 % Narrative Leslie Waddell - 12/01/2024 See external hospital admission note with matching A1C date us Historical Provider HEALTH MAINTENANCE Final Result * (ABNORMAL) Lipid Panel, Standard (06/19/2023 8:26 AM EST) Triglycerides 92 <150 mg/dL [facility] Comment:Desirable Triglyceri de: less than 150 mg/dLBorderline High Triglyceride 150-199 mg/dLHigh Triglyceride: 200-499 mg/dLVery High Triglyceride: greater than or equal to 5OO mg/dL Cholesterol 119 <200 mg/dL [facility] Comment:Desirable Cholestero l: less than 200 mg/dLBorderline High Cholesterol: 200-239 mg/dLHigh Cholesterol: greater than 239 mg/dL LDL Cholesterol Calculated 66 <100 mg/dL [facility] Comment:Desirable LDL: less than 100 mg/dLNear Optimal/Above Optimal LDL: 110- 129 mg/dLBorderline High LDL: 130-159 mg/dLHigh LDL: 160-189 mg/dLVery High LDL: greater than or equal to 190 mg/dL HDL Cholesterol 35(L) >40 mg/dL [facility] Comment:Desirable HDL: great er than 40 mg/dL Note: This HDL assay may give artificially low results in patients with liver disease. 06/19/2023 8:26 AM EST 06/19/2023 8:26 AM EST Generic External Data Provider LAB BLOOD ORDERAB LES Final Result [facility] [address] [place] [phone] [phone] * Colonoscopy (02/24/2023) Pathologist [facility] Colonoscopy Normal Normal Narrative Leslie Waddell - 02/24/2023 Colonoscopy order added us Historical Provider HEALTH MAINTENANCE Final Result * MICROALBUMIN/CREATININE RATIO, RANDOM URINE (11/19/2021 12:24 PM EDT) Pathologist [facility] Creatinine Urine 168.36 mg/dL [facility] Microalbum/Creati nine Ratio Ur 35.0 ug/mg cr [facility] Comment: Albumin/Creatinine Ratio Reference Ranges: Normal: < 30 ug/mg creatinine Microalbuminuria: 30 - 300 ug/mg creatinine Clinical Albuminuria: > 300 ug/mg creatinine Microalbumin Urine 59.0 mg/L [facility] 11/19/2021 12:2 4 PM EDT us Historical Provider HISTORICAL/NON ORDERABLE LABS Final Result [facility] [address] * HIV AB/AG (11/09/2019 10:25 AM EDT) Pathologist [facility] HIV AG/AB NONREACTIVE NR [facility] Comment: HIV-1 p24 Ag and/or HIV-1/HIV-2 Ab not detected. A test result that is nonreactive does not exclude the possibility of exposure to or infection with HIV-1 and/or HIV-2. Nonreactive results in this assay for individuals with prior exposure to HIV-1 and/or HIV-2 may be due to antigen and antibody levels that are below the limit of detection of this assay. The [employer]ization Management HIV Ag/Ab Combo assay result and supplemental assay results should be interpreted in conjunction with the patient's clinical presentation, history and other laboratory results. If the results are inconsistent with clinical evidence, additional testing is suggested to confirm the result. 11/09/2019 10:2 5 AM EDT us Historical Provider HISTORICAL/NON ORDERABLE LABS Final Result [facility] [address] from Last 3 Months or Most Recently Relevant to Health Maintenance Insurance [employer] PPO Care Teams Summer Clerk Relationship Specialty Start Date End Date Howard Singh ANP [address] [place] [address] PCP - General Family Medicine 01/24/20
--- OUTSIDE RECORDS SUMMARY | 2025-01-21 10:55 | XMS_ITS | Clinical Summary ---
Author Organization Patient Business Ser [facility] Address [address] [place] [address] Care Team Providers Care Window Shade Cutter And Mounter Name Role Phone Unavailable Primary Care Provider [...]
== END 2025-01-21 10:18 | disposition home or self-care (01) ==
LOC: HO.US 10:17
PROVIDERS: PCP Nurse Practitioner Primary Care; Visit Provider Internal Medicine Gastroenterology
DX: K70.0 Alcoholic fatty liver (principal)
CPT/HCPCS: 76705; 76981

== ENCOUNTER → 2025-01-21 10:19 | Outpatient (BNV) | payer OTHER, SELFPAY | PROVIDERS: PCP Nurse Practitioner Primary Care; Visit Provider Radiology Diagnostic Radiology | DX: K70.0 Alcoholic fatty liver (principal); K76.89 Other specified diseases of liver | CPT/HCPCS: 76705 ==

== ENCOUNTER 2025-02-22 08:40 | Outpatient (REF) | payer OTHER, SELFPAY ==
--- OUTSIDE RECORDS SUMMARY | 2025-02-22 09:09 | XMS_ITS | Encounter Summary ---
Author Organization [employer] Address [address] [facility] 7t [place] [address] Care Team Providers Care Die Engraver Name Role Phone Gisselle Holland Primary Care Provider Reason for Visit * Reason Onset Date Comments Med Refill 07/06/2023 Encounter Details Date Type Department Care Team (Late st Contact Info) Description 07/06/2023 Refill [facility] [address] [place], [place] [phone] Gisselle Holland ANP [address] [place] [address] Anxiety and depression Social History Tobacco Use [...] Care Team (Late st Contact Info) Description 03/31/2025 10:30 AM EST Office Visit [facility] [address] [place] [address] Gisselle Holland ANP [address] [place] [address] documented as of this encounter Visit Diagnoses Diagnosis Anxiety and depression documented in this encounter Additional Health Concerns Assessment Noted Time PHQ-9 Depression Total Score: 25 023 9:08 AM EDT documented as of this encounter Care Teams Die Engraver Relationship Specialty Start Date End Date Gisselle Holland ANP [address] [place] [address] PCP - General Family Medicine 01/24/20 documented as of this encounter
--- OUTSIDE RECORDS SUMMARY | 2025-02-22 09:09 | XMS_ITS | Patient Health Record ---
Author Organization [facility] Address [address] [place] [address] Care Team Providers Care Technical Sales Director Name Role Phone Mina Zaman Jr Reason For Referral No Information Plan Of Treatment No Information
--- OUTSIDE RECORDS SUMMARY | 2025-02-22 09:09 | XMS_ITS | Clinical Summary ---
Author Organization [employer] Address [address] [place] [address] 7t [place] [address] Care Team Providers Care Ceramic Tile Installation Helper Name Role Phone Howard Singh MILA Primary Care Provider [phone] Allergies Active Allergy Reactions Criticality Noted Date [...] 1 07/05/19 23 Active Continuous Blood Gluc Vet Assistant (Dexcom G5 Vet Assistant Kit) deviceIndications: Type 1 diabetes mellitus maturity onset (HCC) 1 each 4 times daily. 1 each 08/13/19 23 Active Continuous Blood Gluc Sensor (Dexcom G6 Sensor) miscIndications:Ty pe 1 diabetes mellitus maturity onset (HCC) 1 each every 14 (fourteen) days. 6 [...] De La Rosa and zaira Goldman at [facility]. Takes: sertraline 150mg , hydroxyzine 50mg TID, [...] Encounters Date Type Department Care Team Description 02/01/2025 Patient Outreach [facility] [address] [place] [phone] Howard Singh ANP Care Coordination (CHW outreach for SDOH food needs-LVM ) 02/01/2025 Patient Outreach [address] [address] Howard Singh ANP 01/25/2025 10:30 AM EDT Office Visit [address] [address] Howard Singh ANP Pre-op evaluation (Primary Dx); Cataract of both eyes, unspecified cataract type; Type 2 diabetes mellitus with hyperglycemia, with long-term current use of insulin ([facility]); Elevated liver enzymes 01/25/2025 Travel 01/24/2025 Travel 01/21/2025 Orders Only [facility] External Provider, [facility] 12/27/[address] [address] Howard Singh ANP pre -op 12/06/2024 Orders [...] housing situation today? I have michael rosales 01/25/[address] you li ve. Do you have problems with any of the following? None of the above 01/25/2025 Food Insecurity Answer Date Recorded Within the past 12 months, y ou worried that your food would run out before you got money to buy more: Often true 01/25/2025 Within the past 12 months,th e food you bought just didn't last and you didn't have enough money to get more: Often true 06/2024 Transportation Answer Date Recorded In the past 12 months, has l ack of transportation kept you from medical appts, meetings, work or from getting things needed for daily living? No 01/25/2025 Utilities Answer Date Recorded In the past 12 months, has t he electric, gas, oil or water company threatened to shut off services in your home? Yes 01/25/2025 Depression Answer Date Recorded Patient Health Questionnaire-2 Score 6 01/25/2025 Internet Access Answer Date Recorded Internet Access Q1 Yes 01/25/2025 Internet Access Q2 Not on file 01/25/2025 Sex and Gender Information Value Date Recorded Sex Assigned at Male 03/25/2022 10:15 AM EDT Legal Sex Male 10:15 AM EDT Gender Identity Male 03/25/2022 10:15 AM EDT Sexual Orientation Straight 03/25/2022 10 :15 AM EDT Last Filed Vital Signs Vital Sign Reading Time Taken Comments Blood Pressure 110/68 01/25/2025 10:38 AM EDT Pulse 70 01/25/2025 10:38 AM EDT Temperature 36.2 C (97.1 F) 01/25/2025 10:38 AM EDT Respiratory Rate 14 01/25/2025 10:38 AM EDT Oxygen Saturation 99% 01/25/2025 10:38 AM EDT Inhaled Oxygen Concentration - - Weight 61.8 kg (136 lb 3.2 oz) 01/25/2025 10:38 AM EDT Height 177.8 cm (5' 10 ) 01/08/2024 2:39 PM EDT Body Mass Index 19.54 01/08/2024 2:39 PM EDT Plan of Treatment Upcoming Encounters Date Type Department Care Team (Late st Contact Info) Description 03/31/2025 10:30 AM EST Office Visit [facility] [address] [place] [address] Howard Singh, MILA [address] [place] [address] Health Maintenance Due Date Last Done Comments CT Colonography 1967 FIT DNA/Cologuard 1967 FIT 1967 FOBT 1965 Sigmoidoscopy 1965 Eye Exam 1977 Hepatitis A Vaccines (1 of 2 - Risk 2-dose series) 1986 Hepatitis B Vaccines (1 of 3 - 19+ 3-dose series) 1986 Pneumococcal Vaccine: 50+ Years (2 of 2 - PCV) 04/11/2011 04/11/2010 Diabetes: Urine Protein Screening 11/19/2022 11/19/2021, 09/04/2020 Lipid Panel 06/19/2024 06/19/2023 COVID-19 Vaccine ( season) 2025 06/30/2021, 10/10/2020, 09/11/2020 Influenza Vaccine (#1) 2025 Diabetes: Foot Exam 02/23/2025 02/24/2024 Diabetes: Hemoglobin A1C 03/03/2025 025, 06/29/2024, 01/08/2024, Additional history exists Depression Monitoring 07/25/2025 01/25/2025, 025 Disability Screening 01/24/2026 01/24/2025 Alcohol/Substance Use Screening 01/25/2026 01/25/2025 SDOH Screening 01/25/2026 01/25/2025 Tobacco Screening 01/25/2026 01/25/2025 Colonoscopy 02/24/2026 02/24/2023 Colorectal Cancer Screening 02/24/2026 [...] Procedure Name Priority Date/Time Associated Diagnosis Comments US ABDOMEN DAVIS W ELASTOGRAPHY Routine 01/21/2025 10:37 AM EDT NM GASTRIC EMPTYING SOLID Routine 01/04/2025 7:55 AM EDT HEMATOXYLIN AND EOSIN STAIN Routine 12/06/2024 1:46 PM EDT GLUCOSE, WHOLE BLOOD Routine 12/06/2024 1:10 PM EDT GLUCOSE, WHOLE BLOOD Routine 12/01/2024 3:00 PM EDT HM HEMOGLOBIN A1C Routine 12/01/2024 LIPID PANEL, STANDARD Routine 06/19/2023 8:26 AM EST HM COLONOSCOPY Routine 02/24/2023 ZZZ HISTORICAL MICROALBUMIN/CREATINI NE RATIO, RANDOM URINE Routine 11/19/2021 12:24 PM EDT ZZZ HISTORICAL HIV AB/AG Routine 11/09/2019 10:25 AM EDT from Last 3 Months or Most Recently Relevant to Health Maintenance Results * US ABDOMEN DAVIS W ELASTOGRAPHY (01/21/2025 10:37 AM EDT) Anatomical Region Laterality Modality Abdomen Ultrasound 01/21/2025 10:3 7 AM EDT Narrative 01/21/2025 11:03 AM EDT [address] [address] Ultrasound Report Signed Patient: Alyssia Patten MR#: [id number] : 1965 Acct:[id number] Age/Sex: 59 / M ADM Date: 01/21/25 Loc: HO.US Attending Dr: Nazario Farooq MD Ordering Physician: Nazario Farooq MD Date of Service: 01/21/25 Procedure(s): US abdomen davis w elastography Accession Number(s): [id number] cc: Nazario Farooq MD; HOWARD SINGH NP EXAMINATION: US ABDOMEN LIMITED WITH LIVER ELASTOGRAPHY HISTORY: K70.0 - Alcoholic fatty liver TECHNIQUE: Real-time grayscale ultrasound imaging of the right upper quadrant was performed and images were reviewed. COMPARISON: Comparison is made with the prior examination dated 05/22/2021. FINDINGS: Liver: The right lobe of the liver measures 14.3 cm in size. The left lobe of the liver measures 8.4 cm in size. The liver demonstrates coarsened echotexture. No focal mass or intrahepatic biliary ductal dilatation is identified. There is normal hepatopedal flow in the portal vein. Ultrasound elastography of the liver was performed with 10 separate measurements of the liver parenchyma with the patient in the supine position. Measurements were obtained approximately 2 cm below Kimmie's capsule and perpendicular to the capsule. The median shear wave velocity is 1.57 m/s. The interquartile range/median (IQR/median) is 0.21. Gallbladder and biliary tree: The gallbladder is unremarkable, without evidence of calculi, wall thickening, or pericholecystic fluid. There is no sonographic Johnston sign. The common bile duct is normal in caliber measuring 2 mm. Right Kidney: The right kidney measures 10.6 cm in length and demonstrates an interpolar cyst measuring 2.4 x 2.7 x 2.5 cm. The right kidney is otherwise unremarkable, without evidence of solid masses, hydronephrosis, or calculi. Pancreas: The pancreatic head, neck, and body are unremarkable. The pancreatic tail is obscured by bowel gas. Abdominal aorta and inferior vena cava: The visualized portions of the abdominal aorta and inferior vena cava are normal in caliber. There is no free fluid in the right upper quadrant. US/US abdomen davis w elastography IMPRESSION: Coarsened hepatic echotexture. The median shear wave velocity in the liver is 1.57 m/s, corresponding to a median liver stiffness of 7.63 kPa. The IQR/median value is 0.21. This is indicative of a poor quality data set, and the estimated liver stiffness may be unreliable. Findings are indicative of a low elastography value which rules out advanced chronic liver disease in asymptomatic patients. REFERENCE: Society of Radiologists in Ultrasound Liver Stiffness Thresholds (2019): LIVER STIFFNESS THRESHOLDS: *Shear wave velocity less than 1.3 m/s (Liver Stiffness equal or less than 5 kPa): High probability of being normal. *Shear wave velocity less than 1.7 m/s (Liver Stiffness less than 9 kPa): In the absence of other known clinical signs, rules out compensated advanced chronic liver disease. *Shear wave velocity between 1.7-2.1 m/s (Liver Stiffness 9-13 kPa): Suggestive of compensated advanced chronic liver disease but need further test for confirmation. *Shear wave velocity between 2.1-2.4 m/s (Liver Stiffness 13-17 kPa): Rules in compensated advanced chronic liver disease. *Shear wave velocity greater than 2.4 m/s (Liver Stiffness over 17 kPa): Suggestive of clinically significant portal hypertension. QUALITY OF DATA SET: *IQR/Median value equal or less than 0.15 implies a quality data set. *IQR/Median value over 0.15 implies a poor quality data set. SIGNIFICANT CHANGE FROM PRIOR EXAM: Significant change if liver stiffness measurement is 10% or greater from prior exam. OTHER CONSIDERATIONS: The stage of liver fibrosis may be overestimated in the setting of acute hepatitis, liver inflammation, elevated liver function tests, hepatic vascular congestion, obstructive cholestasis, non-fasting state, and infiltrative diseases such as amyloidosis and lymphoma. In some patients with NAFLD, the liver stiffness thresholds for compensated advanced chronic liver disease may be lower. In causes other than viral hepatitis and NAFLD, liver stiffness thresholds are not well established. Electronically signed by: Sandor Cheo MD 01/21/2025 11:01 AM EDT Dictated By: Sandor Choe MD Signed By: <Electronically signed by Sandor Choe MD in OV> 01/21/25 1101 DD/ 1037 TD/TT: 01/21/25 1047 Alcohol And Drug Counselor: Procedure Note Donotuseinterpreter, Image - 01/21/[address] [address] Ultrasound Report Signed Patient: Alyssia Patten RMR#: [id number] : 1965Acct:[id number] Age/Sex: 59 / MADM Date: 01/21/25 Loc: HO.US Attending Dr: Nazario Farooq MD Ordering Physician: Nazario Farooq MD Date of Service: 01/21/25 Procedure(s): US abdomen davis w elastography Accession Number(s): [id number] cc: Nazario Farooq MD; HOWARD SINGH NP EXAMINATION: US ABDOMEN LIMITED WITH LIVER ELASTOGRAPHY HISTORY: K70.0 - Alcoholic fatty liver TECHNIQUE: Real-time grayscale ultrasound imaging of the right upper quadrant was performed and images were reviewed. COMPARISON: Comparison is made with the prior examination dated 05/22/2021. FINDINGS: Liver: The right lobe of the liver measures 14.3 cm in size. The left lobe of the liver measures 8.4 cm in size. The liver demonstrates coarsened echotexture. No focal mass or intrahepatic biliary ductal dilatation is identified. There is normal hepatopedal flow in the portal vein. Ultrasound elastography of the liver was performed with 10 separate measurements of the liver parenchyma with the patient in the supine position. Measurements were obtained approximately 2 cm below Kimmie's capsule and perpendicular to the capsule. The median shear wave velocity is 1.57 m/s. The interquartile range/median (IQR/median) is 0.21. Gallbladder and biliary tree: The gallbladder is unremarkable, without evidence of calculi, wall thickening, or pericholecystic fluid. There is no sonographic Johnston sign. The common bile duct is normal in caliber measuring 2 mm. Right Kidney: The right kidney measures 10.6 cm in length and demonstrates an interpolar cyst measuring 2.4 x 2.7 x 2.5 cm. The right kidney is otherwise unremarkable, without evidence of solid masses, hydronephrosis, or calculi. Pancreas: The pancreatic head, neck, and body are unremarkable. The pancreatic tail is obscured by bowel gas. Abdominal aorta and inferior vena cava: The visualized portions of the abdominal aorta and inferior vena cava are normal in caliber. There is no free fluid in the right upper quadrant. US/US abdomen davis w elastography IMPRESSION: Coarsened hepatic echotexture. The median shear wave velocity in the liver is 1.57 m/s, corresponding to a median liver stiffness of 7.63 kPa. The IQR/median value is 0.21. This is indicative of a poor quality data set, and the estimated liver stiffness may be unreliable. Findings are indicative of a low elastography value which rules out advanced chronic liver disease in asymptomatic patients. REFERENCE: Society of Radiologists in Ultrasound Liver Stiffness Thresholds (2020): LIVER STIFFNESS THRESHOLDS: *Shear wave velocity less than 1.3 m/s (Liver Stiffness equal or less than 5 kPa): High probability of being normal. *Shear wave velocity less than 1.7 m/s (Liver Stiffness less than 9 kPa): In the absence of other known clinical signs, rules out compensated advanced chronic liver disease. *Shear wave velocity between 1.7-2.1 m/s (Liver Stiffness 9-13 kPa): Suggestive of compensated advanced chronic liver disease but need further test for confirmation. *Shear wave velocity between 2.1-2.4 m/s (Liver Stiffness 13-17 kPa): Rules in compensated advanced chronic liver disease. *Shear wave velocity greater than 2.4 m/s (Liver Stiffness over 17 kPa): Suggestive of clinically significant portal hypertension. QUALITY OF DATA SET: *IQR/Median value equal or less than 0.15 implies a quality data set. *IQR/Median value over 0.15 implies a poor quality data set. SIGNIFICANT CHANGE FROM PRIOR EXAM: Significant change if liver stiffness measurement is 10% or greater from prior exam. OTHER CONSIDERATIONS: The stage of liver fibrosis may be overestimated in the setting of acute hepatitis, liver inflammation, elevated liver function tests, hepatic vascular congestion, obstructive cholestasis, non-fasting state, and infiltrative diseases such as amyloidosis and lymphoma. In some patients with NAFLD, the liver stiffness thresholds for compensated advanced chronic liver disease may be lower. In causes other than viral hepatitis and NAFLD, liver stiffness thresholds are not well established. Electronically signed by: Sandor Choe MD 01/21/2025 11:01 AM EDT Dictated By: Sandor Choe MD Signed By: <Electronically signed by Sandor Choe MD in OV> 01/21/25 1101 DD/ 1037 TD/TT: 01/21/25 1047 Alcohol And Drug Counselor: us [facility] External Provider IMG US PROCEDURES Edited Result - Final * NM Gastric Emptying Solid (01/04/2025 7:55 AM EDT) Anatomical Region Laterality Modality Body Nuclear Medicine 01/04/2025 7:55 AM EDT Narrative 01/04/2025 12:59 PM EDT [address] [address] Nuclear Medicine Report Signed Patient: Alyssia Patten MR#: [id number] : 1965 Acct:[id number] Age/Sex: 59 / M ADM Date: 01/04/25 Loc: NEREYDA Attending Dr: Nazario Farooq MD Ordering Physician: Nazario Farooq MD Date of Service: 01/04/25 Procedure(s): NM gastric emptying study Accession Number(s): [id number] cc: Nazario Farooq MD; HOWARD SINGH NP [...] Sandor Choe MD 01/04/2025 12:56 PM EDT RP Dictated By: Sandor Choe MD Signed By: <Electronically signed by Sandor Choe MD in OV> 01/04/25 1256 DD/ 0755 TD/TT: 01/04/25 1225 Alcohol And Drug Counselor: Procedure Note Donotuseinterpreter, Image - 01/04/2025 [place] [address] Nuclear Medicine Report Signed Patient: Alyssia Patten RMR#: [id number] : 1965Acct:[id number] Age/Sex: 59 / MADM Date: 01/04/25 Loc: HOTRISTAN Attending Dr: Nazario Farooq MD Ordering Physician: Nazario Farooq MD Date of Service: 01/04/25 Procedure(s): NM gastric emptying study Accession Number(s): [id number] cc: Nazario Farooq MD; HOWARD SINGH NP EXAMINATION: [place] RADIONUCLIDE SOLID FOOD GASTRIC EMPTYING 4-HOUR STUDY [...] 01/04/25 1256 DD/ 0755 TD/TT: 01/04/25 1225 Alcohol And Drug Counselor: [facility] External Provider IMG NM PROCEDURES Edited Result - Final * Hematoxylin and Eosin Stain (12/06/2024 1:46 PM EDT) 12/06/2024 1:46 PM EDT 12/06/2024 2:15 PM EDT [facility] - 12/08/2024 10:30 AM EDT ----- ------- Name: Alyssia Patten Age/Sex: 59/M : 1965 Unit#: [id number] Attend Dr: Nazario Farooq MD Re12/06/24 Status: [facility] Location: [facility] Disch: ----- ------- SPEC : [id number] RECD: 12/06/24-1414 STATUS: ANGE WILDER NUM: [id number] MALAIKA: 12/06/24-1346 [facility] DR: Nazario Farooq MD ENTERED: 12/06/24-142 SP TYPE: Surgical OTHR DR: HOWARD SINGH [...] CONTINUED ON NEXT PAGE ----- ------- Name: Je HerreraAlyssia Murillo Age/Sex: 59/M : 1965 Unit#: [id number] Attend Dr: Nazario Farooq MD Re12/06/24 Status: [facility] Location: [facility] Disch: ----- ------- SPEC : [id number] RECD: 12/06/24 STATUS: ANGE WILDER NUM: [id number] MALAIKA: 12/06/24-1345 [facility] DR: Nazario Farooq MD ENTERED: 12/06/24 SP TYPE: Surgical OTHR DR: HOWARD SINGH NP ORDERED: HE Stain/12, Gross Micro L4/6, IHC/2, Special st. 2/3, H. pylori/2, AB/PAS/3 Gross Description Received in [...] developed and their performance characteristics determined by [facility]. They have not been cleared [...] Alyssia Patten Age/Sex: 59/M : 1965 Unit#: [id number] Attend Dr: Nazario Farooq MD Re12/06/24 Status: [facility] Location: [facility] Disch: ----- ------- SPEC : [id number] RECD: 12/06/24 STATUS: [facility] NUM: [id number] MALAIKA: 12/06/24 [facility] DR: Nazario Farooq MD ENTERED: 12/06/24 SP TYPE: Surgical OTHR DR: HOWARD SINGH NP ORDERED: HE Stain/12, Gross Micro L4/6, IHC/2, Special st. 2/3, H. pylori/2, AB/PAS/3 Copies To: Nazario Farooq MD [facility] [address] [place] [address] [phone] HOWARD SINGH NP [address] [place] [address] ----- ------- Signed (signature on file) Román Ruiz MD 12/08/24 1030 ----- ------- END OF REPORT Generic External Data Provider LAB BLOOD ORDERAB LES Final Result Performing Organization Address [facility] de Phone Number [facility] [address] [place] [phone] * (ABNORMAL) Glucose, Whole Blood (12/06/2024 1:10 PM EDT) Glucose, Whole Blood 116(H) 60 - 115 mg/dL [facility] Comment:METER #: [id number] 12/06/2024 1:10 PM EDT 12/06/2024 1:15 PM EDT Generic External Data Provider LAB BLOOD ORDERAB LES Final Result Performing Organization Address [facility] de Phone Number [facility] [address] [place] [phone] * (ABNORMAL) Glucose, Whole Blood (12/01/2024 3:00 PM EDT) Glucose, Whole Blood 204(H) 60 - 115 mg/dL [facility] Comment:METER #: [id number] 5Testing performed in the Endocrinology Department [address] , [address], [facility]. 12/01/2024 3:00 PM EDT 12/01/2024 3:03 PM EDT Generic External Data Provider LAB BLOOD ORDERAB LES Final Result Performing Organization Address [facility] de Phone Number [facility] [address] [place] [address] [phone] * (ABNORMAL) HM Hemoglobin A1c (12/01/2024) Hemoglobin A1C 8.4(A) 4.0 - 5.7 % Leslie Giordano - 12/01/2024 See external hospital admission note with matching A1C date Historical Provider HEALTH MAINTENANCE Final Result * (ABNORMAL) Lipid Panel, Standard (06/19/2023 8:26 AM EST) Triglycerides 92 <150 mg/dL [facility] Comment:Desirable Triglyceri de: less than 150 mg/dLBorderline High Triglyceride 150-199 mg/dLHigh Triglyceride: 200-499 mg/dLVery High Triglyceride: greater than or equal to 5OO mg/dL Cholesterol 119 <200 mg/dL [facility] Comment:Desirable Cholestero l: less than 200 mg/dLBorderline High Cholesterol: 200-239 mg/dLHigh Cholesterol: greater than 239 mg/dL LDL Cholesterol Calculated 66 <100 mg/dL [facility] Comment:Desirable LDL: less than 100 mg/dLNear Optimal/Above Optimal LDL: 110- 129 mg/dLBorderline High LDL: 130-159 mg/dLHigh LDL: 160-189 mg/dLVery High LDL: greater than or equal to 190 mg/dL HDL Cholesterol 35(L) >40 mg/dL [facility] Comment:Desirable HDL: great er than 40 mg/dL Note: This HDL assay may give artificially low results in patients with liver disease. 06/19/2023 8:26 AM EST 06/19/2023 8:26 AM EST Generic External Data Provider LAB BLOOD ORDERAB LES Final Result [facility] [address] [place] [address] [phone] * Colonoscopy (02/24/2023) Colonoscopy Normal Normal Narrative Leslie Waddell - 02/24/2023 Colonoscopy order added Historical Provider HEALTH MAINTENANCE Final Result * MICROALBUMIN/CREATININE RATIO, RANDOM URINE (11/19/2021 12:24 PM EDT) Creatinine Urine 168.36 mg/dL [facility] Microalbum/Creati nine Ratio Ur 35.0 ug/mg cr [facility] Comment: Albumin/Creatinine Ratio Reference Ranges: Normal: < 30 ug/mg creatinine Microalbuminuria: 30 - 300 ug/mg creatinine Clinical Albuminuria: > 300 ug/mg creatinine Microalbumin Urine 59.0 mg/L [facility] 11/19/2021 12:2 4 PM EDT Historical Provider HISTORICAL/NON ORDERABLE LABS Final Result Performing Organization Address [facility] Phone Number [facility] [address] * HIV AB/AG (11/09/2019 10:25 AM [...] of detection of this assay. The [employer] HIV Ag/Ab Combo assay result and supplemental assay results should be interpreted in conjunction with the patient's clinical presentation, history and other laboratory results. If the results are inconsistent with clinical evidence, additional testing is suggested to confirm the result. 11/09/2019 10:2 5 AM EDT Historical Provider HISTORICAL/NON ORDERABLE LABS Final Result Performing Organization Address [facility] de Phone Number [facility] from Last 3 Months or Most Recently Relevant to Health Maintenance Insurance [employer] PPO Care Teams Ceramic Tile Installation Helper Relationship Specialty Start Date End Date Howard Singh ANP [address] [place] [phone] PCP - General Family Medicine 01/24/20
--- OUTSIDE RECORDS SUMMARY | 2025-02-22 09:09 | XMS_ITS | Clinical Summary ---
Author Organization Patient Business Ser [facility] Address [address] [place] [address] Care Team Providers Care Vending Machine Repairer Name Role Phone Unavailable Primary Care Provider [...] 08/28/2023 Social Influencers of Health Screening 08/28/2023 Depression Screening 05/26/2024 COVID-19 Vaccine ( - 2023-2 5 season) 2025 Influenza Vaccine (#1) 2025 HIB Vaccines Aged [...]
[2025-02-22 12:42] LABS: Alanine Aminotransferase 18 U/L (0-40); Albumin Level 4.4 g/dL (3.5-5.0); Alkaline Phosphatase 99 U/L (39-117); Anion Gap 10 (12-20); Aspartate Amino Transferase 21 U/L (5-37); Blood Urea Nitrogen 19 mg/dL (9-16); Calcium 9.3 mg/dL (8.4-10.2); Carbon Dioxide 29 mmol/L (22-29); Chloride 108 mmol/L (96-108); Cholesterol 203 mg/dL (<200); Estimated Glomerular Filt Rate > 60; HDL Cholesterol 39 mg/dL (>40); Potassium 4.3 mmol/L (3.3-5.1); Sodium 143 mmol/L (135-145); Total Protein 6.9 g/dL (6.5-8.0); Triglycerides 103 mg/dL (<150)
== END 2025-02-22 08:41 | disposition home or self-care (01) ==
LOC: HO.HHCL 08:40
PROVIDERS: PCP Nurse Practitioner Primary Care; Visit Provider Nurse Practitioner Primary Care
DX: E11.65 Type 2 diabetes mellitus with hyperglycemia (principal); Z79.4 Long term (current) use of insulin
CPT/HCPCS: 36415; 80053; 80061; 83036

== ENCOUNTER 2025-03-31 15:22 | Outpatient (AMB) | payer OTHER, SELFPAY ==
--- OUTSIDE RECORDS SUMMARY | 2025-03-31 10:30 | XMS_ITS | Encounter Summary ---
Author Organization [employer] Address [address] [place] [address] Care Team Providers Care Home Hospice Aide Name Role Phone Gisselle Holland Primary Care Provider Reason for Referral * Medications - Closed Specialty Diagnoses / Procedures Referred By Yulia smart Referred To Contact Diagnoses Protein-calorie malnutrition, unspecified severity (CMS/HCC) Anorexia Gisselle Holland ANP [address] [place] [address] Phone: tel: fax: Referral ID Status Reason Start Date Expiration Date Visits Re quested Visits Authorized [id number] Closed 1 1 Reason for Visit * Reason Comments Follow-up Diabetes Encounter Details Date Type Department Care Team (Late st Contact Info) Description 03/31/2025 10:30 AM EST Office Visit [facility] [address] [place], [place] [phone] Gisselle Holland ANP [address] [place] [address] Type 2 diabetes mellitus with hyperglycemia, with long-term current use of insulin (HCC) (Primary Dx); Essential hypertension; Pure hypercholesterolemia; Panic disorder; Protein-calorie malnutrition, unspecified severity (CMS/HCC); Anorexia Social History Tobacco Use Types Packs/Day Years Used Date Smoking Tobacco: Former Cigarettes Smokeless Tobacco: Never Tobacco Cessation:Counseling Given: Not Answered Alcohol Use Standard Drinks/Week Comments Not Currently 0 (1 standard drink = 0.6 oz pur e alcohol) Depression Answer Date Recorded Patient Health Questionnaire-9 Score 06/22/2024 Patient Health Questionnaire-9 Score 06/22/2024 Last PHQ-9: Questionnaire Data Not on [...] Sign Reading Time Taken Comments Blood Pressure 120/80 03/31/2025 10:31 AM EST Pulse 85 03/31/2025 10:31 AM EST Temperature 36.6 C (97.9 F) 03/31/2025 10:31 AM EST Respiratory Rate 14 03/31/2025 10:31 AM EST Oxygen Saturation 98% 03/31/2025 10:31 AM EST Inhaled Oxygen Concentration - - Weight 62.1 kg (137 lb) 03/31/2025 10:31 AM EST Height 177.8 cm (5' 10 ) 03/31/2025 10:31 AM EST Body Mass Index 19.66 03/31/2025 10:31 AM EST documented in this encounter Patient Instructions * Patient Instructions* MILA Juarez - 03/31/2025 10:30 AM EST Below are instructions to obtain a YOUTH CAREER SPECIALIST: 1.) Pick a YOUTH CAREER SPECIALIST company from the attached list. We recommend [employer] but you can chose any of them. 2.) Call and tell them you want YOUTH CAREER SPECIALIST services. 3.) They will schedule a home evaluation to see if you are eligible for services. 4.) They will fax us a form to complete. 5.) We will fill it out and fax it back. 6.) They will determine the number of YOUTH CAREER SPECIALIST hours you are eligible and will notify you and will startsending a YOUTH CAREER SPECIALIST to your home. Please don't hesitate to contact us if you have any questions or concerns regarding this. [facility] [address] [place] [address] [facility] [address] [place] [address] A [facility] (Not accepted by [facility]) [address] [address] If over age 60 : [facility] [address] [place] [address] [facility] [address] [place] [address] documented in this encounter Plan of Treatment Upcoming Encounters Date Type Department Care Team (Late st Contact Info) Description 05/17/2025 9:15 AM EST Telemedicine [facility] [address] [place] [address] Gisselle Holland ANP [address] [place] [address] documented as of this encounter Visit Diagnoses Diagnosis Type 2 diabetes mellitus with hyperglycemia, with long-term current use of insulin (HCC)- Primary Essential hypertension Unspecified essential hypertension Pure hypercholesterolemia Panic disorder Panic disorder without agoraphobia Protein-calorie malnutrition, unspecified severity (CMS/HCC) Anorexia documented in this encounter Additional Health Concerns Assessment Noted Time PHQ-9 Depression Total Score: 27 01/28/2 025 9:43 AM EST documented as of this encounter Care Teams Home Hospice Aide Relationship Specialty Start Date End Date Gisselle Holland ANP [address] [place] [address] PCP - General Family Medicine 01/24/20 documented as of this encounter
[2025-03-31 15:25] VITALS: BP 128/76; PULSE 83; O2SAT 97; BMI 19.6
--- NOTE | 2025-03-31 15:25 | A.OFFVIS_ITS ---
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 simvastatin Allergy (Unknown, Verified 03/31/25 15:29) rash HPI Comments Details: 59 YO M with PMHx DM who is seen in F/U for DM. Medical history: Anxiety, h/o insulin non compliance Diagnosed with type 2 DM 2009 Negative rene-ab and negative islet cell antibody Current medications: Lantus 5 units Novolog SS-not taking Has previously been on metformin, glipizide 02/22/2025-6.9% CGM- GMI 6.8%, average 146, TGT 85%, high 14%, VH1% Family history of type 2 diabetes in his mother. +retinopathy: [facility] in [place]. Recent procedure +neuropathy: Numbness, tingling right great toe. He does not see a offensive coordinator. He has a bunion on the left foot. + nephropathy: On ARB 10/19/23 eGFR>60 microalbumin 12/09/22 11.0 11/19/21 61 HLD-On repatha. Has been out of the prescription Vapes and cigars ROS CONSTITUTIONAL: Denies weight loss, fever and chills. HEENT: Denies changes in vision and hearing. RESPIRATORY: Denies SOB and cough. CV: Denies palpitations and CP GI: Denies abdominal pain, nausea, vomiting and diarrhea. : Denies dysuria and urinary frequency. MSK: Denies new myalgia and joint pain. SKIN: Denies rash and pruritus. NEUROLOGICAL: Denies headache PSYCHIATRIC: Denies recent changes in mood. PHYSICAL EXAM: GENERAL: Alert and oriented x 3. NAD EYES: EOMI. Anicteric. HENT: Moist mucous membranes. No scleral icterus. No cervical lymphadenopathy. LUNGS: Clear to auscultation bilaterally. CARDIOVASCULAR: Regular rate and rhythm. No murmur. No JVD. ABDOMEN: Soft, non-tender +bs EXTREMITIES: No edema. Non-tender. SKIN: No rashes or lesions. Warm. NEUROLOGIC: No focal neurological deficits. CN II-XII grossly intact PSYCHIATRIC: Cooperative. Appropriate mood and affect [facility] Medical History Uncontrolled type 2 diabetes mellitus with hyperglycemia Transaminitis Vitamin D deficiency HLD (hyperlipidemia) HTN (hypertension) Surgical History Hx of eye surgery History of esophagogastroduodenoscopy (EGD) Hx of colonoscopy History of carpal tunnel release Family History Mother Diabetes Hypertension Father Myocardial infarction Social History Household Members: Spouse Are you a primary home care giver to a significant other at home: No Do you presently have visiting nurse or other home services: No Alcohol intake: former Year quit: 09/14 Patient Tobacco Use Status: Former Tobacco user Years Smoked: 20 +/- Physical Exam Vital Signs: Last Vital Signs Pulse 83 03/31/25 15:25 BP 128/76 03/31/25 15:25 Pulse Ox 97 03/31/25 15:25 Oxygen Delivery Method Room Air 03/31/25 15:25 BMI result Body Mass Index 19.6 Results Reviewed Results Reviewed: Laboratory Last Values Glucose (Clinic) 156 mg/dL (60-115) H 03/31/25 15:29 Assessment & Plan Assessment & Plan (1) Uncontrolled type 2 diabetes mellitus with hyperglycemia: Code(s): E11.65 - Type 2 diabetes mellitus with hyperglycemia Category: Medical (2) HLD (hyperlipidemia): Code(s): E78.5 - Hyperlipidemia, unspecified Category: Medical Qualifiers: Hyperlipidemia type: unspecified Qualified Code(s): E78.5 - Hyperlipidemia, unspecified Plan Type 2 diabetes-well controlled He denies hypoglycemia He can continue with the current dose he is taking of Lantus which is 5u daily. He has but can continue to hold Novolog HLD-continue with repatha which is ordered Treat hypoglycemia by rules of 15s. Follow up in 3 months or sooner as needed Medications: New Repatha SureClick (evolocumab) 140 mg subcut Q2W 6 mL 3RF NS E11.65 - Type 2 diabetes mellitus with hyperglycemia, E78.5 - Hyperlipidemia, unspecified Coding Level of Care Code Est Pt Level 4 (82888) Diagnoses Uncontrolled type 2 diabetes mellitus with hyperglycemia E11.65 Hyperlipidemia, unspecified hyperlipidemia type E78.5 Hyperlipidemia type: unspecified
[2025-03-31 15:37] LABS: Glucose, Whole Blood 156 mg/dL (60-115)
--- OUTSIDE RECORDS SUMMARY | 2025-03-31 18:15 | XMS_ITS | Encounter Summary ---
Author Organization [employer] Address [address] [facility] [address] [place] [address] Care Team Providers Care Costume Cutter Name Role Phone Gisselle Holland MILA Primary Care Provider [phone] Encounter Details Date Type Department Care Team (Latest Contact Info) Description 03/31/2025 Travel Social History Tobacco Use Types Packs/Day [...] Info) Description 05/17/2025 9:15 AM EST Telemedicine [facility] [address] [place] [address] Gisselle Holland ANP [address] [place] [address] documented as of this encounter Visit Diagnoses Not on filedocumented in this encounter Additional Health Concerns Assessment Noted Time PHQ-9 Depression Total Score: 27 025 9:43 AM EST documented as of this encounter Care Teams Costume Cutter Relationship Specialty Start Date End Date Gisselle Holland ANP [address] [place] [address] PCP - General Family Medicine 01/24/20 documented as of this encounter
--- OUTSIDE RECORDS SUMMARY | 2025-03-31 18:15 | XMS_ITS | Encounter Summary ---
Author Organization [email or web address] Address [address] [facility] [address] [place] [address] Care Team Providers Care Clinical Lab Clerk Name Role Phone Gisselle Holland MILA Primary Care Provider [phone] Encounter Details Date Type Department Care Team (Late st Contact Info) Description 03/31/2025 Orders Only GENERIC EXTERNAL DATA DEPARTMENT Provider, [...] Info) Description 05/17/2025 9:15 AM EST Telemedicine [facility] [address] [place] [address] Gisselle Holland ANP [address] [place] [address] documented as of this encounter Procedures Procedure Name Priority Date/Time Associated Diagnosis Comments GLUCOSE, WHOLE BLOOD Routine 03/31/2025 3:29 PM EST documented in this encounter Results * (ABNORMAL) Glucose, Whole Blood (03/31/2025 3:29 PM EST) Glucose, Whole Blood 156(H) 60 - 115 mg/dL [facility] Comment:METER #: [id number] Testing performed in the Endocrinology Department [address] , [address], [facility]. 03/31/2025 3:29 PM EST 03/31/2025 3:36 PM EST us Generic External Data Provider LAB BLOOD ORDERAB LES Final Result [facility] [address] [place] [address] [phone] documented in this encounter Visit Diagnoses Not on filedocumented in this encounter Additional Health Concerns Assessment Noted Time PHQ-9 Depression Total Score: 27 06/22/2 025 9:43 AM EST documented as of this encounter Care Teams Clinical Lab Clerk Relationship Specialty Start Date End Date Gisselle Holland ANP [address] [place] [address] PCP - General Family Medicine 01/24/20 documented as of this encounter
--- OUTSIDE RECORDS SUMMARY | 2025-03-31 18:15 | XMS_ITS | Encounter Summary ---
Author Organization [employer] Address [address] [facility] [address] [place] [address] Care Team Providers Care Booking Manager Name Role Phone Gisselle Holland Primary Care Provider [phone] Reason for Visit * Reason Onset Date Comments chart prep 03/28/2025 Encounter Details Date Type Department Care Team ([facility] st Contact Info) Description 03/28/2025 Telephone [facility] [address] [place], [place] [phone] Gisselle Holland ANP [address] [place], [place] [phone] chart prep Social History Tobacco Use Types Packs/Day Years [...] encounter Miscellaneous Notes * Telephone Encounter - Marita Padilla [place] - 03/28/2025 11:45 AM EST Chart Prep Labs: done Images: done Referrals: not applicable Vaccines due: Covid, Flu, PCV20, Hep B, and Hep A Screenings: eye exam and foot exam Overdue care gaps: Glucose and Oral health screening documented in this encounter Plan of Treatment Upcoming Encounters Date Type Department Care Team (Late st Contact Info) Description 05/17/2025 9:15 AM EST Telemedicine [facility] MED[facility]INE [address] [place] [address] Gisselle Holland ANP [address] [place] [address] documented as of this encounter Visit Diagnoses Not on filedocumented in this encounter Additional Health Concerns Assessment Noted Time PHQ-9 Depression Total Score: 27 025 9:43 AM EST documented as of this encounter Care Teams Booking Manager Relationship Specialty Start Date End Date Gisselle Holland ANP [address] [place] [address] PCP - General Family Medicine 01/24/20 documented as of this encounter
--- OUTSIDE RECORDS SUMMARY | 2025-03-31 18:15 | XMS_ITS | Encounter Summary ---
Author Organization [employer] Address [address] [facility] [address] [place] [address] Care Team Providers Care Truck Dock Material Mover Name Role Phone Gisselle Holland Primary Care Provider Reason for Visit * Reason Onset Date Comments Med Refill 07/06/2023 Encounter Details Date Type Department Care Team (Late st Contact Info) Description 07/06/2023 Refill [facility] [address] [place], [place] [phone] Gisselle Holland ANP [address] [place] [address] Anxiety and depression Social History Tobacco Use [...] Info) Description 05/17/2025 9:15 AM EST Telemedicine [facility] [address] [place] [address] Gisselle Holland ANP [address] [place] [address] documented as of this encounter Visit Diagnoses Diagnosis Anxiety and depression documented in this encounter Additional Health Concerns Assessment Noted Time PHQ-9 Depression Total Score: 25 023 9:08 AM EDT documented as of this encounter Care Teams Truck Dock Material Mover Relationship Specialty Start Date End Date Gisselle Holland ANP [address] [place] [address] PCP - General Family Medicine 01/24/20 documented as of this encounter
--- OUTSIDE RECORDS SUMMARY | 2025-03-31 18:16 | XMS_ITS | Clinical Summary ---
Author Organization Patient Business Ser [facility] Address [address] [place] [address] Care Team Providers Care Raw Mill Operator Name Role Phone Unavailable Primary Care Provider Unavailabl e Social History Tobacco Use Types Packs/Day Years Used Date Smoking Tobacco: Never Assessed Sex and Gender Information Value Date Recorded Sex Assigned at Not on file Legal Sex Male 6:47 PM EDT Gender Identity Not on file Sexual Orientation Not on file Plan of Treatment Health Maintenance Due Date Last Done Comments Colorectal Cancer Screening: Colonoscopy 1967 DTaP,Tdap,and Td Vaccines (1 - Tdap) 1986 Hepatitis B Vaccines (1 of 3 - 19+ 3-dose series) 1986 Pneumococcal Vaccine: 50+ Ye ars (1 of 1 - PCV) 2017 Zoster Vaccines (1 of 2) 2017 Cholesterol Screening (Lipid Panel) 08/28/2023 HIV Screening 08/28/2023 Hepatitis C Screening 08/28/2023 Social Influencers of Health Screening 08/28/2023 Depression Screening 05/26/2024 COVID-19 Vaccine (1 - 2023-2 5 season) 2025 Influenza Vaccine (#1) 2025 RSV Immunization Adult Patie nts (1 - 1-dose 75+ series) 2042 HIB Vaccines Aged Out No longer eligi [...]
--- OUTSIDE RECORDS SUMMARY | 2025-03-31 18:16 | XMS_ITS | Patient Health Record ---
Author Organization [facility] Address [address] [place] [address] Care Team Providers Care Health Safety Instructor Name Role Phone Mina Zaman Jr Reason For Referral No Information Plan Of Treatment No Information
--- OUTSIDE RECORDS SUMMARY | 2025-03-31 18:16 | XMS_ITS | Clinical Summary ---
Author Organization [employer] Address [address] [facility] [address] [place] [address] Care Team Providers Care Respiratory Therapist Name Role Phone Howard Singh MILA Primary Care Provider [phone] Allergies Active Allergy Reactions Criticality Noted Date Comments Aspirin Palpitations Low 04/24/2011 Simvastatin Rash Low 05/29/2010 Medications * This document contains information received from the source organization and may not represent a complete record from that organization. FREESTYLE LITE test strip USE 1 STRIP TO CHECK GLUCOSE 4 TIMES DAILY Active HumaLOG KWIKPEN 100 UNIT/ML injection 5 Units. Takes 5 units with food Active ondansetron ODT (Zofran-ODT) 4 MG disintegrating tablet Take 1 tablet by mouth every 12 (twelve) hours. 022 Active sildenafil (Viagra) 50 MG tabletIndication s:Erectile dysfunction, unspecified erectile dysfunction type Take 1 tablet (50 mg) by mouth if needed each day for erectile dysfunction for up to 60 doses. 30 tablet 1 023 Active Repatha SureClick 140 MG/ML injection INJECT 140 MG SUBCUTANEOUSLY EVERY TWO WEEKS 023 Active LORazepam (Ativan) 1 MG tabletIndication s:Anxiety and depression Take 1 tab as needed for anxiety attacks, up to twice in 1 day 20 tablet 023 Active QUEtiapine (SEROquel) 50 MG tablet Take 50 mg by mouth 3 times daily. 024 Active hydrOXYzine HCl (Atarax) 50 MG tablet Take 50 mg by mouth 3 times daily. 024 Active omeprazole (PriLOSEC) [address] capsuleIndicatio ns:Gastritis without bleeding, unspecified chronicity, unspecified gastritis type Take 1 capsule (40 mg) by mouth before breakfast. Do not crush or chew. 90 capsule 1 025 2025 Active Multiple Vitamin (multivitamin) tabletIndication s:Fatigue, unspecified type Take 1 tablet by mouth Once per day. 90 tablet 3 025 Active Continuous Glucose Humid System Operator (Dexcom G7 Humid System Operator) device .MEDSUPPLY 025 Active Blood Glucose Monitoring Suppl (VOICEPLATE.COM Verio Flex System) w/Device kit USE DIRECTED TO TEST BLOOD SUGAR Active Continuous Glucose Sensor (Dexcom G7 Sensor) misc .MEDSUPPLY 025 Active dronabinol (Marinol) 2.5 MG capsuleIndicatio ns:Protein-calor ie malnutrition, unspecified severity (CMS/HCC),Anorex ia 1 tablet before breakfast and dinner 60 capsule 025 Active Continuous Blood Gluc Sensor (Dexcom G6 Sensor) misc 1 each every 14 (fourteen) days. 2024 Discontinued(T herapy completed) Continuous Blood Gluc Humid System Operator (Dexcom G5 Humid System Operator Kit) deviceIndication s:Type 1 diabetes mellitus maturity onset (HCC) 1 each 4 times daily. 1 each 023 2024 Discontinued(T herapy completed) Continuous Blood Gluc Sensor (Dexcom G6 Sensor) miscIndications: Type 1 diabetes mellitus maturity onset (HCC) 1 each every 14 (fourteen) days. 6 each 3 023 2024 Discontinued(D uplicate order (will not trigger notification to Pharmacy)) losartan (Cozaar) 100 MG tabletIndication s:Essential hypertension Take 1 tablet (100 mg) by mouth in the morning. 90 tablet 1 024 2024 Discontinued(T herapy completed) Active Problems Problem Noted Date Diagnosed Date Diverticulosis 03/31/2025 Erectile dysfunction 03/31/2025 Panic disorder 09/22/2023 Overview (09/22/2023): follows w/ [facility] Estrella and zaira Goldman at [facility]. Takes: sertraline 150mg , hydroxyzine 50mg TID, quetiapine 50mg TID, lorazepam 1mg Anxiety 09/13/2022 Elevated liver enzymes 01/22/2021 Type 1 diabetes mellitus maturity onset 01/23/20 Overview (09/22/2023): [place] [facility] On basal bolus. Kidney disease 03/04/2014 Diabetes mellitus 10/17/2011 Essential hypertension 10/17/2011 Overview (09/22/2023): Losartan 100mg daily Had side effects from lisinopril-hydrochlorothiazide Pure hypercholesterolemia 10/17/2011 Overview (09/22/2023): On Repatha via Endo. Not on statin d/t elevated LFTs. Encounters Date Type Department Care Team Description 03/31/2025 10:30 AM EST Office Visit [address] [address] Howard Singh ANP Type 2 diabetes mellitus with hyperglycemia, with long-term current use of insulin (HCC) (Primary Dx); Essential hypertension; Pure hypercholesterolemia; Panic disorder; Protein-calorie malnutrition, unspecified severity ([facility]/HCC); Anorexia 03/31/2025 Orders Only GENERIC EXTERNAL DATA DEPARTMENT Provider, Generic External Data 03/31/2025 Travel 03/28/[address] [address] Howard Singh ANP chart prep 03/21/2025 Results Follow-Up [address] [address] Howard Singh ANP Lipid Panel, Standard, Comprehensive Metabolic Panel, Hemoglobin A1c 02/01/2025 Patient Outreach [address] [address] Howard Singh ANP Care Coordination (CHW outreach for SDOH food needs-LVM ) 02/01/2025 Patient Outreach [address] [address] Howard Singh ANP 01/25/2025 10:30 AM EDT Office Visit [address] [address] Howard Singh ANP Pre-op evaluation (Primary Dx); Cataract of both eyes, unspecified cataract type; Type 2 diabetes mellitus with hyperglycemia, with long-term current use of insulin (CMS/HCC); Elevated liver enzymes 01/25/2025 Travel 01/24/2025 Travel 01/21/2025 Orders Only [facility] External Provider, [facility] from Last 3 Months Immunizations Immunization Administration [...] Mass Index 19.66 03/31/2025 10:31 AM EST Plan of Treatment Upcoming Encounters Date Type Department Care Team (Late st Contact Info) Description 05/17/2025 9:15 AM EST Telemedicine [facility] [address] [place], [place] [phone] Howard Singh, ANP [address] [place] [address] Health Maintenance Due Date Last Done Comments [...] 11/19/2022 11/19/2021, 09/04/2020 COVID-19 Vaccine ( season) 2025 06/30/2021, 10/10/2020, 09/11/2020 Influenza Vaccine (#1) 2025 Diabetes: Foot Exam 02/23/2025 02/24/2024 Diabetes: Hemoglobin A1C 2025 025, 12/01/2024, 06/29/2024, Additional history exists Depression Monitoring 07/25/2025 01/25/2025, 025 Disability Screening 01/24/2026 01/24/2025 Alcohol/Substance Use Screening 01/25/2026 01/25/2025 SDOH Screening 01/25/2026 01/25/2025 Lipid Panel 02/22/2026 02/22/2025, 06/19/2023 Colonoscopy 02/24/2026 02/24/2023 Colorectal Cancer Screening 02/24/2026 Tobacco Screening 03/31/2026 03/31/2025 DTaP/Tdap/Td Vaccines (3 - Td or Tdap) [...] WHOLE BLOOD Routine 03/31/2025 3:29 PM EST HEMOGLOBIN A1C Routine 02/22/2025 8:48 AM EDT Type 2 diabetes mellitus with hyperglycemia, with long-term current use of insulin ([facility]) COMPREHENSIVE METABOLIC PANEL Routine 02/22/2025 8:48 AM EDT Type 2 diabetes mellitus with hyperglycemia, with long-term current use of insulin (CMS/HCC) LIPID PANEL, STANDARD Routine 02/22/2025 8:48 AM EDT Type 2 diabetes mellitus with hyperglycemia, with long-term current use of insulin (CMS/HCC) US ABDOMEN DAVIS W ELASTOGRAPHY Routine 01/21/2025 10:37 AM EDT NM GASTRIC EMPTYING SOLID Routine 01/04/2025 7:55 AM EDT HM COLONOSCOPY Routine 02/24/2023 Z[facility] HISTORICAL MICROALBUMIN/CREATININ E RATIO, RANDOM URINE Routine 11/19/2021 12:24 PM EDT [facility] HISTORICAL HEPATITIS A,B,C PROFILE Routine 11/09/2019 10:25 AM EDT ZZZ HISTORICAL HIV AB/AG Routine 11/09/2019 10:25 AM EDT from Last 3 Months or Most Recently Relevant to Health Maintenance Results * (ABNORMAL) Glucose, Whole Blood (03/31/2025 3:29 PM EST) Glucose, Whole Blood 156(H) 60 - 115 mg/dL [facility] Comment:METER #: [id number] Testing performed in the Endocrinology Department [address] , [address], [facility]. 03/31/2025 3:29 PM EST 03/31/2025 3:36 PM EST us Generic External Data Provider LAB BLOOD ORDERAB LES Final Result [facility] [address] [place] [phone] * (ABNORMAL) Hemoglobin A1c (02/22/2025 8:48 AM EDT) Hemoglobin A1c 6.9(H) <6.0 % [facility] Comment:Hemoglobin A1C Refer ence Range Adults: 4.8 - 6.0 % Non diabetic: < 6.0 % Goal: < 7.0 %Additional Action Suggested: > 8.0 %Note: Hemoglobin A1c results are invalid for patients with abnormal amounts of HbF. Blood transfusions may impact the HbA1c concentration in the patient sample. Estimated Average Glucose 151 mg/dL [facility] Comment:eAG = Estimated ave rage glucose which is %A1C expressed asaverage glucose, using the formula of the [id number] Glucose study (ADAG), Diabetes Care, Vol.31,#8,Dec. 2007 Blood Venous blood specimen / Unknown 02/22/2025 8:48 AM EDT 02/22/2025 11:46 AM EDT [facility] LAB BLOOD ORDERABLES Final Resul t [facility] [address] [place] [phone] * (ABNORMAL) Lipid Panel, Standard (02/22/2025 8:48 AM EDT) Triglycerides 103 <150 mg/dL [facility] Comment:Desirable Triglyceri de: less than 150 mg/dLBorderline High Triglyceride 150-199 mg/dLHigh Triglyceride: 200-499 mg/dLVery High Triglyceride: greater than or equal to 5OO mg/dL Cholesterol 203(H) <200 mg/dL [facility] Comment:Desirable Cholestero l: less than 200 mg/dLBorderline High Cholesterol: 200-239 mg/dLHigh Cholesterol: greater than 239 mg/dL LDL Cholesterol Calculated 144(H) <100 mg/dL [facility] Comment:Desirable LDL: less than 100 mg/dLNear Optimal/Above Optimal LDL: 110- 129 mg/dLBorderline High LDL: 130-159 mg/dLHigh LDL: 160-189 mg/dLVery High LDL: greater than or equal to 190 mg/dL HDL Cholesterol 39(L) >40 mg/dL [facility] Comment:Desirable HDL: great er than 40 mg/dL Note: This HDL assay may give artificially low results in patients with liver disease. Blood Venous blood specimen / Unknown 02/22/2025 8:48 AM EDT 02/22/2025 11:50 AM EDT Howard Singh [facility] LAB BLOOD ORDERABLES Final Resul t [facility] [address] [place] [phone] * (ABNORMAL) Comprehensive Metabolic Panel (02/22/2025 8:48 AM EDT) Sodium 143 135 - 145 mmol/L [facility] Potassium 4.3 3.3 - 5.1 mmol/L [facility] Chloride 108 96 - 108 mmol/L [facility] Carbon Dioxide 29 22 - 29 mmol/L [facility] Anion Gap 10(L) 12 - 20 [facility] Urea Nitrogen (BUN) 19(H) 9 - 16 mg/dL [facility] Creatinine, Serum 1.07 0.5 - 1.4 mg/dL [facility] Estimated Glomerular Filt Rate >60 [facility] Comment:Chronic Kidney Disea se: Estimated GFR < 60 mL/min/[id number] Kidney Disease: Estimated GFR < 15 mL/min/1.73m2 Glucose 187(H) 60 - 115 mg/dL [facility] Calcium 9.3 8.4 - 10.2 mg/dL [facility] Bilirubin, Total 0.3 0.0 - 1.0 mg/dL [facility] Aspartate Amino Transferase 21 5 - 37 U/L [facility] Alanine Aminotransferase 18 0 - 40 U/L [facility] Total Protein 6.9 6.5 - 8.0 g/dL [facility] Albumin Level 4.4 3.5 - 5.0 g/dL [facility] Alkaline Phosphatase 99 39 - 117 U/L [facility] Blood Venous blood specimen / Unknown 02/22/2025 8:48 AM EDT 02/22/2025 11:50 AM EDT us Howard Singh ANP LAB BLOOD ORDERABLES Final Resul t [facility] [address] [place] [phone] * US ABDOMEN DAVIS W ELASTOGRAPHY (01/21/2025 10:37 AM EDT) Anatomical Region Laterality Modality Abdomen Ultrasound 01/21/2025 10:3 7 AM EDT Narrative 01/21/2025 11:03 AM EDT [address] [address] Ultrasound Report Signed Patient: Alyssia Patten MR#: [id number] : 1965 Acct:[id number] Age/Sex: 59 / M ADM Date: 01/21/25 Loc: HO.US Attending Dr: Nazario Farooq MD Ordering Physician: Nazario Farooq MD Date of Service: 01/21/25 Procedure(s): US abdomen davis w elastography Accession Number(s): [id number] cc: Nazario Farooq MD; HOWARD SINGH NP [...] Sandor Choe MD 01/21/2025 11:01 AM EDT RP Dictated By: Sandor Choe MD Signed By: <Electronically signed by Sandor Choe MD in OV> 01/21/25 1101 DD/ 1037 TD/TT: 01/21/25 1047 Nipping Machine Operator: Procedure Note Donotuseinterpreter, Image - 01/21/2025 [place] [address] Ultrasound Report Signed Patient: Alyssia Patten RMR#: [id number] : 1965Acct:[id number] Age/Sex: 59 / MADM Date: 01/21/25 Loc: HO.US Attending Dr: Nazario Farooq MD Ordering Physician: Nazario Farooq MD Date of Service: 01/21/25 Procedure(s): US abdomen davis w elastography Accession Number(s): [id number] cc: Nazario Farooq MD; HOWARD SINGH NP [...] 01/21/25 1101 DD/ 1037 TD/TT: 01/21/25 1047 Nipping Machine Operator: us [facility] External Provider IMG US PROCEDURES Edited Result - Final * NM Gastric Emptying Solid (01/04/2025 7:55 AM EDT) Anatomical Region Laterality Modality Body Nuclear Medicine 01/04/2025 7:55 AM EDT Narrative 01/04/2025 12:59 PM EDT [place] [address] Nuclear Medicine Report Signed Patient: Alyssia Patten MR#: [id number] : 1965 Acct:[id number] Age/Sex: 59 / M ADM Date: 01/04/25 Loc: HOTRIST[place] Attending Dr: Nazario Farooq MD Ordering Physician: Nazario Farooq MD Date of Service: 01/04/25 Procedure(s): NM gastric emptying study Accession Number(s): [id number] cc: Nazario Farooq MD; HOWARD SINGH NP [...] 01/04/25 1256 DD/ 0755 TD/TT: 01/04/25 1225 Nipping Machine Operator: Procedure Note Donotuseinterpreter, Image - 01/04/2025 [place] [address] Nuclear Medicine Report Signed Patient: Alyssia Patten RMR#: [id number] : 1965Acct:[id number] Age/Sex: 59 / MADM Date: 01/04/25 Loc: NEREYDA Attending Dr: Nazario Farooq MD Ordering Physician: Nazario Farooq MD Date of Service: 01/04/25 Procedure(s): WI gastric emptying study Accession Number(s): [id number] cc: Nazario Farooq MD; HOWARD SINGH NP EXAMINATION: WI RADIONUCLIDE SOLID FOOD GASTRIC EMPTYING 4-HOUR STUDY [...] hours 14% 4 hours 5% (normal 0%-10%) WI/WI gastric emptying study IMPRESSION: Normal 4-hour solid [...] 01/04/25 1256 DD/ 0755 TD/TT: 01/04/25 1225 Nipping Machine Operator: [facility] External Provider IMG NM PROCEDURES Edited Result - Final * Colonoscopy (02/24/2023) Colonoscopy Normal Normal Narrative [...] Historical Provider HISTORICAL/NON ORDERABLE LABS Final Result [facility] [address] [place] [address] * HEPATITIS A,B,C PROFILE (11/09/2019 10:25 AM [...] ORDERABLE LABS Final Result Performing Organization Address [facility] Phone Number [facility] [address] * HIV AB/AG (11/09/2019 10:25 AM [...] of detection of this assay. The [employer] Safety Analyst HIV Ag/Ab Combo assay result and supplemental assay results should be interpreted in conjunction with the patient's clinical presentation, history and other laboratory results. If the results are inconsistent with clinical evidence, additional testing is suggested to confirm the result. 11/09/2019 10:2 5 AM EDT Historical Provider HISTORICAL/NON ORDERABLE LABS Final Result Performing Organization Address [facility] Number [facility] [address] from Last 3 Months or Most Recently Relevant to Health Maintenance Insurance [employer] PPO Care Teams Respiratory Therapist Relationship Specialty Start Date End Date Howard Singh ANP [address] [place] [phone] PCP - General Family Medicine 01/24/20
== END 2025-03-31 15:57 | disposition home or self-care (01) ==
LOC: HO.ENCR 15:23
PROVIDERS: PCP Nurse Practitioner Primary Care; Visit Provider Internal Medicine
DX: E11.65 Type 2 diabetes mellitus with hyperglycemia (principal); E78.5 Hyperlipidemia, unspecified

== ENCOUNTER → 2025-03-31 15:22 | Outpatient (BNVA) | payer OTHER, SELFPAY | PROVIDERS: PCP Nurse Practitioner Primary Care; Visit Provider Internal Medicine | DX: E11.65 Type 2 diabetes mellitus with hyperglycemia (principal) | CPT/HCPCS: 82947 ==

== ENCOUNTER 2025-04-21 11:23 | Emergency (ER) | payer OTHER, SELFPAY ==
--- NOTE | ~2025-04-21 | CT_ITS ---
CLINICAL HISTORY: sob cp CT angiography chest with contrast. 3D Postprocessing. Comparison: None provided Findings: The heart size is normal. RV/LV ratio is normal. Unremarkable thoracic aorta and great vessels. No aneurysm. No pulmonary artery filling defects. The visualized thyroid and mediastinum are unremarkable. There are mild emphysematous changes within the upper lobes. There is no consolidation or pleural effusion. The visualized upper abdomen is unremarkable. No acute fractures. IMPRESSION: No evidence of pulmonary artery embolism. This document has been electronically signed by: Naye Galvan MD on 04/21/2025 16:30:58
--- NOTE | 2025-04-21 11:26 | ECG_ITS ---
Test Reason : CP Blood Pressure : */* mmHG Vent. Rate : 69 BPM Atrial Rate : 69 BPM P-R Int : 134 ms QRS Dur : 78 ms QT Int : 350 ms P-R-T Axes : 72 55 73 degrees QTcB Int : 375 ms Normal sinus rhythm ST depressions V 4-6, consider ischemia Abnormal ECG When compared with ECG of 06-Jul-2024 07:48, Vent. rate has decreased by [address] now depressed in Anterior leads QT has shortened Referred By: Cathy Velazquez Electronically Signed By: Wilmer Geiger
--- NOTE | 2025-04-21 11:33 | ED_ITS ---
HPI - General Adult General Chief complaint: Chest Pain Stated complaint: CHEST PRESSURE,SOB,PANIC ATTACK PER EMS Time Seen by Provider: 04/21/25 13:32 Source: patient and EMS Mode of arrival: ambulatory Limitations: no limitations History of Present Illness ED Provider: MARGARITA Velazquez HPI narrative: Chief Complaint: ?Chest pain and shortness of breath.? History of Present Illness: 59-year-old male arrived via EMS for evaluation of chest pain and shortness of breath. Per EMS report, the patient ingested Ativan and Atarax prior to arrival for panic . At bedside, he was markedly uncooperative with history taking, repeatedly stating that he is ?not here to answer questions? and that the provider should ?figure out if I?m having a heart attack.? He refused to elaborate on the character, onset, duration, or associated features of his chest pain. He lay back on the stretcher, became upset, and indicated he would not speak further until his arrived. He stated dont start juding me becuase of being a drug addict . But then denies drug use. No additional symptom details could be obtained due to patient refusal. Known medical history includes anxiety, substance use disorder, hepatitis C, erectile dysfunction, hypertension, and hyperlipidemia. Review of Systems: Limited secondary to patient uncooperativeness. ? Cardiovascular: Positive for chest pain (further details unobtainable). ? Respiratory: Positive for shortness of breath (further details unobtainable). All other systems unable to be reviewed. Related Data Home Medications ?Medication ?Instructions ?Recorded ?Confirmed hydroxyzine HCl 50 mg tablet 50 mg PO QID 08/22/23 quetiapine 100 mg tablet 100 mg PO TID 03/31/2504/21 lorazepam 1 mg tablet (Ativan) 1 mg PO TID PRN anxiety 04/21/25 04/21/25 mirtazapine 7.5 mg tablet 7.5 mg PO BEDTIME 04/21/2506/21/24 Previous Rx's ?Medication ?Instructions ?Recorded blood-glucose meter (FreeStyle #1 ea 09/04/20 Lite Meter kit) pen needle, diabetic 32 gauge x #100 ea 09/25/2205/29 (BD Ultra-Fine Micro Pen Needle) Dexcom G7 Outside Parts Sales #1 ea 11/24/24 (blood-glucose,classifying machine operator,cont) blood-glucose sensor (Dexcom G7 #3 ea 11/24/24 Sensor device) lancets 28 gauge (FreeStyle #100 ea 11/24/24 Lancets) FreeStyle Lite Strips (blood sugar #100 ea 12/01/24 diagnostic) OneTouch Delica Plus Lancet 33 #400 ea 01/04/25 gauge (lancets) OneTouch Verio Flex meter #1 ea 01/04/25 (blood-glucose meter) OneTouch Verio test strips (blood #400 ea 01/04/25 sugar diagnostic) Allergies Allergy/AdvReac Type Severity Reaction Status Date / Time aspirin Allergy Unknown Unknown. Verified 04/21/25 11:38 simvastatin Allergy Unknown rash Verified 04/21/25 11:38 Review of Systems 2 Review of Systems: Yes all other systems are reviewed and are negative [facility] Past Medical History Attestation statement: The following information was validated with the patient. Source: old records reviewed and nursing notes reviewed Medical History Uncontrolled type 2 diabetes mellitus with hyperglycemia Transaminitis Vitamin D deficiency HLD (hyperlipidemia) HTN (hypertension) Surgical History Hx of eye surgery History of esophagogastroduodenoscopy (EGD) Hx of colonoscopy History of carpal tunnel release Family History Family History Mother Diabetes Hypertension Father Myocardial infarction Social History Social History Household Members: Spouse Are you a primary respiratory care technician to a significant other at home: No Do you presently have visiting nurse or other home services: No Alcohol intake: former Year quit: 09/14 Patient Tobacco Use Status: Former Tobacco user Years Smoked: 20 +/- Physical Exam ED Exam Exam: Physical Exam: Appearance: Alert.? Oriented X3.? + appears uncomfortable screaming Head: Normocephalic, atraumatic, no step-offs or deformities Eyes: Pupils equal, round and reactive to light.? Neck: Normal inspection.? Neck supple.? CVS: Normal heart rate and rhythm.? Pulses normal.? Respiratory: No respiratory distress.? Breath sounds normal.? Abdomen: Soft and nontender.? Skin: Skin warm and dry.? Normal skin color.? Normal skin turgor.? Extremities: No lower extremity edema.? No calf ttp. 5/5 strength to bilateral upper and lower extremities Neuro: Oriented X 3.? No motor deficit.? No sensory deficit. CN 2-12 intact Vital Signs: Vital Signs - 24 hr 04/21/25 11:36 04/21/25 11:36 04/21/25 14:00 Temperature 98 F 98 F Pulse Rate 86 86 Respiratory Rate 18 18 Blood Pressure 141/75 H 141/75 H 143/77 H Pulse Oximetry 98 98 97 Oxygen Delivery Method Room Air Room Air Room Air 04/21/25 17:10 04/21/25 18:23 04/21/25 22:00 Temperature 97.9 F 98.9 F Pulse Rate 82 92 Respiratory Rate 27 H 18 16 Blood Pressure 115/66 101/54 L Pulse Oximetry 98 96 Oxygen Delivery Method Room Air Room Air 04/22/25 01:32 04/22/25 07:46 Temperature 99.0 F 99.0 F Pulse Rate 91 91 Respiratory Rate 22 H 22 H Blood Pressure 121/63 121/63 Pulse Oximetry 95 95 Oxygen Delivery Method Room Air Room Air BMI result Body Mass Index 20.3 vss Course Reevaluation(s) Reevaluation #1: CBC with no abnormalities. Chemistry with no acute findings needing intervention. Troponin elevated 28.1, D-dimer negative EKG with ST depressions in anterior leads. Shortened QTC. Given patient's history of IVDA, chest pain and shortness of breath PE can not be ruled out with D-dimer therefore CT angio chest will be done to rule out PE. Repeat troponin will be obtained an hour after the initial. Time: 12:32 Reevaluation #2: 3:29 PM 04/21/2025 (Dr. Celso Michel): Introduced myself to the patient, spoke to him regarding his chest discomfort, he denied IV drug use to me but also his partner was in the room, in the meantime he does have ECG changes, elevated cardiac enzyme, his pain will be managed, we will initiate heparin, cardiology involved, CTA pending evaluation for septic emboli Patient extremely anxious, has required multiple doses of diazepam. Time: 15:56 Reevaluation #3: My attending Dr. Michel also evaluated patient agrees with giving more benzodiazepines he is trying to run out of the room. Care team in the room. He is making suicidal comments that he does not care if he lives or not we are telling him if she leaves there is a chance he could from cardiac issues. He says he does not care he is very depressed. Care team in the room. My attending did section 12 this patient. Time: 15:57 Additional Reevaluation(s): 1700 Repeat trop in 2-3 hours. Per cardiology. Monitor HR. Leave on heparin. Patient much more calm EKG appears better and now much more cooperative. Pain improved in the chest [address] Geiger, recommends reaching out to [facility] for possible cath tomorrow. He would like to me to call # [phone] for transfer. Patient admited at [facility] Dr. Chery - patient and family aware. María 04/22 07 Patient is still in the department urgent call to [facility] to express concerns about this patient still being here. Repeat labs ordered. Patient was aggitated this morning and wanting to leave diazepam given. Tox + for opiates, benzos and marijuana 0800 [facility] called bed availible. Patient will be picked up by EMS shortly Medications Administered Generic Name Dose Route Start Last Admin Trade Name Kate PRN Reason Stop Dose Admin Aspirin 81 mg 04/21/25 17:30 04/21/25 18:22 Aspirin 81 Mg Tab.Chew PO 81 mg DAILY VICKIE Administration Atorvastatin Calcium 80 mg 04/21/25 21:00 04/21/25 21:53 Atorvastatin Calcium 80 Mg Tablet PO 80 mg BEDTIME VICKIE Administration Heparin Sodium (Porcine) 2,600 unit 04/21/25 15:53 04/22/25 02:42 Heparin Sodium,Porcine 5,000 Unit/Ml Vial 40 unit/kg (2600 unit) 2,600 unit IVPUSH Administration PROTOCOL BOLUS PRN 40 unit/kg - Heparin Protocol Protocol Heparin Sodium/Sodium Chloride 25,000 unit in 250 mls @ 0 mls/hr 04/21/25 16:00 04/22/25 02:42 Heparin Sodium,Porcine/1/2ns IVCONT 14 units/kg/hr .Q0M VICKIE 8.97 mls/hr Protocol Titration Per Protocol Insulin Human Lispro 0 unit 04/21/25 21:00 04/21/25 21:54 Insulin Lispro 100 Unit/Ml 3 Ml Vial SUBCUT Not Given QIDACHS [facility] Protocol Morphine Sulfate 4 mg 04/21/25 16:57 04/21/25 18:23 Morphine Sulfate 4 Mg/Ml Cartridge IVPUSH 4 mg Q4H PRN Administration Chest Pain Protocol Ondansetron HCl 4 mg 04/21/25 16:59 04/21/25 18:24 Ondansetron Hcl 4 Mg/2 Ml Vial IVPUSH 4 mg Q4H PRN Administration Nausea and Vomiting Sodium Chloride 3 ml 04/22/25 00:00 04/22/25 01:43 0.9 % Sodium Chloride Flush 3 Ml Syringe IVFLUSH Not Given QSHIFT [facility] Discontinued Medications Generic Name Dose Route Start Last Admin Trade Name Freq PRN Reason Stop Dose Admin Aspirin 252 mg 04/21/25 18:29 04/21/25 18:35 Aspirin 81 Mg Tab.Chew PO 04/21/25 18:30 252 mg ONCE ONE Administration Diazepam 2.5 mg 04/21/25 12:51 04/21/25 12:56 Diazepam 10 Mg/2 Ml Cartridge IVPUSH 04/21/25 12:52 2.5 mg STAT STA Administration Diazepam 2.5 mg 04/21/25 14:38 04/21/25 14:46 Diazepam 10 Mg/2 Ml Cartridge IVPUSH 04/21/25 14:39 2.5 mg STAT STA Administration Diazepam 2.5 mg 04/21/25 15:50 04/21/25 15:54 Diazepam 10 Mg/2 Ml Cartridge IVPUSH 04/21/25 15:51 2.5 mg STAT STA Administration Diazepam 5 mg 04/22/25 06:35 04/22/25 06:51 Diazepam 10 Mg/2 Ml Cartridge IVPUSH 04/22/25 06:36 5 mg STAT STA Administration Diphenhydramine HCl 25 mg 04/21/25 12:51 04/21/25 12:56 Diphenhydramine Hcl 50 Mg/Ml Vial IVPUSH 04/21/25 12:52 25 mg ONCE ONE Administration Haloperidol 5 mg 04/21/25 15:16 04/21/25 15:44 Haloperidol 5 Mg Tablet PO 04/21/25 15:17 5 mg ONCE ONE Administration Haloperidol 5 mg 04/22/25 07:24 04/22/25 07:32 Haloperidol 5 Mg Tablet PO 04/22/25 07:25 5 mg ONCE ONE Administration Heparin Sodium (Porcine) 3,800 unit 04/21/25 15:17 04/21/25 15:56 Heparin Sodium,Porcine 5,000 Unit/Ml Vial 60 unit/kg (3800 unit) 04/21/25 15:18 3,800 unit IVPUSH Administration ONCE ONE Iohexol 65 ml 04/21/25 13:31 04/21/25 13:31 Iohexol 350 Mg/Ml 100 Ml Infus..Btl IV 04/21/25 13:32 65 ml ONCE ONE Administration Morphine Sulfate 4 mg 04/21/25 15:47 04/21/25 15:55 Morphine Sulfate 4 Mg/Ml Cartridge IVPUSH 04/21/25 15:48 4 mg ONCE ONE Administration Protocol Nitroglycerin 0.4 mg 04/21/25 15:12 04/21/25 15:45 Nitroglycerin 0.4 Mg Tab.Subl SUBLINGUAL 04/21/25 15:13 1 tab ONCE ONE Administration Medical Decision Making Medical Decision Making MDM Narrative: 59-year-old male with chest pain and shortness of breath, limited history and no physical exam due to patient refusal (states I dont want to repeat my story, you should know) Problem #1: Chest pain ? rule out Acute Coronary Syndrome (ACS) Assessment: Chest pain concerning for possible ACS or dysrhythmia. Limited history/exam. Plan: * Rule out ACS. * Evaluate for dysrhythmia. * Consider pulmonary embolism, though thought to be unlikely. Problem #2: Anxiety / Uncooperative behavior Assessment: History of anxiety; patient ingested Ativan and Atarax prior to arrival. Anxiety contributing to refusal of history and exam. Plan: Differential Diagnosis Differential Diagnoses: The differential diagnosis associated with the presentation includes * Acute Coronary Syndrome (ACS) * Dysrhythmia * Pulmonary Embolism (PE) * Anxiety/panic attack * Drug effect/toxicity (Ativan, Atarax) * Other causes: * Pericarditis * Myocarditis * Aortic dissection * Non-cardiac etiologies (e.g., musculoskeletal pain, gastrointestinal causes) Admission/Observation Consideration of admission/observation: Escalation of care including admission/observation considered (likely ) Consult Healthcare Provider Management of the patient was discussed with: Hospitalist and Cheese Maker (Cardiology ) Lab Data MDM Lab Attestation statement: I reviewed the patient's lab results. 04/21/25 16:18 04/21/25 11:50 Labs: Lab Results 04/21/25 04/21/25 04/21/25 Range/Units 11:50 14:36 16:18 WBC 5.3 8.6 (4.8-10.8) X10*3/uL RBC 4.89 4.53 L (4.60-5.80) X10*6/uL Hgb 15.2 13.8 L (14.0-18.0) g/dl Hct 43.8 40.1 L (42.0-52.0) % MCV 89.6 88.5 (80.0-98.0) fL MCH 31.1 30.5 (27.0-33.0) pg MCHC 34.7 34.4 (31.0-36.0) g/dl RDW 13.4 13.4 (11.0-16.0) % Plt Count 146 L 143 L (160-400) X10*3/uL MPV 10.0 10.1 (9.4-12.4) fL Immature Gran % (Auto) 0.0 (0.0-0.4) % Neut % (Auto) 63.5 (45-73) % Lymph % (Auto) 25.7 (20-40) % [place] % (Auto) 8.5 (2-11) % Eos % (Auto) 1.5 (0-4) % Baso % (Auto) 0.8 (0-2) % Lymph # (Auto) 1.4 (1.2-4.9) X10*3/uL [place] # (Auto) 0.5 (0.1-1.2) X10*3/uL Eos # (Auto) 0.1 (0.0-0.4) X10*3/uL Baso # (Auto) 0.0 (0.0-0.2) X10*3/uL Abs Immat Gran (auto) 0.00 (0.00-0.03) X10*3/uL Absolute Neuts (auto) 3.4 (2.0-8.3) x10*3/uL Absolute Nucleated RBC 0.000 0.000 (0.0-0.012) X10*3/uL Nucleated RBC % (auto) 0.0 0.0 (0.0-0.2) /100WBC PT 12.7 15.0 H (11.2-13.5) SEC INR 1.0 1.2 H (0.9-1.1) aPTT Heparin Protocol 182.6 H* (53-77.9) SEC D-Dimer High Sensitivty 173 NG/ML Sodium 142 (135-145) mmol/L Potassium 4.2 (3.3-5.1) mmol/L Chloride 104 (96-108) mmol/L Carbon Dioxide 26 (22-29) mmol/L Anion Gap 16 (12-20) BUN 11 (9-16) mg/dL Creatinine 0.89 (0.5-1.4) mg/dL Estim Creat Clear Calc 81.6 Estimated GFR > 60 POC Glucose (60-115) mg/dL Random Glucose 199 H (60-115) mg/dL Lactic Acid 1.5 (0.5-2.0) mmol/L Calcium 10.0 D (8.4-10.2) mg/dL Magnesium 1.7 (1.6-2.6) mg/dL Total Bilirubin 0.7 (0.0-1.0) mg/dL AST 21 (5-37) U/L ALT 18 (0-40) U/L Alkaline Phosphatase 104 (39-117) U/L Troponin I High Sens 28.1 D 723.8 H* D (<3.5-35.0) ng/L Total Protein 7.4 (6.5-8.0) g/dL Albumin 4.8 (3.5-5.0) g/dL Urine Color Urine Appearance Urine pH (5.0-9.0) Ur Specific [place] (1.005-1.025) Urine Protein (Neg-Trace) mg/dL Urine Glucose (UA) (Negative) mg/dL Urine Ketones (Negative) mg/dL Urine Blood (Negative) Urine Nitrite (Negative) Ur Leukocyte Esterase (Negative) Urine RBC (0-2) /HPF Urine WBC (0-5) /HPF Ur Squamous Epith Cells (0-2) /HPF Urine Bacteria (None Seen) Hyaline Casts (0-2) /LPF Urine Opiates Screen (Not Detect) Ur Buprenorphine Scrn (Not Detect) ng/mL Ur Oxycodone Screen (Not Detect) ng/mL Urine Methadone Screen (Not Detect) ng/mL Urine Fentanyl Screen (Not Detect) Ur Barbiturates Screen (Not Detect) Ur Phencyclidine Scrn (Not Detect) Ur Amphetamines Screen (Not Detect) U Benzodiazepines Scrn (Not Detect) Urine Cocaine Screen (Not Detect) U Marijuana (THC) Screen (Not Detect) 04/21/25 04/21/25 04/22/25 Range/Units 17:09 21:44 01:38 WBC (4.8-10.8) X10*3/uL RBC (4.60-5.80) X10*6/uL Hgb (14.0-18.0) g/dl Hct (42.0-52.0) % MCV (80.0-98.0) fL MCH (27.0-33.0) pg MCHC (31.0-36.0) g/dl RDW (11.0-16.0) % Plt Count (160-400) X10*3/uL MPV (9.4-12.4) fL Immature Gran % (Auto) (0.0-0.4) % Neut % (Auto) (45-73) % Lymph % (Auto) (20-40) % [place] % (Auto) (2-11) % Eos % (Auto) (0-4) % Baso % (Auto) (0-2) % Lymph # (Auto) (1.2-4.9) X10*3/uL [place] # (Auto) (0.1-1.2) X10*3/uL Eos # (Auto) (0.0-0.4) X10*3/uL Baso # (Auto) (0.0-0.2) X10*3/uL Abs Immat Gran (auto) (0.00-0.03) X10*3/uL Absolute Neuts (auto) (2.0-8.3) x10*3/uL Absolute Nucleated RBC (0.0-0.012) X10*3/uL Nucleated RBC % (auto) (0.0-0.2) /100WBC PT (11.2-13.5) SEC INR (0.9-1.1) aPTT Heparin Protocol 45.9 L D (53-77.9) SEC D-Dimer High Sensitivty NG/ML Sodium (135-145) mmol/L Potassium (3.3-5.1) mmol/L Chloride (96-108) mmol/L Carbon Dioxide (22-29) mmol/L Anion Gap (12-20) BUN (9-16) mg/dL Creatinine (0.5-1.4) mg/dL Estim Creat Clear Calc Estimated GFR POC Glucose 148 H (60-115) mg/dL Random Glucose (60-115) mg/dL Lactic Acid (0.5-2.0) mmol/L Calcium (8.4-10.2) mg/dL Magnesium (1.6-2.6) mg/dL Total Bilirubin (0.0-1.0) mg/dL AST (5-37) U/L ALT (0-40) U/L Alkaline Phosphatase (39-117) U/L Troponin I High Sens 2864.7 H* D (<3.5-35.0) ng/L Total Protein (6.5-8.0) g/dL Albumin (3.5-5.0) g/dL Urine Color Yellow Urine Appearance Cloudy Urine pH 6.0 (5.0-9.0) Ur Specific [place] >= 1.030 H (1.005-1.025) Urine Protein 30 (1+) H (Neg-Trace) mg/dL Urine Glucose (UA) 250 H (Negative) mg/dL Urine Ketones 80 (Negative) mg/dL Urine Blood Negative (Negative) Urine Nitrite Negative (Negative) Ur Leukocyte Esterase Small (1+) H (Negative) Urine RBC 0-2 (0-2) /HPF Urine WBC 21-50 H (0-5) /HPF Ur Squamous Epith Cells 0-2 (0-2) /HPF Urine Bacteria 4+ (None Seen) Hyaline Casts 0-2 (0-2) /LPF Urine Opiates Screen POSITIVE H (Not Detect) Ur Buprenorphine Scrn Not Detected (Not Detect) ng/mL Ur Oxycodone Screen Not Detected (Not Detect) ng/mL Urine Methadone Screen Not Detected (Not Detect) ng/mL Urine Fentanyl Screen Not Detected (Not Detect) Ur Barbiturates Screen Not Detected (Not Detect) Ur Phencyclidine Scrn Not Detected (Not Detect) Ur Amphetamines Screen Not Detected (Not Detect) U Benzodiazepines Scrn POSITIVE H (Not Detect) Urine Cocaine Screen Not Detected (Not Detect) U Marijuana (THC) Screen POSITIVE H (Not Detect) Independent Interpretation I performed an independent interpretation of an: EKG (Reviewed multiple ) Radiology Impression Discussion of test interpretation with radiology: I have reviewed the radiologist's reading. Independent Historian Clinical information obtained from an independent historian. History obtained from or confirmed by: Spouse ( ) External Record Review External record reviewed: Inpatient record, Office record, Outpatient record, Prior outpatient labs, Prior outpatient radiology, Primary care record and Outside ED record Chronic Conditions Patient?s care impacted by: Other ( See HPI) Social Determinants Patient?s care significantly limited by Social Determinants of Health including: Low income, Alcoholism and drug addiction in family and Other Social Determinant of Health Critical Care Time Critical Care Time Critical Care Time: Yes Total Critical Care Time: 45 Attestation: I attest to this time spent taking care of the patient, obtaining history, physical, reviewing labs, imaging, speaking to my attending and or speaking to specialist. Or preforming a procedure Discharge Plan Discharge Clinical Impression: Non-ST elevation [place] (NSTEMI), Chest pain, Shortness of breath Patient Disposition: General Acute Hospital Transfer Details: [facility] Dr. Chery Prescriptions: No Action (DME) pen needle, diabetic [BD Ultra-Fine Micro Pen Needle] 32 gauge x 1/4 needle See Rx Instructions .ROUTE .MEDSUPPLY Qty: 100 11RF Rx Instructions: 4x daily (DME) Dexcom G7 Sensor Device See Rx Instructions .ROUTE .MEDSUPPLY Qty: 3 11RF Rx Instructions: As directed every 10 days (DME) lancets [FreeStyle Lancets] 28 gauge misc See Rx Instructions .ROUTE .MEDSUPPLY Qty: 100 11RF Rx Instructions: 4x daily (DME) Dexcom G7 Outside [employer] Sales Misc See Rx Instructions .ROUTE .MEDSUPPLY Qty: 1 0RF Rx Instructions: As directed for use with sensors (DME) FreeStyle Lite Strips Strip See Rx Instructions .ROUTE .MEDSUPPLY Qty: 100 11RF Rx Instructions: 3 times daily prn sensor failure (DME) blood-glucose meter [OneTouch Verio Flex meter] Misc See Rx Instructions .Route Qty: 1 0RF Rx Instructions: As directed (DME) OneTouch Verio test strips Strip See Rx Instructions .Route Qty: 400 3RF Rx Instructions: four times daily (DME) lancets [OneTouch Delica Plus Lancet] 33 gauge misc See Rx Instructions .Route Qty: 400 3RF Rx Instructions: four times daily lorazepam [Ativan] 1 mg tablet 1 mg PO TID PRN (Reason: anxiety) mirtazapine 7.5 mg Tablet 7.5 mg PO BEDTIME (DME) blood-glucose meter [FreeStyle Lite Meter] Kit See Rx Instructions .ROUTE .MEDSUPPLY Qty: 1 0RF Rx Instructions: As directed hydroxyzine HCl 50 mg tablet 50 mg PO QID quetiapine 100 mg tablet 100 mg PO TID Interventions: Acute Care Transfer Worksheet (ED) Last Done: 04/22/25 07:46 Print Language: Khmer
[2025-04-21 11:36] VITALS: BP 141/75; PULSE 86; RESP 18; TEMP 36.6; O2SAT 98; BMI 19.9
[2025-04-21 11:55] LABS: MANUAL DIFF FLAG NO
[2025-04-21 11:56] LABS: Hematocrit 43.8 % (42.0-52.0); Hemoglobin 15.2 g/dl (14.0-18.0); Imm Gran Abs Auto 0.00 X10*3/uL (0.00-0.03); Imm Gran Pct Auto 0.0 % (0.0-0.4); Lymphocytes Absolute Auto 1.4 X10*3/uL (1.2-4.9); Mean Corpuscular HGB Conc 34.7 g/dl (31.0-36.0); Mean Corpuscular Hemoglobin 31.1 pg (27.0-33.0); Mean Corpuscular Volume 89.6 fL (80.0-98.0); NRBC Abs Auto 0.000 X10*3/uL (0.0-0.012); NRBC Pct Auto 0.0 /100WBC (0.0-0.2); Platelet Count 146 X10*3/uL (160-400); Red Blood Count 4.89 X10*6/uL (4.60-5.80); White Blood Count 5.3 X10*3/uL (4.8-10.8)
--- OUTSIDE RECORDS SUMMARY | 2025-04-21 12:00 | XMS_ITS | Clinical Summary ---
Author Organization [employer] Address [address] [facility] [address] [place] [address] Care Team Providers Care Engineering Associate Name Role Phone Howard Singh MILA Primary Care Provider [phone] Allergies Active Allergy Reactions Criticality Noted Date [...] 90 tablet 3 025 Active Continuous Glucose Assistant News Director (Dexcom G7 Assistant News Director) device .MEDSUPPLY 025 Active Blood Glucose Monitoring Suppl (NexGen Energy Verio Flex System) w/Device kit USE DIRECTED [...] 2024 Discontinued(T herapy completed) Continuous Blood Gluc Assistant News Director (Dexcom G5 Assistant News Director Kit) deviceIndication s:Type 1 diabetes mellitus maturity [...] Panic disorder 09/22/2023 Overview (09/22/2023): follows w/ DENTAL FRONT OFFICE ASSISTANT Estrella and zaira Goldman at [facility]. Takes: sertraline 150mg , hydroxyzine 50mg TID, quetiapine 50mg TID, lorazepam 1mg Anxiety 09/13/2022 Elevated liver enzymes 01/22/2021 Type 1 diabetes mellitus maturity onset 01/23/20 Overview (09/22/2023): Follows / [facility] Endo. On basal bolus. Kidney disease 03/04/2014 Diabetes mellitus 10/17/2011 Essential hypertension 10/17/2011 Overview (09/22/2023): Losartan 100mg daily Had side effects from lisinopril-hydrochlorothiazide Pure hypercholesterolemia 10/17/2011 Overview (09/22/2023): On Repatha via Endo. Not on statin d/t elevated LFTs. Encounters Date Type Department Care Team Description 04/08/[address] [address] Howard Singh ANP Prior Authorization 03/31/2025 10:30 AM EST Office Visit [address] [address] Howard Singh ANP Type 2 diabetes mellitus with hyperglycemia, with long-term current use of insulin (HCC) (Primary Dx); Essential hypertension; Pure hypercholesterolemia; Panic disorder; Protein-calorie malnutrition, unspecified severity (CMS/HCC); Anorexia 03/31/2025 Orders Only GENERIC EXTERNAL DATA DEPARTMENT Provider, Generic External Data 03/31/2025 Travel 03/28/[address] [address] Howard Singh ANP chart prep 03/21/2025 Results Follow-Up [address] [address] Howard Singh ANP Lipid Panel, Standard, Comprehensive Metabolic Panel, Hemoglobin A1c 02/01/2025 Patient Outreach [address] [address] Howard Singh ANP Care Coordination (CHW outreach for SDOH food needs-LVM ) 02/01/2025 Patient Outreach [address] [address] Howard Singh ANP 01/25/2025 10:30 AM EDT Office Visit [facility] [address] [place] [address] Howard Singh ANP Pre-op evaluation (Primary Dx); Cataract of both eyes, unspecified cataract type; Type 2 diabetes mellitus with hyperglycemia, with long-term current use of insulin (CMS/HCC); Elevated liver enzymes 01/25/2025 Travel 01/24/2025 Travel 01/21/2025 Orders Only [facility] External Provider, [facility] from Last 3 Months Immunizations Immunization Administration [...] Info) Description 05/17/2025 9:15 AM EST Telemedicine [facility] [address] [place] [address] Howard Singh ANP [address] [place] [address] Health Maintenance Due Date Last Done Comments CT Colonography 1967 FIT DNA/Cologuard 1967 FIT 1967 FOBT 1965 Sigmoidoscopy 1967 Eye Exam 1977 Hepatitis A Vaccines (1 of 2 - Risk 2-dose series) 1986 Hepatitis B Vaccines (1 of 3 - 19+ 3-dose series) 1986 Pneumococcal Vaccine: 50+ Years (2 of 2 - PCV) 04/11/2011 04/11/2010 RSV Patients and Patients Aged 60 years or older (1 - Risk 50-74 years 1-dose series) 2017 Diabetes: Urine Protein Screening 11/19/2022 11/19/2021, 09/04/2020 [...] - Td or Tdap) 01/22/2031 01/22/2021, 04/11/2010 HIV Screening Completed 11/09/2019 Hepatitis C Screening [...] with long-term current use of insulin (CMS/HCC) COMPREHENSIVE METABOLIC PANEL Routine 02/22/2025 8:48 AM EDT Type 2 diabetes mellitus with hyperglycemia, with long-term current use of insulin (CMS/HCC) LIPID PANEL, STANDARD Routine 02/22/2025 8:48 AM EDT Type 2 diabetes mellitus with hyperglycemia, with long-term current use of insulin (CMS/HCC) US ABDOMEN DAVIS W ELASTOGRAPHY Routine 01/21/2025 10:37 AM EDT HM COLONOSCOPY Routine 02/24/2023 ZZZ [...] Whole Blood 156(H) 60 - 115 mg/dL [facility] Comment:METER #: [id number] Testing performed in the Endocrinology Department [address] , [address], [employer]. 03/31/2025 3:29 PM EST 03/31/2025 3:36 PM EST us Generic External Data Provider LAB BLOOD ORDERAB LES Final Result [facility] [address] [place] [phone] * (ABNORMAL) Hemoglobin A1c (02/22/2025 8:48 AM EDT) Hemoglobin A1c 6.9(H) <6.0 % [facility] Comment:Hemoglobin A1C Refer ence Range Adults: 4.8 - 6.0 % Non diabetic: < 6.0 % Goal: < 7.0 %Additional Action Suggested: > 8.0 %Note: Hemoglobin A1c results are invalid for patients with abnormal amounts of HbF. Blood transfusions may impact the HbA1c concentration in the patient sample. Estimated Average Glucose 151 mg/dL [facility] Comment:eAG = Estimated ave rage glucose which is %A1C expressed asaverage glucose, using the formula of the M4I-[id number] Glucose study (ADAG), Diabetes Care, Vol.31,#8,Dec. 2007 Blood Venous blood specimen / Unknown 02/22/2025 8:48 AM EDT 02/22/2025 11:46 AM EDT [facility] LAB BLOOD ORDERABLES Final Resul t [facility] [address] [place] [phone] * (ABNORMAL) Lipid Panel, Standard (02/22/2025 8:48 AM EDT) Triglycerides 103 <150 mg/dL [facility] Comment:Desirable Triglyceri de: less than 150 mg/dLBorderline High Triglyceride 150-199 mg/dLHigh Triglyceride: 200-499 mg/dLVery High Triglyceride: greater than or equal to 5OO mg/dL Cholesterol 203(H) <200 mg/dL [facility] Comment:Desirable Cholestero l: less than 200 mg/dLBorderline High Cholesterol: 200-239 mg/dLHigh Cholesterol: greater than 239 mg/dL LDL Cholesterol Calculated 144(H) <100 mg/dL [facility] Comment:Desirable LDL: less than 100 mg/dLNear Optimal/Above Optimal LDL: 110- 129 mg/dLBorderline High LDL: 130-159 mg/dLHigh LDL: 160-189 mg/dLVery High LDL: greater than or equal to 190 mg/dL HDL Cholesterol 39(L) >40 mg/dL [facility] Comment:Desirable HDL: great er than 40 mg/dL Note: This HDL assay may give artificially low results in patients with liver disease. Blood Venous blood specimen / Unknown 02/22/2025 8:48 AM EDT 02/22/2025 11:50 AM EDT Howard Singh [facility] LAB BLOOD ORDERABLES Final Resul t [facility] [address] [place] [phone] * (ABNORMAL) Comprehensive Metabolic Panel (02/22/2025 8:48 AM EDT) Sodium 143 135 - 145 mmol/L [facility] Potassium 4.3 3.3 - 5.1 mmol/L [facility] Chloride 108 96 - 108 mmol/L [facility] Carbon Dioxide 29 22 - 29 mmol/L [facility] Anion Gap 10(L) 12 - 20 [facility] Urea Nitrogen (BUN) 19(H) 9 - 16 mg/dL [facility] Creatinine, Serum 1.07 0.5 - 1.4 mg/dL [facility] Estimated Glomerular Filt Rate >60 [facility] Comment:Chronic Kidney Disea se: Estimated GFR < 60 mL/min/1.65v5Bsimne Kidney Disease: Estimated GFR < 15 mL/min/1.73m2 Glucose 187(H) 60 - 115 mg/dL [facility] Calcium 9.3 8.4 - 10.2 mg/dL [facility] Bilirubin, Total 0.3 0.0 - 1.0 mg/dL [facility] Aspartate Amino Transferase 21 5 - 37 U/L [facility] Alanine Aminotransferase 18 0 - 40 U/L [facility] Total Protein 6.9 6.5 - 8.0 g/dL [facility] Albumin Level 4.4 3.5 - 5.0 g/dL [facility] Alkaline Phosphatase 99 39 - 117 U/L [facility] Blood Venous blood specimen / Unknown 02/22/2025 8:48 AM EDT 02/22/2025 11:50 AM EDT us Howard Signh ANP LAB BLOOD ORDERABLES Final Resul t [facility] [address] [place] [phone] * US ABDOMEN DAVIS W ELASTOGRAPHY (01/21/2025 10:37 AM EDT) Anatomical Region Laterality Modality Abdomen Ultrasound 01/21/2025 10:3 7 AM EDT Narrative 01/21/2025 11:03 AM EDT [address] [address] Ultrasound Report Signed Patient: Alyssia Patten MR#: [id number] : 1965 Acct:[id number] Age/Sex: 59 / M ADM Date: 01/21/25 Loc: HO.US Attending Dr: Nazario Farooq MD Ordering Physician: Nazario Farooq MD Date of Service: 01/21/25 Procedure(s): US abdomen davis w elastography Accession Number(s): [id number] cc: Nazario Farooq MD; HOWARD SINGH DENTAL FRONT OFFICE ASSISTANT EXAMINATION: US ABDOMEN LIMITED WITH LIVER ELASTOGRAPHY [...] 01/21/25 1101 DD/ 1037 TD/TT: 01/21/25 1047 Clinical Team Manager: Procedure Note Donotuseinterpreter, Image - 01/21/2025 [place] [address] Ultrasound Report Signed Patient: Alyssia Patten RMR#: [id number] : 1965Acct:[id number] Age/Sex: 59 / MADM Date: 01/21/25 Loc: HO.US Attending Dr: Nazario Farooq MD Ordering Physician: Nazario Farooq MD Date of Service: 01/21/25 Procedure(s): US abdomen davis w elastography Accession Number(s): [id number] cc: Nazario Farooq MD; HOWARD SINGH NP [...] 01/21/25 1101 DD/ 1037 TD/TT: 01/21/25 1047 Clinical Team Manager: [facility] External Provider IMG US PROCEDURES Edited Result - Final * Colonoscopy (02/24/2023) Colonoscopy Normal Normal Narrative Leslie Waddell - 02/24/2023 Colonoscopy order added Historical Provider HEALTH MAINTENANCE Final Result * MICROALBUMIN/CREATININE RATIO, RANDOM URINE (11/19/2021 12:24 PM EDT) Creatinine Urine 168.36 mg/dL [facility] Microalbum/Creati nine Ratio Ur 35.0 ug/mg cr [facility] Comment: Albumin/Creatinine Ratio Reference Ranges: Normal: < 30 ug/mg creatinine Microalbuminuria: 30 - 300 ug/mg creatinine Clinical Albuminuria: > 300 ug/mg creatinine Microalbumin Urine 59.0 mg/L [facility] 11/19/2021 12:2 4 PM EDT Historical Provider HISTORICAL/NON ORDERABLE LABS Final Result [facility] [address] * HEPATITIS A,B,C PROFILE (11/09/2019 10:25 [...] ORDERABLE LABS Final Result Performing Organization Address [facility] de Phone Number [facility] [address] * HIV AB/AG (11/09/2019 10:25 AM [...] of detection of this assay. The [employer] HIV Ag/Ab Combo assay result and supplemental assay results should be interpreted in conjunction with the patient's clinical presentation, history and other laboratory results. If the results are inconsistent with clinical evidence, additional testing is suggested to confirm the result. 11/09/2019 10:2 5 AM EDT Historical Provider HISTORICAL/NON ORDERABLE LABS Final Result Performing Organization Address [facility] Co de Phone Number [facility] [address] from Last 3 Months or Most Recently Relevant to Health Maintenance Insurance [employer] PPO Care Teams Engineering Associate Relationship Specialty Start Date End Date Howard Singh ANP [address] [place] [phone] PCP - General Family Medicine 01/24/20
--- OUTSIDE RECORDS SUMMARY | 2025-04-21 12:00 | XMS_ITS | Clinical Summary ---
Author Organization Patient Business Ser [facility] Address [address] [place] [address] Care Team Providers Care Heater Operator Helper Name Role Phone Unavailable Primary Care Provider [...] Depression Screening 05/26/2024 COVID-19 Vaccine (1 - 2024-2 6 season) 2025 Influenza Vaccine (#1) 2025 RSV [...]
--- OUTSIDE RECORDS SUMMARY | 2025-04-21 12:00 | XMS_ITS | Encounter Summary ---
Author Organization [employer] Address [address] [facility] 7t [place] [address] Care Team Providers Care Hoisting Engineer Pile Driving Name Role Phone Gisselle Holland Primary Care Provider [phone] Reason for Visit * Reason Onset Date Comments Med Refill 07/06/2023 Encounter Details Date Type Department Care Team (Late st Contact Info) Description 07/06/2023 Refill [facility] [address] [place], [place] [phone] Gisselle Holland ANP [address] [place] [address] Anxiety and depression Social History Tobacco Use [...] Info) Description 05/17/2025 9:15 AM EST Telemedicine [facility] [address] [place] [address] Gisselle Holland ANP [address] [place] [address] documented as of this encounter Visit Diagnoses Diagnosis Anxiety and depression documented in this encounter Additional Health Concerns Assessment Noted Time PHQ-9 Depression Total Score: 25 023 9:08 AM EDT documented as of this encounter Care Teams Hoisting Engineer Pile Driving Relationship Specialty Start Date End Date Gisselle Holland ANP [address] [place] [address] PCP - General Family Medicine 01/24/20 documented as of this encounter
--- OUTSIDE RECORDS SUMMARY | 2025-04-21 12:00 | XMS_ITS | Patient Health Record ---
Author Organization [facility] Address [address] [place] [address] Care Team Providers Care Car Shifter Name Role Phone Mina Zaman Jr [phone] Reason For Referral No Information Plan Of Treatment No Information
[2025-04-21 12:03] LABS: INTERNATIONAL NORM RATIO 1.0 (0.9-1.1); Prothrombin Time 12.7 SEC (11.2-13.5)
[2025-04-21 12:05] LABS: D Dimer High Sensitivity 173 NG/ML
[2025-04-21 12:18] LABS: Alanine Aminotransferase 18 U/L (0-40); Albumin Level 4.8 g/dL (3.5-5.0); Alkaline Phosphatase 104 U/L (39-117); Anion Gap 16 (12-20); Aspartate Amino Transferase 21 U/L (5-37); Blood Urea Nitrogen 11 mg/dL (9-16); Calcium 10.0 mg/dL (8.4-10.2); Carbon Dioxide 26 mmol/L (22-29); Chloride 104 mmol/L (96-108); Creatinine Clr Calc Pharmacy 81.6; Estimated Glomerular Filt Rate > 60; Magnesium 1.7 mg/dL (1.6-2.6); Potassium 4.2 mmol/L (3.3-5.1); Sodium 142 mmol/L (135-145); Total Protein 7.4 g/dL (6.5-8.0)
[2025-04-21 12:25] LABS: Troponin-I High Sensitivity 28.1 ng/L (<3.5-35.0)
[2025-04-21] MEDS: diazePAM 10 MG/2 ML CARTRIDGE 2.5 MG IVPUSH ×3 (12:56→15:54)
[2025-04-21] MEDS: iohexoL 350 MG/ML 100 ML INFUS..BTL 65 ML IV (13:31)
[2025-04-21 14:00] VITALS: BP 143/77; O2SAT 97
--- NOTE | 2025-04-21 14:51 | PC.NURSE ---
Pt comes to ED today with c/o severe anxiety and chest pain. On arrival Pt is significantly tearful and at times uncooperative. at bedside and is helpful with managing Pts emotions. Blood labs completed. 18g to LFA present from EMS. Pt unable to remain still and states he feels he needs to get up and run. CTA ordered and Pt given IV Valium and Benadryl prior to imaging d/t severe agitation. Pt continues to be significantly agitated and states he just wants to scream. CTA and repeat Troponin results pending. Provider aware of Pt level of agitation and second dose of IV Valium ordered. Will continue to monitor. at bedside.
[2025-04-21 15:09] LABS: Troponin-I High Sensitivity 723.8 ng/L (<3.5-35.0)
--- NOTE | 2025-04-21 15:21 | ECG_ITS ---
Test Reason : CP/SOB Blood Pressure : */* mmHG Vent. Rate : 81 BPM Atrial Rate : 81 BPM P-R Int : 150 ms QRS Dur : 90 ms QT Int : 382 ms P-R-T Axes : 75 50 65 degrees QTcB Int : 443 ms Normal sinus rhythm with sinus arrhythmia Normal ECG When compared with ECG of 21-Apr-2025 11:36, ST no longer depressed in Anterior leads QT has lengthened Referred By: Cathy Velazquez Electronically Signed By: Wilmer Geiger
[2025-04-21 15:47] VITALS: BMI 20.3
--- NOTE | 2025-04-21 16:11 | MHC.EDTECH ---
1509 called [facility] spoke with Nataliia, asked her the status of the CT sent at 1230 today. She said they did not have any readings for this patient. I called Xray and asked them to resend patients CT scan.
--- NOTE | 2025-04-21 16:14 | MHC.EDTECH ---
152 called [facility] to confirm CT was received on this patient. They said it was received but need more information from CT to read it. i asked can it be stat read after information is confirmed they said, Yes. Transferred the call to xray ([phone]) with their consent, so they could provided the additional information needed to get the study set up to be read.
[2025-04-21] MEDS: Heparin Sodium,Porcine/1/2NS 25,000 UNIT/250 ML IV.SOLN 7.69 UNIT IVCONT (16:15)
--- NOTE | 2025-04-21 16:23 | MHC.EDTECH ---
1351 I called [facility] spoke with Shayla, she has the CT in queue to be read, its not set as a stat read, She has no notes on this account, I explained we called multiple times about this patient and this CT. could she please make it a stat JET read since we have been waiting since 1230 our time. She said yes.
--- NOTE | 2025-04-21 16:44 | ECG_ITS ---
Test Reason : ELEVATED TROP Blood Pressure : */* mmHG Vent. Rate : 70 BPM Atrial Rate : 70 BPM P-R Int : 148 ms QRS Dur : 88 ms QT Int : 374 ms P-R-T Axes : 81 60 67 degrees QTcB Int : 403 ms Right sided leads Normal sinus rhythm with sinus arrhythmia Septal infarct , age undetermined Abnormal ECG When compared with ECG of 21-Apr-2025 16:02, Septal infarct is now Present Nonspecific T wave abnormality now evident in Anterior leads Referred By: Celso Michel Electronically Signed By: Wilmer Geiger
[2025-04-21 16:57] LABS: Hematocrit 40.1 % (42.0-52.0); Hemoglobin 13.8 g/dl (14.0-18.0); Mean Corpuscular HGB Conc 34.4 g/dl (31.0-36.0); Mean Corpuscular Hemoglobin 30.5 pg (27.0-33.0); Mean Corpuscular Volume 88.5 fL (80.0-98.0); NRBC Abs Auto 0.000 X10*3/uL (0.0-0.012); NRBC Pct Auto 0.0 /100WBC (0.0-0.2); Platelet Count 143 X10*3/uL (160-400); Red Blood Count 4.53 X10*6/uL (4.60-5.80); White Blood Count 8.6 X10*3/uL (4.8-10.8)
[2025-04-21 17:04] LABS: INTERNATIONAL NORM RATIO 1.2 (0.9-1.1); Prothrombin Time 15.0 SEC (11.2-13.5)
[2025-04-21 17:10] VITALS: BP 115/66; PULSE 82; RESP 27; TEMP 36.6; O2SAT 98
--- NOTE | 2025-04-21 17:33 | P.HPHOSP_ITS ---
History of Present Illness Date of Service: 04/21/25 Chief Complaint: chest pain 59yo M with DM2, HTN, and HLD; without prior hx of [place] or CVA; presenting with severe substernal chest pressure with which he woke up after having a nightmare this morning; associated with dyspnea and sweating; worsened by walking around; complicated by anxiety and thoughts of wanting to be . He took Atarax and Ativan without relief of symptoms and came in to the ED. CTA was negative for PE. EKG showed anterior ST depressions and Tn-I (HS) increased from 28.1 at 11:50 to 723.8 at 14:36 then 2864.7 at 17:09. Cardiology was consulted and the patient was started on heparin drip. He was given morphine and NTG with relief of the pain. He was also given Haldol, Valium, and Benadryl for agitation and threatening to leave the hospital. Aspirin listed as allergy; pt states it made him have palpitations in the past. Likewise, simvstatin listed as allergy, having caused a mild rash in the past. He is awaiting PA for Repatha. Review of Systems 2 Review of Systems: Yes all other systems are reviewed and are negative [facility] Medical History Uncontrolled type 2 diabetes mellitus with hyperglycemia Transaminitis Vitamin D deficiency HLD (hyperlipidemia) HTN (hypertension) Family History Mother Diabetes Hypertension Father Myocardial infarction Surgical History Hx of eye surgery History of esophagogastroduodenoscopy (EGD) Hx of colonoscopy History of carpal tunnel release Social History Household Members: Spouse Are you a primary child care supervisor to a significant other at home: No Do you presently have visiting nurse or other home services: No Alcohol intake: former Year quit: 09/14 Patient Tobacco Use Status: Former Tobacco user Years Smoked: 20 +/- Advance Directives: No Advance Directives Information Provided: Yes Do you have a plan to hurt others: No Plan Meds Allergies Allergy/AdvReac Type Severity Reaction Status Date / Time aspirin Allergy Unknown Unknown. Verified 04/21/25 11:38 simvastatin Allergy Unknown rash Verified 04/21/25 11:38 Active Medications: Current Medications Acetaminophen (Acetaminophen 325 Mg Tablet) 650 mg PO Q6H PRN PRN Reason: Pain, Mild 1-3,fever,headache Aspirin (Aspirin 81 Mg Tab.Chew) 81 mg PO DAILY [facility] Atorvastatin Calcium (Atorvastatin Calcium 80 Mg Tablet) 80 mg PO BEDTIME [facility] Calcium Carbonate (Calcium Carbonate 750 Mg Tab.Chew) 750 mg PO Q4H PRN PRN Reason: Heartburn Dextrose (Dextrose 50 % 25 Gm/50 Ml Syringe) 25 gm IVPUSH Q15M PRN; Protocol PRN Reason: per Hypoglycemia Standing Ord. Glucose (Glucose Gel 15 Gm Gel..Gram.) 15 gm PO Q15M PRN; Protocol PRN Reason: per Hypoglycemia Standing Ord. Heparin Sodium (Porcine) (Heparin Sodium,Porcine 5,000 Unit/Ml Vial) 2,600 unit 40 unit/kg (2600 unit) IVPUSH PROTOCOL BOLUS PRN; Protocol PRN Reason: 40 unit/kg - Heparin Protocol Heparin Sodium (Porcine) (Heparin Sodium,Porcine 5,000 Unit/Ml Vial) 5,100 unit 80 unit/kg (5100 unit) IVPUSH PROTOCOL BOLUS PRN; Protocol PRN Reason: 80 unit/kg - Heparin Protocol Heparin Sodium/Sodium Chloride (Heparin Sodium,Porcine/1/2ns) 25,000 unit in 250 mls @ 0 mls/hr IVCONT .Q0M [facility]; Protocol Last Admin: 04/21/25 16:15 Dose: 12 units/kg/hr, 7.69 mls/hr Insulin Human Lispro (Insulin Lispro 100 Unit/Ml 3 Ml Vial) 0 unit SUBCUT QIDACHS [facility]; Protocol Magnesium Hydroxide (Milk Of Magnesia 30 Ml Oral.Susp) 30 ml PO DAILY PRN PRN Reason: Constipation Melatonin (Melatonin 3 Mg Tablet) 6 mg PO BEDTIME PRN PRN Reason: Insomnia Morphine Sulfate (Morphine Sulfate 4 Mg/Ml Cartridge) 4 mg IVPUSH Q4H PRN; Protocol PRN Reason: Chest Pain Ondansetron HCl (Ondansetron Hcl 4 Mg/2 Ml Vial) 4 mg IVPUSH Q4H PRN PRN Reason: Nausea and Vomiting Sodium Chloride (0.9 % Sodium Chloride Flush 3 Ml Syringe) 3 ml IVFLUSH QSHIFT [facility] Home Medications ?Medication ?Instructions ?Recorded ?Confirmed ?Last Taken ?Type losartan 50 mg tablet 50 mg PO QAM 08/28/22 Unknown History hydroxyzine HCl 50 mg tablet 50 mg PO TID 08/22/23 Unknown History quetiapine 100 mg tablet mg PO 03/31/25 Unknown Hist ory Physical Exam 2 Vital Signs and Narrative: Vital Signs: Last Vital Signs Temp 97.9 F 04/21/25 17:10 Pulse 82 04/21/25 17:10 Resp 27 H 04/21/25 17:10 BP 115/66 04/21/25 17:10 Pulse Ox 98 04/21/25 17:10 O2 Del Method Room Air 04/21/25 17:10 BMI result Body Mass Index 20.3 Gen: in no acute distress HEENT: sclera anicteric, moist mucus membranes Neck: supple, no JVD Lungs: clear to auscultation bilaterally Heart: regular rate and rhythm, no murmurs Abd: soft, non-tender, non-distended Ext: no edema Skin: warm/well-perfused Neuro: alert and oriented x3, no focal findings Psych: restricted affect Results Labs 04/21/25 16:18 04/21/25 11:50 Labs: Laboratory Results - last 24 hr 04/21/25 04/21/25 04/21/25 11:50 14:36 16:18 MCV 89.6 88.5 MCH 31.1 30.5 MCHC 34.7 34.4 RDW 13.4 13.4 Plt Count 146 L 143 L MPV 10.0 10.1 Immature Gran % (Auto) 0.0 Neut % (Auto) 63.5 Lymph % (Auto) 25.7 Ector % (Auto) 8.5 Eos % (Auto) 1.5 Baso % (Auto) 0.8 Lymph # (Auto) 1.4 Ector # (Auto) 0.5 Eos # (Auto) 0.1 Baso # (Auto) 0.0 Abs Immat Gran (auto) 0.00 Absolute Neuts (auto) 3.4 Absolute Nucleated RBC 0.000 0.000 Nucleated RBC % (auto) 0.0 0.0 PT 12.7 INR 1.0 D-Dimer High Sensitivty 173 Anion Gap 16 Estim Creat Clear Calc 81.6 Estimated GFR > 60 Random Glucose 199 H Lactic Acid 1.5 Calcium 10.0 D Magnesium 1.7 Total Bilirubin 0.7 AST 21 ALT 18 Alkaline Phosphatase 104 Troponin I High Sens 28.1 D 723.8 H* D Total Protein 7.4 Albumin 4.8 Assessment and Plan (1) Non-ST elevation [place] (NSTEMI): Status: Acute Plan 59yo M with DM2, HTN, and HLD presenting with chest pressure, ST depressions, and troponin increase consistent with NSTEMI NSTEMI - admit to telemetry, continue heparinization, give ASA + atorvastatin as the benefits outweight the risks, Cardiology consult re PCI, TTE, morphine/NTG prn pain suicidal ideation - sitter, CARE Team when medically cleared HLD: statin as above HTN: losartan DM2: A1c 6.9 02/22/25. Lantus and correction-dose lispro anxiety: lorapzeam, hydroxyzine, quetiapine VTE ppx: UFH dispo: will likely need PCI code: full I anticipate that the patient will stay at least 2 midnights as an inpatient in the hospital due to the above reasons. It is neither reasonable nor safe to care for them in a less acute setting. Quality VTE VTE Risk Level:: Medical - moderate - high VTE Device Contraindication: N/A - Device Ordered VTE Drug Contraindication: N/A - Med Ordered
[2025-04-21 18:03] LABS: PTT Heparin Drip 182.6 SEC (53-77.9)
--- NOTE | 2025-04-21 18:11 | HO.NURTONUR ---
Pt comes to ED today with c/o severe anxiety and chest pain. On arrival Pt is significantly tearful and at times uncooperative. Pt admitted for NSTEMI. Heparin drip running at 12 u/kg/hr Repeat PTT ordered for 2215. Pt with active SI. [id number] initiated. 1:[address] Care Team to eval once medical cleared. A&Ox3 Pt is resistive to care and requires frequent counseling on importance care plan. VSS Cardiac monitoring in place. 18g to bilat forearms. at bedside.
--- NOTE | 2025-04-21 18:15 | PHA.MEDREC ---
Pharmacy Consult ? Medication Reconciliation Pharmacy has completed the medication reconciliation.Med rec complete, spoke to patients and compared with pharmacy claims history. She also had the medication bottles with her
[2025-04-21 18:23] VITALS: RESP 18
[2025-04-21 21:48] LABS: Glucose, Whole Blood 148 mg/dL (60-115)
[2025-04-21 22:00] VITALS: BP 101/54; PULSE 92; RESP 16; TEMP 37.2; O2SAT 96
[2025-04-22 01:32] VITALS: BP 121/63; PULSE 91; RESP 22; TEMP 37.2; O2SAT 95
[2025-04-22 01:47] LABS: Appearance Urine Cloudy; Glucose Urine UA 250 mg/dL (Negative); PH 6.0 (5.0-9.0); Specific Gravity - Urine >= 1.030 (1.005-1.025); UMIC TRIGGER UACC YES
[2025-04-22 01:52] LABS: UACC Culture Trigger YES
[2025-04-22 01:59] LABS: Cannabinoid Screen Urine POSITIVE (Not Detect)
[2025-04-22 02:07] LABS: PTT Heparin Drip 45.9 SEC (53-77.9)
[2025-04-22] MEDS: diazePAM 10 MG/2 ML CARTRIDGE 5 MG IVPUSH (06:51)
--- NOTE | 2025-04-22 07:39 | ECG_ITS ---
Test Reason : CP Blood Pressure : */* mmHG Vent. Rate : 78 BPM Atrial Rate : 78 BPM P-R Int : 144 ms QRS Dur : 88 ms QT Int : 368 ms P-R-T Axes : 76 62 74 degrees QTcB Int : 419 ms Normal sinus rhythm with sinus arrhythmia Normal ECG When compared with ECG of 21-Apr-2025 16:44, Previous ECG was a posterior ECG Nonspecific T wave abnormality no longer evident in Anterior leads Referred By: Cathy Velazquez Electronically Signed By: Wilmer Geiger
[2025-04-22 07:46] VITALS: BP 121/63; PULSE 91; RESP 22; TEMP 37.2; O2SAT 95
[2025-04-22 07:59] LABS: MANUAL DIFF FLAG NO
[2025-04-22 08:19] LABS: Alanine Aminotransferase 25 U/L (0-40); Albumin Level 4.7 g/dL (3.5-5.0); Alkaline Phosphatase 96 U/L (39-117); Anion Gap 17 (12-20); Aspartate Amino Transferase 102 U/L (5-37); Blood Urea Nitrogen 16 mg/dL (9-16); Calcium 9.7 mg/dL (8.4-10.2); Carbon Dioxide 25 mmol/L (22-29); Chloride 102 mmol/L (96-108); Creatinine Clr Calc Pharmacy 89.0; Estimated Glomerular Filt Rate > 60; Magnesium 1.7 mg/dL (1.6-2.6); Potassium 3.7 mmol/L (3.3-5.1); Sodium 140 mmol/L (135-145); Total Protein 7.3 g/dL (6.5-8.0)
[2025-04-22 08:29] LABS: Hematocrit 43.7 % (42.0-52.0); Hemoglobin 14.9 g/dl (14.0-18.0); Imm Gran Abs Auto 0.03 X10*3/uL (0.00-0.03); Imm Gran Pct Auto 0.4 % (0.0-0.4); Lymphocytes Absolute Auto 1.1 X10*3/uL (1.2-4.9); Mean Corpuscular HGB Conc 34.1 g/dl (31.0-36.0); Mean Corpuscular Hemoglobin 30.5 pg (27.0-33.0); Mean Corpuscular Volume 89.5 fL (80.0-98.0); NRBC Abs Auto 0.000 X10*3/uL (0.0-0.012); NRBC Pct Auto 0.0 /100WBC (0.0-0.2); Platelet Count 145 X10*3/uL (160-400); Red Blood Count 4.88 X10*6/uL (4.60-5.80); White Blood Count 8.0 X10*3/uL (4.8-10.8)
--- NOTE | 2025-04-22 09:10 | PC.NURSE ---
Nurse to nurse report given to Margarita FREITAS at [facility] [place] Patient care transferred to [place] Heparin drip still running at 14 units on transfer Patient discharged
== END 2025-04-22 09:09 | disposition short-term general hospital (02) ==
PROVIDERS: Physician Assistant; Emergency Provider Emergency Medicine
DX: I21.4 Non-ST elevation (NSTEMI) myocardial infarction (principal); R06.02 Shortness of breath; R45.851 Suicidal ideations; F41.9 Anxiety disorder, unspecified; I10 Essential (primary) hypertension; E11.9 Type 2 diabetes mellitus without complications; Z88.6 Allergy status to analgesic agent; Z88.8 Allergy status to other drugs, medicaments and biological substances
CPT/HCPCS: 36415; 71275; 80053; 80307; 81001; 82947; 83605; 83735; 84484; 85025; 85027; 85379; 85610; 85730; 87040; 87086; 87088; 87186; 93005; 96360; 96365; 96366; 96375; 96376; 99285; 99291; J1200; J1644; J2270; J2405; J3360; Q9967

== ENCOUNTER → 2025-04-21 11:26 | Outpatient (BNV) | payer OTHER, SELFPAY | PROVIDERS: Emergency Provider Emergency Medicine; Visit Provider Internal Medicine Cardiovascular Disease | DX: R94.31 Abnormal electrocardiogram [ECG] [EKG] (principal); R07.9 Chest pain, unspecified; R06.02 Shortness of breath; I49.9 Cardiac arrhythmia, unspecified; I21.4 Non-ST elevation (NSTEMI) myocardial infarction | CPT/HCPCS: 93010 ==

== ENCOUNTER → 2025-04-21 12:30 | Outpatient (BNV) | payer OTHER, SELFPAY | PROVIDERS: Emergency Provider Emergency Medicine; Visit Provider Radiology Diagnostic Radiology | DX: R07.9 Chest pain, unspecified (principal); R06.02 Shortness of breath | CPT/HCPCS: 71275 ==

== ENCOUNTER → 2025-04-22 07:39 | Outpatient (BNV) | payer OTHER, SELFPAY | PROVIDERS: Emergency Provider Emergency Medicine; Visit Provider Internal Medicine Cardiovascular Disease | DX: R07.9 Chest pain, unspecified (principal) | CPT/HCPCS: 93010 ==

== ENCOUNTER → 2025-04-22 23:59 | Outpatient (BNV) | payer OTHER, SELFPAY | PROVIDERS: Visit Provider Internal Medicine Cardiovascular Disease | DX: I21.4 Non-ST elevation (NSTEMI) myocardial infarction (principal) | CPT/HCPCS: 92941; 92978; 93458; 99152 ==

== ENCOUNTER 2025-04-28 13:48 | Outpatient (AMB) | payer OTHER, SELFPAY ==
--- NOTE | 2025-04-28 14:10 | A.OFFVIS_ITS ---
Vital Signs 04/28/25 14:11 Height 5 ft 10 in Weight 127 lb 13.89 oz BMI 18.3 BP 110/60 Blood Pressure Location Lt brachial Position Sitting Pulse 74 Pulse Source Pulse Oximeter Intake Visit Reasons: f/up Allergies aspirin Allergy (Unknown, Verified 04/21/25 11:38) Unknown. simvastatin Allergy (Unknown, Verified 04/21/25 11:38) rash Medication List - Last Reviewed 04/28/25 by Tere Hess aspirin 81 mg PO DAILY atorvastatin (Lipitor) 80 mg PO BEDTIME blood-glucose meter (FreeStyle Lite Meter kit) As directed blood-glucose sensor (Dexcom G7 Sensor device) As directed every 10 days Dexcom G7 Batter Depositor (blood-glucose,scholarship counselor,cont) As directed for use with sensors NS FreeStyle Lite Strips (blood sugar diagnostic) 3 times daily prn sensor failure NS glucose 4 grams PO Q15M PRN hydroxyzine HCl 10 mg PO BEDTIME PRN insulin glargine (Lantus U-100 Insulin) 12 units subcut QPM insulin lispro (Humalog U-100 Insulin) 3 - 8 units subcut TID lancets (FreeStyle Lancets) 4x daily lorazepam (Ativan) 1 mg PO TID PRN losartan 100 mg PO DAILY metoprolol succinate ER 25 mg PO DAILY mirtazapine 7.5 mg PO BEDTIME mirtazapine 15 mg PO BEDTIME multivitamin 1 tab PO DAILY OneTouch Delica Plus Lancet (lancets) four times daily NS OneTouch Verio Flex meter (blood-glucose meter) As directed NS OneTouch Verio test strips (blood sugar diagnostic) four times daily NS pen needle, diabetic (BD Ultra-Fine Micro Pen Needle) 4x daily quetiapine 25 mg PO TID ticagrelor 90 mg PO BID HPI Comments Details: Nabor returns for follow-up. In the past, he has had chest pains and underwent workup which were unremarkable. In his stress test from June of 2023, no EKG or echo evidence of ischemia at 7 METS exercise capacity. However, there was a recent visit Angelika DELAROSA with chest pains and in that setting diagnosed with NSTEMI and transferred to [facility]. He underwent PCI to proximal circumflex. Subsequently, discharged home. He was put on dual antiplatelet therapy and discharged but patient seems to be not taking them. Not entirely clear. Otherwise, he does not have any further chest pains or other symptoms. He also has some psychiatry issues. [facility] Medical History Uncontrolled type 2 diabetes mellitus with hyperglycemia Transaminitis Vitamin D deficiency HLD (hyperlipidemia) HTN (hypertension) Surgical History Hx of eye surgery History of esophagogastroduodenoscopy (EGD) Hx of colonoscopy History of carpal tunnel release Family History Mother Diabetes Hypertension Father Myocardial infarction Social History Household Members: Spouse Are you a primary progressive care unit registered nurse to a significant other at home: No Do you presently have visiting nurse or other home services: No Alcohol intake: former Year quit: 09/14 Patient Tobacco Use Status: Former Tobacco user Years Smoked: 20 +/- Review of Systems Const Denies weakness ENT Denies dizziness Card Denies chest pain, Denies chest pain with activity, Denies syncope, Denies rapid heart rate, Denies pedal edema, Denies edema, Denies leg edema, Denies lighthe adedness, Denies palpitations, Denies dyspnea, Denies dyspnea on exertion and Denies orthopnea Resp Denies cough, Denies dyspnea and Denies dyspnea on exertion GI Denies hematochezia and Denies change in stool character Musc Denies abnormal gait, Denies muscle cramps, Denies muscle weakness, Denies numbness, Denies radiating pain into limb and Denies tingling Neuro Denies abnormal gait, Denies dizziness, Denies syncope, Denies numbness, Denies tingling and Denies weakness Endo Denies palpitations Physical Exam Vital Signs: Last Vital Signs Pulse 74 04/28/25 14:11 BP 110/60 04/28/25 14:11 BMI result Body Mass Index 18.3 Const General: comfortable and no acute distress Orientation/consciousness: patient oriented x3 HEENT Other: Unremarkable Head: Yes normal to inspection Neck Neck: Yes normal visual inspection Chest Chest palpation & inspection: normal inspection of the chest Resp Auscultation: clear to auscultation bilaterally Cardio Palpation: normal PMI Heart sounds: S1 normal heart sound present, S2 normal heart sound present, no gallops, no murmurs and no rubs GI Palpation (GI): Soft to palpation Back/Spine/Pelvis Other: unremarkable Skin General skin exam: no rashes or lesions noted Neuro General: patient oriented x3 Extrem General: Yes normal to inspection Psych Mental Status: mental status grossly normal Assessment & Plan Assessment & Plan (1) Non-ST elevation MS (NSTEMI): Code(s): I21.4 - Non-ST elevation (NSTEMI) myocardial infarction Category: Medical (2) Atherosclerotic cardiovascular disease: Code(s): I25.10 - Atherosclerotic heart disease of [place] coronary artery without angina pectoris Category: Medical Plan In the recent cardiac catheterization, plaque rupture in the proximal circumflex, thought to be the culprit for presentation. Status post PCI. Mild luminal irregularities in the LAD/RCA. Echocardiogram with LVEF of 55-60%. No wall motion abnormalities and otherwise unremarkable. I made it very clear to him that he needs to take his medications as he may not be taking the aspirin/Brilinta in some of the other medications prescribed at [facility]. He will need to be on aspirin long-term and Brilinta for the 1st year. This is mention of Aspirin allergy, but not clear if it is accurate or not and we will need to verify this. He is also on beta-blockers/statins and may take those as instructed. Follow-up lipids in due course. We discussed about cardiac rehabilitation but patient is not interested in that. Discussion Notes I spoke with the patient and his regarding his recent hospitalization and stent placement. I addressed his non-adherence to the medications prescribed at discharge from [facility], which include aspirin, ticagrelor, and atorvastatin. I strongly emphasized that taking these medications is critical to prevent the stent from failing, which could result in a larger heart attack. We discussed cardiac rehabilitation, which he declined at this time, but he agreed to try walking at home and avoiding strenuous activities. I advised a follow-up visit in a couple of months for reassessment. Patient was informed and verbally consented to the use of an ambient scribe for clinic note documentation during this visit. Patient Instructions: - It is very important that you take all the new medicines you were given from the hospital, especially the aspirin, Brilinta, and atorvastatin. - These medications will prevent your new stent from getting a clot and will prevent a future, bigger heart attack. - It is normal to feel weak and tired after your heart procedure. - You can start walking at home, but do not do any strenuous activities like shoveling snow. - You should try to eat light meals and drink fluids. - We will see you back in the office in about two months. Coding Level of Care Code Est Pt Level 4 (83034) Complex visit Add On G2211 Diagnoses Non-ST elevation MS (NSTEMI) I21.4 Atherosclerotic cardiovascular disease I25.10
[2025-04-28 14:11] VITALS: BP 110/60; PULSE 74; BMI 18.3
== END 2025-04-28 14:29 | disposition home or self-care (01) ==
LOC: HO.HCS 13:49
PROVIDERS: Visit Provider Internal Medicine
DX: I21.4 Non-ST elevation (NSTEMI) myocardial infarction (principal); I25.10 Atherosclerotic heart disease of native coronary artery without angina pectoris
CPT/HCPCS: 99214; G2211